=== PATIENT | male | born 1955 | race Caucasian/White ===

== ENCOUNTER 2019-04-30 21:48 | Emergency (ER) | payer MEDICARE ==
--- OUTSIDE RECORDS SUMMARY | 2019-04-30 21:50 | XMS REPORT | Summary of Care ---
:1955 Author Organization [facility] Address [address] [place] [address] Care Team Providers Name Role Phone Mary Weston MD Primary Care Provider Opal Nicolas RN Primary Nurse Unavailable Opal Nicolas RN Primary Nurse Unavailable Reason for Referral (Routine) Status Reason Specialty Diagnoses / Referred By Referred To Procedures Contact Contact New Request Location Otolaryngology Diagnoses Rhinorrhea Neelam Weston, Preference Procedures CONSULT/REFERRAL OTOLARYNGOLOGY Mark Cheatham/Pc p Prov Not [address] [facility] [address] [address] Reason for Visit Reason Comments Hospital F/U [facility] 03/07/2019 (Routine) Status Reason Specialty Diagnoses / Referred By Referred To Procedures Contact Contact Closed Internal Medicine Diagnoses Dex Hilliard MD Jaramillo, Procedures Discharge Follow-up: PCP MAYR WESTON; 3-[address] [place] [address] Mary Valladares MD [facility] [address] [facility] [place] [phone] [place], [place] Phone: [phone] Phone: Encounter Details Date Type Department Care Team Description 03/19/2019 Office Visit [facility] Weston, Asymptomatic microscopic hematuria (Primary Dx); Pediatric and Adult Mary Valladares MD Rhinorrhea; Primary Care- [address] [place] [address] Chronic gout without tophus, unspecified cause, unspecified site; [facility] [address] Iron deficiency anemia due to chronic blood loss; [address], [place] [address] Epigastric pain; [address] Weakness; [place], [place] Arthritis; [id number] Urinary frequency [phone] Allergies Active Allergy Reactions Severity Noted Date Comments Pregabalin Unknown - See comments 04/13/2018 Affected thinking processes severely Morphine Other - See comments 03/23/2016 Severe confusion Montelukast Hives 03/19/2019 documented as of this encounter (statuses as of 03/23/2019) Medications Medication Sig Dispensed Refills Start End Date Status Date nitroglycerin 0.[address] 1 tablet 1 Bottle 2 Active sublingual tablet under the 7 tongue every 5 (five) minutes as needed for Chest pain. carvedilol 12.5 mg Take 1 tablet 180 tablet 3 Active tabletIndications: by mouth 2 8 Essential (two) times hypertension, benign daily with meals. levothyroxine 150 mcg Take 1 tablet 90 tablet 3 Active tabletIndications: by mouth every 8 Acquired morning. hypothyroidism rosuvastatin 40 mg Take 1 tablet 90 tablet 3 Active tablet by mouth at 8 bedtime. tamsulosin 0.4 mg 24 Take 1 capsule 90 capsule 3 Active hr by mouth 8 capsuleIndications: daily. Urinary symptom or sign gabapentin 300 mg Take 3 270 capsule 3 Active capsuleIndications: capsules by 8 Cervical myelopathy, mouth 3 Neck pain (three) times daily. furosemide 80 mg Take 1 tablet 180 tablet 1 Active tablet by mouth every 8 morning and evening. blood sugar Use TID, DX 100 Box Active diagnostic strip E11.9 (Brand 9 upon insurance approval) Accu-chek guide magnesium oxide 400 Take 1 tablet 30 tablet 11 Active mg (241.3 mg by mouth 9 magnesium) daily. tabletIndications: Hypomagnesemia KCL 20 mEq Take 1 tablet 60 tablet Active tabletIndications: by mouth 2 9 Essential (two) times hypertension daily. lisinopril 5 mg Take 1 tablet 60 tablet 3 Active tabletIndications: by mouth 2 9 Essential (two) times hypertension daily. metFORMIN 500 mg Take 1 tablet 60 tablet 3 Active tabletIndications: by mouth 2 9 Type 2 diabetes (two) times mellitus with daily with diabetic meals. polyneuropathy, without long-term current use of insulin Olopatadine 0.2 % Place 1 Drop 2.5 mL 3 Active ophthalmic in each eye 9 dropsIndications: daily. Nasal discharge with watery eyes GLIPIZIDE 5 mg TAKE 1 TABLET 180 tablet 1 Active tabletIndications: BY MOUTH TWICE 9 Type 2 diabetes DAILY . mellitus with BEFORE diabetic BREAKFAST AND polyneuropathy, DINNER. without long-term current use of insulin HYDRALAZINE 100 mg TAKE 1 TABLET 90 tablet 7 Active tabletIndications: BY MOUTH EVERY 9 Essential 8 HOURS hypertension, benign amLODIPine 10 mg Take 10 mg by 0 Active tablet mouth daily. pantoprazole 40 mg EC Take 1 tablet 60 tablet 5 Active tabletIndications: by mouth 2 9 Upper GI bleeding (two) times daily. sucralfate 1 gram Take 1 tablet 120 tablet 2 Active tabletIndications: by mouth 9 Upper GI bleeding before meals and at bedtime. ranitidine 300 mg Take 1 tablet 90 tablet 3 Active tabletIndications: by mouth at 9 Gastroesophageal bedtime. reflux disease, esophagitis presence not specified montelukast Take 1 tablet 30 tablet 3 03/19/20 Discontinued (SINGULAIR) 10 mg by mouth at 9 19 tabletIndications: bedtime. Nasal discharge with watery eyes traMADOL 50 mg Take 1 tablet 8 tablet 0 03/19/20 Discontinued tabletIndications: by mouth every 9 19 Upper GI bleeding 6 (six) hours as needed for Pain (scale 4-6) or Pain (scale 7-10). documented as of this encounter (statuses as of 03/23/2019) Active Problems Problem Noted Date Infection 03/09/2019 Iron deficiency anemia, unspecified iron deficiency anemia type 03/07/2019 Overview: Added automatically from request for surgery [id number] Upper GI bleeding 03/01/2019 Dysarthria 07/24/2018 Dysphagia, unspecified type 07/24/2018 Overview: Added automatically from request for surgery [id number] Hypokalemia 06/02/2018 GARIBAY (dyspnea on exertion) 06/02/2018 Melena 05/05/2018 Hypertensive urgency 05/02/2018 Nausea & vomiting 05/01/2018 Weakness 01/29/2018 Confusion 01/26/2018 Coronary artery disease involving [place] coronary artery of [place] heart 06/14 without angina pectoris Carotid artery disease, unspecified laterality 05/29/2017 Myelinated optic nerve fiber layer, left 12/21/2016 Cataracts, both eyes 12/21/2016 [place] retinal degeneration, bilateral 12/21/2016 Hypertensive retinopathy of both eyes 12/21/2016 Diabetes mellitus type 2 without retinopathy 12/21/2016 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 12/21/2016 Exudative age-related macular degeneration of right eye 12/21/2016 Chronic diastolic congestive heart failure 10/10/2016 Obesity (BMI 30-39.9) 10/10/2016 Acquired hypothyroidism 04/18/2016 Osteoarthritis 04/18/2016 Overview: Overview: cervical stenosis Essential hypertension 04/18/2016 Overview: Overview: Increase activity and Weight loss counseling if needed, [place] Heart diet, Home monitoring of blood pressures, Follow up with primary provider Medications: carvedilol, clonidine, lisinopril, spironolactone, furosemide Hyperlipidemia 04/18/2016 Overview: Overview: Increase activity, [place] Heart diet, monitoring of levels by primary provider, continue medication of: pravastatin Obstructive sleep apnea syndrome 04/18/2016 Overview: Overview: Patient counseled about effects of sleep apnea including Hypertension, stroke, hypoxia, increasing risk of Afib, CHF and daytime fatigue. Current Treatment: CPAP at 12 cm of water Cervical myelopathy 10/23/2015 Overview: Overview: 12/01/2015 Camilo Medellin 1. Anterior cervical pcomplete corpectomy of C5 2. Placement of intervertebral devices, 4-6 (titanium JOLENE distractable cage ). 3. Anterior cervical instrumentation,c(titanium globus extend plate). 4. Anterior cervical arthrodesis C5 Neck pain 10/23/2015 Benign prostatic hyperplasia without urinary obstruction 10/10/2013 Overview: Overview: Type 2 diabetes mellitus with neurologic complication Renal cyst Overview: seen on CT 06/2017. needs repeat imaging in 6 months. also with exophytic mass. documented as of this encounter (statuses as of 03/23/2019) Resolved Problems Problem Noted Date Resolved Date Abdominal pain 06/27/2017 07/02/2017 Chest pain 05/29/2017 06/18/2017 Hypertensive urgency 05/29/2017 06/18/2017 Hypertensive crisis 04/08/2017 06/18/2017 Hypertensive emergency 04/07/2017 06/18/2017 Dry eyes, bilateral 12/21/2016 10/22/2017 Pneumonia due to infectious organism 10/10/2016 10/19/2016 Acute on chronic diastolic congestive heart failure 04/18/2016 06/18/2017 Overview: Overview: Chronic Heart Failure -- diurese prn -- echo prn -- continue asa, statin, leeanne/arb, bb and titrate as appropriate -- salt restricted/fluid restricted diet Chronic respiratory failure 04/18/2016 06/18/2017 Overview: Overview: Patient counseled about effects of sleep apnea including Hypertension, stroke, hypoxia, increasing risk of Afib, CHF and daytime fatigue. Current Treatment: compliant on CPAP Coronary arteriosclerosis in [place] artery 04/18/2016 07/02/2017 Hypertension 04/18/2016 10/19/2016 Morbid obesity 04/18/2016 07/02/2017 Overview: Overview: Counseling on diet and exercise Sleep apnea 04/18/2016 10/19/2016 Type 2 diabetes mellitus 04/18/2016 10/19/2016 Overview: Overview: [place] Diabetic Diet, monitor blood glucose levels, Diabetic education, Monitor Hbg A1C levels, Follow up with primary Physician post discharge. Meds: metformin Postoperative hematoma 12/13/2015 10/19/2016 Shoulder pain 12/13/2015 10/19/2016 Occlusion of carotid artery 12/08/2015 06/18/2017 Drug-induced constipation 12/02/2015 06/18/2017 Musculoskeletal chest pain 12/02/2015 10/19/2016 Dorsopathy 07/07/2015 07/02/2017 Disorder of joint 07/29/2014 06/18/2017 Osteoarthritis of ankle or foot 11/29/2013 06/18/2017 Sciatica 10/10/2013 10/19/2016 Peripheral neuropathy 10/07/2013 10/19/2016 Overview: Overview: On gabapentin documented as of this encounter (statuses as of 03/23/2019) Immunizations Name Administration Dates Next Due Influenza Virus Vaccine 05/10/2014 Influenza Virus Vaccine Quad .5 mL IM 6+ MO 06/03/2018 Influenza Virus Vaccine Quad IM 3+ YRS 06/02/2017, 06/06/2016 Pneumococcal Polysaccharide, PPSV23 (PNEUMOVAX) 12/08/2012 documented as of this encounter Social History Tobacco Use Types Packs/Day Years Used Date Former Smoker 1.5 30 Quit: 10/19/2006 Smokeless Tobacco: Never Used Alcohol Use Drinks/Week oz/Week Comments No 0 Standard drinks or equivalent 0.0 Sex Assigned at Date Recorded Not on file Job Start Date Occupation Industry Not on file Not on file Not on file Travel History Travel Start Travel End No recent travel history available. documented as of this encounter Last Filed Vital Signs Vital Sign Reading Time Taken Comments Blood Pressure 137/63 03/19/2019 7:08 AM CDT Pulse 75 03/19/2019 7:04 AM CDT Temperature 36.9 C (98.5 F) 03/19/2019 7:04 AM CDT Respiratory Rate 18 03/19/2019 7:04 AM CDT Oxygen Saturation 97% 03/19/2019 7:04 AM CDT Inhaled Oxygen Concentration - - Weight 102.4 kg (225 lb 11.2 oz) 03/19/2019 7:04 AM CDT Height - - Body Mass Index 35.35 03/08/2019 4:33 AM CDT documented in this encounter Patient Instructions Patient InstructionsAlea Delgado - 03/19/2019 7:00 AM CDTStart 50mg of vitamin B1. These are safe antiinflammatories for you stomach: Tylenol 650mg 2 pills 3 times a day is the absolute maximum dose. Boswellia Maryann 600 mg 1-2 times daily. Turmeric 500 mg twice a day. If you get heartburn decrease to once daily. Turmeric may also cause increased bleeding and bruising. Get the turmeric with black pepper. Black pepper helps with the absorption of turmeric. 1/4 teaspoon of cinnamon daily. You can find these at "[facility]" located at [address] [place] [address] [address], [place], [place] [email or web address] signed by Alea Delgado at 03/19/2019 7: 38 AM CDT documented in this encounter Progress Notes Mary Weston MD - 03/19/2019 7:00 AM CDT Transitional Care Management: [id number]-[id number] Visit 03/19/2019 Rafi Srivastava is a 63 year old male that was admitted on 03/07/[address] He was discharged on 03/14/19 with a discharge disposition of HR- Routine Discharge. Rafi is here today for a hospital follow-up/transitional care management visit. TCM Outreach Completed: 03/15/19 CC: Hospital F/U ([facility] 03/07/2019) Patient states he was in the hospital for bleeding, he had anemia. He states before the hospital visit he noticed black stools but he was taking iron so he didn't know he was bleeding. He states he lost so much blood he felt weak and couldn't walk. Patient states when he tried to walk his legs were shaking. During the hospital visit he states he started having stomach pain. He states he still has some tenderness to his stomach today. He states he had 4 blood infusions and did a colonoscopy and capsule endoscopy. He states he hasn't passed the capsule yet. Patient states he takes sucralfate before he eats which seems to help. He states he was given singulair and broke out in hives. He did not find any relief with other allergy medications. He states when he goes out to eat he gets embarrassed because of his runny nose. Patient states he has arthritis pain in his hands. He does not take any otc antiinflammatories. Patient states he has urinary frequency due to taking lasix. He states after 2- 3 hours frequency goes away. He denies pain with urination. Allergies Rafi is allergic to lyrica [pregabalin]; morphine; and singulair [montelukast ]. Medications Outpatient Medications Prior to Visit Medication Sig Dispense Refill ranitidine 300 mg tablet Take 1 tablet by mouth at bedtime. 90 tablet 3 pantoprazole 40 mg EC tablet Take 1 tablet by mouth 2 (two) times daily. 60 tablet 5 sucralfate 1 gram tablet Take 1 tablet by mouth before meals and at bedtime. 120 tablet 2 amLODIPine 10 mg tablet Take 10 mg by mouth daily. HYDRALAZINE 100 mg tablet TAKE 1 TABLET BY MOUTH EVERY 8 HOURS 90 tablet 7 GLIPIZIDE 5 mg tablet TAKE 1 TABLET BY MOUTH TWICE DAILY . BEFORE BREAKFAST AND DINNER. 180 tablet 1 metFORMIN 500 mg tablet Take 1 tablet by mouth 2 (two) times daily with meals. 60 tablet 3 Olopatadine 0.2 % ophthalmic drops Place 1 Drop in each eye daily. 2.5 mL 3 lisinopril 5 mg tablet Take 1 tablet by mouth 2 (two) times daily. 60 tablet 3 KCL 20 mEq tablet Take 1 tablet by mouth 2 (two) times daily. 60 tablet 11 magnesium oxide 400 mg (241.3 mg magnesium) tablet Take 1 tablet by mouth daily. 30 tablet 11 blood sugar diagnostic strip Use TID, DX E11.9 (Brand upon insurance approval) Accu-chek guide 100 Box 11 furosemide 80 mg tablet Take 1 tablet by mouth every morning and evening. 180 tablet 1 gabapentin 300 mg capsule Take 3 capsules by mouth 3 (three) times daily. 270 capsule 3 carvedilol 12.5 mg tablet Take 1 tablet by mouth 2 (two) times daily with meals. 180 tablet 3 levothyroxine 150 mcg tablet Take 1 tablet by mouth every morning. 90 tablet 3 rosuvastatin 40 mg tablet Take 1 tablet by mouth at bedtime. 90 tablet 3 tamsulosin 0.4 mg 24 hr capsule Take 1 capsule by mouth daily. 90 capsule 3 nitroglycerin 0.[address] 1 tablet under the tongue every 5 (five) minutes as needed for Chest pain. 1 Bottle 2 traMADOL 50 mg tablet Take 1 tablet by mouth every 6 (six) hours as needed for Pain (scale 4-6) or Pain (scale 7-10). 8 tablet 0 montelukast (SINGULAIR) 10 mg tablet Take 1 tablet by mouth at bedtime. 30 tablet 3 No facility-administered medications prior to visit. Histories Past Medical History: Diagnosis Date BPH (benign prostatic hyperplasia) Carotid artery disease 50% blocked both side maybe in 2014. CHF (congestive heart failure) s/p 2 stents History of carpal tunnel syndrome HLD (hyperlipidemia) HTN (hypertension) Hypothyroidism Left bundle branch block MN (myocardial infarction) 10/2017 had one, stent placed then later another put on top of it. Osteoarthritis involving multiple joints on both sides of body Pneumonia Renal cyst seen on CT 06/2017. needs repeat imaging in 6 months. also with exophytic mass. Type 2 diabetes mellitus with neurologic complication Past Surgical History: Procedure Laterality Date COLONOSCOPY N/A 03/12/2019 Surgeon: Juan José Pantoja MD; Location: [facility] ([facility]) OR Location ESOPHAGOGASTRODUODENOSCOPY N/A 05/02/2018 Surgeon: Shayy Hernandez MD; Location: [facility] OR Location ESOPHAGOGASTRODUODENOSCOPY N/A 07/27/2018 Surgeon: Aleksey Castellano MD; Location: Endoscopy ([facility]) OR Location ESOPHAGOGASTRODUODENOSCOPY Left 03/04/2019 Surgeon: Tierney Castellano MD; Location: [facility]oscopy ([facility]) OR Location LEG/ANKLE SURGERY PROC UNLISTED Left around 2011 reconstruction of left ankle MAXILLOFACIAL FIXATION OPEN CARPAL TUNNEL RELEASE Left 2015 PILL CAM (SHX) N/A 03/13/2019 Surgeon: Juan José Pantoja MD; Location: Endoscopy ([facility]) OR Location SPINE SURGERY 11/2015 Social History Socioeconomic History Marital status: Spouse name: Not on file Number of children: Not on file Years of education: Not on file Highest education level: Not on file Occupational History Occupation: disabled Social Needs Financial resource strain: Not on file Food insecurity: Worry: Not on file Inability: Not on file Transportation needs: Medical: Not on file Non-medical: Not on file Tobacco Use Smoking status: Former Smoker Packs/day: 1.50 Years: 30.00 Pack years: 45.00 Last attempt to quit: 10/19/2006 Years since quittin.4 Smokeless tobacco: Never Used Substance and Sexual Activity Alcohol use: No Alcohol/week: 0.0 oz Drug use: No Sexual activity: Not on file Lifestyle Physical activity: Days per week: Not on file Minutes per session: Not on file Stress: Not on file Relationships Social connections: Talks on phone: Not on file Gets together: Not on file Attends moravian service: Not on file Active member of club or organization: Not on file Attends meetings of clubs or organizations: Not on file Relationship status: Not on file Intimate partner violence: Fear of current or ex partner: Not on file Emotionally abused: Not on file Physically abused: Not on file Forced sexual activity: Not on file Other Topics Concern Not on file Social History Narrative History of multiple neck surgeries and on current opioid therapy. Currently disabled but has not started receiving medicare yet. Currently no insurance. Family History Problem Relation Age of Onset Cancer Mother Diabetes Mother Glaucoma Father Macular degeneration Father Blindness NoFHx Review of Systems HENT: Positive for rhinorrhea. Gastrointestinal: Positive for abdominal pain and blood in stool. Genitourinary: Positive for frequency (due to lasix ). Negative for dysuria. Musculoskeletal: Positive for arthralgias. Neurological: Positive for weakness. Physical Exam Constitutional: He is oriented to person, place, and time. He appears well- developed and well-nourished. HENT: Head: Normocephalic and atraumatic. Nose: Nose normal. No tracheal deviation. Eyes: Lids are normal. Right eye exhibits no discharge. Left eye exhibits no discharge. No scleral icterus. Eyelids normal. Cardiovascular: Normal rate, regular rhythm and normal heart sounds. Exam reveals no gallop and no friction rub. No murmur heard. Pulmonary/Chest: Effort normal and breath sounds normal. No respiratory distress. He has no wheezes.He has no rales. Abdominal: Normal appearance. GI system: Soft. No distension, bowel sounds are normal. There is no tenderness. Neurological: He is alert and oriented to person, place, and time. Skin: Skin is warm and dry. No rash noted. Psychiatric: He has a normal mood and affect. His speech is normal and behavior is normal. Vitals reviewed. Vitals: 03/19/19 0704 03/19/19 0708 BP: (!) 163/70 137/63 BP Location: Left arm Right arm Patient Position: Sitting Sitting BP CUFF SIZE: Adult Medium Adult Medium Pulse: 75 Resp: 18 Temp: 36.9 C (98.5 F) TempSrc: Oral SpO2: 97% Weight: 225 lb 11.2 oz (102.4 kg) Education & Visit Time: this visit involved counseling and coordination of care that comprised more than 50% of the visit time. I spent at least 40 minutes total time with the patient. Of that time, at least 1 minutes was spent on exam, and at least 39 minutes was spent obtaining history and counseling the patient regarding risks and benefits of treatment, treatment options and prevention. Assessment/Plan Asymptomatic microscopic hematuria (primary encounter diagnosis) Comment: will check labs. Plan: URINALYSIS, URINE CULTURE Rhinorrhea Comment: rhinorrhea not controlled. Ipratropium 0.06% did not help at all. He cannot go out to eat as nose runs severely with eating. Referral sent. Plan: CONSULT/REFERRAL OTOLARYNGOLOGY Chronic gout without tophus, unspecified cause, unspecified site Comment: will check labs. Plan: URIC ACID Iron deficiency anemia due to chronic blood loss Comment: will check labs. He is following with GI and taking medications as prescribed. He is feeling better. Plan: CBC WITH DIFF Epigastric pain Comment: he has gastritis and a Biospy was sent to be tested for H.Pylori. Needs to see GI as pillcam stayed in the stomach during it's transmitting. Plan: discussed with patient to continue antacids and to followed with GI. Weakness Comment: most likely due to anemia. Plan: will check labs. Arthritis Comment: patient complains of arthritis pain. Plan: discussed turmeric and boswellia. He will wait on turmeric for now, discussed before he left, but boswellia is ok to take. Urinary frequency Comment: he denies pain with urination. He states frequency is due to taking lasix. Plan: monitor. Will check for low grade infection just to make sure. I certify that the following are true: Discharge records, pending tests and lab results reviewed: Yes, went over colonoscopy and capsule endoscopy with patient and partner. Medications reviewed and reconciled: Yes Patient education provided to: patient and partner Follow-up arranged with other healthcare providers needed in patient's care: Yes Established applicable referrals: N/A Complexity of medical decision making is: Medium Linked Episodes Type: Episode: Status: Noted: Resolved: Last update: Updated by: TRANSITION OF CARE tcm Active 03/14/2019 03/15/2019 5:13 PM Radha Pedro, RADHA Comments:03/14/2019 Scribe's Attestation IAlea , am scribing for, and in the presence of, Mary Weston MD who performed the services described here-in. Alea Delgado, March 19, 2019, 7:24 AM Physician's Attestation Mary Wahl MD, personally performed the services described in this documentation , asscribed by, Alea Delgado in my presence and it is both accurate and complete. Mary Weston MD March 23, 2019, 10:03 PM documented in this encounter Plan of Treatment Date Type Specialty Care Team Description 04/08/2019 Office Visit Gastroenterology Zabrina Rincon, [facility] [address] [facility] [address] [place] [address] [phone] 04/11/2019 Office Visit Internal Medicine Mary Weston MD [address] [place] [address] Dr [address] [place] [address] [phone] Name Type Priority Associated Diagnoses Order Schedule CBC WITH DIFF LAB Routine Iron deficiency anemia due to 10 Occurrences starting chronic blood loss 03/19/2019 until 03/18/2020 URIC ACID LAB Routine Chronic gout without tophus, Ordered: 03/19/2019 unspecified cause, unspecified site Health Maintenance Due Date Last Done Comments LUNG CANCER SCREEN: 01/31/2019 01/31/2018 Recommended for age 55-80 with 30 + pack year history LDL-C 03/05/2019 03/05/2018, 10/12/2016 URINE MICROALBUMIN 04/13/2019 04/13/2018, 03/05/2018 INFLUENZA VACCINE 04/28/2019 06/03/2018, 06/02/2017, 06/06/2016, Additional history exists HgA1C 07/10/2019 01/07/2019, 09/03/2018, 01/26/2018, Additional history exists EYE EXAM 08/01/2019 08/01/2018, 03/02/2017, 02/09/2017, Additional history exists DTaP,Tdap,and Td Vaccines 09/03/2019 Postponed from (1 - Tdap) 1973 (Alternative Guidelines) Zoster Recombinant Vaccine 09/03/2019 Postponed from (SHINGRIX) (1 of 2) 2004 (Alternative Guidelines) FOOT EXAM 09/19/2019 09/19/2018, 09/19/2018, 10/18/2016 (Previously completed) COLON CANCER SCREENING 03/09/2020 03/09/2019, 03/06/2018, ANNUAL FIT/FOBT 01/26/2018 (Previously completed) CREATININE (SERUM) 03/14/2020 03/14/2019, 03/13/2019, 03/12/2019, Additional history exists HEPATITIS C (HCV) SCREEN Completed 09/10/2010 PNEUMOCOCCAL 0-64 YEARS Completed 12/08/2012 COMBINED SERIES documented as of this encounter Implants Implanted Type Area Stock Or Delivery Clerk Device Identifier Shelf Expiration Model / Serial Date / Lot Plate PLATE Neck Alana ALANA Leg documented as of this encounter Procedures Procedure Name Priority Date/Time Associated Diagnosis Comments URINE CULTURE Routine 03/19/2019 8:05 AM Asymptomatic Results for this CDT microscopic hematuria procedure are in the results section. URINALYSIS Routine 03/19/2019 8:05 AM Asymptomatic Results for this CDT microscopic hematuria procedure are in the results section. documented in this encounter Results URINE CULTURE (03/19/2019 8:05 AM CDT) URINE CULTURE No aerobic growth [facility] (< 1000 CFU/mL) SERVICES Specimen Urine - URINE, UNSPECIFIED SOURCE Performing Organization Address City/[facility] Centercode Phone Number [facility] CLIA: [id number], [address] [place] [address] Formerly [facility] URINALYSIS (03/19/2019 8:05 AM CDT) APPEARANCE Clear Clear [facility] COLOR Colorless (A) Yellow [facility] PH 6.5 4.8 - 8.0 [facility] SP GRAVITY 1.010 1.003 - 1.030 [facility] GLU U QUAL Negative Negative [facility] BLOOD Negative Negative [facility] KETONES Negative Negative [facility] PROTEIN Negative Negative [facility] UROBILIN 0.2 mg/dL 0-1.0 mg/dL [facility] BILIRUBIN Negative Negative [facility] NITRITE Negative Negative [facility] LEUK RADHA Negative Negative [facility] RBC/HPF 0 0 - 3 HPF [facility] WBC/HPF 0 0 - 5 HPF [facility] BACTERIA Negative Negative [facility] AMORPHOUS 1+ HPF [facility] Specimen Urine Performing Organization Address City/[facility] Centercode Phone Number [facility] CLIA: [id number], [address] [place] [address] documented in this encounter Visit Diagnoses Diagnosis Asymptomatic microscopic hematuria - Primary Rhinorrhea Other diseases of nasal cavity and sinuses Chronic gout without tophus, unspecified cause, unspecified site Iron deficiency anemia due to chronic blood loss Iron deficiency anemia secondary to blood loss (chronic) Epigastric pain Abdominal pain, epigastric Weakness Other malaise and fatigue Arthritis Arthropathy, unspecified, site unspecified Urinary frequency documented in this encounter Insurance Payer Benefit Plan / Subscriber ID Effective Phone Address Type Group Dates [place] AARP MEDICARE [id number] 2018-Prese Medicare Adv HEALTHCARE - COMPLETE nt HMO MANAGED MEDICARE documented as of this encounter Advance Directives Name Relationship Healthcare Agent Communication Relationship Pennie Carola Spouse Primary healthcare agent
--- OUTSIDE RECORDS SUMMARY | 2019-04-30 21:51 | XMS REPORT | Summary of Care ---
:1955 Author Organization [facility] Address [address] [place] [address] Care Team Providers Name Role Phone Mary Weston MD Primary Care Provider Opal Nicolas RN Primary Nurse Unavailable Opal Nicolas RN Primary Nurse Unavailable Reason for Referral (Routine) Status Reason Specialty Diagnoses / Referred By Referred To Procedures Contact Contact New Request Location Otolaryngology Diagnoses Rhinorrhea Neelam Weston, Preference Procedures CONSULT/REFERRAL OTOLARYNGOLOGY Mark Cheatham/Pc p Prov Not [address] [facility] [address] [address] Reason for Visit Reason Comments Hospital F/U [facility] 03/07/2019 (Routine) Status Reason Specialty Diagnoses / Referred By Referred To Procedures Contact Contact Closed Internal Medicine Diagnoses Dex Hilliard MD Jaramillo, Procedures Discharge Follow-up: PCP MARY WESTON; 3-[address] [place] [address] Mary Valladares MD [facility] [address] [facility] [place] [id number] [place], [place] Phone: [phone] Phone: Encounter Details Date Type Department Care Team Description 03/19/2019 Office Visit [facility] Weston, Asymptomatic microscopic hematuria (Primary Dx); Pediatric and Adult Mary Valladares MD Rhinorrhea; Primary Care- [address] [place] [address] Chronic gout without tophus, unspecified cause, unspecified site; [facility] [address] Iron deficiency anemia due to chronic blood loss; [address], [place] [address] Epigastric pain; [address] Weakness; [place], [place] Arthritis; [id number] Urinary frequency [phone] Allergies Active Allergy Reactions Severity Noted Date [...] Overview: Added automatically from request for surgery [id number] Upper GI bleeding 03/01/2019 Dysarthria 07/24/2018 Dysphagia, unspecified type 07/24/2018 Overview: Added automatically from request for surgery [id number] Hypokalemia 06/02/2018 GARIBAY (dyspnea on exertion) 06/02/2018 Melena 05/05/2018 Hypertensive urgency 05/02/2018 Nausea & vomiting 05/01/2018 Weakness 01/29/2018 Confusion 01/26/2018 Coronary artery disease involving [place] coronary artery of [place] heart 06/14 without angina pectoris Carotid artery [...] activity and Weight loss counseling if needed, [place] Heart diet, Home monitoring of blood pressures, Follow up with primary provider Medications: carvedilol, clonidine, lisinopril, spironolactone, furosemide Hyperlipidemia 04/18/2016 Overview: Overview: Increase activity, [place] Heart diet, monitoring of levels by primary [...] Treatment: compliant on CPAP Coronary arteriosclerosis in [place] artery 04/18/2016 07/02/2017 Hypertension 04/18/2016 10/19/2016 Morbid obesity 04/18/2016 07/02/2017 Overview: Overview: Counseling on diet and exercise Sleep apnea 04/18/2016 10/19/2016 Type 2 diabetes mellitus 04/18/2016 10/19/2016 Overview: Overview: Estonian Diabetic Diet, monitor blood glucose levels, Diabetic [...] find these at "[facility]" located at [address] [place] [address] [address], [place], [place] [email or web address] signed by Alea Delgado at 03/19/2019 7: 38 AM CDT documented in this encounter Progress Notes Mary Weston MD - 03/19/2019 7:00 AM CDT Transitional Care Management: [id number] Visit 03/19/2019 Rafi Srivastava is a 63 year old male that was admitted on 03/07/[address] He was discharged on 03/14/19 with a discharge disposition of HR- Routine Discharge. Rafi is here today for a hospital follow-up/transitional care management visit. TCM Outreach Completed: 03/15/19 CC: Hospital F/U ([facility] 03/07/2019) Patient states he [...] HTN (hypertension) Hypothyroidism Left bundle branch block MD (myocardial infarction) 10/2017 had one, stent placed [...] N/A 05/02/2018 Surgeon: Shayy Hernandez MD; Location: [facility] OR Location ESOPHAGOGASTRODUODENOSCOPY N/A 07/27/2018 Surgeon: Aleksey [...] file Gets together: Not on file Attends evangelical service: Not on file Active member of [...] Description 04/08/2019 Office Visit Gastroenterology Zabrina Rincon, [facility] [address] [facility] [address] [place] [address] [phone] 04/11/2019 Office Visit Internal Medicine Mary Weston MD [address] [place] [address] Dr [address] [place] [address] [phone] Name Type Priority Associated Diagnoses Order Schedule [...] of this encounter Implants Implanted Type Area Lockstitch Tunnel Elastic Operator Device Identifier Shelf Expiration Model / Serial [...] AM CDT) URINE CULTURE No aerobic growth [facility] (< 1000 CFU/mL) SERVICES Specimen Urine - URINE, UNSPECIFIED SOURCE Performing Organization Address City/[facility] Hospitalcode Phone Number [facility] CLIA: [id number], [address] [place] [address] [phone] [facility] URINALYSIS (03/19/2019 8:05 AM CDT) APPEARANCE Clear Clear [facility] COLOR Colorless (A) Yellow [facility] PH 6.5 4.8 - 8.0 [facility] SP GRAVITY 1.010 1.003 - 1.030 [facility] GLU U QUAL Negative Negative [facility] BLOOD Negative Negative [facility] KETONES Negative Negative [facility] PROTEIN Negative Negative [facility] UROBILIN 0.2 mg/dL 0-1.0 mg/dL [facility] BILIRUBIN Negative Negative [facility] NITRITE Negative Negative [facility] LEUK RADHA Negative Negative [facility] RBC/HPF 0 0 - 3 HPF [facility] WBC/HPF 0 0 - 5 HPF [facility] BACTERIA Negative Negative [facility] AMORPHOUS 1+ HPF [facility] Specimen Urine Performing Organization Address City/[facility] Hospitalcode Phone Number [facility] CLIA: [id number], [address] [place] [address] documented in this encounter [...] Address Type Group Dates [place] AARP MEDICARE [id number] 2018-Prese Medicare Adv HEALTHCARE - COMPLETE nt HMO MANAGED MEDICARE documented as of this encounter Advance Directives Name Relationship Healthcare Agent Communication Relationship Pennie Carola Spouse Primary healthcare agent
--- OUTSIDE RECORDS SUMMARY | 2019-04-30 21:51 | XMS REPORT | Summary of Care ---
:1955 Author Organization [facility] - Health Address [address] [place] [address] Care Team Providers Name Role Phone Mary Weston MD Primary Care Provider Opal Nicolas RN Primary Nurse Unavailable Opal Nicolas RN Primary Nurse Unavailable Reason for Visit Reason Comments Refill Request Encounter Details Date Type Department Care Team Description 03/25/2019 Refill [facility] Pediatric and Mary Weston, Refill Request Adult Primary Care- [place] [address] [place] [address], [address] [place] [address] [place] [phone] Allergies Active Allergy Reactions Severity Noted Date Comments Pregabalin Unknown - See comments 04/13/2018 Affected thinking processes severely Morphine Other - See comments 03/23/2016 Severe confusion Montelukast Hives 03/19/2019 documented as of this encounter (statuses as of 03/25/2019) Medications Medication Sig Dispensed Refills Start End [...] mouth 3 Neck pain (three) times daily. blood sugar Use TID, DX 100 Box 11 Active diagnostic strip E11.9 (Brand 9 upon insurance approval) Accu-chek guide magnesium oxide 400 Take 1 tablet 30 tablet 11 Active mg (241.3 mg by mouth 9 magnesium) daily. tabletIndications: Hypomagnesemia KCL 20 mEq Take 1 tablet 60 tablet 11 Active tabletIndications: by mouth 2 9 Essential [...] bedtime. reflux disease, esophagitis presence not specified furosemide 80 mg Take 1 tablet 60 tablet 11 Active tabletIndications: by mouth every 9 Coronary artery morning and disease involving evening. [place] coronary artery of [place] heart without angina pectoris furosemide 80 mg Take 1 tablet 180 tablet 1 03/25/20 Discontinued tablet by mouth every 8 19 morning and evening. documented as of this encounter (statuses as of 03/25/2019) Active Problems Problem Noted Date Infection 03/09/2019 Iron deficiency anemia, unspecified iron deficiency anemia type 03/07/2019 Overview: Added automatically from request for surgery [id number] Upper GI bleeding 03/01/2019 Dysarthria 07/24/2018 Dysphagia, unspecified type 07/24/2018 Overview: Added automatically from request for surgery [id number] Hypokalemia 06/02/2018 GARIBAY (dyspnea on exertion) 06/02/2018 Melena 05/05/2018 Hypertensive urgency 05/02/2018 Nausea & vomiting 05/01/2018 Weakness 01/29/2018 Confusion 01/26/2018 Coronary artery disease involving [place] coronary artery of [place] heart 06/14 without angina pectoris Carotid artery [...] activity and Weight loss counseling if needed, [place] Heart diet, Home monitoring of blood pressures, Follow up with primary provider Medications: carvedilol, clonidine, lisinopril, spironolactone, furosemide Hyperlipidemia 04/18/2016 Overview: Overview: Increase activity, [place] Heart diet, monitoring of levels by primary [...] as of this encounter (statuses as of 03/25/2019) Resolved Problems Problem Noted Date Resolved Date [...] Treatment: compliant on CPAP Coronary arteriosclerosis in [place] artery 04/18/2016 07/02/2017 Hypertension 04/18/2016 10/19/2016 Morbid obesity 04/18/2016 07/02/2017 Overview: Overview: Counseling on diet and exercise Sleep apnea 04/18/2016 10/19/2016 Type 2 diabetes mellitus 04/18/2016 10/19/2016 Overview: Overview: Brazilian Diabetic Diet, monitor blood glucose levels, Diabetic [...] as of this encounter (statuses as of 03/25/2019) Immunizations Name Administration Dates Next Due Influenza [...] of this encounter Last Filed Vital Signs Not on filedocumented in this encounter Plan of Treatment Date Type Specialty Care Team Description 04/08/2019 Office Visit Gastroenterology Zabrina Rincon, ACNP [address] [facility] [address] [place] [address] [phone] 04/11/2019 Office Visit Internal Medicine Mary Weston MD [address] [place] [address] [place] [address] [phone] Health Maintenance Due Date Last Done Comments [...] of this encounter Implants Implanted Type Area Staff Counselor Device Identifier Shelf Expiration Model / Serial Date / Lot Plate PLATE Neck Alana ALANA Leg documented as of this encounter Results Not on filedocumented in this encounter Visit Diagnoses Diagnosis Coronary artery disease involving [place] coronary artery of [place] heart without angina pectoris - Primary documented in this encounter Insurance Payer Benefit Plan / Subscriber ID Effective Phone Address Type Group Dates [place] AARP MEDICARE [id number] 2018-Prese Medicare Adv HEALTHCARE - COMPLETE nt [facility] MANAGED MEDICARE documented as of this encounter Advance Directives Name Relationship Healthcare Agent Communication Relationship Pennie Srivastava Spouse Primary healthcare agent
--- OUTSIDE RECORDS SUMMARY | 2019-04-30 21:51 | XMS REPORT | Summary of Care ---
:1955 Author Organization [facility] Address [address] [place] [address] Care Team Providers Name Role Phone Mary Weston MD Primary Care Provider Opal Nicolas RN Primary Nurse Unavailable Opal Nicolas RN Primary Nurse Unavailable Reason for Visit Auth/Cert Status Reason Specialty Diagnoses / Referred By Referred To Procedures Contact Contact Diagnostic Diagnoses [facility] Radiology Radiology [place] [address] [place] [address] Encounter Details Date Type Department Care Team Description 03/25/2019 Hospital Encounter [facility] [address] [place] [address] [phone] Allergies Active Allergy Reactions Severity Noted Date Comments Pregabalin Unknown - See comments 04/13/2018 Affected thinking processes severely Morphine Other - See comments 03/23/2016 Severe confusion Montelukast Hives 03/19/2019 documented as of this encounter (statuses as of 03/26/2019) Medications Medication Sig Dispensed Refills Start Date End Date Status nitroglycerin 0.[address] 1 tablet 1 Bottle 2 06/02/2017 Active sublingual tablet under the tongue every 5 (five) minutes as needed for Chest pain. carvedilol 12.5 mg Take 1 tablet 180 tablet 3 02/19/2018 Active tabletIndications: by mouth 2 Essential hypertension, (two) times benign daily with meals. levothyroxine 150 mcg Take 1 tablet 90 tablet 3 02/19/2018 Active tabletIndications: by mouth every Acquired hypothyroidism morning. rosuvastatin 40 mg Take 1 tablet 90 tablet 3 02/19/2018 Active tablet by mouth at bedtime. tamsulosin 0.4 mg 24 hr Take 1 capsule 90 capsule 3 02/19/2018 Active capsuleIndications: by mouth daily. Urinary symptom or sign gabapentin 300 mg Take 3 capsules 270 capsule 3 03/20/2018 Active capsuleIndications: by mouth 3 Cervical myelopathy, (three) times Neck pain daily. blood sugar diagnostic Use TID, DX 100 Box 11 09/20/2018 Active strip E11.9 (Brand upon insurance approval) Accu-chek guide magnesium oxide 400 mg Take 1 tablet 30 tablet 11 09/24/2018 Active (241.3 mg magnesium) by mouth daily. tabletIndications: Hypomagnesemia KCL 20 mEq Take 1 tablet 60 tablet 11 10/10/2018 Active tabletIndications: by mouth 2 Essential hypertension (two) times daily. lisinopril 5 mg Take 1 tablet 60 tablet 3 10/23/2018 Active tabletIndications: by mouth 2 Essential hypertension (two) times daily. metFORMIN 500 mg Take 1 tablet 60 tablet 3 01/07/2019 Active tabletIndications: Type by mouth 2 2 diabetes mellitus (two) times with diabetic daily with polyneuropathy, without meals. long-term current use of insulin Olopatadine 0.2 % Place 1 Drop in 2.5 mL 3 01/07/2019 Active ophthalmic each eye daily. dropsIndications: Nasal discharge with watery eyes GLIPIZIDE 5 mg TAKE 1 TABLET 180 tablet 1 01/14/2019 Active tabletIndications: Type BY MOUTH TWICE 2 diabetes mellitus DAILY . BEFORE with diabetic BREAKFAST AND polyneuropathy, without DINNER. long-term current use of insulin HYDRALAZINE 100 mg TAKE 1 TABLET 90 tablet 7 02/25/2019 Active tabletIndications: BY MOUTH EVERY Essential hypertension, 8 HOURS benign amLODIPine 10 mg tablet Take 10 mg by 0 Active mouth daily. pantoprazole 40 mg EC Take 1 tablet 60 tablet 5 03/05/2019 Active tabletIndications: by mouth 2 Upper GI bleeding (two) times daily. sucralfate 1 gram Take 1 tablet 120 tablet 2 03/05/2019 Active tabletIndications: by mouth before Upper GI bleeding meals and at bedtime. ranitidine 300 mg Take 1 tablet 90 tablet 3 03/06/2019 Active tabletIndications: by mouth at Gastroesophageal reflux bedtime. disease, esophagitis presence not specified furosemide 80 mg Take 1 tablet 60 tablet 11 03/25/2019 Active tabletIndications: by mouth every Coronary artery disease morning and involving [place] evening. coronary artery of [place] heart without angina pectoris documented as of this encounter (statuses as of 03/26/2019) Active Problems Problem Noted Date Infection 03/09/2019 Iron deficiency anemia, unspecified iron deficiency anemia type 03/07/2019 Overview: Added automatically from request for surgery [id number] Upper GI bleeding 03/01/2019 Dysarthria 07/24/2018 Dysphagia, unspecified type 07/24/2018 Overview: Added automatically from request for surgery [id number] Hypokalemia 06/02/2018 GARIBAY (dyspnea on exertion) 06/02/2018 Melena 05/05/2018 Hypertensive urgency 05/02/2018 Nausea & vomiting 05/01/2018 Weakness 01/29/2018 Confusion 01/26/2018 Coronary artery disease involving [place] coronary artery of [place] heart 06/14 without angina pectoris Carotid artery [...] activity and Weight loss counseling if needed, [place] Heart diet, Home monitoring of blood pressures, Follow up with primary provider Medications: carvedilol, clonidine, lisinopril, spironolactone, furosemide Hyperlipidemia 04/18/2016 Overview: Overview: Increase activity, [place] Heart diet, monitoring of levels by primary [...] as of this encounter (statuses as of 03/26/2019) Resolved Problems Problem Noted Date Resolved Date [...] Treatment: compliant on CPAP Coronary arteriosclerosis in [place] artery 04/18/2016 07/02/2017 Hypertension 04/18/2016 10/19/2016 Morbid obesity 04/18/2016 07/02/2017 Overview: Overview: Counseling on diet and exercise Sleep apnea 04/18/2016 10/19/2016 Type 2 diabetes mellitus 04/18/2016 10/19/2016 Overview: Overview: [place]ian Diabetic Diet, monitor blood glucose levels, Diabetic [...] as of this encounter (statuses as of 03/26/2019) Immunizations Name Administration Dates Next Due Influenza [...] Description 04/08/2019 Office Visit Gastroenterology Zabrina Rincon, [facility] [address] [facility] [address] [place] [address] [phone] 04/11/2019 Office Visit Internal Medicine Mary Weston MD [address] [place] [address] [place] [address] [phone] Health Maintenance Due Date Last Done Comments [...] of this encounter Implants Implanted Type Area Fountain Attendant Device Identifier Shelf Expiration Model / Serial Date / Lot Plate PLATE Neck Alana ALANA Leg documented as of this encounter Procedures Procedure Name Priority Date/Time Associated Diagnosis Comments XR KUB KENY 03/25/2019 6:45 PM Melena Results for this CDT procedure are in the results section. documented in this encounter Results XR KUB (03/25/2019 6:45 PM CDT) Specimen Impressions Performed At PACS/VR/DOSE No radiopaque object is detected within the abdomen or pelvis. Rolando Wahl MD., have reviewed this study and agree with the above report. Narrative Performed At XR KUB PACS/VR/DOSE Comparison: None available History: Assessment of pill cam location Findings: No radiopaque object is detected within the abdomen or pelvis. The bowel gas pattern is nonobstructive. Bilateral femoral intramedullary rods are partially visualized. Procedure Note [facility], Radiant Results Inft User - 03/25/2019 9:07 PM CDT XR KUB Comparison: None available History: Assessment of pill cam location Findings: No radiopaque object is detected within the abdomen or pelvis. The bowel gas pattern is nonobstructive. Bilateral femoral intramedullary rods are partially visualized. IMPRESSION No radiopaque object is detected within the abdomen or pelvis. IJuliet MD., have reviewed this study and agree with the above report. Performing Organization Address City/State/Zipcode Phone Number PACS/VR/DOSE documented in this encounter Visit Diagnoses Diagnosis Melena Blood in stool documented in this encounter Insurance Payer Benefit Plan / Subscriber ID Effective Phone Address Type Group Dates [place] AARP MEDICARE [id number] 2018-Prese Medicare Adv HEALTHCARE - COMPLETE nt [place] MANAGED MEDICARE documented as of this encounter Advance Directives Name Relationship Healthcare Agent Communication Relationship Pennie Srivastava Spouse Primary healthcare agent [email or web address]
--- OUTSIDE RECORDS SUMMARY | 2019-04-30 21:51 | XMS REPORT | Summary of Care ---
:1955 Author Organization [facility] Address [address] [place] [id number] Care Team Providers Name Role Phone Mary Weston MD Primary Care Provider Opal Nicolas RN Primary Nurse Unavailable Opal Nicolas RN Primary Nurse Unavailable Reason for Visit Reason Comments Orders Encounter Details Date Type Department Care Team Description 03/25/2019 Telephone [facility] and Vandana Luna [facility] Orders Clinics MD Susy [address] [place] [phone] [place] [phone] Allergies Active Allergy Reactions Severity Noted Date Comments Pregabalin Unknown - See comments 04/13/2018 Affected thinking processes severely Morphine Other - See comments 03/23/2016 Severe confusion Montelukast Hives 03/19/2019 documented as of this encounter (statuses as of 03/25/2019) Medications Medication Sig Dispensed Refills Start Date [...] Cervical myelopathy, (three) times Neck pain daily. furosemide 80 mg tablet Take 1 tablet 180 tablet 1 07/23/2018 Active by mouth every morning and evening. blood sugar diagnostic Use TID, DX 100 [...] reflux bedtime. disease, esophagitis presence not specified documented as of this encounter (statuses as of 03/25/2019) Active Problems Problem Noted Date Infection 03/09/2019 Iron deficiency anemia, unspecified iron deficiency anemia type 03/07/2019 Overview: Added automatically from request for surgery [id number] Upper GI bleeding 03/01/2019 Dysarthria 07/24/2018 Dysphagia, unspecified type 07/24/2018 Overview: Added automatically from request for surgery [id number] Hypokalemia 06/02/2018 GARIBAY (dyspnea on exertion) 06/02/2018 Melena 05/05/2018 Hypertensive urgency 05/02/2018 Nausea & vomiting 05/01/2018 Weakness 01/29/2018 Confusion 01/26/2018 Coronary artery disease involving [place] coronary artery of [place] heart 06/14 without angina pectoris Carotid artery [...] activity and Weight loss counseling if needed, [place] Heart diet, Home monitoring of blood pressures, Follow up with primary provider Medications: carvedilol, clonidine, lisinopril, spironolactone, furosemide Hyperlipidemia 04/18/2016 Overview: Overview: Increase activity, [place] Heart diet, monitoring of levels by primary [...] Treatment: compliant on CPAP Coronary arteriosclerosis in [place] artery 04/18/2016 07/02/2017 Hypertension 04/18/2016 10/19/2016 Morbid obesity 04/18/2016 07/02/2017 Overview: Overview: Counseling on diet and exercise Sleep apnea 04/18/2016 10/19/2016 Type 2 diabetes mellitus 04/18/2016 10/19/2016 Overview: Overview: [place] Diabetic Diet, monitor blood glucose levels, Diabetic [...] Description 04/08/2019 Office Visit Gastroenterology Zabrina Rincon, [facility] [address] [facility] [address] [place] [address] [phone] 04/11/2019 Office Visit Internal Medicine Mary Weston MD [address] [place] [address] Dr Schwarz [address] [place] [address] [phone] Name Type Priority Associated Diagnoses Order Schedule XR [employer] [facility] Melena Expected: 03/25/2019, Expires: 03/25/2020 Health Maintenance Due Date Last Done Comments [...] of this encounter Implants Implanted Type Area Engraving Plate Maker Device Identifier Shelf Expiration Model / Serial Date / Lot Plate PLATE Neck Alana ALANA Leg documented as of this encounter Results Not on filedocumented in this encounter Visit Diagnoses Diagnosis Melena - Primary Blood in stool documented in this encounter Insurance Payer Benefit Plan / Subscriber ID Effective Phone Address Type Group Dates [place] [employer]ARP MEDICARE [id number] 2018-Prese Medicare Adv HEALTHCARE - COMPLETE nt O MANAGED MEDICARE documented as of this encounter Advance Directives Name Relationship Healthcare Agent Communication Relationship Pennie Srivastava Spouse Primary healthcare agent
--- OUTSIDE RECORDS SUMMARY | 2019-04-30 21:52 | XMS REPORT | Summary of Care ---
:1955 Author Organization [facility] Address [address] [place] [address] Care Team Providers Name Role Phone Mary Weston MD Primary Care Provider Opal Nicolas RN Primary Nurse Unavailable Opal Nicolas RN Primary Nurse Unavailable Reason for Visit Reason Comments Orders Results Encounter Details Date Type Department Care Team Description 03/26/2019 Telephone [facility] Vandana Luna Orders; Results Gastroenterology[place] MD Susy [address], [address] [place] [address] Floor [address] [place] [phone] Allergies Active Allergy Reactions Severity Noted Date [...] every Coronary artery disease morning and involving jena evening. coronary artery of jena heart without angina pectoris documented as of this encounter (statuses as of 03/26/2019) Active Problems Problem Noted Date Infection 03/09/2019 Iron deficiency anemia, unspecified iron deficiency anemia type 03/07/2019 Overview: Added automatically from request for surgery [id number] Upper GI bleeding 03/01/2019 Dysarthria 07/24/2018 Dysphagia, unspecified type 07/24/2018 Overview: Added automatically from request for surgery [id number] Hypokalemia 06/02/2018 GARIBAY (dyspnea on exertion) 06/02/2018 Melena 05/05/2018 Hypertensive urgency 05/02/2018 Nausea & vomiting 05/01/2018 Weakness 01/29/2018 Confusion 01/26/2018 Coronary artery disease involving jena coronary artery of jena heart 06/14 without angina pectoris Carotid artery [...] activity and Weight loss counseling if needed, [place] Heart diet, Home monitoring of blood pressures, Follow up with primary provider Medications: carvedilol, clonidine, lisinopril, spironolactone, furosemide Hyperlipidemia 04/18/2016 Overview: Overview: Increase activity, [place] Heart diet, monitoring of levels by primary [...] Treatment: compliant on CPAP Coronary arteriosclerosis in j[place] artery 04/18/2016 07/02/2017 Hypertension 04/18/2016 10/19/2016 Morbid obesity 04/18/2016 07/02/2017 Overview: Overview: Counseling on diet and exercise Sleep apnea 04/18/2016 10/19/2016 Type 2 diabetes mellitus 04/18/2016 10/19/2016 Overview: Overview: [place] Diabetic Diet, monitor blood glucose levels, Diabetic [...] Description 04/08/2019 Office Visit Gastroenterology Zabrina Rincon, [facility] [address] [facility] [address] [place] [address] [phone] 04/11/2019 Office Visit Internal Medicine Mary Weston MD [address] [place] [address] Dr Schwarz [address] [place] [address] [phone] Health Maintenance Due Date Last Done Comments [...] of this encounter Implants Implanted Type Area Excelsior Picker Device Identifier Shelf Expiration Model / Serial Date / Lot Plate PLATE Neck Alana ALANA Leg documented as of this encounter Results Not on filedocumented in this encounter Visit Diagnoses Diagnosis Anemia, unspecified type - Primary Hemorrhage of rectum and anus documented in this encounter Insurance Payer Benefit Plan / Subscriber ID Effective Phone Address Type Group Dates [place] [employer]ARP MEDICARE [id number] 2018-Prese Medicare Adv HEALTHCARE - COMPLETE nt O MANAGED MEDICARE documented as of this encounter Advance Directives Name Relationship Healthcare Agent Communication Relationship Pennie Srivastava Spouse Primary healthcare agent [email or web address]
--- OUTSIDE RECORDS SUMMARY | 2019-04-30 21:52 | XMS REPORT | Summary of Care ---
:1955 Author Organization [facility] Address [address] [place] [address] Care Team Providers Name Role Phone Mary Weston MD Primary Care Provider Opal Nicolas RN Primary Nurse Unavailable Opal Nicolas RN Primary Nurse Unavailable Reason for Visit Reason Comments Refill Request Encounter Details Date Type Department Care Team Description 03/25/2019 Refill [facility] Pediatric and Mary Weston, Refill Request Adult Primary Care- MD Kan [address] [place] [address] [address] [facility], [address] [place] [address] [place] [phone] Allergies Active Allergy Reactions Severity Noted Date [...] every Coronary artery disease morning and involving [place] evening. coronary artery of [place] heart without angina pectoris documented as of this encounter (statuses as of 03/26/2019) Active Problems Problem Noted Date Infection 03/09/2019 Iron deficiency anemia, unspecified iron deficiency anemia type 03/07/2019 Overview: Added automatically from request for surgery [id number] Upper GI bleeding 03/01/2019 Dysarthria 07/24/2018 Dysphagia, unspecified type 07/24/2018 Overview: Added automatically from request for surgery [id number] Hypokalemia 06/02/2018 GARIBAY (dyspnea on exertion) 06/02/2018 Melena 05/05/2018 Hypertensive urgency 05/02/2018 Nausea & vomiting 05/01/2018 Weakness 01/29/2018 Confusion 01/26/2018 Coronary artery disease involving [place] coronary artery of [place] heart 06/14 without angina pectoris Carotid artery [...] activity and Weight loss counseling if needed, [place] Heart diet, Home monitoring of blood pressures, Follow up with primary provider Medications: carvedilol, clonidine, lisinopril, spironolactone, furosemide Hyperlipidemia 04/18/2016 Overview: Overview: Increase activity, [place] Island[place] Heart diet, monitoring of levels by primary [...] Treatment: compliant on CPAP Coronary arteriosclerosis in [place] artery 04/18/2016 07/02/2017 Hypertension 04/18/2016 10/19/2016 Morbid obesity 04/18/2016 07/02/2017 Overview: Overview: Counseling on diet and exercise Sleep apnea 04/18/2016 10/19/2016 Type 2 diabetes mellitus 04/18/2016 10/19/2016 Overview: Overview: [place] Islander Diabetic Diet, monitor blood glucose levels, Diabetic [...] Description 04/08/2019 Office Visit Gastroenterology Zabrina Rincon, [facility] [address] [facility] [address] [place] [address] [phone] 04/11/2019 Office Visit Internal Medicine Mary Weston MD [address] [place] [address] Dr Schwarz [address] [place] [address] [phone] Health Maintenance Due Date Last Done Comments [...] of this encounter Implants Implanted Type Area Billing Assistant Device Identifier Shelf Expiration Model / Serial Date / Lot Plate PLATE Neck Alana ALANA Leg documented as of this encounter Results Not on filedocumented in this encounter Insurance Payer Benefit Plan / Subscriber ID Effective Phone Address Type Group Dates [facility] MEDIC[facility] [id number] 2018-Prese Medicare Adv [facility] documented as of this encounter Advance Directives Name Relationship Healthcare Agent Communication Relationship Pennie Srivastava Spouse Primary healthcare agent [email or web address]
--- OUTSIDE RECORDS SUMMARY | 2019-04-30 21:52 | XMS REPORT | Summary of Care ---
:1955 Author Organization [facility] Address [address] [place] [address] Care Team Providers Name Role Phone Mary Weston MD Primary Care Provider Opal Nicolas RN Primary Nurse Unavailable Opal Nicolas RN Primary Nurse Unavailable Reason for Visit Reason Comments Refill Request Encounter Details Date Type Department Care Team Description 03/24/2019 Refill [facility] Pediatric and Mary Weston, Refill Request Adult Primary Care- MD Kan [address] [place] [address] [address] [facility] , [address] [place] [address] [place] [phone] Allergies Active Allergy Reactions Severity Noted Date Comments Pregabalin Unknown - See comments 04/13/2018 Affected thinking processes severely Morphine Other - See comments 03/23/2016 Severe confusion Montelukast Hives 03/19/2019 documented as of this encounter (statuses as of 03/29/2019) Medications Medication Sig Dispensed Refills Start End [...] by mouth every 8 Acquired morning. hypothyroidism tamsulosin 0.4 mg 24 Take 1 capsule [...] bedtime. reflux disease, esophagitis presence not specified ROSUVASTATIN 40 mg TAKE ONE 90 tablet 3 Active tabletIndications: TABLET BY 9 Hyperlipidemia, MOUTH AT unspecified BEDTIME hyperlipidemia type rosuvastatin 40 mg Take 1 tablet 90 tablet 3 03/24/20 Discontinued tablet by mouth at 8 19 bedtime. documented as of this encounter (statuses as of 03/29/2019) Active Problems Problem Noted Date Anemia, unspecified type 03/28/2019 Overview: Added automatically from request for surgery [id number] Infection 03/09/2019 Iron deficiency anemia, unspecified iron deficiency anemia type 03/07/2019 Overview: Added automatically from request for surgery [id number] Upper GI bleeding 03/01/2019 Dysarthria 07/24/2018 Dysphagia, unspecified type 07/24/2018 Overview: Added automatically from request for surgery [id number] Hypokalemia 06/02/2018 GARIBAY (dyspnea on exertion) 06/02/2018 Melena 05/05/2018 Hypertensive urgency 05/02/2018 Nausea & vomiting 05/01/2018 Weakness 01/29/2018 Confusion 01/26/2018 Coronary artery disease involving nome coronary artery of nome heart 06/14 without angina pectoris Carotid artery [...] activity and Weight loss counseling if needed, [place] Heart diet, Home monitoring of blood pressures, Follow up with primary provider Medications: carvedilol, clonidine, lisinopril, spironolactone, furosemide Hyperlipidemia 04/18/2016 Overview: Overview: Increase activity, [place] Heart diet, monitoring of levels by primary [...] as of this encounter (statuses as of 03/29/2019) Resolved Problems Problem Noted Date Resolved Date [...] Treatment: compliant on CPAP Coronary arteriosclerosis in nome artery 04/18/2016 07/02/2017 Hypertension 04/18/2016 10/19/2016 Morbid obesity 04/18/2016 07/02/2017 Overview: Overview: Counseling on diet and exercise Sleep apnea 04/18/2016 10/19/2016 Type 2 diabetes mellitus 04/18/2016 10/19/2016 Overview: Overview: [place] Diabetic Diet, monitor blood glucose levels, Diabetic [...] as of this encounter (statuses as of 03/29/2019) Immunizations Name Administration Dates Next Due Influenza [...] Treatment Date Type Specialty Care Team Description 04/04/2019 Hospital Surgery Juan José Pantoja Anemia, unspecified type Encounter MD Eusebio [address] [place] [phone] 04/04/2019 Anesthesia Surgery Surjit Hair, Event DO [address] [place] [phone] 04/04/2019 Surgery Surgery Juan José Pantoja ESOPHAGOGASTRODUODENOSCOPY MD Eusebio [address] [place] [phone] 04/08/2019 Office Visit Gastroenterology Zabrina Rincon [facility] [address] [facility] [address] [place] [address] [phone] 04/11/2019 Office Visit Internal Medicine Mary Weston MD [address] [place] [address] [place] [address] [phone] Health Maintenance Due Date Last Done Comments [...] of this encounter Implants Implanted Type Area Motor Coach Tour Operator Device Identifier Shelf Expiration Model / Serial Date / Lot Plate PLATE Neck Alana ALANA Leg documented as of this encounter Results Not on filedocumented in this encounter Visit Diagnoses Diagnosis Hyperlipidemia, unspecified hyperlipidemia type - Primary documented in this encounter Insurance Payer Benefit Plan / Subscriber ID Effective Phone Address Type Group Dates [place] AARP MEDICARE [id number] 2018-Prese Medicare Adv HEALTHCARE - COMPLETE nt O MANAGED MEDICARE documented as of this encounter Advance Directives Name Relationship Healthcare Agent Communication Relationship Pennie Srivastava Spouse Primary healthcare agent [email or web address]
--- OUTSIDE RECORDS SUMMARY | 2019-04-30 21:52 | XMS REPORT | Summary of Care ---
:1955 Author Organization [facility] Address [address] [place] [address] Care Team Providers Name Role Phone Mary Weston MD Primary Care Provider Opal Nicolas RN Primary Nurse Unavailable Opal Nicolas RN Primary Nurse Unavailable Reason for Visit Auth/Cert Status Reason Specialty Diagnoses / Referred By Referred To Procedures Contact Contact Diagnostic Diagnoses [facility] Radiology Radiology Andres [address] [place] [address] Encounter Details Date Type Department Care Team Description 03/25/2019 Hospital Encounter [facility] Radiology [facility] Procedure [address] [facility] [place], [place] [address] [facility] [address] [place] [address] Allergies Active Allergy Reactions Severity Noted Date Comments Pregabalin Unknown - See comments 04/13/2018 Affected thinking processes severely Morphine Other - See comments 03/23/2016 Severe confusion Montelukast Hives 03/19/2019 documented as of this encounter (statuses as of 03/28/2019) Medications Medication Sig Dispensed Refills Start Date [...] every Coronary artery disease morning and involving [place] evening. coronary artery of [place] heart without angina pectoris documented as of this encounter (statuses as of 03/28/2019) Active Problems Problem Noted Date Infection 03/09/2019 Iron deficiency anemia, unspecified iron deficiency anemia type 03/07/2019 Overview: Added automatically from request for surgery [id number] Upper GI bleeding 03/01/2019 Dysarthria 07/24/2018 Dysphagia, unspecified type 07/24/2018 Overview: Added automatically from request for surgery [id number] Hypokalemia 06/02/2018 GARIBAY (dyspnea on exertion) 06/02/2018 Melena 05/05/2018 Hypertensive urgency 05/02/2018 Nausea & vomiting 05/01/2018 Weakness 01/29/2018 Confusion 01/26/2018 Coronary artery disease involving [place] coronary artery of [place] heart 06/14 without angina pectoris Carotid artery [...] activity and Weight loss counseling if needed, [place] Heart diet, Home monitoring of blood pressures, Follow up with primary provider Medications: carvedilol, clonidine, lisinopril, spironolactone, furosemide Hyperlipidemia 04/18/2016 Overview: Overview: Increase activity, [place] Heart diet, monitoring of levels by primary [...] as of this encounter (statuses as of 03/28/2019) Resolved Problems Problem Noted Date Resolved Date [...] Treatment: compliant on CPAP Coronary arteriosclerosis in [place] artery 04/18/2016 07/02/2017 Hypertension 04/18/2016 10/19/2016 Morbid obesity 04/18/2016 07/02/2017 Overview: Overview: Counseling on diet and exercise Sleep apnea 04/18/2016 10/19/2016 Type 2 diabetes mellitus 04/18/2016 10/19/2016 Overview: Overview: [place] Diabetic Diet, monitor blood glucose levels, Diabetic [...] as of this encounter (statuses as of 03/28/2019) Immunizations Name Administration Dates Next Due Influenza [...] Description 04/08/2019 Office Visit Gastroenterology Zabrina Rincon, [facility] [address] [facility] [address] [place] [address] [phone] 04/11/2019 Office Visit Internal Medicine Mary Weston MD [address] [place] [address] Dr S[place]es [place], [place] [id number] Health Maintenance Due Date Last Done Comments [...] of this encounter Implants Implanted Type Area Embedded Firmware Developer Device Identifier Shelf Expiration Model / Serial Date / Lot Plate PLATE Neck Alana ALANA Leg documented as of this encounter Procedures Procedure Name Priority Date/Time Associated Diagnosis Comments ASSIGNMENT OF BENEFITS Routine 03/25/2019 6:13 PM CDT documented in this encounter Results Not on filedocumented in this encounter Insurance Payer Benefit Plan / Subscriber ID Effective Phone Address Type Group Dates [place] AARP MEDICARE [id number] 2018-Prese Medicare Adv HEALTHCARE - COMPLETE nt [facility] MANAGED MEDICARE documented as of this encounter Advance Directives Name Relationship Healthcare Agent Communication Relationship Pennie Srivastava Spouse Primary healthcare agent [email or web address]
--- OUTSIDE RECORDS SUMMARY | 2019-04-30 21:53 | XMS REPORT | Summary of Care ---
:1955 Author Organization [facility] - [facility] Address [address] [place] [address] Care Team Providers Name Role Phone Mary Weston MD Primary Care Provider Opal Nicolas RN Primary Nurse Unavailable Opal Nicolas RN Primary Nurse Unavailable Reason for Visit Reason Comments Appointment Encounter Details Date Type Department Care Team Description 04/01/2019 Telephone [facility] Pediatric and Mary Weston, Appointment Adult Primary Care- MD [place] [address] [place] [address] [address] [facility], [address] [place] [address] [place] [phone] Allergies Active Allergy Reactions Severity Noted Date Comments Pregabalin Unknown - See comments 04/13/2018 Affected thinking processes severely Morphine Other - See comments 03/23/2016 Severe confusion Montelukast Hives 03/19/2019 documented as of this encounter (statuses as of 04/01/2019) Medications Medication Sig Dispensed Refills Start Date [...] tabletIndications: by mouth every Acquired hypothyroidism morning. tamsulosin 0.4 mg 24 hr Take 1 [...] reflux bedtime. disease, esophagitis presence not specified ROSUVASTATIN 40 mg TAKE ONE TABLET 90 tablet 3 03/29/2019 Active tabletIndications: BY MOUTH AT Hyperlipidemia, BEDTIME unspecified hyperlipidemia type furosemide 80 mg Take 1 tablet 60 tablet 11 03/25/2019 Active tabletIndications: by mouth every Coronary artery disease morning and involving agdaagux evening. coronary artery of agdaagux heart without angina pectoris documented as of this encounter (statuses as of 04/01/2019) Active Problems Problem Noted Date Anemia, unspecified type 03/28/2019 Overview: Added automatically from request for surgery [id number] Infection 03/09/2019 Iron deficiency anemia, unspecified iron deficiency anemia type 03/07/2019 Overview: Added automatically from request for surgery [id number] Upper GI bleeding 03/01/2019 Dysarthria 07/24/2018 Dysphagia, unspecified type 07/24/2018 Overview: Added automatically from request for surgery [id number] Hypokalemia 06/02/2018 GARIBAY (dyspnea on exertion) 06/02/2018 Melena 05/05/2018 Hypertensive urgency 05/02/2018 Nausea & vomiting 05/01/2018 Weakness 01/29/2018 Confusion 01/26/2018 Coronary artery disease involving agdaagux coronary artery of agdaagux heart 06/14 without angina pectoris Carotid artery [...] activity and Weight loss counseling if needed, Tristanian Heart diet, Home monitoring of blood pressures, Follow up with primary provider Medications: carvedilol, clonidine, lisinopril, spironolactone, furosemide Hyperlipidemia 04/18/2016 Overview: Overview: Increase activity, Tristanian Heart diet, monitoring of levels by primary [...] as of this encounter (statuses as of 04/01/2019) Resolved Problems Problem Noted Date Resolved Date [...] Treatment: compliant on CPAP Coronary arteriosclerosis in agdaagux artery 04/18/2016 07/02/2017 Hypertension 04/18/2016 10/19/2016 Morbid obesity 04/18/2016 07/02/2017 Overview: Overview: Counseling on diet and exercise Sleep apnea 04/18/2016 10/19/2016 Type 2 diabetes mellitus 04/18/2016 10/19/2016 Overview: Overview: Tristanian Diabetic Diet, monitor blood glucose levels, Diabetic [...] as of this encounter (statuses as of 04/01/2019) Immunizations Name Administration Dates Next Due Influenza [...] Treatment Date Type Specialty Care Team Description 04/01/2019 Office Visit Internal Medicine Mary Weston MD [address] [facility] [address] Schwarz [address] [place] [address] [phone] 04/04/2019 Hospital Surgery Juan José Pantoja Anemia, unspecified type Encounter MD Eusebio [address] [place] [address] [phone] 04/04/2019 Anesthesia Surgery Surjit Hair, Event DO [address] [place] [phone] 04/04/2019 Surgery Surgery Juan José Pantoja ESOPHAGOGASTRODUODENOSCOPY MD Eusebio [address] [place] [address] [phone] 04/08/2019 Office Visit Gastroenterology Zabrina Rincon, [facility] [address] [facility] [address] [place] [address] [phone] 04/11/2019 Office Visit Internal Medicine Mary Weston MD [address] [place] [address] [place] [address] [phone] Health Maintenance Due Date Last Done Comments LUNG CANCER SCREEN: 01/31/2019 01/31/2018 Recommended for age 55-80 with 30 + pack year history LDL-C 03/05/2019 03/05/2018, 10/12/2016 Medicare Wellness Visit 2019 PNEUMOCOCCAL VACCINES 65+ 2019 12/08/2012 (1 of 2 - PCV13) URINE MICROALBUMIN 04/13/2019 04/13/2018, 03/05/2018 INFLUENZA VACCINE [...] exists HEPATITIS C (HCV) SCREEN Completed 09/10/2010 documented as of this encounter Implants Implanted Type Area Regional Project Manager Device Identifier Shelf Expiration Model / Serial Date / Lot Plate PLATE Neck Alana ALANA Leg documented as of this encounter Results Not on filedocumented in this encounter Insurance Payer Benefit Plan / Subscriber ID Effective Phone Address Type Group Dates [place] AARP MEDICARE [id number] 2018-Prese Medicare Adv HEALTHCARE - COMPLETE nt [facility] MEDICARE documented as of this encounter Advance Directives Name Relationship Healthcare Agent Communication Relationship Pennie Basson Spouse Primary healthcare agent [email or web address]
--- OUTSIDE RECORDS SUMMARY | 2019-04-30 21:53 | XMS REPORT | Summary of Care ---
:1955 Author Organization [facility] Address [address] [place] [address] Care Team Providers Name Role Phone Mary Weston MD Primary Care Provider Opal Nicolas RN Primary Nurse Unavailable Opal Nicolas RN Primary Nurse Unavailable Reason for Visit Reason Comments LAB WORK Auth/Cert Status Reason Specialty Diagnoses / Referred By Referred To Procedures Contact Contact Clinical Medical Diagnoses Iron deficiency anemia due to chronic blood loss [facility] Lab Laboratory Procedures cbc [address] [facility] [place] [phone] Encounter Details Date Type Department Care Team Description 04/01/2019 Title I Paraprofessional Visit [facility] Mary Weston MD [address] [place] [address] Dr Schwarz [address] [place] [phone] Iron deficiency Phlebotomy 1, [facility] Lab anemia due to [facility] chronic blood loss [address] [facility] [place] [phone] Allergies Active Allergy Reactions Severity Noted [...] every Coronary artery disease morning and involving ewiiaapaayp evening. coronary artery of ewiiaapaayp heart without angina pectoris documented as of this encounter (statuses as of 04/01/2019) Active Problems Problem Noted Date Anemia, unspecified type 03/28/2019 Overview: Added automatically from request for surgery [id number] Infection 03/09/2019 Iron deficiency anemia, unspecified iron deficiency anemia type 03/07/2019 Overview: Added automatically from request for surgery [id number] Upper GI bleeding 03/01/2019 Dysarthria 07/24/2018 Dysphagia, unspecified type 07/24/2018 Overview: Added automatically from request for surgery [id number] Hypokalemia 06/02/2018 GARIBAY (dyspnea on exertion) 06/02/2018 Melena 05/05/2018 Hypertensive urgency 05/02/2018 Nausea & vomiting 05/01/2018 Weakness 01/29/2018 Confusion 01/26/2018 Coronary artery disease involving ewiiaapaayp coronary artery of ewiiaapaayp heart 06/14 without angina pectoris Carotid artery [...] activity and Weight loss counseling if needed, [place] Heart diet, Home monitoring of blood pressures, Follow up with primary provider Medications: carvedilol, clonidine, lisinopril, spironolactone, furosemide Hyperlipidemia 04/18/2016 Overview: Overview: Increase activity, [place] Heart diet, monitoring of levels by primary [...] Treatment: compliant on CPAP Coronary arteriosclerosis in ewiiaapaayp artery 04/18/2016 07/02/2017 Hypertension 04/18/2016 10/19/2016 Morbid obesity 04/18/2016 07/02/2017 Overview: Overview: Counseling on diet and exercise Sleep apnea 04/18/2016 10/19/2016 Type 2 diabetes mellitus 04/18/2016 10/19/2016 Overview: Overview: Honduran Diabetic Diet, monitor blood glucose levels, Diabetic [...] Office Visit Internal Medicine Mary Weston MD [address] [place] [address] Dr Schwarz [address] [place] [address] [phone] 04/04/2019 [facility] Surgery Juan José Pantoja Anemia, unspecified type Encounter MD Eusebio [address] [place] [phone] 04/04/2019 Anesthesia Surgery Laxmi, Surjit, Event DO [address] [place] [phone] 04/04/2019 Surgery Surgery Juan José Pantoja ESOPHAGOGASTRODUODENOSCOPY MD Eusebio [address] [place] [phone] 04/08/2019 Office Visit Gastroenterology Zabrina Rincon, [facility] [address] [facility] [address] [place] [address] [phone] 04/11/2019 Office Visit Internal Medicine Mary Weston MD [address] [place] [address] [place] [address] [phone] Health Maintenance Due Date Last Done Comments [...] of this encounter Implants Implanted Type Area Bookbinder Apprentice Device Identifier Shelf Expiration Model / Serial Date / Lot Plate PLATE Neck Alana ALANA Leg documented as of this encounter Procedures Procedure Name Priority Date/Time Associated Comments Diagnosis CBC WITH DIFFERENTIAL Routine 04/01/2019 11:14 Iron deficiency Results for this AM CDT anemia due to procedure are in chronic blood loss the results section. CBC WITH DIFF Routine 04/01/2019 11:14 Iron deficiency Results for this AM CDT anemia due to procedure are in chronic blood loss the results section. documented in this encounter Results CBC WITH DIFFERENTIAL (04/01/2019 11:14 AM CDT) WBC 4.86 4.20 - 10.70 [facility] 10*3/L [facility] RBC 3.59 (L) 4.26 - 5.52 [facility] 10*6/L [facility] HGB 10.7 (L) 12.2 - 16.4 [facility] g/dL [facility] HCT 32.6 (L) 38.4 - 49.3 % [facility] MCV 90.8 81.7 - 95.6 fL [facility] MCH 29.8 26.1 - 32.7 pg [facility] MCHC 32.8 31.2 - 35.0 [facility] g/dL H[facility]PITAL [facility] RDW-SD 45.2 38.5 - 51.6 fL [facility] RDW-CV 13.5 12.1 - 15.4 % [facility] PLT 212 150 - 328 [facility] 10*3/L [facility] MPV 11.3 9.8 - 13.0 fL [facility] NRBC/100 WBC 0.0 0.0 - 10.0 /100 [facility] WBCs [facility] NRBC x10^3 <0.01 10*3/L [facility] GRAN MAT (NEUT) % 58.9 % [facility] IMM GRAN % 0.40 % [facility] LYMPH % 22.6 % [facility] MONO % 16.9 % [facility] EOS % 0.2 % [facility] BASO % 1.0 % [facility] GRAN MAT x10^3(ANC) 2.86 1.99 - 6.95 [facility] 10*3/uL [facility] IMM GRAN x10^3 <0.03 0.00 - 0.06 [facility] 10*3/uL [facility] LYMPH x10^3 1.10 1.09 - 3.23 [facility] 10*3/uL [facility] MONO x10^3 0.82 0.36 - 1.02 [facility] 10*3/uL [facility] EOS x10^3 <0.03 (L) 0.06 - 0.53 [facility] 10*3/uL [facility] BASO x10^3 0.05 0.01 - 0.09 [place] [address]*3/uL [facility] Specimen Blood Performing Organization Address City/State/Zipcode Phone Number [facility] CLIA: [id number], [address] [place] [address] documented in this encounter Visit Diagnoses Diagnosis Iron deficiency anemia due to chronic blood loss Iron deficiency anemia secondary to blood loss (chronic) documented in this encounter Insurance Payer Benefit Plan / Subscriber ID Effective Phone Address Type Group Dates [place] AARP MEDICARE [id number] 2018-Prese Medicare Adv HEALTHCARE - COMPLETE nt [place] MANAGED MEDICARE documented as of this encounter Advance Directives Name Relationship Healthcare Agent Communication Relationship Pennie Srivastava Spouse Primary healthcare agent [email or web address]
--- OUTSIDE RECORDS SUMMARY | 2019-04-30 21:53 | XMS REPORT | Summary of Care ---
:1955 Author Organization [facility] - Health Address [address] [place] [address] Care Team Providers Name Role Phone Mary Weston MD Primary Care Provider Opal Nicolas RN Primary Nurse Unavailable Opal Nicolas RN Primary Nurse Unavailable Encounter Details Date Type Department Care Team Description 04/01/2019 Orders Only [facility] Doctor Unassigned, No [address] [facility] [place] [address] [address] [place] [address] Allergies Active Allergy Reactions Severity Noted Date [...] every Coronary artery disease morning and involving [place]kawa evening. coronary artery of [place] heart without angina pectoris documented as of this encounter (statuses as of 04/01/2019) Active Problems Problem Noted Date Anemia, unspecified type 03/28/2019 Overview: Added automatically from request for surgery [id number] Infection 03/09/2019 Iron deficiency anemia, unspecified iron deficiency anemia type 03/07/2019 Overview: Added automatically from request for surgery [id number] Upper GI bleeding 03/01/2019 Dysarthria 07/24/2018 Dysphagia, unspecified type 07/24/2018 Overview: Added automatically from request for surgery [id number] Hypokalemia 06/02/2018 GARIBAY (dyspnea on exertion) 06/02/2018 Melena 05/05/2018 Hypertensive urgency 05/02/2018 Nausea & vomiting 05/01/2018 Weakness 01/29/2018 Confusion 01/26/2018 Coronary artery disease involving tonkawa coronary artery of tonkawa heart 06/14 without angina pectoris Carotid artery [...] activity and Weight loss counseling if needed, Egyptian Heart diet, Home monitoring of blood pressures, Follow up with primary provider Medications: carvedilol, clonidine, lisinopril, spironolactone, furosemide Hyperlipidemia 04/18/2016 Overview: Overview: Increase activity, Egyptian Heart diet, monitoring of levels by primary [...] Treatment: compliant on CPAP Coronary arteriosclerosis in [place]kawa artery 04/18/2016 07/02/2017 Hypertension 04/18/2016 10/19/2016 Morbid obesity 04/18/2016 07/02/2017 Overview: Overview: Counseling on diet and exercise Sleep apnea 04/18/2016 10/19/2016 Type 2 diabetes mellitus 04/18/2016 10/19/2016 Overview: Overview: Egyptian Diabetic Diet, monitor blood glucose levels, Diabetic [...] Treatment Date Type Specialty Care Team Description 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 Clinical Medical Mary Weston MD [address] [place] [address] Dr Schwarz [address] [place] [address] [phone] Arrived 9 Visit Laboratory 1, Adc Lab Office Visit Internal Medicine Trista, Christiane Valladares MD [address] [place] [address] Dr Schwarz [address] [place] [address] [phone] Hospital Surgery Juan José Pantoja Anemia, unspecified type 9 Encounter MD Eusebio [address] [place] [phone] Anesthesia Surgery Surjit Hair, Christiane Event DO [address] [place] [phone] Surgery Surgery Juan José Pantoja ESOPHAGOGASTRODUODENOSCOPY 9 MD Eusebio [address] [place] [phone] Office Visit Gastroenterology Mckenzie, [address] Zabrina [address] La [facility] [address] [facility] [address] [place] [address] [phone] Office Visit Internal Medicine Trista, 9 Mary Valladares MD [address] [place] [address] [place] [address] [phone] Health Maintenance Due Date Last Done Comments [...] of this encounter Implants Implanted Type Area Hand Etcher Device Identifier Shelf Expiration Model / Serial Date / Lot Plate PLATE Neck Alana ALANA Leg documented as of this encounter Procedures Procedure Name Priority Date/Time Associated Diagnosis Comments ASSIGNMENT OF BENEFITS Routine 04/01/2019 10:43 AM CDT documented in this encounter Results Not on filedocumented in this encounter Insurance Payer Benefit Plan / Subscriber ID Effective Phone Address Type Group Dates [place] AARP MEDICARE [id number] 2018-Prese Medicare Adv HEALTHCARE - COMPLETE nt [facility] MEDICARE documented as of this encounter Advance Directives Name Relationship Healthcare Agent Communication Relationship Pennie Srivastava Spouse Primary healthcare agent [email or web address]
--- OUTSIDE RECORDS SUMMARY | 2019-04-30 21:54 | XMS REPORT | Summary of Care ---
:1955 Author Organization [facility] Address [address] [place], [place] [id number] Care Team Providers Name Role Phone Mary Gerard MD Primary Care Provider Opal Nicolas RN Primary Nurse Unavailable Opal Nicolas RN Primary Nurse Unavailable Reason for Referral MRI/CAT Scan (STAT) Status Reason Specialty Diagnoses / Referred By Referred To Procedures Contact Contact New Request Diagnostic Diagnoses Fever in other diseases [facility] Procedures CT abdomen pelvis with contrast MD Dhaval [address] [place], [place] [id number] MRI/CAT Scan (STAT) Status Reason Specialty Diagnoses / Referred By Referred To Procedures Contact Contact New Request Diagnostic Diagnoses Fever in other diseases [facility] Procedures CT thorax with contrast MD Dhaval [address] [place], [place] [address] MRI/CAT Scan (STAT) Status Reason Specialty Diagnoses / Referred By Referred To Procedures Contact Contact New Request Diagnostic Diagnoses Fever in other diseases [facility] Procedures CT abdomen pelvis with contrast MD Dhaval [address] [place], [place] [address] MRI/CAT Scan (STAT) Status Reason Specialty Diagnoses / Referred By Referred To Procedures Contact Contact New Request Diagnostic Diagnoses Fever in other diseases [facility] Procedures CT thorax with contrast MD Phillip Puentes [address] [address] Radiology Services (STAT) Status Reason Specialty Diagnoses / Referred By Referred To Procedures Contact Contact New Request Diagnostic Diagnoses Fever in other diseases [facility] Procedures XR CHEST 1 VW MD Phillip Puentes [address] [address] Radiology Services (STAT) Status Reason Specialty Diagnoses / Referred By Referred To Procedures Contact Contact New Request Diagnostic Diagnoses Fever in other diseases [facility] Procedures XR CHEST 1 VW MD Phillip Puentes [address] [address] Reason for Visit Reason Comments Fever Chills Cough Auth/Cert Status Reason Specialty Diagnoses / Referred By Referred To Procedures Contact Contact [facility] [address] [place] [address] [place] [address] Encounter Details Date Type Department Care Team Description 04/01/2019 Emergency [facility] Milton Dhillon S, Fever in other diseases (Primary Dx); Department Influenza A; [address] [place] [address] Dr Phillip ORTIZ Influenza B; [place] [address] [id number] Pulmonary nodules [phone] [place] [address] [phone] Allergies Active Allergy Reactions Severity Noted Date [...] 02/19/2018 Active tabletIndications: by mouth 2 Essential (two) times hypertension, benign daily with meals. levothyroxine 150 mcg Take 1 tablet 90 tablet 3 02/19/2018 Active tabletIndications: by mouth every Acquired morning. hypothyroidism tamsulosin 0.4 mg 24 Take 1 capsule 90 capsule 3 02/19/2018 Active hr capsuleIndications: by mouth daily. Urinary symptom or [...] tablet 60 tablet 3 01/07/2019 Active tabletIndications: by mouth 2 Type 2 diabetes (two) times mellitus with diabetic daily with polyneuropathy, meals. without long-term current use of insulin Olopatadine 0.2 % Place 1 Drop in 2.5 mL 3 01/07/2019 Active ophthalmic each eye daily. dropsIndications: Nasal discharge with watery eyes GLIPIZIDE 5 mg TAKE 1 TABLET 180 tablet 1 01/14/2019 Active tabletIndications: BY MOUTH TWICE Type 2 diabetes DAILY . BEFORE mellitus with diabetic BREAKFAST AND polyneuropathy, DINNER. without long-term current use of insulin HYDRALAZINE 100 mg TAKE 1 TABLET 90 tablet 7 02/25/2019 Active tabletIndications: BY MOUTH EVERY Essential 8 HOURS hypertension, benign amLODIPine 10 [...] 03/06/2019 Active tabletIndications: by mouth at Gastroesophageal bedtime. reflux disease, esophagitis presence not specified ROSUVASTATIN 40 mg TAKE ONE TABLET 90 tablet 3 03/29/2019 Active tabletIndications: BY MOUTH AT Hyperlipidemia, BEDTIME unspecified hyperlipidemia type furosemide 80 mg Take 1 tablet 60 tablet 11 03/25/2019 Active tabletIndications: by mouth every Coronary artery morning and disease involving evening. pala coronary artery of pala heart without angina pectoris oseltamivir (TAMIFLU) Take 1 capsule 10 capsule 0 04/01/2019 04/06/2019 Active 75 mg by mouth 2 capsuleIndications: (two) times Fever in other daily for 5 diseases, Influenza A, days. Influenza B documented as of this encounter (statuses as of 04/01/2019) Active Problems Problem Noted Date Anemia, unspecified type 03/28/2019 Overview: Added automatically from request for surgery [id number] Infection 03/09/2019 Iron deficiency anemia, unspecified iron deficiency anemia type 03/07/2019 Overview: Added automatically from request for surgery [id number] Upper GI bleeding 03/01/2019 Dysarthria 07/24/2018 Dysphagia, unspecified type 07/24/2018 Overview: Added automatically from request for surgery [id number] Hypokalemia 06/02/2018 GARIBAY (dyspnea on exertion) 06/02/2018 Melena 05/05/2018 Hypertensive urgency 05/02/2018 Nausea & vomiting 05/01/2018 Weakness 01/29/2018 Confusion 01/26/2018 Coronary artery disease involving pala coronary artery of pala heart 06/14 without angina pectoris Carotid artery [...] activity and Weight loss counseling if needed, Pakistani Heart diet, Home monitoring of blood pressures, Follow up with primary provider Medications: carvedilol, clonidine, lisinopril, spironolactone, furosemide Hyperlipidemia 04/18/2016 Overview: Overview: Increase activity, Pakistani Heart diet, monitoring of levels by primary [...] Treatment: compliant on CPAP Coronary arteriosclerosis in pala artery 04/18/2016 07/02/2017 Hypertension 04/18/2016 10/19/2016 Morbid obesity 04/18/2016 07/02/2017 Overview: Overview: Counseling on diet and exercise Sleep apnea 04/18/2016 10/19/2016 Type 2 diabetes mellitus 04/18/2016 10/19/2016 Overview: Overview: Pakistani Diabetic Diet, monitor blood glucose levels, Diabetic [...] Sign Reading Time Taken Comments Blood Pressure 147/68 04/01/2019 7:00 PM CDT Pulse 93 04/01/2019 7:00 PM CDT Temperature 38.4 C (101.1 F) 04/01/2019 6:24 PM CDT Respiratory Rate 18 04/01/2019 7:00 PM CDT Oxygen Saturation 98% 04/01/2019 7:00 PM CDT Inhaled Oxygen Concentration - - Weight 103.4 kg (228 lb) 04/01/2019 4:45 PM CDT Height 170.2 cm (5' 7") 04/01/2019 4:45 PM CDT Body Mass Index 35.71 04/01/2019 4:45 PM CDT documented in this encounter Discharge Instructions Milton Stone MD - 04/01/2019 DIAGNOSIS Diagnoses that have been ruled out: None Diagnoses that are still under consideration: None Final diagnoses: Fever in other diseases Influenza A Influenza B Pulmonary nodules NO LIFE-THREATENING FINDINGS ON TODAY'S EXAM. PROCEDURES IN THE ER TODAY: Orders Placed This Encounter Procedures XR CHEST [address] thorax with contrast CT abdomen pelvis with contrast BLOOD CULTURE SCREEN BLOOD CULTURE SCREEN CBC WITH DIFF URINALYSIS COMP. METABOLIC PANEL (95310) CBC WITH DIFFERENTIAL Lactic Acid Whole Blood Lactic Acid Whole Blood ADC,CLC OR LCC ONLY - INFLUENZA A & B DIRECT ANTIGEN MEDICATIONS ADMINISTERED IN THE ER TODAY AND DISCHARGE MEDICATIONS: Orders Placed This Encounter Medications KCL (KLOR-CON M20) tablet 40 mEq iohexol (OMNIPAQUE 350 BULK-100 mL) injection 120 mL acetaminophen (TYLENOL) tablet 650 mg FOLLOW-UP RECOMMENDATIONS: RECOMMEND FOLLOW-UP WITH DR GERARD IN AM DISCUSSED RETURN TO ER FOR WORSENING OF SYMPTOMS AttachmentsThe following attachments cannot be sent through Care Everywhere.( Adult), Influenza (Cuban)(Influenza), The Flu (Cuban)documented in this encounter Plan of Treatment Date Type Specialty Care Team Description 04/04/2019 Hospital Surgery Juan José Pantoja Anemia, unspecified type Encounter MD Eusebio [address] [place] [phone] 04/04/2019 Anesthesia Surgery Surjit Hair, Event DO [address] [place] [phone] 04/04/2019 Surgery Surgery Juan José Pantoja ESOPHAGOGASTRODUODENOSCOPY MD Eusebio [address] [place] [phone] 04/08/2019 Office Visit Gastroenterology Zabrina Rincon, [facility] [address] [facility] [address] [place] [address] [phone] 04/11/2019 Office Visit Internal Medicine Mary Gerard MD [address] [place] [address] Dr Schwarz [address] [place] [address] [phone] Name Type Priority Associated Diagnoses Date/Time BLOOD CULTURE SCREEN LAB STAT Fever in other diseases 04/01/2019 5:01 PM CDT Name Type Priority Associated Diagnoses Order Schedule BLOOD CULTURE SCREEN LAB Routine Fever in other diseases ONCE for 1 Occurrences starting 04/01/2019 until 04/01/2019 BLOOD CULTURE SCREEN LAB Routine Fever in other diseases ONCE for 1 Occurrences starting 04/01/2019 until 04/01/2019 Lactic Acid Whole LAB Routine Fever in other diseases STAT for 1 Occurrences Blood starting 04/01/2019 Health Maintenance Due Date Last Done Comments [...] of this encounter Implants Implanted Type Area Casing In Line Feeder Device Identifier Shelf Expiration Model / Serial Date / Lot Plate PLATE Neck Alana ALANA Leg documented as of this encounter Procedures Procedure Name Priority Date/Time Associated Comments Diagnosis CT THORAX W CONTRAST STAT 04/01/2019 6:41 Fever in other Results for this PM CDT diseases procedure are in the results section. CT ABDOMEN PELVIS W STAT 04/01/2019 6:41 Fever in other Results for this CONTRAST PM CDT diseases procedure are in the results section. ADC,CLC OR LCC ONLY - STAT 04/01/2019 5:46 Fever in other Results for this INFLUENZA A & B PM CDT diseases procedure are in DIRECT ANTIGEN the results section. XR CHEST 1 VW STAT 04/01/2019 5:15 Fever in other Results for this PM CDT diseases procedure are in the results section. EKG-12 LEAD Routine 04/01/2019 5:06 PM CDT LACTIC ACID WHOLE STAT 04/01/2019 5:04 Fever in other Results for this BLOOD PM CDT diseases procedure are in the results section. URINALYSIS STAT 04/01/2019 5:02 Fever in other Results for this PM CDT diseases procedure are in the results section. CBC WITH DIFFERENTIAL STAT 04/01/2019 5:01 Fever in other Results for this PM CDT diseases procedure are in the results section. CBC WITH DIFF STAT 04/01/2019 5:01 Fever in other Results for this PM CDT diseases procedure are in the results section. COMP. METABOLIC PANEL STAT 04/01/2019 5:01 Fever in other Results for this (897[address]) PM CDT diseases procedure are in the results section. NOTICE OF PRIVACY Routine 04/01/2019 4:26 PRACTICES PM CDT CONSENT/REFUSAL FOR Routine 04/01/2019 4:25 DIAGNOSIS AND PM CDT TREATMENT documented in this encounter Results CT abdomen pelvis with contrast (04/01/2019 6:41 PM CDT) Specimen Impressions Performed At PACS/VR/DOSE No acute CT finding to explain patient's symptoms. Colonic diverticulosis without diverticulitis. Normal appendix. Dilated left intrahepatic biliary ducts is noted, unchanged when compared to 03/10/2019 study. Similar findings are also seen in the noncontrast enhanced CT scan of 06/26/2017 as well as in the contrast enhanced 05/01/2018 study. For detailed report of intrathoracic findings, please refer to separately dictated CT of the chest. Deshawn Wahl MD., have reviewed this study and agree with the above report. Narrative Performed At EXAM: CT ABDOMEN AND PELVIS WITH CONTRAST PACS/VR/DOSE HISTORY: 64-year-old male with abdominal distention. COMPARISON: CT abdomen and pelvis 03/10/2019 DOSE: 477mGycm TECHNIQUE AND FINDINGS: Contiguous axial imaging from the level of the lung bases through the pubic symphysis was performed after the uncomplicated administration of 120 cc of intravenous Omnipaque contrast. Coronal and sagittal reconstructions were obtained.Auto mA and/or iterative reconstruction were used to reduce radiation dose. FINDINGS: LOWER THORAX: Cardiomegaly. Mitral annulus calcifications are noted. The lungs bases are clear. LIVER: Biliary cysts are redemonstrated in the left hepatic lobe about the left portal vein. Normal contour. GALLBLADDER AND BILIARY TREE: No biliary ductal dilation.No gallbladder wall thickening. SPLEEN: No splenomegaly. PANCREAS: No ductal dilation or masses. ADRENAL GLANDS: No adrenal nodules. KIDNEYS: Mild bilateral perinephric fat stranding. Multiple cysts are noted bilaterally, largest on the right measuring 3.8 cm and on the left 4.5 cm. Bilateral extrarenal pelvis are present. No hydronephrosis or stones. PERITONEUM AND RETROPERITONEUM: No free air or fluid. LYMPH NODES: No lymphadenopathy. GI TRACT: No dilation or wall thickening. The appendix is normal.Colonic diverticulosis without diverticulitis. PELVIS/BLADDER: The urinary bladder is distended without wall thickening. VESSELS: Calcified atherosclerosis of the abdominal aorta, renal veins, SMA, celiac axis and iliac arteries. BONES AND SOFT TISSUES: No suspicious lytic or sclerotic bony lesions. Bilateral hip arthroplasties are noted. Procedure Note [facility], Radiant Results Inft User - 04/01/2019 6:57 PM CDT EXAM: CT ABDOMEN AND PELVIS WITH CONTRAST HISTORY: 64-year-old male with abdominal distention. COMPARISON: CT abdomen and pelvis 03/10/2019 DOSE: 477mGycm TECHNIQUE AND FINDINGS: Contiguous axial imaging from the level of the lung bases through the pubic symphysis was performed after the uncomplicated administration of 120 cc of intravenous Omnipaque contrast. Coronal and sagittal reconstructions were obtained. Auto mA and/or iterative reconstruction were used to reduce radiation dose. FINDINGS: LOWER THORAX: Cardiomegaly. Mitral annulus calcifications are noted. The lungs bases are clear. LIVER: Biliary cysts are redemonstrated in the left hepatic lobe about the left portal vein. Normal contour. GALLBLADDER AND BILIARY TREE: No biliary ductal dilation. No gallbladder wall thickening. SPLEEN: No splenomegaly. PANCREAS: No ductal dilation or masses. ADRENAL GLANDS: No adrenal nodules. KIDNEYS: Mild bilateral perinephric fat stranding. Multiple cysts are noted bilaterally, largest on the right measuring 3.8 cm and on the left 4.5 cm. Bilateral extrarenal pelvis are present. No hydronephrosis or stones. PERITONEUM AND RETROPERITONEUM: No free air or fluid. LYMPH NODES: No lymphadenopathy. GI TRACT: No dilation or wall thickening. The appendix is normal.Colonic diverticulosis without diverticulitis. PELVIS/BLADDER: The urinary bladder is distended without wall thickening. VESSELS: Calcified atherosclerosis of the abdominal aorta, renal veins, SMA, celiac axis and iliac arteries. BONES AND SOFT TISSUES: No suspicious lytic or sclerotic bony lesions. Bilateral hip arthroplasties are noted. IMPRESSION No acute CT finding to explain patient's symptoms. Colonic diverticulosis without diverticulitis. Normal appendix. Dilated left intrahepatic biliary ducts is noted, unchanged when compared to 03/10/2019 study. Similar findings are also seen in the noncontrast enhanced CT scan of 06/26/2017 as well as in the contrast enhanced 05/01/2018 study. For detailed report of intrathoracic findings, please refer to separately dictated CT of the chest. Duke Wahl MD., have reviewed this study and agree with the above report. Performing Organization Address City/State/Zipcode Phone Number PACS/VR/DOSE CT thorax with contrast (04/01/2019 6:41 PM CDT) Specimen Impressions Performed At PACS/VR/DOSE 1.Mild cardiomegaly. 2. Few pulmonary nodules measuring up to 7 mm. Some of these nodules are new from prior. 6-12 month follow-up is recommended. Deshawn Wahl MD., have reviewed this study and agree with the above report. Narrative Performed At PROCEDURE: CT CHEST WITH CONTRAST - CHEST PROTOCOL PACS/VR/DOSE CLINICAL INDICATION: Acute resp illness, > 40 years old FEVEr COMPARISON:None. TECHNIQUE:Helical CT was performed of the chest (lung apices to bases) using 120 mL Omnipaque 350 nonionic intravenous contrast, without complication. Images were reconstructed at 1.25 mm slice thickness. MIP and coronal & sagittal MPR images were generated and reviewed. (DFOV=42 cm) FINDINGS: Lower neck/thyroid: Unremarkable. Lungs: A 5 mm right upper lobe nodule is present (3:49), unchanged. A 3 mm right upper lobe nodule is present (3:81), unchanged. A 7 mm left lower lobe nodule is present (3:102), new from prior. A 3 mm left lower lobe is present (3:190), new from prior. Central airway: Unremarkable. Pleura: No pleural effusion, thickening or pneumothorax. Thoracic aorta and great vessels:Normal in diameter. Pulmonary arteries: Unremarkable. Heart and pericardium: Moderate coronary arterial calcification. Mild cardiomegaly is noted. Lymph nodes: No enlarged thoracic lymph nodes. Mediastinum: Unremarkable. Thoracic spine and chest wall: Unremarkable, with normal thoracic vertebral body heights. Other Lines/Tubes/Devices/Hardware: None Visualized upper abdomen: Unchanged 4.3 cm right renal hypoattenuating lesion. Unchanged 2.9 cm segment 2 hypoattenuating lesion. Procedure Note [facility], Radiant Results Inft User - 04/01/2019 7:01 PM CDT PROCEDURE: CT CHEST WITH CONTRAST - CHEST PROTOCOL CLINICAL INDICATION: Acute resp illness, > 40 years old FEVEr COMPARISON: None. TECHNIQUE: Helical CT was performed of the chest (lung apices to bases) using 120 mL Omnipaque 350 nonionic intravenous contrast, without complication. Images were reconstructed at 1.25 mm slice thickness. MIP and coronal & sagittal MPR images were generated and reviewed. (DFOV=42 cm) FINDINGS: Lower neck/thyroid: Unremarkable. Lungs: A 5 mm right upper lobe nodule is present (3:49), unchanged. A 3 mm right upper lobe nodule is present (3:81), unchanged. A 7 mm left lower lobe nodule is present (3:102), new from prior. A 3 mm left lower lobe is present (3:190), new from prior. Central airway: Unremarkable. Pleura: No pleural effusion, thickening or pneumothorax. Thoracic aorta and great vessels: Normal in diameter. Pulmonary arteries: Unremarkable. Heart and pericardium: Moderate coronary arterial calcification. Mild cardiomegaly is noted. Lymph nodes: No enlarged thoracic lymph nodes. Mediastinum: Unremarkable. Thoracic spine and chest wall: Unremarkable, with normal thoracic vertebral body heights. Other Lines/Tubes/Devices/Hardware: None Visualized upper abdomen: Unchanged 4.3 cm right renal hypoattenuating lesion. Unchanged 2.9 cm segment 2 hypoattenuating lesion. IMPRESSION 1. Mild cardiomegaly. 2. Few pulmonary nodules measuring up to 7 mm. Some of these nodules are new from prior. 6-12 month follow-up is recommended. Duke Wahl MD., have reviewed this study and agree with the above report. Performing Organization Address City/State/Zipcode Phone Number PACS/VR/DOSE ADC,CLC OR LCC ONLY - INFLUENZA A & B DIRECT ANTIGEN (04/01/2019 5:46 PM CDT) Influenza A POSITIVE (A) Negative [facility] Influenza B POSITIVE (A) Negative [facility] Specimen Swab - NARE, RIGHT SIDE Performing Organization Address [facility]/Zipcode Phone Number [facility] CLIA: [id number], [address] [place] [address] XR CHEST 1 VW (04/01/2019 5:15 PM CDT) Specimen Impressions Performed At PACS/VR/DOSE Cardiomegaly. Deshawn Wahl MD., have reviewed this study and agree with the above report. Narrative Performed At PACS/VR/DOSE PROCEDURE: XR CHEST 1 VW CLINICAL INDICATION: FEVER/CHILLS, COUGH/SOB COMPARISON: 03/11/2019. FINDINGS: Bilateral prominent pulmonary vascular markings noted without kadi pulmonary edema. No focal consolidation. No pleural effusion or pneumothorax is seen. The heart is enlarged in size. No acute bony abnormality. Lower cervical spine ACDF surgical changes noted. Procedure Note [facility], Radiant Results Inft User - 04/01/2019 5:24 PM CDT PROCEDURE: XR CHEST 1 VW CLINICAL INDICATION: FEVER/CHILLS, COUGH/SOB COMPARISON: 03/11/2019. FINDINGS: Bilateral prominent pulmonary vascular markings noted without kadi pulmonary edema. No focal consolidation. No pleural effusion or pneumothorax is seen. The heart is enlarged in size. No acute bony abnormality. Lower cervical spine ACDF surgical changes noted. IMPRESSION Cardiomegaly. IDuke MD., have reviewed this study and agree with the above report. Performing Organization Address [facility]/Zipcode Phone Number PACS/VR/DOSE Lactic Acid Whole Blood (04/01/2019 5:04 PM CDT) LACTIC ACID 1.69 0.50 - 2.20 mmol/L [facility] Specimen Blood - VENOUS Performing Organization Address [facility] Cent[facility]ode Phone Number [facility] CLIA: [id number], [address] [place] [address] URINALYSIS (04/01/2019 5:02 PM CDT) APPEARANCE Clear Clear [facility] COLOR Yellow Yellow [facility] PH 7.5 4.8 - 8.0 [facility] SP GRAVITY 1.015 1.003 - 1.030 [facility] GLU U QUAL Negative Negative [facility] BLOOD Negative Negative [facility] KETONES Negative Negative [facility] PROTEIN 100 mg/dL (A) Negative [facility] UROBILIN 0.2 mg/dL 0-1.0 mg/dL [facility] BILIRUBIN Negative Negative [facility] NITRITE Negative Negative [facility] LEUK RADHA Negative Negative [facility] RBC/HPF 0 0 - 3 HPF [facility] WBC/HPF 2 0 - 5 HPF [facility] BACTERIA Negative Negative [facility] AMORPHOUS 2+ HPF [facility] SQ EPITH 1 HPF [facility] Specimen Urine - URINE, CLEAN CATCH Performing Organization Address [facility] [place] [facility] Centercode Phone Number [facility] CLIA: [id number], [address] [place] [address] CBC WITH DIFFERENTIAL (04/01/2019 5:01 PM CDT) WBC 5.15 4.20 - 10.70 [facility] 10*3/L HOSPITAL [facility] RBC 3.63 (L) 4.26 - 5.52 [facility] 10*6/L [facility] HGB 11.0 (L) 12.2 - 16.4 [facility] g/dL [facility] HCT 32.6 (L) 38.4 - 49.3 % [facility] MCV 89.8 81.7 - 95.6 fL [facility] MCH 30.3 26.1 - 32.7 pg [facility] MCHC 33.7 31.2 - 35.0 [facility] g/dL [facility] RDW-SD 44.4 38.5 - 51.6 fL [facility] RDW-CV 13.5 12.1 - 15.4 % [facility] PLT 221 150 - 328 [facility] 10*3/L [facility] MPV 11.0 9.8 - 13.0 fL [facility] NRBC/100 WBC 0.0 0.0 - 10.0 /100 [facility] WBCs [facility] NRBC x10^3 <0.01 10*3/L [facility] GRAN MAT (NEUT) % 59.2 % [facility] IMM GRAN % 0.60 % [facility] LYMPH % 20.4 % [facility] MONO % 18.6 % [facility] EOS % 0.2 % [facility] BASO % 1.0 % [facility] GRAN MAT x10^3(ANC) 3.05 1.99 - 6.95 [facility] 10*3/uL HOSPITAL [facility] IMM GRAN x10^3 0.03 0.00 - 0.06 [facility] [facility] 10*3/uL [facility] LYMPH x10^3 1.05 (L) 1.09 - 3.23 [facility] 10*3/uL [facility] MONO x10^3 0.96 0.36 - 1.02 [facility] 10*3/uL [facility] EOS x10^3 <0.03 (L) 0.06 - 0.53 [facility] 10*3/uL [facility] BASO x10^3 0.05 0.01 - 0.09 [facility] 10*3/uL [facility] Specimen Blood - ARM, RIGHT Performing Organization Address City/State/Zipcode Phone Number [facility] CLIA: [id number], [address] [place] [address] COMP. METABOLIC PANEL ([id number]) (04/01/2019 5:01 PM CDT) NA 140 135 - 145 [facility] mmol/L [facility] K 3.4 (L) 3.5 - 5.0 [facility] mmol/L [facility] CL 103 98 - 108 mmol/L [facility] CO2 TOTAL 26 23 - 31 mmol/L [facility] AGAP 11 2 - 16 [facility] BUN 15 7 - 23 mg/dL [facility] GLUCOSE 108 70 - 110 mg/dL [facility]ORY CREATININE 0.89 0.60 - 1.25 [facility] mg/dL [facility] TOTAL BILI 0.3 0.1 - 1.1 mg/dL [facility]ORY CALCIUM 8.7 8.6 - 10.6 [facility] mg/dL [facility] T PROTEIN 7.0 6.3 - 8.2 g/dL [facility] ALBUMIN 4.3 3.5 - 5.0 g/dL [facility] LABORATORY ALK PHOS 53 34 - 122 U/L [facility] ALT(SGPT) 20 9 - 51 U/L [facility] AST(SGOT) 21 13 - 40 U/L [facility] eGFR Calculation 85.8 mL/min/1.73m2 [facility] ([facility] LAB[facility]ORY [place]) eGFR Calculation 104.0 mL/min/1.73m2 [facility] () [facility] Specimen Blood - ARM, RIGHT Narrative Performed At Association of Glomerular Filtration Rate (GFR) [facility] LABORATORY and Staging of Kidney Disease* + + +- + | GFR (mL/min/1.73 m2)| With Kidney Damage|Without Kidney Damage + + +- + |>90| Stage one| Normal + + +- + |60-89|S tage two| Decreased GFR + + +- + |30-59|S tage three| Stage three + + +- + |15-29|S tage four | Stage four + + +- + |<15 (or dialysis)|Stage five | Stage five + + +- + *Each stage assumes the associated GFR level has been in effect for at least three months.Stages 1 to 5, with or without kidney disease, indicate chronic kidney disease. Notes: Determination of stages one and two (with eGFR >59mL/min/1.73 m2) requires estimation of kidney damage for at least three months as defined by structural or functional abnormalities of the kidney, manifested by either: Pathological abnormalities or Markers of kidney damage (including abnormalities in the composition of the blood or urine or abnormalities in imaging tests). Performing Organization Address City/State/Zipcode Phone Number [facility] CLIA: [id number], [address] [place] [address] documented in this encounter Visit Diagnoses Diagnosis Fever in other diseases - Primary Influenza A Influenza with other respiratory manifestations Influenza B Influenza with other respiratory manifestations Pulmonary nodules Other nonspecific abnormal finding of lung field documented in this encounter Administered Medications Medication Order MAR Action Action Date Dose Rate Site acetaminophen (TYLENOL) tablet Given 04/01/2019 7:12 PM CDT 650 mg 650 mg 650 mg, Oral, ONCE, 1 dose, Mon04/01/19 at 2015, KENY iohexol (OMNIPAQUE 350 BULK-100 mL) Given 04/01/2019 6:34 PM CDT 120 mL injection 120 mL 120 mL, Intravenous, ONCE, 1 dose, Mon04/01/19 at 1845, Routine KCL (KLOR-CON M20) tablet 40 mEq Given 04/01/2019 6:08 PM CDT 40 mEq 40 mEq, Oral, ONCE, 1 dose, Mon04/01/19 at 1915, KENY oseltamivir (TAMIFLU) capsule 75 mg Given 04/01/2019 7:23 PM CDT 75 mg 75 mg, Oral, ONCE NOW, 1 dose, Mon04/01/19 at 2030, Routine documented in this encounter Insurance Payer Benefit Plan / Subscriber ID Effective Phone Address Type Group Dates [employer] MEDICARE [id number] 2018-Prese Medicare Adv HEALTHCARE - COMPLETE nt [facility] MEDIC[facility] documented as of this encounter Advance Directives Name Relationship Healthcare Agent Communication Relationship Pennie Srivastava Spouse Primary healthcare agent [email or web address]
--- OUTSIDE RECORDS SUMMARY | 2019-04-30 21:55 | XMS REPORT | Summary of Care ---
:1955 Author Organization [facility] Address [address] [place] [address] Care Team Providers Name Role Phone Mary Weston MD Primary Care Provider Opal Nicolas RN Primary Nurse Unavailable Opal Nicolas RN Primary Nurse Unavailable Reason for Visit Reason Comments Other Encounter Details Date Type Department Care Team Description 04/04/2019 Telephone [facility] Juan José Pantoja MD Other -[address] [address] [place] [address] Allergies Active Allergy Reactions Severity Noted Date Comments Pregabalin Unknown - See comments 04/13/2018 Affected thinking processes severely Morphine Other - See comments 03/23/2016 Severe confusion Montelukast Hives 03/19/2019 documented as of this encounter (statuses as of 04/05/2019) Medications Medication Sig Dispensed Refills Start Date End Date Status nitroglycerin 0.[address] 1 tablet 1 Bottle 2 06/02/2017 Suspended sublingual tablet under the tongue every 5 (five) minutes as needed for Chest pain. carvedilol 12.5 mg Take 1 tablet 180 tablet 3 02/19/2018 Suspended tabletIndications: by mouth 2 Essential (two) times hypertension, benign daily with meals. levothyroxine 150 mcg Take 1 tablet 90 tablet 3 02/19/2018 Suspended tabletIndications: by mouth every Acquired morning. hypothyroidism tamsulosin 0.4 mg 24 Take 1 capsule 90 capsule 3 02/19/2018 Suspended hr capsuleIndications: by mouth Urinary symptom or daily. sign gabapentin 300 mg Take 3 270 capsule 3 03/20/2018 Suspended capsuleIndications: capsules by Cervical myelopathy, mouth 3 Neck pain (three) times daily. blood sugar diagnostic Use TID, DX 100 Box 11 09/20/2018 Suspended strip E11.9 (Brand upon insurance approval) Accu-chek guide magnesium oxide 400 mg Take 1 tablet 30 tablet 11 09/24/2018 Suspended (241.3 mg magnesium) by mouth tabletIndications: daily. Hypomagnesemia KCL 20 mEq Take 1 tablet 60 tablet 11 10/10/2018 Suspended tabletIndications: by mouth 2 Essential hypertension (two) times daily. lisinopril 5 mg Take 1 tablet 60 tablet 3 10/23/2018 Suspended tabletIndications: by mouth 2 Essential hypertension (two) times daily. metFORMIN 500 mg Take 1 tablet 60 tablet 3 01/07/2019 Suspended tabletIndications: by mouth 2 Type 2 diabetes (two) times mellitus with diabetic daily with polyneuropathy, meals. without long-term current use of insulin Olopatadine 0.2 % Place 1 Drop 2.5 mL 3 01/07/2019 Suspended ophthalmic in each eye dropsIndications: daily. Nasal discharge with watery eyes GLIPIZIDE 5 mg TAKE 1 TABLET 180 tablet 1 01/14/2019 Suspended tabletIndications: BY MOUTH TWICE Type 2 diabetes DAILY . mellitus with diabetic BEFORE polyneuropathy, BREAKFAST AND without long-term DINNER. current use of insulin HYDRALAZINE 100 mg TAKE 1 TABLET 90 tablet 7 02/25/2019 Suspended tabletIndications: BY MOUTH EVERY Essential 8 HOURS hypertension, benign amLODIPine 10 mg Take 10 mg by 0 Suspended tablet mouth daily. pantoprazole 40 mg EC Take 1 tablet 60 tablet 5 03/05/2019 Suspended tabletIndications: by mouth 2 Upper GI bleeding (two) times daily. sucralfate 1 gram Take 1 tablet 120 tablet 2 03/05/2019 Suspended tabletIndications: by mouth Upper GI bleeding before meals and at bedtime. ranitidine 300 mg Take 1 tablet 90 tablet 3 03/06/2019 Suspended tabletIndications: by mouth at Gastroesophageal bedtime. reflux disease, esophagitis presence not specified ROSUVASTATIN 40 mg TAKE ONE 90 tablet 3 03/29/2019 Suspended tabletIndications: TABLET BY Hyperlipidemia, MOUTH AT unspecified BEDTIME hyperlipidemia type furosemide 80 mg Take 1 tablet 60 tablet 11 03/25/2019 Suspended tabletIndications: by mouth every Coronary artery morning and disease involving evening. [place] coronary artery of [place] heart without angina pectoris oseltamivir (TAMIFLU) Take 1 capsule 10 capsule 0 04/01/2019 Suspended 75 mg by mouth 2 9 capsuleIndications: (two) times Fever in other daily for 5 diseases, Influenza A, days. 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 Anemia, unspecified type 03/28/2019 Overview: Added automatically from request for surgery [id number] Infection 03/09/2019 Iron deficiency anemia, unspecified iron deficiency anemia type 03/07/2019 Overview: Added automatically from request for surgery [id number] Upper GI bleeding 03/01/2019 Dysarthria 07/24/2018 Dysphagia, unspecified type 07/24/2018 Overview: Added automatically from request for surgery [id number] Hypokalemia 06/02/2018 GARIBAY (dyspnea on exertion) 06/02/2018 Melena 05/05/2018 Hypertensive urgency 05/02/2018 Nausea & vomiting 05/01/2018 Weakness 01/29/2018 Confusion 01/26/2018 Coronary artery disease involving [place] coronary artery of [place] heart 06/14 without angina pectoris Carotid artery [...] as of this encounter (statuses as of 04/05/2019) Resolved Problems Problem Noted Date Resolved Date [...] Treatment: compliant on CPAP Coronary arteriosclerosis in [place] artery 04/18/2016 07/02/2017 Hypertension 04/18/2016 10/19/2016 Morbid [...] as of this encounter (statuses as of 04/05/2019) Immunizations Name Administration Dates Next Due Influenza [...] Treatment Date Type Specialty Care Team Description 04/11/2019 Office Visit Internal Medicine Mary Weston MD [address] [place] [address] Dr Schwarz [address] [place] [id number] Health Maintenance Due Date Last Done Comments LDL-C 03/05/2019 03/05/2018, 10/12/2016 Medicare Wellness Visit [...] 03/09/2019, 03/06/2018, ANNUAL FIT/FOBT 01/26/2018 (Previously completed) LUNG CANCER SCREEN: 04/01/2020 04/01/2019, 01/31/2018 Recommended for age 55-80 with 30 + pack year history CREATININE (SERUM) 04/04/2020 04/04/2019, 04/01/2019, 03/14/2019, Additional history exists HEPATITIS C (HCV) SCREEN Completed 09/10/2010 documented as of this encounter Implants Implanted Type Area Sports Commentator Device Identifier Shelf Expiration Model / Serial Date / Lot Plate PLATE Neck Alana ALANA Leg documented as of this encounter Results Not on filedocumented in this encounter Insurance Payer Benefit Plan / Subscriber ID Effective Phone Address Type Group Dates [employer] MEDICARE [id number] 2018-Prese Medicare Adv HEALTHCARE - COMPLETE [place] [facility] [place] documented as of this encounter Advance Directives Name Relationship Healthcare Agent Communication Relationship Pennie Srivastava Spouse Primary healthcare agent [email or web address]
--- OUTSIDE RECORDS SUMMARY | 2019-04-30 21:55 | XMS REPORT | Summary of Care ---
:1955 Author Organization [facility] - Health Address [address] [place] [address] Care Team Providers Name Role Phone Mary Weston MD Primary Care Provider Opal Nicolas RN Primary Nurse Unavailable Opal Nicolas RN Primary Nurse Unavailable Encounter Details Date Type Department Care Team Description 04/04/2019 Orders Only [facility] Doctor Unassigned, No [address] [facility] [place] [address] [address] [place] [address] Allergies Active Allergy Reactions Severity Noted Date Comments Pregabalin Unknown - See comments 04/13/2018 Affected thinking processes severely Morphine Other - See comments 03/23/2016 Severe confusion Montelukast Hives 03/19/2019 documented as of this encounter (statuses as of 04/04/2019) Medications Medication Sig Dispensed Refills Start Date [...] Coronary artery morning and disease involving evening. [place] coronary artery of [place] heart without angina pectoris oseltamivir (TAMIFLU) Take 1 capsule 10 capsule 0 04/01/2019 04/06/2019 Active 75 mg by mouth 2 capsuleIndications: (two) times Fever in other daily for 5 diseases, Influenza A, days. Influenza B documented as of this encounter (statuses as of 04/04/2019) Active Problems Problem Noted Date Anemia, unspecified type 03/28/2019 Overview: Added automatically from request for surgery [id number] Infection 03/09/2019 Iron deficiency anemia, unspecified iron deficiency anemia type 03/07/2019 Overview: Added automatically from request for surgery [id number] Upper GI bleeding 03/01/2019 Dysarthria 07/24/2018 Dysphagia, unspecified type 07/24/2018 Overview: Added automatically from request for surgery [id number] Hypokalemia 06/02/2018 GARIBAY (dyspnea on exertion) 06/02/2018 Melena 05/05/2018 Hypertensive urgency 05/02/2018 Nausea & vomiting 05/01/2018 Weakness 01/29/2018 Confusion 01/26/2018 Coronary artery disease involving [place] coronary artery of [place] heart 06/14 without angina pectoris Carotid artery [...] activity and Weight loss counseling if needed, [place] Heart diet, Home monitoring of blood pressures, Follow up with primary provider Medications: carvedilol, clonidine, lisinopril, spironolactone, furosemide Hyperlipidemia 04/18/2016 Overview: Overview: Increase activity, [place] Heart diet, monitoring of levels by primary [...] as of this encounter (statuses as of 04/04/2019) Resolved Problems Problem Noted Date Resolved Date [...] Treatment: compliant on CPAP Coronary arteriosclerosis in [place] artery 04/18/2016 07/02/2017 Hypertension 04/18/2016 10/19/2016 Morbid obesity 04/18/2016 07/02/2017 Overview: Overview: Counseling on diet and exercise Sleep apnea 04/18/2016 10/19/2016 Type 2 diabetes mellitus 04/18/2016 10/19/2016 Overview: Overview: [place] Diabetic Diet, monitor blood glucose levels, Diabetic [...] as of this encounter (statuses as of 04/04/2019) Immunizations Name Administration Dates Next Due Influenza [...] Office Visit Internal Medicine Mary Weston MD [facility] Dr Schwarz [address] [place] [id number] Health Maintenance Due Date Last Done Comments [...] ANNUAL FIT/FOBT 01/26/2018 (Previously completed) CREATININE (SERUM) 04/01/2020 04/01/2019, 03/14/2019, 03/13/2019, Additional history exists LUNG CANCER SCREEN: 04/01/2020 04/01/2019, 01/31/2018 Recommended for age 55-80 with 30 + pack year history HEPATITIS C (HCV) SCREEN Completed 09/10/2010 documented as of this encounter Implants Implanted Type Area Wood Handler Device Identifier Shelf Expiration Model / Serial Date / Lot Plate PLATE Neck Alana ALANA Leg documented as of this encounter Procedures Procedure Name Priority Date/Time Associated Diagnosis Comments CONSENT/REFUSAL FOR Routine 04/04/2019 11:45 AM CDT DIAGNOSIS AND TREATMENT documented in this encounter Results Not on filedocumented in this encounter Insurance Payer Benefit Plan / Subscriber ID Effective Phone Address Type Group Dates [employer] MEDICARE [id number] 2018-Prese Medicare Adv HEALTHCARE - COMPLETE [facility] MEDICARE documented as of this encounter Advance Directives Name Relationship Healthcare Agent Communication Relationship Pennie Srivastava Spouse Primary healthcare agent [email or web address]
--- OUTSIDE RECORDS SUMMARY | 2019-04-30 21:55 | XMS REPORT | Summary of Care ---
:1955 Author Organization [facility] Address [address] [place] [address] Care Team Providers Name Role Phone Mary Weston MD Primary Care Provider Opal Nicolas RN Primary Nurse Unavailable Opal Nicolas RN Primary Nurse Unavailable Reason for Visit Reason Comments Fever Chills Cough Auth/Cert Status Reason Specialty Diagnoses / Referred By Referred To Procedures Contact Contact Emergency Medicine [facility] [address] [place] [address] [place] [address] Encounter Details Date Type Department Care Team Description 04/01/2019 Office Visit [facility] Pediatric Trista, Fever, unspecified fever cause (Primary Dx); and Adult Primary Mary Valladares MD Diarrhea, unspecified type; Care- [address] [place] (shortness of breath) [address] [place] [address] [address] [place] [address] [place] [phone] [address] [phone] Allergies Active Allergy Reactions Severity Noted Date Comments Pregabalin Unknown - See comments 04/13/2018 Affected thinking processes severely Morphine Other - See comments 03/23/2016 Severe confusion Montelukast Hives 03/19/2019 documented as of this encounter (statuses as of 04/02/2019) Medications Medication Sig Dispensed Refills Start Date [...] every Coronary artery disease morning and involving [place] evening. coronary artery of [place] heart without angina pectoris Hospital, Clinic, or Other Ordered Dose Route Frequency Start Date End Date Status Facility Administered Medication acetaminophen (TYLENOL) 500 mg Oral ONCE 04/01/2019 04/01/2019 Ended tablet 500 mgIndications: Fever, unspecified fever cause documented as of this encounter (statuses as of 04/02/2019) Active Problems Problem Noted Date Anemia, unspecified type 03/28/2019 Overview: Added automatically from request for surgery [id number] Infection 03/09/2019 Iron deficiency anemia, unspecified iron deficiency anemia type 03/07/2019 Overview: Added automatically from request for surgery [id number] Upper GI bleeding 03/01/2019 Dysarthria 07/24/2018 Dysphagia, unspecified type 07/24/2018 Overview: Added automatically from request for surgery [id number] Hypokalemia 06/02/2018 GARIBAY (dyspnea on exertion) 06/02/2018 Melena 05/05/2018 Hypertensive urgency 05/02/2018 Nausea & vomiting 05/01/2018 Weakness 01/29/2018 Confusion 01/26/2018 Coronary artery disease involving [place] coronary artery of [place] heart 06/14 without angina pectoris Carotid artery [...] activity and Weight loss counseling if needed, [place] [facility] diet, Home monitoring of blood pressures, Follow up with primary provider Medications: carvedilol, clonidine, lisinopril, spironolactone, furosemide Hyperlipidemia 04/18/2016 Overview: Overview: Increase activity, [place] [facility] diet, monitoring of levels by primary [...] as of this encounter (statuses as of 04/02/2019) Resolved Problems Problem Noted Date Resolved Date [...] Treatment: compliant on CPAP Coronary arteriosclerosis in [place] artery 04/18/2016 07/02/2017 Hypertension 04/18/2016 10/19/2016 Morbid obesity 04/18/2016 07/02/2017 Overview: Overview: Counseling on diet and exercise Sleep apnea 04/18/2016 10/19/2016 Type 2 diabetes mellitus 04/18/2016 10/19/2016 Overview: Overview: [place] Diabetic Diet, monitor blood glucose levels, Diabetic [...] as of this encounter (statuses as of 04/02/2019) Immunizations Name Administration Dates Next Due Influenza [...] Sign Reading Time Taken Comments Blood Pressure 164/72 04/01/2019 3:42 PM CDT Pulse 112 04/01/2019 3:42 PM CDT Temperature 38.5 C (101.3 F) 04/01/2019 3:42 PM CDT Respiratory Rate 18 04/01/2019 3:42 PM CDT Oxygen Saturation 98% 04/01/2019 3:42 PM CDT Inhaled Oxygen Concentration - - Weight 103.4 kg (228 lb) 04/01/2019 3:42 PM CDT Height - - Body Mass Index 35.79 03/28/2019 4:27 PM CDT documented in this encounter Patient Instructions Patient InstructionsAurora Royal - 04/01/2019 3:40 PM CDTTylenol 650mg 2 pills 3 times a day is the absolute maximum dose. documented in this encounter Progress Notes Mary Weston MD - 04/01/2019 3:40 PM CDT DOS: 04/01/2019 CC: Fever HPI: Rafi Srivastava is a 64 year old male with history including has a past medical history ofBPH (benign prostatic hyperplasia), Carotid artery disease, CHF (congestive heart failure), History of carpal tunnel syndrome, HLD (hyperlipidemia), HTN (hypertension), Hypothyroidism, Left bundle branch block, [place] (myocardial infarction) (10/2017), Osteoarthritis involving multiple joints on both sides of body, Pneumonia, Renal cyst, and Type 2 diabetes mellitus with neurologic complication. who is being seen today for fever. KUB showed pill was gone. Pt has an appointment coming up for another pill cam to look at small intestine. Patient reports fever and chills began Monday evening. She states he also has watery eyes. He is taking Tylenol. Last dose was about 6hrs ago. Denies tar in stool. He states stools have been darker over the last week. Reports diarrhea. Denies ill contacts. Denies aches. He states he had fever and chills similar to this when he had internal bleeding. He states he had SOB with walking from his car to the office. This is new within the last week. Denies CP. Spoke to ER doctor. Due to concern for pneumonia and other things i walked him down to the ER. Medications reviewed in EPIC, past medical history and social history and allergies reviewed. Review of Systems Constitutional: Positive for chills and fever. Eyes: +watery eyes Respiratory: Positive for shortness of breath. Cardiovascular: Negative for chest pain. Gastrointestinal: Positive for diarrhea. Musculoskeletal: Negative for myalgias. PE: Blood pressure (!) 164/72, pulse 112, temperature 38.5 C (101.3 F), temperature source Oral, resp. rate 18, weight 228 lb (103.4 kg), SpO2 98 %. Physical Exam Constitutional: He is oriented to person, place, and time. He appears well- developed and well-nourished. No distress. HENT: Head: Normocephalic and atraumatic. Right Ear: External ear normal. Left Ear: External ear normal. Nose: Nose normal. No tracheal deviation Eyes: Right eye exhibits no discharge. Left eye exhibits no discharge. No scleral icterus. Left and right eyelids normal. Neurological: He is alert and oriented to person, place, and time. No tremors. Normal gait. Skin: Skin is warm and dry. He is not diaphoretic. Psychiatric: He has a normal mood and affect. His behavior is normal. Pleasant. Vitals reviewed. Results: No new labs A/P: Rafi Srivastava is a 64 year old male with history including has a past medical history of BPH(benign prostatic hyperplasia), Carotid artery disease, CHF (congestive heart failure), History of carpal tunnel syndrome, HLD ( hyperlipidemia), HTN (hypertension), Hypothyroidism, Left bundle branch block, [place] (myocardial infarction) (10/2017), Osteoarthritis involving multiple joints on both sides ofbody, Pneumonia, Renal cyst, and Type 2 diabetes mellitus with neurologic complication. who is beingseen today for fever. Fever, unspecified fever cause (primary encounter diagnosis) Comment: Pt has fever and chills x2 days. He is taking Tylenol with some relief. Plan: acetaminophen (TYLENOL) tablet 500 mg Pt was taken to ER. Monitor. Diarrhea, unspecified type Comment: Pt reports diarrhea. Denies tar colored stool. Stool has been darker over the last week. Plan: Pt was taken to the ER. Monitor SOB (shortness of breath) Comment: Pt reports he had SOB with walking from his car to the office. Denies SOB with walking around his house. Plan: Pt was taken to the ER. Monitor. Plan of care, desired health behaviors, goals,& medication discussed with patient and educational resources and self management tools provided as appropriate. Patient/family/guardian voices understanding. Patient verbalized understanding & agrees to plan of care. Barriers to care: none Ability to manage care: good Scribe's Attestation I, Aurora Royal , am scribing for, and in the presence of, Mary Weston MD who performed the services described here-in. Aurora Royal, April 01, 2019, 4:00 PM Physician's Attestation IMary MD, personally performed the services described in this documentation , asscribed by, Aurora Royal in my presence and it is both accurate and complete. Mary Weston MD April 02, 2019, 7:43 AM documented in this encounter Plan of Treatment Date Type Specialty Care Team Description 04/04/2019 [facility] Surgery Juan José Pantoja Anemia, unspecified type Encounter MD Eusebio [address] [place] [phone] 04/04/2019 Anesthesia Surgery [place], Surjit, Event DO [address] [place] [phone] 04/04/2019 Surgery Surgery Juan José Pantoja ESOPHAGOGASTRODUODENOSCOPY MD Eusebio [address] [place] [phone] 04/08/2019 Office Visit Gastroenterology Zabrina Rincon, [facility] [address] [facility] [address] [place] [address] [phone] 04/11/2019 Office Visit Internal Medicine Mary Weston MD [address] [place] [address] [place] [address] [phone] Health Maintenance Due Date Last Done Comments [...] of this encounter Implants Implanted Type Area Assistant Director Of Residence Life Device Identifier Shelf Expiration Model / Serial Date / Lot Plate PLATE Neck Alana ALANA Leg documented as of this encounter Results Not on filedocumented in this encounter Visit Diagnoses Diagnosis Fever, unspecified fever cause - Primary Diarrhea, unspecified type SOB (shortness of breath) Shortness of breath documented in this encounter Administered Medications Medication Order MAR Action Action Date Dose Rate Site acetaminophen (TYLENOL) tablet Given 04/01/2019 4:15 PM CDT 500 mg 500 mg 500 mg, Oral, ONCE, 1 dose, 04/01/19 at 1715, Routine documented in this encounter Insurance Payer Benefit Plan / Subscriber ID Effective Phone Address Type Group Dates [employer] AARP MEDICARE [id number] 2018-Prese Medicare Adv HEALTHCARE - COMPLETE nt [facility] MEDICARE documented as of this encounter Advance Directives Name Relationship Healthcare Agent Communication Relationship Pennie Srivastava Spouse Primary healthcare agent [email or web address]
--- OUTSIDE RECORDS SUMMARY | 2019-04-30 21:55 | XMS REPORT | Summary of Care ---
:1955 Author Organization [facility] Address [address] [place] [address] Care Team Providers Name Role Phone Mary Weston MD Primary Care Provider Opal Nicolas RN Primary Nurse Unavailable Opal Nicolas RN Primary Nurse Unavailable Reason for Visit Reason Comments Fever Chills Cough Auth/Cert Status Reason Specialty Diagnoses / Referred By Referred To Procedures Contact Contact Emergency Medicine [facility] Emergency Dept [address] [place] [address] [place] [address] Encounter Details Date Type Department Care Team Description 04/01/2019 Office Visit [facility] Pediatric Trista, Fever, unspecified fever cause (Primary Dx); and Adult Primary Mary Valladares MD Diarrhea, unspecified type; Care- [address] [place] (shortness of breath) [address] [place] [address] [address] [place] [address] [place] [phone] [address] [phone] Allergies Active Allergy Reactions Severity Noted Date [...] every Coronary artery disease morning and involving [place] evening. coronary artery of [place] heart without angina pectoris Hospital, Clinic, or Other Ordered Dose Route Frequency Start Date End Date Status Facility Administered Medication acetaminophen (TYLENOL) 500 mg Oral ONCE 04/01/2019 04/01/2019 Ended tablet 500 mgIndications: Fever, unspecified fever cause documented as of this encounter (statuses as of 04/02/2019) Active Problems Problem Noted Date Anemia, unspecified type 03/28/2019 Overview: Added automatically from request for surgery [id number] Infection 03/09/2019 Iron deficiency anemia, unspecified iron deficiency anemia type 03/07/2019 Overview: Added automatically from request for surgery [id number] Upper GI bleeding 03/01/2019 Dysarthria 07/24/2018 Dysphagia, unspecified type 07/24/2018 Overview: Added automatically from request for surgery [id number] Hypokalemia 06/02/2018 GARIBAY (dyspnea on exertion) 06/02/2018 Melena 05/05/2018 Hypertensive urgency 05/02/2018 Nausea & vomiting 05/01/2018 Weakness 01/29/2018 Confusion 01/26/2018 Coronary artery disease involving [place] coronary artery of [place] heart 06/14 without angina pectoris Carotid artery [...] activity and Weight loss counseling if needed, [place] [facility] diet, Home monitoring of blood pressures, Follow up with primary provider Medications: carvedilol, clonidine, lisinopril, spironolactone, furosemide Hyperlipidemia 04/18/2016 Overview: Overview: Increase activity, [place] [facility] diet, monitoring of levels by primary [...] Treatment: compliant on CPAP Coronary arteriosclerosis in [place] artery 04/18/2016 07/02/2017 Hypertension 04/18/2016 10/19/2016 Morbid obesity 04/18/2016 07/02/2017 Overview: Overview: Counseling on diet and exercise Sleep apnea 04/18/2016 10/19/2016 Type 2 diabetes mellitus 04/18/2016 10/19/2016 Overview: Overview: [place] Diabetic Diet, monitor blood glucose levels, Diabetic [...] HTN (hypertension), Hypothyroidism, Left bundle branch block, [place] (myocardial infarction) (10/2017), Osteoarthritis involving multiple joints [...] HTN (hypertension), Hypothyroidism, Left bundle branch block, [place] (myocardial infarction) (10/2017), Osteoarthritis involving multiple joints [...] for, and in the presence of, Mary Wesotn MD who performed the services described here-in. Aurora Royal, April 01, 2019, 4:00 PM Physician's Attestation IMary MD, personally performed the services described in this documentation , asscribed by, Aurora Royal in my presence and it is both accurate and complete. Mary Weston MD April 02, 2019, 7:43 AM documented in this encounter Plan of Treatment Date Type Specialty Care Team Description 04/04/2019 [facility] Surgery Juan José Pantoja Anemia, unspecified type Encounter MD Eusebio [address] [place] [phone] 04/04/2019 Anesthesia Surgery [place], Surjit, Event DO [address] [place] [phone] 04/04/2019 Surgery Surgery Juan José Pantoja ESOPHAGOGASTRODUODENOSCOPY MD Eusebio [address] [place] [phone] 04/08/2019 Office Visit Gastroenterology Zabrina Rincon, [facility] [address] [facility] [address] [place] [address] [phone] 04/11/2019 Office Visit Internal Medicine Mary Weston MD [address] [place] [address] [place] [address] [phone] Health Maintenance Due Date Last Done Comments [...] of this encounter Implants Implanted Type Area Photogrammetric Stereo Compiler Device Identifier Shelf Expiration Model / Serial [...] Address Type Group Dates [employer] AARP MEDICARE [id number] 2018-Prese Medicare Adv HEALTHCARE - COMPLETE nt [facility] MEDICARE documented as of this encounter Advance Directives Name Relationship Healthcare Agent Communication Relationship Pennie Srivsatava Spouse Primary healthcare agent [email or web address]
--- OUTSIDE RECORDS SUMMARY | 2019-04-30 21:56 | XMS REPORT | Summary of Care ---
:1955 Author Organization [facility] Address [address] [place] [address] Care Team Providers Name Role Phone Mary Weston MD Primary Care Provider Opal Nicolas RN Primary Nurse Unavailable Opal Nicolas RN Primary Nurse Unavailable Encounter Details Date Type Department Care Team Description 03/06/2019 Patient Secure Msg [facility] [employer] Messages Doctor Unassigned, [address] [place] [address] [place] [address] [place] [address] [place] [address] Allergies Active Allergy Reactions Severity Noted Date Comments Pregabalin Unknown - See comments 04/13/2018 Affected thinking processes severely Morphine Other - See comments 03/23/2016 Severe confusion Montelukast Hives 03/19/2019 documented as of this encounter (statuses as of 04/06/2019) Medications Medication Sig Dispensed Refills Start Date [...] bedtime. 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 Anemia, unspecified type 03/28/2019 Overview: Added automatically from request for surgery [id number] Infection 03/09/2019 Iron deficiency anemia, unspecified iron deficiency anemia type 03/07/2019 Overview: Added automatically from request for surgery [id number] Upper GI bleeding 03/01/2019 Dysarthria 07/24/2018 Dysphagia, unspecified type 07/24/2018 Overview: Added automatically from request for surgery [id number] Hypokalemia 06/02/2018 GARIBAY (dyspnea on exertion) 06/02/2018 Melena 05/05/2018 Hypertensive urgency 05/02/2018 Nausea & vomiting 05/01/2018 Weakness 01/29/2018 Confusion 01/26/2018 Coronary artery disease involving [place] coronary artery of [place] heart 06/14 without angina pectoris Carotid artery [...] activity and Weight loss counseling if needed, [place] Heart diet, Home monitoring of blood pressures, Follow up with primary provider Medications: carvedilol, clonidine, lisinopril, spironolactone, furosemide Hyperlipidemia 04/18/2016 Overview: Overview: Increase activity, [place] Heart diet, monitoring of levels by primary [...] as of this encounter (statuses as of 04/06/2019) Resolved Problems Problem Noted Date Resolved Date [...] Treatment: compliant on CPAP Coronary arteriosclerosis in [place] artery 04/18/2016 07/02/2017 Hypertension 04/18/2016 10/19/2016 Morbid obesity 04/18/2016 07/02/2017 Overview: Overview: Counseling on diet and exercise Sleep apnea 04/18/2016 10/19/2016 Type 2 diabetes mellitus 04/18/2016 10/19/2016 Overview: Overview: [place] Diabetic Diet, monitor blood glucose levels, Diabetic [...] as of this encounter (statuses as of 04/06/2019) Immunizations Name Administration Dates Next Due Influenza [...] Office Visit Internal Medicine Mary Weston MD [address] [place] [address] Dr Schwarz [address] [place] [address] [phone] Health Maintenance Due Date Last Done Comments [...] 30 + pack year history CREATININE (SERUM) 04/05/2020 04/05/2019, 04/04/2019, 04/01/2019, Additional history exists HEPATITIS C (HCV) SCREEN Completed 09/10/2010 documented as of this encounter Implants Implanted Type Area Compressor Operator Device Identifier Shelf Expiration Model / Serial Date / Lot Plate PLATE Neck Alana ALANA Leg documented as of this encounter Results Not on filedocumented in this encounter Insurance Payer Benefit Plan / Subscriber ID Effective Phone Address Type Group Dates UNITED AARP MEDICARE [id number] 2018-[facility] Medicare Adv HEALTHCARE - COMPLETE nt [place] MANAGED MEDICARE documented as of this encounter Advance Directives Name Relationship Healthcare Agent Communication Relationship Pennie Srivastava Spouse Primary healthcare agent [email or web address]
--- OUTSIDE RECORDS SUMMARY | 2019-04-30 21:58 | XMS REPORT | Summary of Care ---
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 Stalin Finch DISEASE Procedures Discharge Follow-Up: Specialty Service IM-INFECTIOUS DISEASE; 2 Weeks MD Jostin [address] [place] [phone] (Routine) Status Reason Specialty Diagnoses / Referred By Referred To Procedures Contact Contact Closed Internal Medicine Diagnoses 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 Trista Weston, Procedures Discharge Follow-up: PCP MARY WESTON; 1 Week MD Mary Cheatham MD [address] [place] [address] 103 [facility] [id number] [place] [address] Phone: [phone] Phone: Radiology Services (STAT) Status Reason Specialty Diagnoses / Referred By Referred To Procedures Contact Contact New Request Diagnostic Diagnoses 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 Stalin Finch Radiology Procedures XR CHEST 1 VW MD Jostin [address] [place] [phone] Radiology Services (STAT) Status Reason Specialty Diagnoses / Referred By Referred To Procedures Contact Contact New Request Diagnostic Diagnoses 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 Stalin Finch Radiology Procedures XR CHEST 1 VW MD Jostin [address] [place] [phone] MRI/CAT Scan (Routine) Status Reason Specialty Diagnoses / Referred By Referred To Procedures Contact Contact New Request Diagnostic Diagnoses 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 Eugenie, Tino Radiology Procedures MR LUMBAR SPINE WO CONTRAST MR LUMBAR SPINE W WO CONTRAST MD Wander [address] [place] [phone] MRI/CAT Scan (Routine) Status Reason Specialty Diagnoses / Referred By Referred To Procedures Contact Contact New Request Diagnostic Diagnoses 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 Eugenie, Tino Radiology Procedures MR THORACIC SPINE WO CONTRAST MR THORACIC SPINE W WO CONTRAST MD Wander [address] [place] [phone] MRI/CAT Scan (Routine) Status Reason Specialty Diagnoses / Referred By Referred To Procedures Contact Contact New Request Diagnostic Diagnoses 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 Eugenie, Tino Radiology Procedures MR CERVICAL SPINE WO CONTRAST MR CERVICAL SPINE W WO MICKY Viramontes MD [address] [place] [phone] Radiology Services (Routine) Status Reason Specialty Diagnoses / Referred By Referred To Procedures Contact Contact New Request Diagnostic Diagnoses 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 Constipation, unspecified constipation type Stalin Finch Radiology Procedures XR EMBER Frankel MD [address] [place] [phone] Radiology Services (Routine) Status Reason Specialty Diagnoses / Referred By Referred To Procedures Contact Contact New Request Diagnostic Diagnoses 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 Constipation, unspecified constipation type Stalin Finch Radiology Procedures XR EMBER Frankel MD [address] [place] [phone] Radiology Services (Routine) Status Reason Specialty Diagnoses / Referred By Referred To Procedures Contact Contact New Request Diagnostic Diagnoses 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 Cervical myelopathy Neck pain Rogelioveneciacarmenza Stalin Radiology Procedures XR SPINE THORACIC 2 LUCINDA Frankel MD [address] [place] [address] Radiology Services (Routine) Status Reason Specialty Diagnoses / Referred By Referred To Procedures Contact Contact New Request Diagnostic Diagnoses 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 Cervical myelopathy Neck pain Ihsancarmenza Stalin Radiology Procedures XR LUMBAR SPINE 2 VW MD Jostin [address] [place] [phone] Radiology Services (Routine) Status Reason Specialty Diagnoses / Referred By Referred To Procedures Contact Contact New Request Diagnostic Diagnoses 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 Cervical myelopathy Neck pain Rogelioveneciacarmenza Stalin Radiology Procedures XR CERVICAL SPINE 2 VW MD Jostin [address] [place] [address] Radiology Services (Routine) Status Reason Specialty Diagnoses / Referred By Referred To Procedures Contact Contact New Request Diagnostic Diagnoses 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 Cervical myelopathy Neck pain Rogelioveneciacarmenza Stalin Radiology Procedures XR SPINE THORACIC 2 LUCINDA Frankel MD [address] [place] [address] Radiology Services (Routine) Status Reason Specialty Diagnoses / Referred By Referred To Procedures Contact Contact New Request Diagnostic Diagnoses 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 Cervical myelopathy Neck pain Ihsancarmenza Stalin Radiology Procedures XR LUMBAR SPINE 2 VW MD Jostin [address] [place] [address] Radiology Services (Routine) Status Reason Specialty Diagnoses / Referred By Referred To Procedures Contact Contact New Request Diagnostic Diagnoses 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 Cervical myelopathy Neck pain Stalin Finch Radiology Procedures XR CERVICAL SPINE 2 VW MD Jostin [address] [place] [address] Radiology Services (STAT) Status Reason Specialty Diagnoses / Referred By Referred To Procedures Contact Contact New Request Diagnostic Diagnoses Acute diastolic heart failure Stalin Finch Radiology Procedures XR CHEST 1 LUCINDA Frankel MD [address] [place] [address] Radiology Services (STAT) Status Reason Specialty Diagnoses / Referred By Referred To Procedures Contact Contact New Request Diagnostic Diagnoses Acute diastolic heart failure Stalin Finch Radiology Procedures XR CHEST 1 LUCINDA Frankel MD [address] [place] [address] Radiology Services (STAT) Status Reason Specialty Diagnoses / Referred By Referred To Procedures Contact Contact New Request Diagnostic Diagnoses Listeria infection Mello, Kimberley Radiology Procedures XR CHEST 1 VW [address] [facility] [address] [place] [address] Radiology Services (STAT) Status Reason Specialty Diagnoses / Referred By Referred To Procedures Contact Contact New Request Diagnostic Diagnoses Listeria infection Mello, Kimberley Radiology Procedures XR CHEST 1 VW [address] [facility] [address] [place] [address] Reason for Visit Reason Comments Abnormal Lab + Blood Culture +Flu Auth/Cert Status Reason Specialty Diagnoses / Referred By Referred To Procedures Contact Contact Emergency Medicine Diagnoses Positive blood culture- listeria [facility] [address] [place] [address] [place] [address] Encounter Details Date Type Department Care Team Description 04/04/2019 - Hospital Medicine (ARVIN 10C) Pennie Brower DO [address] [place] [address] Infection due to 04/15/2019 Encounter [address] Guanaco Larios MD [address] [place] [phone] listeria [place], [place] Stalin Finch MD [address] [place] [address] [facility] [id number] Teresa Yun MD [address] [place] [address] [phone] Allergies Active Allergy Reactions Severity Noted Date Comments Pregabalin Unknown - See comments 04/13/2018 Affected thinking processes severely Morphine Other - See comments 03/23/2016 Severe confusion Montelukast Hives 03/19/2019 documented as of this encounter (statuses as of 04/15/2019) Medications Medication Sig Dispensed Refills Start End [...] (Brand 9 upon insurance approval) Accu-chek guide metFORMIN 500 mg Take 1 tablet 60 [...] DINNER. without long-term current use of insulin amLODIPine 10 mg Take 10 mg by [...] Hyperlipidemia, MOUTH AT unspecified BEDTIME hyperlipidemia type lisinopril 20 mg Take 1 tablet 60 tablet 2 Active tabletIndications: by mouth 2 9 Essential (two) times hypertension daily. magnesium oxide 400 Take 1 tablet 30 tablet 11 04/11/20 Discontinued mg (241.3 mg by mouth 9 19 magnesium) daily. tabletIndications: Hypomagnesemia KCL 20 mEq Take 1 tablet 60 tablet 11 04/11/20 Discontinued tabletIndications: by mouth 2 9 19 Essential (two) times hypertension daily. lisinopril 5 mg Take 1 tablet 60 tablet 3 04/15/20 Discontinued tabletIndications: by mouth 2 9 19 Essential (two) times hypertension daily. HYDRALAZINE 100 mg TAKE 1 TABLET 90 tablet 7 04/15/20 Discontinued tabletIndications: BY MOUTH EVERY 9 19 Essential 8 HOURS hypertension, benign furosemide 80 mg Take 1 tablet 60 tablet 11 04/11/20 Discontinued tabletIndications: by mouth every 9 19 Coronary artery morning and disease involving evening. cocopah coronary artery of cocop[place] heart without angina pectoris oseltamivir (TAMIFLU) Take 1 capsule 10 capsule 0 04/11/20 Discontinued 75 mg by mouth 2 9 19 capsuleIndications: (two) times Fever in other daily for 5 diseases, Influenza days. 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 Anemia, unspecified type 03/28/2019 Overview: Added automatically from request for surgery [id number] Infection 03/09/2019 Iron deficiency anemia, unspecified iron deficiency anemia type 03/07/2019 Overview: Added automatically from request for surgery [id number] Upper GI bleeding 03/01/2019 Dysarthria 07/24/2018 Dysphagia, unspecified type 07/24/2018 Overview: Added automatically from request for surgery [id number] Hypokalemia 06/02/2018 GARIBAY (dyspnea on exertion) 06/02/2018 Melena 05/05/2018 Hypertensive urgency 05/02/2018 Nausea & vomiting 05/01/2018 Weakness 01/29/2018 Confusion 01/26/2018 Coronary artery disease involving cocopah coronary artery of cocopah heart 06/14 without angina pectoris Carotid artery [...] activity and Weight loss counseling if needed, [place] Heart diet, Home monitoring of blood pressures, Follow up with primary provider Medications: carvedilol, clonidine, lisinopril, spironolactone, furosemide Hyperlipidemia 04/18/2016 Overview: Overview: Increase activity, [place] Heart diet, monitoring of levels by primary [...] as of this encounter (statuses as of 04/15/2019) Resolved Problems Problem Noted Date Resolved Date [...] Treatment: compliant on CPAP Coronary arteriosclerosis in cocopah artery 04/18/2016 07/02/2017 Hypertension 04/18/2016 10/19/2016 Morbid obesity 04/18/2016 07/02/2017 Overview: Overview: Counseling on diet and exercise Sleep apnea 04/18/2016 10/19/2016 Type 2 diabetes mellitus 04/18/2016 10/19/2016 Overview: Overview: Chadian Diabetic Diet, monitor blood glucose levels, Diabetic [...] as of this encounter (statuses as of 04/15/2019) Immunizations Name Administration Dates Next Due Influenza Virus Vaccine 05/10/2014 Influenza Virus Vaccine Quad .5 mL IM 6+ MO 06/03/2018 Influenza Virus Vaccine Quad IM 3+ YRS 06/02/2017, 06/06/2016 Pneumococcal Polysaccharide, PPSV23 (PNEUMOVAX) 04/15/2019, 12/08/2012 documented as of this encounter Social [...] Sign Reading Time Taken Comments Blood Pressure 140/57 04/15/2019 12:11 PM CDT Pulse 58 04/15/2019 12:11 PM CDT Temperature 36.3 C (97.3 F) 04/15/2019 12:11 PM CDT Respiratory Rate 16 04/15/2019 12:11 PM CDT Oxygen Saturation 98% 04/15/2019 12:11 PM CDT Inhaled Oxygen Concentration - - Weight 104.6 kg (230 lb 8 oz) 04/12/2019 4:47 AM CDT Height 170.2 cm (5' 7") 04/04/2019 6:30 PM CDT Body Mass Index 36.1 04/04/2019 6:30 PM CDT documented in this encounter Discharge Instructions AttachmentsThe following attachments cannot be sent through Care Everywhere.Listeria, Understanding (Finnish)Bacteremia, Suspected (Adult) ( Finnish)documented in this encounter Progress Notes Eusebio Persaud RN - 04/15/2019 7:57 AM CDT Care Management Discharge Disposition Note (DCDN) 5-2-1 Interventions: Clear discharge plan 5-2-1 Providers: Hand Braille Transcriber/Aircraft Cabin Cleaner;Nurse Channeling Machine Operator;Physician 5-2-1 Patient Capacity Improvements: Transportation arrangements Discharge Plan for ongoing care and services: Snf Facility (SNF) Discharge location(s): [facility] location: [facility], [address] [place] [phone] () [phone] (F) [phone] Patient choice completed for referred services: Yes Discussed with patient/patients family involved in decision making: Yes Patient or family caregiver understands, and agrees with discharge plan. Community resources/referrals made or provided to patient: No Resources/Referrals: Transportation: Wheelchair Van(priority [phone] voucher [id number]) Nursing informed of discharge plan: Yes Name of RN informed: RADHA Solis Estimated discharge date: 04/15/19 Time: 1330 Additional Information: CM/LACHELLE Name & Contact number: ROSALINDA Milton, RN Kid Club Attendant [email or web address] O:[phone] F:[phone] The following information has been provided to the facility noted above: reason for the patient discharge or transfer; patients physical and psychosocial status; summary of care, treatment, servicesprovided to patient; and the patient progress toward goals. Uma Reyes MD - 04/14/2019 1:15 PM CDT INFECTIOUS DISEASES PROGRESS NOTE: 04/14/2019 13:16 Reason For Consult: Listeria bacteremia Subjective: Overnight no acute events Minimal complains from PICC line Tolerating antibiotics ok Pending placement Antibiotics: ampicillin Objective: Vitals: 04/14/19 0407 04/14/19 0800 04/14/19 0812 04/14/19 1200 BP: (!) 141/64 (!) 158/72 138/62 Pulse: 66 67 69 63 Resp: 16 Temp: 36.4 C (97.5 F) 36.8 C (98.2 F) 37.1 C (98.7 F) TempSrc: Oral Oral Oral SpO2: 97% 99% 97% 99% Weight: Height: General: alert and oriented,no acute distress, obese Eyes: EOMI, anicteric sclerae ENT: oropharynx clear, no sinus tenderness, neck is supple Lungs: good air entry b/l, no crackles Cardio: S1, S2 GI: abdomen soft; distended, BS present Extremities: no clubbing, cyanosis, b/l LE pitting edema - prior scarring from arthroplasties of b/l hip, no TTP MSK: no tenderness to palpation to C spine, L spine or T spine. . Skin: warm and dry Neuro: no focal deficits Hem/lymph: no LAD Labs: WBC Date/Time Value Ref Range Status 04/14/2019 04:12 AM 5.18 4.20 - 10.70 10*3/L Final HGB Date/Time Value Ref Range Status 04/14/2019 04:12 AM 9.2 (L) 12.2 - 16.4 g/dL Final PLT Date/Time Value Ref Range Status 04/14/2019 04:12 AM 284 150 - 328 10*3/L Final CREATININE Date/Time Value Ref Range Status 04/14/2019 04:12 AM 0.77 0.60 - 1.25 mg/dL Final GLUCOSE Date/Time Value Ref Range Status 04/14/2019 04:12 AM 126 (H) 70 - 110 mg/dL Final ALT(SGPT) Date/Time Value Ref Range Status 04/01/2019 05:01 PM 20 9 - 51 U/L Final AST(SGOT) Date/Time Value Ref Range Status 04/01/2019 05:01 PM 21 13 - 40 U/L Final ALK PHOS Date/Time Value Ref Range Status 04/01/2019 05:01 PM 53 34 - 122 U/L Final Microbiology: - Bcx 04/01 aerobic listeria and CoNS, anaerobic CONS - 04/01/2019 infleunza A/B positive - 04/04/2019: Bcx 2/2 bottles anaerobic +ve Listeria - 04/05/2019 Bcx ngtd - 04/06/2019 Bcx NGTD Radiology: - reviewed Assessment: 64 year-old M w/ # 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 Besides age, patient does not have any other risk factors for bacteremia ( DM well controlled, no immunosuppression). Bcx positive from 04/02 and 04/04. Listeria can present as PNA, endocarditis, empyema, PJI, spinal abscesses. RF negative, complements WNL. Initial concern given presentation w/ NARANJO and neck pain was meningitis, however patient responded well to ampicillin, Bcx cleared. Would recommend prolonged course given the inability to determine if vegetation is present AV, TEEread as thickened valve. Patient to complete ampicillin x4 weeks from negative Bcx given complicatedbacteremia. 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 Xrays showed no acute findings. ESR 73 (48).MRI w/o contrast showed no OM/discitis, no epidural abscesses. No other cause of back pain except his multilevel DJD. Imaging was reviewed with radiology, no indirect signs of osteomyelitis/discitis or abscesses, however done w/o contrast. No further symptoms, follow up clinically. # CoNS in Bcx in the setting of neck pain and hx of hardware on C spine Unsure if real bacteremia, he has a hx of ACDF on his C spine. However patient had repeated BCX ON 04/04 that so far have not grown CoNS. Likely a contaminant, hold vancomycin and observe. # Respiratory failure 2/2 pulmonary edema # Acute heart failure exacerbation with preserved EF Likely driven by infection. Worsening respiratory status, he is currently on venturi mask from [place]. CXR showed pulmonary edema. Diuresis per primary. # Influenza A/B - completed treatment Unsure how patient contracted influenza. Patient denies any hx of travelling, no hx of recent sick contacts. Patient completed 5 days of treatment. Other: # AMERICO - likely 2/2 bactrim and diuresis- resolved. # CAD # BPH # HTN # DM well controlled (HbA1C 5.7 12/2018) # OA s/po b/l hip arthroplasties # Obesity # Ckd STAGE 2 # ROBEL on CPAP Recommendations: no new recs - c/w ampicillin for 4 weeks (EOT: 05/03/2019) - while on Iv antibiotics patient should have CBC, CMP weekly to be followed by PCP/facility or primary team - patient to follow up w/ [facility] ID in 2 weeks if possible, if not consider ID at [facility] in 2 weeks based on patient's preference. Alternatively we can be available for questions as long as patient follows up WEEKLY with PCP for PICC line management and follow up labs. Thank you for this consult. Follow up service to follow up on Monday. Plan discussed with ID faculty. Please call with any questions. Uma Almonte MD ID fellowElectronically signed by Scott Norman MD at 5:07 AM CDT Associated attestation - Scott Norman MD - 04/15/2019 5:07 AM CDTI personally examined the patient on 04/14/[address] Almonte's note as written. I actively participated in the decision-making process. Please see the fellow's note for additional details.Tnio Traore MD - 2018 6:45 AM CDT Yojana Team Progress Note Date of Service: 04/14/2019 06:45 Days Since Admission: 10 Chief Complaint:Fever Diagnosis:Listeria Bacteremia, Influenza 24-HOUR EVENTS: Increased lisinopril to 10 mg BID SUBJECTIVE: Mr. Srivastava is doing well. States he slept well. No fevers or chills. Had a BM yesterday. No melena or hematochezia OBJECTIVE: Vitals: Temp: [36.4 C (97.5 F)-37.3 C (99.1 F)] Pulse: [63-70] Resp: [18-20] BP: (141-154)/(60-66) Intake/Output: Intake/Output Summary (Last 24 hours) at 04/14/2019 0645 Last data filed at 04/14/2019 0611 Gross per 24 hour Intake Output 1125 ml Net -1125 ml Physical Exam: General: awake, alert, NAD HEENT:EOMI, anicteric sclera, tongue midline, neck supple Cardiac: RRR, no m/r/g Respiratory: CTAB G/I: soft, BS+, NTND Extremities:no pedal edema Neuro: No focal neurologic deficits LABS/IMAGING: Reviewed ASSESSMENT/PLAN Rafi Srivastava is a 64 year old male admitted to the hospital with Listeria MonocytogenesBacteremia Recent Influenza A/B infection s/p tx Rhinorrhea Assessment: Stable Plan: -Appreciate ID recommendations -Abx:[id number](04/04 - 05/03) - Flonase HTN ChronicHFpEF CAD s/p PCI x2 ROBEL, on CPAP HLDAssessment: BPs elevated, increased lisinopril to 10 mg BID yesterday - will monitor Plan: - CPAP when sleeping - PRN Duonebs - Hold Hydralazine 100 mg TID, Lasix 80 BID - c/w statin, Coreg 12.5 mg BID, Amlodipine 10 mg QD, Lisinopril 10mg BID BPH Assessment:Cr stable, 1125 UOP overnight, not recorded on 04/13 Plan: - Strict I/Os, BMP QD- c/wFlomax DM2, A1C 5.7% (12/2018) DM Peripheral Neuropathy Hypothyroidism Assessment: 24h [id number], TDD [id number] aspart Plan: - c/w SSI, PRN hypoglycemia protocol - Gabapentin 900 mg TID - Synthroid Esophagitis/Gastritis Hx of Melena Chronic Anemia Assessment:no episodes of bleeding Plan: -c/w ranitidine, pantoprazole, sucralfate - c/w senokot PRN, c/w Miralax + PRN suppository Diet: Cardiac/DM Pain:Controlled -Tylenol Prophylaxis: DVT- heparin, SCDs Stress Ulcer: on PPI, H2 marcia STONE SPREADER OPERATOR Code Status:addressed:FULL DISPOSITION Anticipated Discharge Date: Monday Discharge To: home with HH vs SNF Barriers to Discharge: discharge care coordination (home infusion vs SNF) Tino Traore M.D. Department of Internal Medicine PGY-3, [facility] Team Doctor's Number: [phone] Pager: [phone] END OF DAILY PROGRESS NOTE HOSPITAL COURSE Mr. Srivastava is a 64 year-old male with a PMH of symptomatic anemia, gastritis , CAD s/p PCI,HTN, HLD, T2DM,&hypothyroidism, who was [facility] forListeriabacteremia and influenza. Patient was started on ampicillin. Tamiflucontinued. TTE with diastolic dysfunction, elevated LV filling pressures, and no vegetations noted. Had dyspnea, elevated NT- proBNP, &vascular congestion on CXR so patient was diuresed. He continued to have high fevers and rigorsso ID consulted. BCx negative as of 04/05. Hospital course complicated by AMERICO 2/2 pre-renal azotemia, BPH,and TMP-SMX use. Given AMERICO, MRI done without contrast, did not show abscess or bony abnormality.MARIA ESTHER negative for vegetations. LP deferred due to notable clinical improvement. Renal function improved with gentle IVF and ware placement. Patient completed voiding trial. Now awaiting dispo. D/C Planning: - Work letter Resolved Problem(s): - InfluenzaA & B Positive - Fever | Malaise | NARANJO - Constipation - Dyspnea - Acute on ChronicHFpEF, EF 55-60% - UrinaryRetention - AMERICO 2/2 pre-renal azotemia, worsened urinary retention, & TMP-SMX use CURRENT MEDICATIONS - reviewed. Associated attestation - Stalin Finch MD - 04/15/2019 7:49 AM CDTI personally examined the patient on 04/14/19, and I actively participated in the decision-making process. I agree with Dr. Traore's resident note. Stalin Finch MD Division of General Internal Crystal Flat Grinder Uma Mccarthy MD - 04/13/2019 5:33 PM CDT INFECTIOUS DISEASES PROGRESS NOTE: 04/13/2019 17:33 Reason For Consult: Listeria bacteremia Subjective: Overnight no acute events No further pain on picc line Pending placement Antibiotics: ampicillin Objective: Vitals: 04/13/19 0800 04/13/19 1010 04/13/19 1200 04/13/19 1600 BP: (!) 144/63 (!) 149/66 (!) 147/60 Pulse: 67 64 63 63 Resp: 18 Temp: 37.1 C (98.8 F) 36.4 C (97.5 F) 36.4 C (97.5 F) TempSrc: Oral Oral Oral SpO2: 95% 97% 99% 98% Weight: Height: General: alert and oriented,no acute distress, obese Eyes: EOMI, anicteric sclerae ENT: oropharynx clear, no sinus tenderness, neck is supple Lungs: good air entry b/l, no crackles Cardio: S1, S2 GI: abdomen soft; distended, BS present Extremities: no clubbing, cyanosis, b/l LE pitting edema - prior scarring from arthroplasties of b/l hip, no TTP MSK: no tenderness to palpation to C spine, L spine or T spine. . Skin: warm and dry Neuro: no focal deficits Hem/lymph: no LAD Labs: WBC Date/Time Value Ref Range Status 04/12/2019 04:36 AM 5.39 4.20 - 10.70 10*3/L Final HGB Date/Time Value Ref Range Status 04/12/2019 04:36 AM 9.8 (L) 12.2 - 16.4 g/dL Final PLT Date/Time Value Ref Range Status 04/12/2019 04:36 AM 275 150 - 328 10*3/L Final CREATININE Date/Time Value Ref Range Status 04/12/2019 04:36 AM 0.73 0.60 - 1.25 mg/dL Final GLUCOSE Date/Time Value Ref Range Status 04/12/2019 04:36 AM 110 70 - 110 mg/dL Final ALT(SGPT) Date/Time Value Ref Range Status 04/01/2019 05:01 PM 20 9 - 51 U/L Final AST(SGOT) Date/Time Value Ref Range Status 04/01/2019 05:01 PM 21 13 - 40 U/L Final ALK PHOS Date/Time Value Ref Range Status 04/01/2019 05:01 PM 53 34 - 122 U/L Final Microbiology: - Bcx 04/01 aerobic listeria and CoNS, anaerobic CONS - 04/01/2019 infleunza A/B positive - 04/04/2019: Bcx 2/2 bottles anaerobic +ve Listeria - 04/05/2019 Bcx ngtd - 04/06/2019 Bcx NGTD Radiology: - reviewed Assessment: 64 year-old M w/ # 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 Besides age, patient does not have any other risk factors for bacteremia ( DM well controlled, no immunosuppression). Bcx positive from 04/02 and 04/04. Listeria can present as PNA, endocarditis, empyema, PJI, spinal abscesses. RF negative, complements WNL. Initial concern given presentation w/ NARANJO and neck pain was meningitis, however patient responded well to ampicillin, Bcx cleared. Would recommend prolonged course given the inability to determine if vegetation is present AV, TEEread as thickened valve. Patient to complete ampicillin x4 weeks from negative Bcx given complicatedbacteremia. 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 Xrays showed no acute findings. ESR 73 (48).MRI w/o contrast showed no OM/discitis, no epidural abscesses. No other cause of back pain except his multilevel DJD. Imaging was reviewed with radiology, no indirect signs of osteomyelitis/discitis or abscesses, however done w/o contrast. No further symptoms, follow up clinically. # CoNS in Bcx in the setting of neck pain and hx of hardware on C spine Unsure if real bacteremia, he has a hx of ACDF on his C spine. However patient had repeated BCX ON 04/04 that so far have not grown CoNS. Likely a contaminant, hold vancomycin and observe. # Respiratory failure 2/2 pulmonary edema # Acute heart failure exacerbation with preserved EF Likely driven by infection. Worsening respiratory status, he is currently on venturi mask from [place]. CXR showed pulmonary edema. Diuresis per primary. # Influenza A/B - completed treatment Unsure how patient contracted influenza. Patient denies any hx of travelling, no hx of recent sick contacts. Patient completed 5 days of treatment. Other: # AMERICO - likely 2/2 bactrim and diuresis- resolved. # CAD # BPH # HTN # DM well controlled (HbA1C 5.7 12/2018) # OA s/po b/l hip arthroplasties # Obesity # Ckd STAGE 2 # ROBEL on CPAP Recommendations: no new recs - c/w ampicillin for 4 weeks (EOT: 05/03/2019) - while on Iv antibiotics patient should have CBC, CMP weekly to be followed by PCP/facility or primary team - patient to follow up w/ [facility] ID in 2 weeks if possible, if not consider ID at [facility] in 2 weeks based on patient's preference. Alternatively we can be available for questions as long as patient follows up WEEKLY with PCP for PICC line management and follow up labs. Thank you for this consult. Follow up service to follow up on Monday. Plan discussed with ID faculty. Please call with any questions. Uma Almonte MD ID fellowElectronically signed by Scott Norman MD at 5:03 AM CDT Associated attestation - Scott Norman MD - 04/15/2019 5:03 AM CDTI personally examined the patient on 04/13/[address] Almonte's note as written. I actively participated in the decision-making process. Please see the fellow's note for additional details.Lorena Kumar MD - 2018 9:14 AM CDT [facility] Team Progress Note Date of Service: 04/13/2019 09:15 Days Since Admission: 9 Chief Complaint:Fever Diagnosis:Listeria Bacteremia, Influenza 24-HOUR EVENTS: No acute events SUBJECTIVE: Today, patient states that he feels like he has low energy and is complaining of rhinorrhea. OBJECTIVE: Vitals: Temp: [36.7 C (98.1 F)-37.2 C (99 F)] Pulse: [60-67] Resp: [18] BP: (132-148)/(51-65) Intake/Output: Intake/Output Summary (Last 24 hours) at 04/13/2019 0915 Last data filed at 04/12/2019 2311 Gross per 24 hour Intake 377 ml Output 500 ml Net -123 ml Physical Exam: General: awake, alert, NAD HEENT:EOMI, anicteric sclera, tongue midline, neck supple Cardiac: RRR Respiratory: CTAB G/I: soft, BS+, NTND Extremities:freely moves all extremities Neuro: No focal neurologic deficits LABS/IMAGING: Reviewed ASSESSMENT/PLAN Rafi Srivastava is a 64 year old male admitted to the hospital with Listeria MonocytogenesBacteremia Recent Influenza A/B infection s/p tx Assessment: Stable Plan: -Appreciate ID recommendations -Abx:[id number](04/04 - 05/03) - start flonase for rhinorrhea HTN ChronicHFpEF CAD s/p PCI x2 ROBEL, on CPAP HLDAssessment: BP 140-150s/60s, Cr stable since starting lisinopril. Will try and increase lisinopril for better BP control Plan: - CPAP when sleeping - PRN Duonebs - Hold Hydralazine 100 mg TID, Lasix 80 BID - c/w statin, Coreg 12.5 mg BID, Amlodipine 10 mg QD, increase Lisinopril to 10mg BID BPH Assessment:Cr at baseline, adequate UOP. 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 Internal Medicine PGY3 [employer] Team Doctor # [phone] Pager # END OF DAILY PROGRESS NOTE HOSPITAL COURSE Mr. Srivastava is a 64 year-old male with a PMH of symptomatic anemia, gastritis , CAD s/p PCI,HTN, HLD, T2DM,&hypothyroidism, who was [facility] forListeriabacteremia and influenza. Patient was started on ampicillin. Tamiflucontinued. TTE with diastolic dysfunction, elevated LV filling pressures, and no vegetations noted. Had dyspnea, elevated NT- proBNP, &vascular congestion on CXR so patient was diuresed. He continued to have high fevers and rigorsso ID consulted. BCx negative as of 04/05. Hospital course complicated by AMERICO 2/2 pre-renal azotemia, BPH,and TMP-SMX use. Given AMERICO, MRI done without contrast, did not show abscess or bony abnormality.MARIA ESTHER negative for vegetations. LP deferred due to notable clinical improvement. Renal function improved with gentle IVF and ware placement. Patient completed voiding trial. Now awaiting dispo. D/C Planning: - Work letter Resolved Problem(s): - InfluenzaA & B Positive - Fever | Malaise | NARANJO - Constipation - Dyspnea - Acute on ChronicHFpEF, EF 55-60% - UrinaryRetention - AMERICO 2/2 pre-renal azotemia, worsened urinary retention, & TMP-SMX use CURRENT MEDICATIONS - reviewed. Associated attestation - Stalin Finch MD - 04/13/2019 12:56 PM CDTI personally examined the patient on 04/13/2019, and I actively participated in the decision-making process. I agree with Dr. Kumar's resident note. Stalin Finch MD Division of General Internal [employer] Flat Grinder Eusebio Camara RN - 04/12/2019 2:10 PM CDTCare Management Note 04/12/19 2:10 PM Called [facility] [phone] [place] Left a message with hospital receptionist requesting call back 3:10 PM Received email back, patient has been accepted. Now pending insurance auth for placement. DIschargepacket with PASSR and voucher in chart. Voucher not completed, not expected to discharge over the weekend ROSALINDA Milton, RN Kid Club Attendant [email or web address] O:[phone] F:[phone] Uma Reyes MD - 04/12/2019 1:46 PM CDT INFECTIOUS DISEASES PROGRESS NOTE: 04/12/2019 13:46 Reason For Consult: Listeria bacteremia Subjective: Overnight no acute events Feels better now that they are using PICC line Midly sore in right upper extremity but improved Pending placement Antibiotics: ampicillin Objective: Vitals: 04/11/19 2338 04/12/19 0447 04/12/19 0700 04/12/19 1200 BP: (!) 152/61 (!) 146/57 (!) 145/57 (!) 146/63 Pulse: 63 69 67 64 Resp: 18 18 18 18 Temp: 36.6 C (97.9 F) 36.8 C (98.3 F) 36.6 C (97.9 F) 36.8 C ( 98.3 F) TempSrc: Oral Oral Oral Oral SpO2: 96% 97% 96% 96% Weight: 104.6 kg (230 lb 8 oz) Height: General: alert and oriented,no acute distress, obese Eyes: EOMI, anicteric sclerae ENT: oropharynx clear, no sinus tenderness, neck is supple Lungs: good air entry b/l, no crackles Cardio: S1, S2 GI: abdomen soft; distended, BS present Extremities: no clubbing, cyanosis, b/l LE pitting edema - prior scarring from arthroplasties of b/l hip, no TTP MSK: no tenderness to palpation to C spine, L spine or T spine. . Skin: warm and dry Neuro: no focal deficits Hem/lymph: no LAD Labs: WBC Date/Time Value Ref Range Status 04/12/2019 04:36 AM 5.39 4.20 - 10.70 10*3/L Final HGB Date/Time Value Ref Range Status 04/12/2019 04:36 AM 9.8 (L) 12.2 - 16.4 g/dL Final PLT Date/Time Value Ref Range Status 04/12/2019 04:36 AM 275 150 - 328 10*3/L Final CREATININE Date/Time Value Ref Range Status 04/12/2019 04:36 AM 0.73 0.60 - 1.25 mg/dL Final GLUCOSE Date/Time Value Ref Range Status 04/12/2019 04:36 AM 110 70 - 110 mg/dL Final ALT(SGPT) Date/Time Value Ref Range Status 04/01/2019 05:01 PM 20 9 - 51 U/L Final AST(SGOT) Date/Time Value Ref Range Status 04/01/2019 05:01 PM 21 13 - 40 U/L Final ALK PHOS Date/Time Value Ref Range Status 04/01/2019 05:01 PM 53 34 - 122 U/L Final Microbiology: - Bcx 04/01 aerobic listeria and CoNS, anaerobic CONS - 04/01/2019 infleunza A/B positive - 04/04/2019: Bcx 2/2 bottles anaerobic +ve Listeria - 04/05/2019 Bcx ngtd - 04/06/2019 Bcx NGTD Radiology: - reviewed Assessment: 64 year-old M w/ # 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 Besides age, patient does not have any other risk factors for bacteremia ( DM well controlled, no immunosuppression). Bcx positive from 04/02 and 04/04. Listeria can present as PNA, endocarditis, empyema, PJI, spinal abscesses. RF negative, complements WNL. Initial concern given presentation w/ NARANJO and neck pain was meningitis, however patient responded well to ampicillin, Bcx cleared. Would recommend prolonged course given the inability to determine if vegetation is present AV, TEEread as thickened valve. Patient to complete ampicillin x4 weeks from negative Bcx given complicatedbacteremia. 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 Xrays showed no acute findings. ESR 73 (48).MRI w/o contrast showed no OM/discitis, no epidural abscesses. No other cause of back pain except his multilevel DJD. Imaging was reviewed with radiology, no indirect signs of osteomyelitis/discitis or abscesses, however done w/o contrast. No further symptoms, follow up clinically. # CoNS in Bcx in the setting of neck pain and hx of hardware on C spine Unsure if real bacteremia, he has a hx of ACDF on his C spine. However patient had repeated BCX ON 04/04 that so far have not grown CoNS. Likely a contaminant, hold vancomycin and observe. # Respiratory failure 2/2 pulmonary edema # Acute heart failure exacerbation with preserved EF Likely driven by infection. Worsening respiratory status, he is currently on venturi mask from [place]. CXR showed pulmonary edema. Diuresis per primary. # Influenza A/B - completed treatment Unsure how patient contracted influenza. Patient denies any hx of travelling, no hx of recent sick contacts. Patient completed 5 days of treatment. Other: # AMERICO - likely 2/2 bactrim and diuresis- resolved. # CAD # BPH # HTN # DM well controlled (HbA1C 5.7 12/2018) # OA s/po b/l hip arthroplasties # Obesity # Ckd STAGE 2 # ROBEL on CPAP Recommendations: no new recs - c/w ampicillin for 4 weeks (EOT: 05/03/2019) - while on Iv antibiotics patient should have CBC, CMP weekly to be followed by PCP/facility or primary team - patient to follow up w/ [facility] ID in 2 weeks if possible, if not consider ID at [facility] in 2 weeks based on patient's preference. Alternatively we can be available for questions as long as patient follows up WEEKLY with PCP for PICC line management and follow up labs. Will attempt to contact [facility]. Thank you for this consult. We will follow peripherally during the weekend. Plan discussed with ID faculty. Please call with any questions. Uma Almonte MD ID fellow Associated attestation - Reginald Patton MD - 04/12/2019 4:58 PM CDTI have seen and examined this patient on 04/12/2019. I agree with Dr. Almonte s thorough assessment and plan of care. I was directly involved in the decision- making process. Please see the fellowsnote for further details.Eusebio Persaud , RN - 04/12/2019 9:56 AM CDTCare Management Note 04/12/19 9:57 AM Called [facility] [address] [place] [phone] Requesting update on auth for patient and cost. Awaiting call back Update: 11:22 AM [facility] is not in network, so they are moving patients around in hopes to get him a place at [address] [place] [address] Will follow up ROSALINDA Milton, RN Kid Club Attendant [email or web address] O:[phone] F:[phone] Tino Christianson MD - 04/12/2019 7:02 AM CDT [facility] Team Progress Note Date of Service: 04/12/2019 07:02 Days Since Admission: 8 Chief Complaint:Fever Diagnosis:Listeria Bacteremia, Influenza 24-HOUR EVENTS: No acute events SUBJECTIVE: Mr. Srivastava has no acute complaints. States PICC site is only sore but no longer burning since they started to use it for IV infusions of ampicillin. No fevers, chills, dyspnea, CP, cough. Had 3 formed BM yesterday OBJECTIVE: Vitals: Temp: [36.6 C (97.9 F)-36.8 C (98.3 F)] Pulse: [60-69] Resp: [18] BP: (141-152)/(57-69) Intake/Output: Intake/Output Summary (Last 24 hours) at 04/12/2019 0702 Last data filed at 04/12/2019 0447 Gross per 24 hour Intake 300 ml Output 1800 ml Net -1500 ml Physical Exam: General: awake, alert, NAD HEENT:EOMI, anicteric sclera, MMM, tongue midline, neck supple Cardiac: RRR Respiratory: CTAB G/I: soft, BS+, NTND Extremities:freely moves all extremities Neuro: No focal neurologic deficits LABS/IMAGING: Reviewed ASSESSMENT/PLAN Rafi Srivastava is a 64 year old male admitted to the hospital with Listeria MonocytogenesBacteremia Recent Influenza A/B infection s/p tx Assessment: AF, HDS. Tolerating Abx. Plan: -Appreciate ID recommendations -Abx:[id number](04/04 - 05/03) HTN ChronicHFpEF CAD s/p PCI x2 ROBEL, on CPAP HLDAssessment: BP 140-150s/60s, Cr stable since starting lisinopril. If continue to be elevated, can resume home hydralazine or increase lisinopril Plan: - CPAP when sleeping - PRN Duonebs - Hold Hydralazine 100 mg TID, Lasix 80 BID - c/w statin, Coreg 12.5 mg BID, Amlodipine 10 mg QD, Lisinopril 5mg BID BPH Assessment:Cr at baseline, adequate UOP. Plan: - Strict I/Os, BMP QD- c/wFlomax DM2, A1C 5.7% (12/2018) DM Peripheral Neuropathy Hypothyroidism Assessment: 24h [id number], TDD [id number] aspart Plan: - c/w SSI, PRN hypoglycemia protocol - Gabapentin 900 mg TID - Synthroid Esophagitis/Gastritis Hx of Melena Chronic Anemia Assessment:Hgb stable. No melena, hematochezia. 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 Department of Internal Medicine PGY-3, [facility] Team Doctor's Number: [id number] Pager: [phone] END OF DAILY PROGRESS NOTE HOSPITAL COURSE Mr. Srivastava is a 64 year-old male with a PMH of symptomatic anemia, gastritis , CAD s/p PCI,HTN, HLD, T2DM,&hypothyroidism, who was admitted to [facility] forListeriabacteremia and influenza. Patient was started on ampicillin. Tamiflucontinued. TTE with diastolic dysfunction, elevated LV filling pressures, and no vegetations noted. Had dyspnea, elevated NT- proBNP, &vascular congestion on CXR so patient was diuresed. He continued to have high fevers and rigorsso ID consulted. BCx negative as of 04/05. Hospital course complicated by AMERICO 2/2 pre-renal azotemia, BPH,and TMP-SMX use. Given AMERICO, MRI done without contrast, did not show abscess or bony abnormality.MARIA ESTHER negative for vegetations. LP deferred due to notable clinical improvement. Renal function improved with gentle IVF and ware placement. Patient completed voiding trial. Now awaiting dispo. D/C Planning: - Work letter Resolved Problem(s): - InfluenzaA & B Positive - Fever | Malaise | NARANJO - Constipation - Dyspnea - Acute on ChronicHFpEF, EF 55-60% - UrinaryRetention - AMERICO 2/2 pre-renal azotemia, worsened urinary retention, & TMP-SMX use CURRENT MEDICATIONS - reviewed. Associated attestation - Stalin Finch MD - 04/13/2019 8:18 AM CDTI personally examined the patient on 04/12/19, and I actively participated in the decision-making process. I agree with Dr. Traore's resident note. Stalin Finch MD Division of General Internal [employer] Flat Grinder Eusebio Camara RN - 04/11/2019 2:07 PM CDTCare Management Note 04/11/19 2:[address] [address] No beds available for [facility], referral to sister location listed above is sent ROSALINDA Milton, RN Kid Club Attendant [email or web address] O:[phone] F:[phone] TTETSuthar, Tino Viramontes MD - 04/11/2019 11:20 AM CDT [facility] Team Progress Note Date of Service: 04/11/2019 11:20 Days Since Admission: 7 Chief Complaint:Fever Diagnosis:Listeria Bacteremia, Influenza 24-HOUR EVENTS: No acute events SUBJECTIVE: Mr. Srivastava c/o burning around his PICC site Constant overnight and caused him not to sleep well. No fevers, chills, back pain. Having regular BM. Tolerating PO intake. OBJECTIVE: Vitals: Temp: [36.6 C (97.8 F)-36.8 C (98.3 F)] Pulse: [63-71] Resp: [18-20] BP: (131-157)/(52-64) Intake/Output: Intake/Output Summary (Last 24 hours) at 04/11/2019 1120 Last data filed at 04/11/2019 0900 Gross per 24 hour Intake Output 4095 ml Net -4095 ml Physical Exam: General: awake, alert, NAD HEENT:EOMI, pupils equally round, tongue midline, MMM, no JVD Cardiac: RRR, no m/r/g Respiratory: CTAB G/I: soft, BS+,NTND Extremities:no BLE pitting edema Neuro: No focal neurologic deficits LABS/IMAGING: Reviewed ASSESSMENT/PLAN Rafi Srivastava is a 64 year old male admitted to the hospital with Listeria MonocytogenesBacteremia Recent Influenza A/B infection s/p tx Assessment: AF, HDS. Tolerating Ampicillin. Working on discharge coordination (home w/continuous infusion vs SNF) - out of pocket cost for initial infusion company not affordable to patient Plan: -Appreciate ID recommendations -Abx:[id number](04/04 - 05/03) HTN - uncontrolled ChronicHFpEF CAD s/p PCI x2 ROBEL, on CPAP HLD Assessment: BP still elevated 130-150s/60s. Will resume home lisinopril & watch renal function Plan: - CPAP when sleeping - PRN Duonebs - Hold Hydralazine 100 mg TID, Lasix 80 BID - c/w statin, Coreg 12.5 mg BID, Amlodipine 10 mg QD - Resume Lisinopril 5mg BID BPH Assessment:Creatinine at baseline, able to void independently w/o LUTS. No acute concerns Plan: - Strict I/Os, BMP QD - c/wFlomax DM2, A1C 5.7% (12/2018) DM Peripheral Neuropathy Assessment: 24h [id number], TDD [id number] aspart Plan: - c/w SSI, PRN hypoglycemia protocol - Increase Gabapentin to home dose of900 mg TID Esophagitis/Gastritis Hx of Melena Chronic Anemia Assessment:Hgb stable. No melena, hematochezia. 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 Department of Internal Medicine PGY-3, [facility] Team Doctor's Number: [id number] Pager: [phone] END OF DAILY PROGRESS NOTE HOSPITAL COURSE Mr. Srivastava is a 64 year-old male with a PMH of symptomatic anemia, gastritis , CAD s/p PCI,HTN, HLD, T2DM,&hypothyroidism, who was admitted to [facility] forListeriabacteremia and influenza. Patient was started on ampicillin. Tamiflucontinued. TTE with diastolic dysfunction, elevated LV filling pressures, and no vegetations noted. Had dyspnea, elevated NT- proBNP, &vascular congestion on CXR so patient was diuresed. He continued to have high fevers and rigorsso ID consulted. BCx negative as of 04/05. Hospital course complicated by AMERICO 2/2 pre-renal azotemia, BPH,and TMP-SMX use. Given AMERICO, MRI done without contrast, did not show abscess or bony abnormality.MARIA ESTHER negative for vegetations. LP deferred due to notable clinical improvement. Renal function improved with gentle IVF and ware placement. Patient completed voiding trial. Now awaiting dispo. D/C Planning: - Work letter Resolved Problem(s): - InfluenzaA & B Positive - Fever | Malaise | NARANJO - Constipation - Dyspnea - Acute on ChronicHFpEF, EF 55-60% - UrinaryRetention - AMERICO 2/2 pre-renal azotemia, worsened urinary retention, & TMP-SMX use CURRENT MEDICATIONS - reviewed. Associated attestation - Stalin Finch MD - 04/12/2019 8:12 AM CDTI personally examined the patient on 04/11/19, and I actively participated in the decision-making process. I agree with Dr. Traore's resident note. Stalin Finch MD Division of General Internal [employer] Flat Grinder Eusebio Camara RN - 04/11/2019 10:22 AM CDTCare Management Note 04/11/19 Cost for [facility] infusion starts at 180 upfront and his cost are 260 a week. Sent referrals to 4 other infusion companies to run benefits to see it could be cheaper and sent a referral to the SNF below that they choose to see if his stay could be covered for placement. [facility], not in network [facility] - 60$ a week, however patient will not have any income until 04/25/19 [facility] - same deductible as [facility] which patient cannot afford [facility] [address] [place] [address] Called facility at 12:10 PM, received referral, pending medical clearance to start auth per facility. ROSALINDA Milton, RN Kid Club Attendant [email or web address] O:[phone] F:[phone] Uma Reyes MD - 04/11/2019 8:26 AM CDT INFECTIOUS DISEASES PROGRESS NOTE: 04/11/2019 08:26 Reason For Consult: Listeria bacteremia Subjective: Overnight no acute events CR stable PICC line placed Pending placement Patient complains of pain at the PICC line, burning like sensation, no increased temperature, pulsespresent. Antibiotics: ampicillin Objective: Vitals: 04/10/19 2320 04/10/19 2321 04/10/19 2352 04/11/19 0408 BP: 131/52 (!) 156/61 Pulse: 68 68 66 66 Resp: 18 18 18 18 Temp: 36.7 C (98 F) 36.7 C (98.1 F) TempSrc: Oral Oral SpO2: 95% 95% 94% 96% Weight: Height: General: alert and oriented,no acute distress, obese Eyes: EOMI, anicteric sclerae ENT: oropharynx clear, no sinus tenderness, neck is supple Lungs: good air entry b/l, no crackles Cardio: S1, S2 GI: abdomen soft; distended, BS present Extremities: no clubbing, cyanosis, b/l LE pitting edema - prior scarring from arthroplasties of b/l hip, no TTP MSK: no tenderness to palpation to C spine, L spine or T spine. . Skin: warm and dry Neuro: no focal deficits Hem/lymph: no LAD Labs: WBC Date/Time Value Ref Range Status 04/11/2019 04:11 AM 4.13 (L) 4.20 - 10.70 10*3/L Final HGB Date/Time Value Ref Range Status 04/11/2019 04:11 AM 9.3 (L) 12.2 - 16.4 g/dL Final PLT Date/Time Value Ref Range Status 04/11/2019 04:11 AM 248 150 - 328 10*3/L Final CREATININE Date/Time Value Ref Range Status 04/11/2019 04:11 AM 0.77 0.60 - 1.25 mg/dL Final GLUCOSE Date/Time Value Ref Range Status 04/11/2019 04:11 AM 119 (H) 70 - 110 mg/dL Final ALT(SGPT) Date/Time Value Ref Range Status 04/01/2019 05:01 PM 20 9 - 51 U/L Final AST(SGOT) Date/Time Value Ref Range Status 04/01/2019 05:01 PM 21 13 - 40 U/L Final ALK PHOS Date/Time Value Ref Range Status 04/01/2019 05:01 PM 53 34 - 122 U/L Final Microbiology: - Bcx 04/01 aerobic listeria and CoNS, anaerobic CONS - 04/01/2019 infleunza A/B positive - 04/04/2019: Bcx 2/2 bottles anaerobic +ve Listeria - 04/05/2019 Bcx ngtd - 04/06/2019 Bcx NGTD Radiology: - reviewed Assessment: 64 year-old M w/ # 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 Besides age, patient does not have any other risk factors for bacteremia ( DM well controlled, no immunosuppression). Bcx positive from 04/02 and 04/04. Listeria can present as PNA, endocarditis, empyema, PJI, spinal abscesses. RF negative, complements WNL. Initial concern given presentation w/ NARANJO and neck pain was meningitis, however patient responded well to ampicillin, Bcx cleared. Would recommend prolonged course given the inability to determine if vegetation is present AV, TEEread as thickened valve. Patient to complete ampicillin x4 weeks from negative Bcx given complicatedbacteremia. 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 Xrays showed no acute findings. ESR 73 (48).MRI w/o contrast showed no OM/discitis, no epidural abscesses. No other cause of back pain except his multilevel DJD. Imaging was reviewed with radiology, no indirect signs of osteomyelitis/discitis or abscesses, however done w/o contrast. No further symptoms, follow up clinically. # CoNS in Bcx in the setting of neck pain and hx of hardware on C spine Unsure if real bacteremia, he has a hx of ACDF on his C spine. However patient had repeated BCX ON 04/04 that so far have not grown CoNS. Likely a contaminant, hold vancomycin and observe. # Respiratory failure 2/2 pulmonary edema # Acute heart failure exacerbation with preserved EF Likely driven by infection. Worsening respiratory status, he is currently on venturi mask from [place]. CXR showed pulmonary edema. Diuresis per primary. # Influenza A/B - completed treatment Unsure how patient contracted influenza. Patient denies any hx of travelling, no hx of recent sick contacts. Patient completed 5 days of treatment. Other: # AMERICO - likely 2/2 bactrim and diuresis- resolved. # CAD # BPH # HTN # DM well controlled (HbA1C 5.7 12/2018) # OA s/po b/l hip arthroplasties # Obesity # Ckd STAGE 2 # ROBEL on CPAP Recommendations: - c/w ampicillin for 4 weeks (EOT: 05/03/2019) - while on Iv antibiotics patient should have CBC, CMP weekly to be followed by PCP/facility or primary team - consider US of LUE if persistent pain. - c/w diuresis - patient to follow up w/ [facility] ID in 2 weeks if possible, if not consider ID at [facility] in 2 weeks based on patient's preference. Alternatively we can be available for questions as long as patient follows up WEEKLY with PCP for PICC line management and follow up labs. Will attempt to contact [facility] Weston. Thank you.Thank you for this consult. Plan discussed with ID faculty. Please call with any questions. Uma Almonte MD ID fellow Associated attestation - Reginald Patton MD - 04/11/2019 6:07 PM CDTI have seen and examined this patient on 04/11/2019. I agree with Dr. Almonte s thorough assessment and plan of care. I was directly involved in the decision- making process. Please see the fellowsnote for further details.Eusebio Persaud , RN - 04/10/2019 2:22 PM CDTCare Management Note 04/10/19 2:23 PM Patient wants to go with [facility]. He elects to stay home and have [facility] handle his IV and blood draws until ready for removal. ROSALINDA Milton, RN [employer] Attendant [email or web address] O:[phone] F:[phone] Uma Reyes MD - 04/10/2019 9:57 AM CDT INFECTIOUS DISEASES PROGRESS NOTE: 04/10/2019 09:57 Reason For Consult: Listeria bacteremia Subjective: Overnight no acute events Patient was off oxygen this am Feeling a lot better Breathing is better no further back pain or NARANJO Pending removal of ware Cr IMPROVED 0.99 Antibiotics: ampicillin Objective: Vitals: 04/10/19 0005 04/10/19 0346 04/10/19 0722 04/10/19 0747 BP: (!) 153/62 (!) 157/60 Pulse: 70 72 69 Resp: 20 20 20 18 Temp: 36.7 C (98.1 F) 36.8 C (98.3 F) TempSrc: Oral Oral SpO2: 94% 96% 94% 97% Weight: Height: General: alert and oriented,no acute distress, obese Eyes: EOMI, anicteric sclerae ENT: oropharynx clear, no sinus tenderness, neck is supple Lungs: good air entry b/l, no crackles Cardio: S1, S2 GI: abdomen soft; distended, BS present Extremities: no clubbing, cyanosis, b/l LE pitting edema - prior scarring from arthroplasties of b/l hip, no TTP MSK: no tenderness to palpation to C spine, L spine or T spine. . Skin: warm and dry Neuro: no focal deficits Hem/lymph: no LAD Labs: WBC Date/Time Value Ref Range Status 04/10/2019 04:39 AM 3.92 (L) 4.20 - 10.70 10*3/L Final HGB Date/Time Value Ref Range Status 04/10/2019 04:39 AM 9.0 (L) 12.2 - 16.4 g/dL Final PLT Date/Time Value Ref Range Status 04/10/2019 04:39 AM 246 150 - 328 10*3/L Final CREATININE Date/Time Value Ref Range Status 04/10/2019 04:39 AM 0.99 0.60 - 1.25 mg/dL Final GLUCOSE Date/Time Value Ref Range Status 04/10/2019 04:39 AM 116 (H) 70 - 110 mg/dL Final ALT(SGPT) Date/Time Value Ref Range Status 04/01/2019 05:01 PM 20 9 - 51 U/L Final AST(SGOT) Date/Time Value Ref Range Status 04/01/2019 05:01 PM 21 13 - 40 U/L Final ALK PHOS Date/Time Value Ref Range Status 04/01/2019 05:01 PM 53 34 - 122 U/L Final Microbiology: - Bcx 04/01 aerobic listeria and CoNS, anaerobic CONS - 04/01/2019 infleunza A/B positive - 04/04/2019: Bcx 2/2 bottles anaerobic +ve Listeria - 04/05/2019 Bcx ngtd - 04/06/2019 Bcx NGTD Radiology: - reviewed Assessment: 64 year-old M w/ # 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 Besides age, patient does not have any other risk factors for bacteremia ( DM well controlled, no immunosuppression). Bcx positive from 04/02 and 04/04. Listeria can present as PNA, endocarditis, empyema, PJI, spinal abscesses. RF negative, complements WNL. Initial concern given presentation w/ NARANJO and neck pain was meningitis, however patient responded well to ampicillin, Bcx cleared. Would recommend prolonged course given the inability to determine if vegetation is present AV, TEEread as thickened valve. Patient to complete ampicillin x4 weeks from negative Bcx given complicatedbacteremia. 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 Xrays showed no acute findings. ESR 73 (48).MRI w/o contrast showed no OM/discitis, no epidural abscesses. No other cause of back pain except his multilevel DJD. Imaging was reviewed with radiology, no indirect signs of osteomyelitis/discitis or abscesses, however done w/o contrast. No further symptoms, follow up clinically. # CoNS in Bcx in the setting of neck pain and hx of hardware on C spine Unsure if real bacteremia, he has a hx of ACDF on his C spine. However patient had repeated BCX ON 04/04 that so far have not grown CoNS. Likely a contaminant, hold vancomycin and observe. # Respiratory failure 2/2 pulmonary edema # Acute heart failure exacerbation with preserved EF Likely driven by infection. Worsening respiratory status, he is currently on venturi mask from [place]. CXR showed pulmonary edema. Diuresis per primary. # Influenza A/B - completed treatment Unsure how patient contracted influenza. Patient denies any hx of travelling, no hx of recent sick contacts. Patient completed 5 days of treatment. Other: # AMERICO - likely 2/2 bactrim and diuresis- resolved. # CAD # BPH # HTN # DM well controlled (HbA1C 5.7 12/2018) # OA s/po b/l hip arthroplasties # Obesity # Ckd STAGE 2 # ROBEL on CPAP Recommendations: - c/w ampicillin for 4 weeks (EOT: 05/03/2019) - while on Iv antibiotics patient should have CBC, CMP weekly to be followed by PCP or primary team - pending PICC line per primary - c/w diuresis - patient to follow up w/ [facility] ID in 2 weeks if possible, if not consider ID at [facility] in 2 weeks based on patient's preference. Alternatively we can be available for questions as long as patient follows up WEEKLY with PCP for PICC line management and follow up labs. Thank you.Thank you for this consult. Plan discussed with ID faculty. Please call with any questions. Uma Almonte MD ID fellow Associated attestation - Reginald Patton MD - 04/10/2019 5:01 PM CDTI have seen and examined this patient on 04/10/2019. I agree with Dr. Almonte s thorough assessment and plan of care. I was directly involved in the decision- making process. Please see the fellowsnote for further details.Tino Traore MD - 04/10/2019 6:07 AM CDT [facility] Team Progress Note Date of Service: 04/10/2019 07:48 Days Since Admission: 6 Chief Complaint:Fever Diagnosis:Listeria Bacteremia, Influenza 24-HOUR EVENTS: MARIA ESTHER did not show any vegetations. SUBJECTIVE: Mr. Srivastava feels much better this morning. He denies any fevers/chills/ rigors. He denies any neckpain, neck rigidity, or photophobia. He denies any SOB or cough and feels like his breathing is improved. He had multiple loose bowel movements yesterday; denies hematochezia or melena. No dysuria. Able to eat and drink without any nausea or vomiting. Of note, patient is very hesitant at idea of SNF for prolonged Abx therapy OBJECTIVE: Vitals: Temp: [36.7 C (98 F)-37.1 C (98.8 F)] Pulse: [69-82] Resp: [11-20] BP: (123-162)/(50-74) MAP (mmHg): [75] POCT Blood Glucose (manual): [123 mg/dL] Intake/Output: Intake/Output Summary (Last 24 hours) at 04/10/2019 0748 Last data filed at 04/10/2019 0346 Gross per 24 hour Intake Output 6050 ml Net -6050 ml Physical Exam: General:Awake, Alert, NAD HEENT:Normocephalic, atraumatic, EOMI, PEERL Neck:Supple, Normal range of motion Cardiac: RRR, S1 and S2 heard, Norubs or gallops; distal pulses 2+ throughout Respiratory: Good air exchange, CTAB, no rales, wheezes, or rhonchi G/I:Normoactive bowel sounds, soft, non-distended, non tender to palpation : Ware catheter in place, yellow colored urine in bag Extremities:no clubbing, no cyanosis, Trace pedal edema Skin:warm, dry, no rashes, no lesions Neuro: AAOx3, no focal neurologic deficits Resident's Addendum I agree with the Physical Exam by Sotero Isidro with the following additions: General: awake, alert, NAD Neck: no JVD, no nuchal rigidity Lungs: CTAB, no rales or rhonchi Cardio: RRR, no m/r/g Extremities: trace BLE pedal edema LABS/IMAGING - reviewed, pertinent results as below: Cr: 1.16 --> 0.99 Microbiology: BCx (04/01):CoNS, Listeria monocytogenes BCx (04/04):Gram positive bacilli,Listeria monocytogenes BCx (04/05):no growth [id number] HIV: negative ASSESSMENT/PLAN Rafi Srivastava is a 64 year old male admitted to the hospital with Listeria MonocytogenesBacteremia Recent Influenza A/B infection s/p tx Assessment: Patient has remained afebrile; appears to be clinically improving. MARIA ESTHER did not show any vegetations, MRI was not concerning for abscess. Blood cultures were negative from 04/05. ID did not recommend LP due to patient's clinical improvement. Plan for discharge with a total of 4 weeks of antibiotics. Plan: -Appreciate ID recommendations -Abx:[id number](04/04 - ) - Plan for 4 wks tx - PICC placement ChronicHFpEF CAD s/p PCI x2 ROBEL, on CPAP HLD|HTN Assessment: BP now uncontrolled 140-150s/50-60s. No rales or wheezes on exam & amp; pedal edema improving. UOP over the past 24 hours was 6050mL with no diuretics. Electrolytes stable Plan: - CPAP when sleeping - Hold Hydralazine 100 mg TID, Lisinopril - Coreg 12.5 mg BID - Resume Amlodipine 10 mg QD - Stop scheduled duo nebs, c/w PRN UrinaryRetention BPH AMERICO 2/2 pre-renal azotemia, worsened urinary retention, & TMP-SMX use - resolved Assessment:Creatinine istrending down. Ware catheter in place due to urinary retention and UOP was 6050mL yesterday. AMERICO was likely pre-renal +/- obstruction 2/2 BPH. Review of old CT scans showspatient with significant bladder distention on CT. Endorses LUTS including incomplete voiding, hesitancy , dribbling. Voiding trial today. May also need finasteride Plan: - Consider outpatient urology referral -Woiding trial today - c/wFlomax DM2, A1C 5.7% (12/2018) DM Peripheral Neuropathy Assessment: 24h [id number], TDD [id number] aspart Plan: - PRN Hypoglycemia protocol -c/w [id number] mg TID - Aspart SSI TIDAC+HS Esophagitis/Gastritis Hx of Melena Chronic Anemia Assessment:HGB has been stable since 04/07. Had multiple BM this AM with no melena or hematochezia. Will start subQ hep Plan: -c/w ranitidine, pantoprazole, sucralfate - c/w miralax & senokot + PRN suppository Hypothyroidism -c/w levothyroxine Diet: Cardiac/DM Pain:Controlled -Tylenol, Tramadol Prophylaxis: DVT- heparin, SCDs Stress Ulcer:pantoprazole Code Status:addressed:FULL DISPOSITION Anticipated Discharge Date: Discharge To: home with HH vs SNF Barriers to Discharge: care coordination Nato Isidro MS4 Resident's Addendum I agree with the Assessment and Plan by Sotero Isidro with following additions/ details: Patient has notably improved, afebrile, no longer having back pain. Thus, he is stable for discharge but will needprolonged IV antibiotics (q4h dosing). Will work with CM & plan to coordinate ideal discharge plan Tino Traore M.D. Department of Internal Medicine PGY-3, [facility] Team Doctor's Number: [id number] Pager: [phone] END OF DAILY PROGRESS NOTE HOSPITAL COURSE Mr. Srivastava is a 64 year-old male with a PMH of symptomatic anemia, gastritis , CAD s/p PCI,HTN, HLD, T2DM,&hypothyroidism, who was [facility] forListeriabacteremia and influenza. Patient was started on ampicillin. Tamiflucontinued. TTE with diastolic dysfunction, elevated LV filling pressures, and no vegetations noted. Had dyspnea, elevated NT- proBNP, &vascular congestion on CXR so patient was diuresed. He continued to have high fevers and rigorsso ID consulted. BCx negative as of 04/05. Hospital course complicated by AMERICO 2/2 pre-renal azotemia, BPH,and TMP-SMX use. Given AMERICO, MRI done without contrast, did not show abscess or bony abnormality.MARIA ESTHER negative for vegetations. LP deferred due to notable clinical improvement. Renal function improved with gentle IVF and ware placement. Resolved Problem(s): - InfluenzaA & B Positive - Fever | Malaise | NARANJO - Constipation - Dyspnea - Acute on ChronicHFpEF, EF 55-60% CURRENT MEDICATIONS - reviewed. Associated attestation - Stalin Finch MD - 04/12/2019 8:12 AM CDTI personally examined the patient on 04/10/[address] Traore resident's note as written, including any changes or additions that the resident may have made to Sotero Isidro medical student's note. I actively participated in the decision making process. Please see the resident's note for additional details. Stalin Finch MD Division of General Internal [employer] Uma Almonte MD - 04/09/2019 6:10 PM CDT INFECTIOUS DISEASES PROGRESS NOTE: 04/09/2019 18:10 Reason For Consult: Listeria bacteremia Subjective: Overnight no acute events, patient states he cannot sleep Patient denies any NARANJO at all and no further back pain Had MARIA ESTHER this am showing thickening of AV, no other vegetations Weaned off to 1 L NC Antibiotics: ampicillin Objective: Vitals: 04/09/19 1236 04/09/19 1253 04/09/19 1258 04/09/19 1541 BP: 123/62 (!) 146/54 Pulse: 69 71 Resp: Temp: 36.7 C (98 F) 36.7 C (98 F) TempSrc: Oral Oral SpO2: 94% 94% 94% 98% Weight: Height: General: alert and oriented,no acute distress on NC, obese Eyes: EOMI, anicteric sclerae ENT: oropharynx clear, no sinus tenderness, neck is supple Lungs: poor inspiratory effort overall Cardio: S1, S2 GI: abdomen soft; distended, BS present Extremities: no clubbing, cyanosis, b/l LE pitting edema - prior scarring from arthroplasties of b/l hip, no TTP MSK: no tenderness to palpation to C spine, L spine or T spine. . Skin: warm and dry Neuro: no focal deficits Hem/lymph: no LAD Labs: WBC Date/Time Value Ref Range Status 04/09/2019 04:41 AM 3.24 (L) 4.20 - 10.70 10*3/L Final HGB Date/Time Value Ref Range Status 04/09/2019 04:41 AM 8.6 (L) 12.2 - 16.4 g/dL Final PLT Date/Time Value Ref Range Status 04/09/2019 04:41 AM 206 150 - 328 10*3/L Final CREATININE Date/Time Value Ref Range Status 04/09/2019 04:41 AM 1.16 0.60 - 1.25 mg/dL Final GLUCOSE Date/Time Value Ref Range Status 04/09/2019 04:41 AM 84 70 - 110 mg/dL Final ALT(SGPT) Date/Time Value Ref Range Status 04/01/2019 05:01 PM 20 9 - 51 U/L Final AST(SGOT) Date/Time Value Ref Range Status 04/01/2019 05:01 PM 21 13 - 40 U/L Final ALK PHOS Date/Time Value Ref Range Status 04/01/2019 05:01 PM 53 34 - 122 U/L Final Microbiology: - Bcx 04/01 aerobic listeria and CoNS, anaerobic CONS - 04/01/2019 infleunza A/B positive - 04/04/2019: Bcx 2/2 bottles anaerobic +ve Listeria - 04/05/2019 Bcx ngtd - 04/06/2019 Bcx NGTD Radiology: - reviewed Assessment: 64 year-old M w/ # 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 Besides age, patient does not have any other risk factors for bacteremia ( DM well controlled, no immunosuppression). Bcx positive from 04/02 and 04/04. Listeria can present as PNA, endocarditis, empyema, PJI, spinal abscesses. RF negative, complements WNL. Inial concern given presentation w/ NARANJO and neck pain was meningitis, however patient responded well to ampicillin, Bcx cleared.Would recommend prolonged course given the inability to determine if vegetation is present AV, MARIA ESTHER read as thickened valve. 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 Xrays showed no acute findings. ESR 73 (48).MRI w/o contrast showed no OM/discitis, no epidural abscesses. No other cause of back pain except his multilevel DJD. Imaging was reviewed with radiology, no indirect signs of osteomyelitis/discitis or abscesses, however done w/o contrast. # CoNS in Bcx in the setting of neck pain and hx of hardware on C spine Unsure if real bacteremia, he has a hx of ACDF on his C spine. However patient had repeated BCX ON 04/04 that so far have not grown CoNS. Likely a contaminant, hold vancomycin and observe. # Respiratory failure 2/2 pulmonary edema # Acute heart failure exacerbation with preserved EF Likely driven by infection. Worsening respiratory status, he is currently on venturi mask from [place]. CXR showed pulmonary edema. No obvious consolidation, would not recommend to add any further antibiotics for now. Diuresis per primary. # Influenza A/B Unsure how patient contracted influenza. Patient denies any hx of travelling, no hx of recent sick contacts. On tto to complete 5 days unless worsening clinically. Other: # AMERICO - likely 2/2 bactrim and diuresis # CAD # BPH # HTN # DM well controlled (HbA1C 5.7 12/2018) # OA s/po b/l hip arthroplasties # Obesity # Ckd STAGE 2 # ROBEL on CPAP Recommendations: - c/w ampicillin for at least 4 weeks - given his significant improvement will recommend against LP for now - last day of tamiflu, c/w droplet isolation for 7 days total - c/w diuresis - Americo per primary Thank you.Thank you for this consult. Plan discussed with ID faculty. Please call with any questions. Uma Almonte MD ID fellow Associated attestation - Reginald Patton MD - 04/09/2019 6:38 PM CDTI have seen and examined this patient on 04/09/2019. I agree with Dr. Almonte s thorough assessment and plan of care. I was directly involved in the decision- making process. Please see the fellowsnote for further details.Tino Traore MD - 04/09/2019 6:21 AM CDT [facility] Team Progress Note Date of Service: 04/09/2019 06:21 Days Since Admission: 5 Chief Complaint:Fever Diagnosis:Listeria Bacteremia, Influenza 24-HOUR EVENTS: No acute events SUBJECTIVE: Mr. Srivastava is feeling better this morning. He did not have any chills or rigors overnight. Deniesfeeling feverish. He does not feel SOB this morning and said he felt ok when off oxygen briefly yesterday. He able been able to eat and drink; has not had a bowel movement. No back pain or NARANJO. OBJECTIVE: Vitals: Temp: [36.6 C (97.8 F)-36.9 C (98.5 F)] Pulse: [63-76] Resp: [18-20] BP: (115-159)/(56-66) Intake/Output: Intake/Output Summary (Last 24 hours) at 04/09/2019 0621 Last data filed at 04/09/2019 0313 Gross per 24 hour Intake Output 3500 ml Net -3500 ml Physical Exam: General:Awake, Alert, NAD HEENT:Normocephalic, atraumatic, EOMI, PEERL Neck:Supple, Normal range of motion Cardiac: RRR, S1 and S2 heard, Norubs or gallops; distal pulses 2+ throughout Respiratory:On CPAP, Rales heard over left lung base, mild end expiratory wheezes heard bilaterally G/I:Normoactive bowel sounds, soft, non-distended, mild tenderness to palpation : Ware catheter in place, yellow colored urine in bag Extremities:no clubbing, no cyanosis, Bilateral1+ pitting lower extremity edema. Skin:warm, dry, no rashes, no lesions Neuro: AAOx3, no focal neurologic deficits Resident's Addendum I agree with the Physical Exam byStudent Doctor Sotero Isidrowith the following additions: - Gen: awake, alert, NAD, sitting on the side of his bed - Lungs: LLL crackles, end-expiratory wheeze; on RA - CV: RRR - MSK: no TTP over spine or paraspinal muscles - LE: 2+ BLE pitting edema - Neuro: 5/5 BUE and BLE strength, CN II-XII grossly intact, no nuchal rigidity LABS/IMAGING - reviewed, pertinent results as below: K: 3.8 --> 4.1 M.2--> 2.6 Cr: 1.74 --> 1.16 Microbiology: BCx (04/01):CoNS, Listeria monocytogenes BCx (04/04):Gram positive bacilli,Listeria monocytogenes BCx (04/05):no growth [id number] HIV: negative ASSESSMENT/PLAN Rafi Srivastava is a 64 year old male admitted to the hospital with Sepsis 2/2Listeria MonocytogenesBacteremia, clinically determined InfluenzaA & B Positive Fever | Malaise | NARANJO - resolved Assessment: Patient appears to be improving clinically, he has not had any fevers in over 48 hours. Repeat blood cultures have been negative at 72 hours. MRI did not reveal an abscess or was suggestiveof osteomyelitis. Completed Tamiflu today Plan: -Appreciate ID recommendations - MARIA ESTHER today - Will discuss with ID if still require LP as patient has clinical improvement; if so, will perform LP with neurology assistance this afternoon -Abx:[id number] (04/04 - ) Dyspnea- improving Acute on ChronicHFpEF, EF 55-60% CAD s/p PCI x2 ROBEL, on CPAP HLD|HTN Assessment: Patient has been on 5L NC with O2 saturations >95%. Subjectively patient's breathing is better. New rales were heard over lower left lung base - ?atelectasis + fluid, so will encourage use of incentive spirometry. BP stable Plan: - Consult PT - CPAP when sleeping - Keep K>4, Mg>2 - Hold amlodipine 10 mg QD, Hydralazine 100 mg TID, Lisinopril - Wean O2 to maintain SpO2=> 92% - Coreg 12.5 mg BID - Duonebs TID + PRN - If Cr stable tomorrow, will resume lasix AMERICO, baseline Cr 0.7-0.9, 2/2 pre-renal azotemia, worsened urinary retention, & amp; TMP-SMX use - improving Pre-Renal Azotemia UrinaryRetention BPH Assessment:Creatinine is trending down from 1.74 to 1.16 today. Ware catheter in place due to urinary retention and UOP was 4400mL yesterday. AMERICO was likely pre-renal +/- obstruction 2/2 BPH. Urinary eosinophils were negative making AIN less likely. Plan: -Avoid nephrotoxic drugs, renally dose meds - Monitor carefully for electrolyte abnormalities given possible post- obstructive diuresis. -c/w ware - Voiding trial tomorrow - c/wFlomax DM2, A1C 5.7% (12/2018) DM Peripheral Neuropathy Assessment: 24h [id number], TDD [id number] aspart Plan: - PRN Hypoglycemia protocol -c/w [id number] mg TID - Aspart SSI TIDAC+HS Esophagitis/Gastritis Constipation - improving Hx of Melena Anemia Assessment:HGB has been stable since 04/07. Had BM this AM with no melena or hematochezia Plan: - If Hgb <9, will hold subQ heparin, monitor character/consistency of BM, and use SCDs for VTE ppx -c/w ranitidine, pantoprazole, sucralfate - c/w miralax & senokot + PRN suppository Hypothyroidism -c/w levothyroxine Diet: Cardiac/DM Pain:Controlled -Tylenol, Tramadol, [place] Prophylaxis: DVT- SCDs Stress Ulcer:pantoprazole Code Status:addressed:FULL DISPOSITION Anticipated Discharge Date: or Monday Discharge To: home Barriers to Discharge: MARIA ESTHER, possible LP Nato Isidro MS4 Resident's Addendum I agree with the Assessment and Plan by Sotero Isidro with following additions/ details: - Patient overall clinically improving, fevers have resolved & BCx negative at 72h. - Will increase frequency of Ampicillin to q4h as patient's renal function improved w/ware & 1LIVF (suspect obstruction & pre-renal azotemia). - Possibly resume lasix tomorrow if Cr stable given worsened pedal edema & rales. - Will discuss duration of Abx with ID and plan for d/c towards the end of this week if patient continues to improve clinically Tino Traore M.D. Department of Internal Medicine PGY-3, [facility] Team Doctor's Number: [id number] Pager: [phone] END OF DAILY PROGRESS NOTE HOSPITAL COURSE Mr. Srivastava is a 64 year-old male with a PMH of symptomatic anemia, gastritis , CAD s/p PCI,HTN, HLD, T2DM,&hypothyroidism, who [facility] forListeriabacteremia and influenza.BCx repeatedand patient was started on ampicillin. Tamiflucontinued. TTE with diastolic dysfunction, elevated LV filling pressures, and no vegetations noted. Had dyspnea, elevated NT-proBNP, &vascular congestion on CXR so patient was diuresed. Continues to have high fevers and rigorsso ID consulted. Hospital course complicated by AMERICO 2/2 pre-renal azotemia, BPH, and TMP-SMX use. Given AMERICO, MRI done without contrast, did not show abscess or bony abnormality (but not idealstudy). Renal function improving with gentle IVF and ware placement. Plan for MARIA ESTHER and possible LP today. Resolved Problems: Hypokalemia Hypomagnesemia CURRENT MEDICATIONS - reviewed. Current Facility-Administered Medications Medication Dose Route Frequency Last Rate Last Dose ampicillin (POLYCILLIN-N) 2,000 mg in NaCl 0.9% (NS) 100 mL MINI-BAG 2,000 mg IV Piggyback Q6H ABX 2,000 mg at 04/09/19 0306 bisacodyl (DULCOLAX) suppository 10 mg 10 mg Rectal QDAILYPRN gabapentin (NEURONTIN) capsule 600 mg 600 mg Oral TID 600 mg at 04/08/192057 HYDROcodone-acetaminophen (NORCO) 10-325 mg tablet 1 tablet 1 tablet Oral Q6HPRN 1 tablet at 04/08/19 1637 ipratropium-albuterol (DUONEB) 0.5 mg-3 mg(2.5 mg base)/3 mL nebulizer solution 3 mL 3 mL Inhalation TID 3 mL at 04/08/192053 oseltamivir (TAMIFLU) capsule 75 mg 75 mg Oral BID 75 mg at 04/08/192057 Polyethylene Glycol 3350 (MIRALAX) powder 17 g 17 g Oral DAILY 17 g at 1753 proCHLORperazine (COMPAZINE) 5 mg in NaCl 0.9% (NS) piggyback 5 mg IV Piggyback Q8HPRN 5 mg at 04/08/19 0747 sennosides (SENOKOT) tablet 8.6 mg 8.6 mg Oral DAILY 8.6 mg at 04/08/19 0743 simethicone (GAS RELIEF) chewable tablet 80 mg 80 mg Oral PC+HS 80 mg at 04/08/192057 traMADol (ULTRAM) tablet 50 mg 50 mg Oral Q6HPRN 50 mg at 04/08/19 0223 ipratropium-albuterol (DUONEB) 0.5 mg-3 mg(2.5 mg base)/3 mL nebulizer solution 3 mL 3 mL Inhalation Q4HPRN ramelteon (ROZEREM) tablet 8 mg 8 mg Oral QHSPRN 8 mg at 04/06/19 2301 acetaminophen (TYLENOL) tablet 650 mg 650 mg Oral Q6HPRN 650 mg at 0418 carvedilol (COREG) tablet 12.5 mg 12.5 mg Oral BID MEALS 12.5 mg at 04/08 175 dextrose 10% (D10W) bolus infusion 250 mL 250 mL IV Infusion PRN - SEE INSTRUCTIONS glucagon (GLUCAGEN DIAGNOSTIC KIT) injection 1 mg 1 mg Intramuscular PRN levothyroxine (SYNTHROID) tablet 150 mcg 150 mcg Oral QAM-0600 150 mcg at 04/09/19 0617 pantoprazole (PROTONIX) EC tablet 40 mg 40 mg Oral BID 40 mg at 04/08/192057 ranitidine (ZANTAC) syrup 150 mg 150 mg Oral Q12H 150 mg at 04/08/19 214 rosuvastatin (CRESTOR) tablet 40 mg 40 mg Oral QHS 40 mg at 04/08/192057 Sliding Scale Insulin - Aspart (NOVOLOG) + Fsbg Testing Subcutaneous TID MEALS+HS Stopped at04/06/19 0800 sucralfate (CARAFATE) tablet 1 g 1 g Oral AC+HS 1 g at 04/08/192057 tamsulosin (FLOMAX) capsule 0.4 mg 0.4 mg Oral DAILY 0.4 mg at 04/08/19 0743 Associated attestation - Stalin Finch MD - 04/09/2019 3:02 PM CDTI personally examined the patient on 04/09/2019, and I actively participated in the decision-making process. I agree with Dr. Traore's resident note. Stalin Finch MD Division of General Internal [employer] Uma Mccarthy MD - 04/08/2019 10:11 AM CDT INFECTIOUS DISEASES PROGRESS NOTE: 04/08/2019 10:12 Reason For Consult: Listeria bacteremia Subjective: Overnight no acute events, patient remained afebrile Patient had worsening abdominal pain and n/v after getting miralax and other medications. His breathing si about the same, maybe a little bit better. Continues to have severe back pain, had MRI w/o contrast last night Cr increased MRI w/o contrast showed no OM/DISCITIS, NO ABSCESSES, SEVERE LUMBAR SPONDYLOSIS W/ SEVERE CANAL STENOSIS. Antibiotics: ampicillin Objective: Vitals: 04/08/19 0421 04/08/19 0724 04/08/19 0734 04/08/19 0900 BP: 135/68 (!) 159/66 Pulse: 73 73 Resp: 20 18 18 20 Temp: 37.1 C (98.7 F) 36.8 C (98.2 F) TempSrc: Oral Oral SpO2: 95% 94% 96% 94% Weight: Height: General: alert and oriented, mild distress w/o oxygen attempting to walk around Eyes: EOMI, anicteric sclerae ENT: oropharynx clear Lungs: poor inspiratory effort overall Cardio: S1, S2 GI: abdomen soft; distended, BS present Extremities: no clubbing, cyanosis, b/l LE pitting edema - prior scarring from arthroplasties of b/l hip, no TTP MSK: tender to palpation to C spine and lower lumbar spine, no paravertebral tenderness Skin: warm and dry Neuro: no focal deficits Hem/lymph: no LAD Labs: WBC Date/Time Value Ref Range Status 04/07/2019 07:58 PM 6.56 4.20 - 10.70 10*3/L Final HGB Date/Time Value Ref Range Status 04/07/2019 07:58 PM 8.6 (L) 12.2 - 16.4 g/dL Final PLT Date/Time Value Ref Range Status 04/07/2019 07:58 PM 151 150 - 328 10*3/L Final CREATININE Date/Time Value Ref Range Status 04/08/2019 05:42 AM 1.74 (H) 0.60 - 1.25 mg/dL Final GLUCOSE Date/Time Value Ref Range Status 04/08/2019 05:42 AM 86 70 - 110 mg/dL Final ALT(SGPT) Date/Time Value Ref Range Status 04/01/2019 05:01 PM 20 9 - 51 U/L Final AST(SGOT) Date/Time Value Ref Range Status 04/01/2019 05:01 PM 21 13 - 40 U/L Final ALK PHOS Date/Time Value Ref Range Status 04/01/2019 05:01 PM 53 34 - 122 U/L Final Microbiology: - Bcx 04/01 aerobic listeria and CoNS, anaerobic CONS - 04/01/2019 infleunza A/B positive - 04/04/2019: Bcx 2/2 bottles anaerobic +ve Listeria - 04/05/2019 Bcx ngtd - 04/06/2019 Bcx NGTD Radiology: - reviewed Assessment: 64 year-old M w/ # 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 Besides age, patient does not have any other risk factors for bacteremia ( DM well controlled, no immunosuppression). No NARANJO, no changes in MS. Patient repots having a Bday republican the day before his symptoms started, no other friends or family were sick. Would recommend to c/w ampicillin, Bcx positive from 04/02 and 04/04. Listeria can present as PNA, endocarditis, empyema, PJI, spinal abscesses. Pending MARIA ESTHER given thickened Ao valve and persistent bacteremia. RF negative, complementsWNL. Given hx of NARANJO and neck pain, pending LP as meningitis 2/2 listeria has a subacute presentation. 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 Xrays showed no acute findings. ESR 73 (48).MRI w/o contrast showed no OM/discitis, no epidural abscesses. No other cause of back pain except his multilevel DJD. Imaging was reviewed with radiology, no indirect signs of osteomyelitis/discitis or abscesses, however done w/o contrast. # CoNS in Bcx in the setting of neck pain and hx of hardware on C spine Unsure if real bacteremia, he has a hx of ACDF on his C spine. However patient had repeated BCX ON 04/04 that so far have not grown CoNS. Likely a contaminant, hold vancomycin and observe. # Respiratory failure 2/2 pulmonary edema # Acute heart failure exacerbation with preserved EF Likely driven by infection. Worsening respiratory status, he is currently on venturi mask from [place]. CXR showed pulmonary edema. No obvious consolidation, would not recommend to add any further antibiotics for now. Diuresis per primary. # Influenza A/B Unsure how patient contracted influenza. Patient denies any hx of travelling, no hx of recent sick contacts. On tto to complete 5 days unless worsening clinically. Other: # AMERICO - likely 2/2 bactrim and diuresis # CAD # BPH # HTN # DM well controlled (HbA1C 5.7 12/2018) # OA s/po b/l hip arthroplasties # Obesity # Ckd STAGE 2 # ROBEL on CPAP Recommendations: - will review imaging w/ radiology - c/w ampicillin - please get LP ( cell count, diff, protein, glucose, bacterial cx) - c/w tamiflu for total of 5 days ( EOT: 04/09/2019) - c/w droplet isolation for 7 days total - c/w diuresis - Americo per primary Thank you.Thank you for this consult. Plan discussed with ID faculty. Please call with any questions. Uma Almonte MD ID fellow Associated attestation - Reginald Patton MD - 04/08/2019 5:29 PM CDTI have seen and examined this patient on 04/08/2019. I agree with Dr. Almonte s thorough assessment and plan of care. I was directly involved in the decision- making process. Please see the fellowsnote for further details.Tino Traore MD - 04/08/2019 6:29 AM CDT [facility] Team Progress Note Date of Service: 04/08/2019 06:29 Days Since Admission: 4 Chief Complaint:Fever Diagnosis:Listeria Bacteremia, Influenza 24-HOUR EVENTS: Ware catheter placed SUBJECTIVE: Mr. Srivastava denies having any chills or rigors last night and did not feel feverish. His appetite is decreased and he did not eat too much yesterday. He tried taking miralax powder yesterday and it made him nauseous and he vomited up afterward. He has been able to drink liquids without issue. He hasnot had a bowel movement since admission. Back and neck pain is about the same as yesterday and is worsened whenever he has chills. He denies any neck stiffness, vision changes, or new onset headaches.He feels short of breath if he's not on oxygen. He used to the CPAP last night. He denies any productive cough. OBJECTIVE: Vitals: Temp: [36.3 C (97.3 F)-37.1 C (98.7 F)] Heart Rate (monitor): [71] Pulse: [60-73] Resp: [20-22] BP: (121-136)/(57-73) Intake/Output: Intake/Output Summary (Last 24 hours) at 04/08/2019 0629 Last data filed at 04/08/2019 0421 Gross per 24 hour Intake Output 2160 ml Net -2160 ml Physical Exam: General:Awake, Alert, NAD HEENT:Normocephalic, atraumatic, EOMI, PEERL Neck:Supple, Normal range of motion Cardiac: RRR, S1 and S2 heard, Norubs or gallops; distal pulses 2+ throughout Respiratory: No respiratory distress, no rales, mild end expiratory wheezes heard bilaterally G/I:Normoactive bowel sounds, soft, non-distended, non tender to palpation Extremities:no clubbing, no cyanosis, Bilateral 2+ pitting lower extremity edema. Skin:warm, dry, no rashes, no lesions Neuro: AAOx3, no focal neurologic deficits Resident's Addendum I agree with the Physical Exam by Student Doctor Sotero Isidor with the following additions: - Gen: awake, alert, NAD, sitting on the side of his bed - Lungs: CTAB; on 5L O2 - CV: RRR - MSK: TTP over C spine & L spine - LE: 2+ BLE pitting edema - Neuro: 12/30 BUE and BLE strength, CN II-XII grossly intact, no nuchal rigidit LABS/IMAGING - reviewed, pertinent results as below: Na: 130-->130 K: 4.0-->3.8 M.9 -->2.2 Cr: 2.01--> 1.74 Microbiology: BCx (04/01):CoNS, Listeria monocytogenes BCx (04/04):Gram positive bacilli, listeria monocytogenes BCx (04/05): no growth at 48 hours HIV: negative Imaging: Mr Cervical, Thoracic, Lumbar Spine Wo Contrast Result Date: 04/08/2019 CERVICAL SPINE Postsurgical changes of prior C4-C6 ACDF. Multilevel cervical spondylosis and spondylolisthesis, as above. No high-grade spinal canal stenosis at any level. No abnormal cervical cord signal. THORACIC SPINE No high- grade spinal canal stenosis or significant neural foraminal narrowing. Noabnormal thoracic cord signal. LUMBAR SPINE Moderate spinal canal stenosis at L4-L5 with subarticular zones narrowing and potential impingement on the descending L5 nerve roots. An additional multilevel spondylosis and spondyloarthropathy, as above result in no more than mild spinal canal stenosis at L3-L4 and L5-S1. IRadha MD., have reviewed this study and agree with the above report. Xr Kub Result Date: 04/07/2019 FINDINGS/IMPRESSION: The pelvis is excluded from the image. The bowel gas pattern is nonobstructive. ASSESSMENT/PLAN Rafi Srivastava is a 64 year old male admitted to the hospital with Sepsis 2/2Listeria MonocytogenesBacteremia, clinically determined InfluenzaA & B Positive Fever | Malaise | NARANJO - improving Assessment: Patient denies feeling feverish or experiencing chills/rigors overnight. Objectively he has not had a fever in the past 24 hours and is tolerating the ampicillin. BCx from 04/05 have no growth at 48 hours. MRI of spine is pending read. MARIA ESTHER scheduled for today. Patient does not have any overtsigns of meningitis on exam but will consider LP if MRI is normal and patient's headache/neck pain/ back pain improves. Unfortunately MRI done w/o contrast given renal function - may need to repeat tolook for abscess Plan: - Appreciate ID recommendations - f/u BCx - MARIA ESTHER today - Discuss with ID if MRI needs to be repeated w/contrast when renal function improves - LP after MRI if no sign of abscess -Abx: Ampicillin q6h (renally dosed, 04/04 - ),Tamiflu (EOT 04/09) - Tylenol PRN for pain and fever Dyspnea- improving Acute on ChronicHFpEF, EF 55-60% CAD s/p PCI x2 HLD|HTN Assessment: Patient feels SOB off oxygen. He is satting well on 5L NC and CPAP while sleeping. Lung exam only revealed some expiratory wheezes. Lower extremity edema is unchanged from yesterday. Plan: - Hold amlodipine 10 mg QD, Hydralazine 100 mg TID, Lisinopril - Wean O2 to maintain SpO2=> 92% - Coreg 12.5 mg BID - Duonebs TID + PRN - CPAP when sleeping AMERICO, baseline Cr 0.7-0.9 - improving Pre-Renal Azo Urinary Retention BPH Assessment: Creatinine is trending down from 2.01 to 1.74 today. Patient home lasix have been held. Ware catheter was inserted yesterday due to urinary retention and UOP was 1500mL yesterday. FEUrea was 18.9% on most recent labs. Ampicillin may be causing worsening kidney function. Plan: - Avoid nephrotoxic drugs - Renally dose meds - Hold lisinopril - ware catheter - Daily BMP - LR 500 cc @ 75cc/h - c/wFlomax DM2, A1C 5.7% (12/2018) DM Peripheral Neuropathy Assessment: 24h BG 86-140, TDD insulin 0u aspart Plan: - PRN Hypoglycemia protocol - c/w gabapentin 600 mg TID - Aspart SSI TIDAC+HS Esophagitis/Gastritis Hx of melena Anemia Assessment:HGB has been stable at 8.6. No source of active bleeding. Patient has not had a bowel movement since . He was nauseous and vomited after taking miralax yesterday. Will give phenergan before miralax today. Plan: - If Hgb <9, will hold subQ heparin, monitor character/consistency of BM, and use SCDs for VTE ppx -c/w ranitidine, pantoprazole, sucralfate - Start bowel regimen of senokot and miralax - Dulcolax suppository PRN Hypothyroidism -c/w levothyroxine Hypokalemia Hypomagnesemia - resolved Assessment: K was 3.8 today and magnesium was 2.2 Plan: - Keep K>4, Mg>2 Diet: Cardiac/DM Pain:Controlled -Tylenol, Tramadol, [place] Prophylaxis: DVT- SCDs Stress Ulcer:pantoprazole Code Status:addressed:FULL DISPOSITION Anticipated Discharge Date:>2 d Discharge To: home Barriers to Discharge: Clearance of bacteremia, MARIA ESTHER, possible LP Nato Isidro MS4 Resident's Addendum I agree with the Assessment and Plan by Student Doctor Nato Isidro with following additions/details: none. Tino Traore M.D. Department of Internal Medicine PGY-3, [facility] Team Doctor's Number: [id number] Pager: [phone] END OF DAILY PROGRESS NOTE HOSPITAL COURSE Mr. Srivastava is a 64 year-old male with a PMH of symptomatic anemia, gastritis , CAD s/p PCI,HTN, HLD, T2DM,&hypothyroidism, who was admitted [facility] forListeriabacteremia and influenza.BCx repeatedand patient was started on ampicillin. Tamiflucontinued. TTE with diastolic dysfunction, elevated LV filling pressures, and no vegetations noted. Had dyspnea, elevated NT-proBNP, & vascular congestion on CXR so patient was diuresed. Continues to have high fevers and rigorsso ID consulted. Hospital course complicated by AMERICO, pre-renal per urine studies. Given AMERICO,MRI done without contrast, did not show abscess or bony abnormality (but not ideal study) . Plan forTEE and possible LP. Discharge Planning: - Resolved Problems: - CURRENT MEDICATIONS - reviewed. Current Facility-Administered Medications Medication Dose Route Frequency Last Rate Last Dose ampicillin (POLYCILLIN-N) 2,000 mg in NaCl 0.9% (NS) 100 mL MINI-BAG 2,000 mg IV Piggyback Q6H ABX 2,000 mg at 04/08/19 0223 bisacodyl (DULCOLAX) suppository 10 mg 10 mg Rectal QDAILYPRN gabapentin (NEURONTIN) capsule 600 mg 600 mg Oral TID 600 mg at 04/07/192002 HYDROcodone-acetaminophen (NORCO) 10-325 mg tablet 1 tablet 1 tablet Oral Q6HPRN 1 tablet at 04/07/19 1559 ipratropium-albuterol (DUONEB) 0.5 mg-3 mg(2.5 mg base)/3 mL nebulizer solution 3 mL 3 mL Inhalation TID 3 mL at 04/07/191999 oseltamivir (TAMIFLU) capsule 75 mg 75 mg Oral BID 75 mg at 04/07/192002 Polyethylene Glycol 3350 (MIRALAX) powder 17 g 17 g Oral DAILY 17 g at 1209 proCHLORperazine (COMPAZINE) 5 mg in NaCl 0.9% (NS) piggyback 5 mg IV Piggyback Q8HPRN 5 mg at 04/07/19 1447 sennosides (SENOKOT) tablet 8.6 mg 8.6 mg Oral DAILY 8.6 mg at 04/07/19 1209 simethicone (GAS RELIEF) chewable tablet 80 mg 80 mg Oral PC+HS 80 mg at 04/07/192002 traMADol (ULTRAM) tablet 50 mg 50 mg Oral Q6HPRN 50 mg at 04/08/19 0223 ipratropium-albuterol (DUONEB) 0.5 mg-3 mg(2.5 mg base)/3 mL nebulizer solution 3 mL 3 mL Inhalation Q4HPRN ramelteon (ROZEREM) tablet 8 mg 8 mg Oral QHSPRN 8 mg at 04/06/19 2301 acetaminophen (TYLENOL) tablet 650 mg 650 mg Oral Q6HPRN 650 mg at 0418 carvedilol (COREG) tablet 12.5 mg 12.5 mg Oral BID MEALS 12.5 mg at 04/07 1827 dextrose 10% (D10W) bolus infusion 250 mL 250 mL IV Infusion PRN - SEE INSTRUCTIONS glucagon (GLUCAGEN DIAGNOSTIC KIT) injection 1 mg 1 mg Intramuscular PRN heparin injection 5,000 Units 5,000 Units Subcutaneous Q12H 5,000 Units at 04/07/192008 levothyroxine (SYNTHROID) tablet 150 mcg 150 mcg Oral QAM-0600 150 mcg at 04/07/19 0842 pantoprazole (PROTONIX) EC tablet 40 mg 40 mg Oral BID 40 mg at 04/07/192002 ranitidine (ZANTAC) syrup 150 mg 150 mg Oral Q12H 150 mg at 04/07/192002 rosuvastatin (CRESTOR) tablet 40 mg 40 mg Oral QHS 40 mg at 04/07/192002 Sliding Scale Insulin - Aspart (NOVOLOG) + Fsbg Testing Subcutaneous TID MEALS+HS Stopped at04/06/19 0800 sucralfate (CARAFATE) tablet 1 g 1 g Oral AC+HS 1 g at 04/07/192002 tamsulosin (FLOMAX) capsule 0.4 mg 0.4 mg Oral DAILY 0.4 mg at 04/07/19 0751 Associated attestation - Stalin Finch MD - 04/08/2019 3:27 PM CDTI personally examined the patient on 04/08/2019, and I actively participated in the decision-making process. I agree with Dr. Traore's resident note. Stalin Finch MD Division of General Internal [employer] Tino Martinez MD - 04/07/2019 2:30 PM CDTBrief Progress Note 04/07/19 2:30 PM Notified by RN that patient is nauseated and dry heaving after administration of senokot, miralax, and lactulose. Has abdominal distention also. During episode of dry heaving, had pre-syncopal episode where he was more lethargic and "dozed off" for a few seconds. This was witnessed by his . He did not fall. RN concerned patient more drowsy. On my exam, patient sitting up at side of bed. Appears fatigued but able to appropriately converse. He did not require continuous stimulation to engage in conversation. Awake & alert. Uncomfortable appearing. Sitting up on the side of the bed. CV with RRR no m/r/g. Pulmonary exam w/faint bibasilar crackles and diffuse expiratory wheezes. Freely moves all extremities, no facial droop. QTc (04/01): 475 ms FeUrea 18.9% c/w pre-renal azotemia RN bladder scanned patient x2 with 200-250 cc postvoid (void was only 60 cc) Plan: - Fall precautions - KUB - Orthostatic vitals - 500 cc LR over 5-6 hours - PRN compazine - Place ware for urinary retention - CPAP qHS and when sleeping - Plan for MRI Monday if Cr stable followed by LP - Plan for MARIA ESTHER Monday also, [id number] Tino Traore M.D. Department of Internal Medicine PGY-3, [facility] Team Doctor's Number: [id number] Pager: [phone] Uma Reyes MD - 04/07/2019 2:22 PM CDT INFECTIOUS DISEASES PROGRESS NOTE: 04/07/2019 14:22 Reason For Consult: Listeria bacteremia Subjective: Overnight no acute events, patient remained afebrile Bcx from 04/06 NGTD Repeated flu swab negative, unsure of how sample was obtained Complains of worsening lower back pain C spine is tender but not as bad Pending MRI Breathing is midly better, now on NC off mask Antibiotics: ampicillin Objective: Vitals: 04/07/19 0727 04/07/19 0733 04/07/19 1117 04/07/19 1406 BP: 128/64 124/65 124/73 Pulse: 64 64 60 60 Resp: 20 22 20 20 Temp: 36.5 C (97.7 F) 36.3 C (97.3 F) 36.4 C (97.6 F) TempSrc: Oral Oral Oral SpO2: 96% 97% 98% 97% Weight: Height: General: alert and oriented, moderate distress w/o oxygen attempting to walk around Eyes: EOMI, anicteric sclerae ENT: oropharynx clear Lungs: poor inspiratory effort overall, tachypneic Cardio: S1, S2 GI: abdomen soft; distended Extremities: no clubbing, cyanosis, b/l LE pitting edema - prior scarring from arthroplasties of b/l hip, no TTP MSK: tender to palpation to C spine and lower lumbar spine, no paravertebral tenderness Skin: warm and dry Neuro: no focal deficits Hem/lymph: no LAD Labs: WBC Date/Time Value Ref Range Status 04/07/2019 04:11 AM 7.16 4.20 - 10.70 10*3/L Final HGB Date/Time Value Ref Range Status 04/07/2019 04:11 AM 8.5 (L) 12.2 - 16.4 g/dL Final PLT Date/Time Value Ref Range Status 04/07/2019 04:11 AM 143 (L) 150 - 328 10*3/L Final CREATININE Date/Time Value Ref Range Status 04/07/2019 04:11 AM 1.81 (H) 0.60 - 1.25 mg/dL Final GLUCOSE Date/Time Value Ref Range Status 04/07/2019 04:11 AM 93 70 - 110 mg/dL Final ALT(SGPT) Date/Time Value Ref Range Status 04/01/2019 05:01 PM 20 9 - 51 U/L Final AST(SGOT) Date/Time Value Ref Range Status 04/01/2019 05:01 PM 21 13 - 40 U/L Final ALK PHOS Date/Time Value Ref Range Status 04/01/2019 05:01 PM 53 34 - 122 U/L Final Microbiology: - Bcx 04/01 aerobic listeria and CoNS, anaerobic CONS - 04/01/2019 infleunza A/B positive - 04/04/2019: Bcx 2/2 bottles anaerobic +ve Listeria - 04/05/2019 Bcx ngtd - 04/06/2019 Bcx NGTD Radiology: - reviewed Assessment: 64 year-old M w/ # 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 Besides age, patient does not have any other risk factors for bacteremia ( DM well controlled, no immunosuppression). No NARANJO, no changes in MS. Patient repots having a Bday republican the day before his symptoms started, no other friends or family were sick. Would recommend to c/w ampicillin, Bcx positive from 04/02 and 04/04. Listeria can present as PNA, endocarditis, empyema, PJI, spinal abscesses. Pending MARIA ESTHER given thickened Ao valve and persistent bacteremia. UA bland Given hx of NARANJO and neck pain, would recommend Lp after MRI. 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 Xrays showed no acute findings. ESR 73 (48). Will recommend MRI prior to LP. Will attempt to review imaging w/ radiology. # CoNS in Bcx in the setting of neck pain and hx of hardware on C spine Unsure if real bacteremia, he has a hx of ACDF on his C spine. However patient had repeated BCX ON 04/04 that so far have not grown CoNS. Likely a contaminant, hold vancomycin and observe. # Respiratory failure 2/2 pulmonary edema # Acute heart failure exacerbation with preserved EF Likely driven by infection. Worsening respiratory status, he is currently on venturi mask from [place]. CXR showed pulmonary edema. No obvious consolidation, would not recommend to add any further antibiotics for now. Diuresis per primary. . # Influenza A/B Unsure how patient contracted influenza. Patient denies any hx of travelling, no hx of recent sick contacts. On tto to complete 5 days unless worsening clinically. Other: # AMERICO - likely 2/2 bactrim and diuresis # CAD # BPH # HTN # DM well controlled (HbA1C 5.7 12/2018) # OA s/po b/l hip arthroplasties # Obesity # Ckd STAGE 2 # ROBEL on CPAP Recommendations: - please obtain MRI of T-L spine w/ contrast and if no abscess then LP - c/w ampicillin, if worsening would recommend adding gentamycin 5 mg/kg a day in 3 doses. - c/w tamiflu for total of 5 days ( EOT: 04/09/2019) - c/w droplet isolation for 7 days total - c/w diuresis - Americo per primary Thank you.Thank you for this consult. Plan discussed with ID faculty. Please call with any questions. Uma Almonte MD ID fellowElectronically signed by Roel Peters MD at 7:15 PM CDT Associated attestation - Roel Peters MD - 04/09/2019 7:15 PM CDTI have examined this patient with Dr Almonte on 04/07/2019 and agree with the assessment as documentedin the resident note. For further details please see the note. Tino Traore MD - 04/07/2019 6:50 AM CDT [facility] Team Progress Note Date of Service: 04/07/2019 12:27 Days Since Admission: 3 Chief Complaint: Fever Diagnosis: Listeria Bacteremia, Influenza 24-HOUR EVENTS: Venturi mask switched to nasal cannula 40mg PO lasix and 40mg IV lasix given SUBJECTIVE: Mr. Srivastava feels that the fever and chills are getting better. He says they don't last as long and are not as severe. His pain is uncontrolled with just norco q6. The pain is located in his back andradiates up to his neck and shoulders along with a headache, 9/10 in severity that is worsened whenever he has chills. He has been able to eat and drink. He has not been able to urinate this morning but feels like he needs to. He thinks his breathing is better on nasal cannula. OBJECTIVE: Vitals: Temp: [36.3 C (97.3 F)-37 C (98.6 F)] Pulse: [60-73] Resp: [20-24] BP: (103-128)/(50-65) Physical Exam: General: Awake, Alert, NAD HEENT: Normocephalic, atraumatic, EOMI, PEERL Neck: Supple, Normal range of motion Cardiac: RRR, S1 and S2 heard, No rubs or gallops; distal pulses 2+ throughout Respiratory: No respiratory distress, no rales, mild end expiratory wheezes heard bilaterally G/I: Normoactive bowel sounds, soft, non-distended, non tender to palpation Extremities: no clubbing, no cyanosis, Bilateral 2+ pitting lower extremity edema. Skin: warm, dry, no rashes, no lesions Neuro: AAOx3, no focal neurologic deficits Resident's Addendum I agree with the Physical Exam by Student Doctor Sotero Isidro with the following additions: - Gen: Awake, alert, more comfortable appearing - Lungs: CTAB; on 5L O2 - CV: RRR - MSK: TTP over C spine & L spine - LE: 1+ BLE pitting edema - Neuro: 12/30 BUE and BLE strength, sensation to LT intact b/l arm & legs, CN II-XII intact, no nuchal rigidity LABS/IMAGING - reviewed, pertinent results as below: Na: 135-->131 K: 4.0-->4.8 M.9 Cr: 1.20-->1.81 HGB: 10.1 --> 8.5 Eos x10^3: <0.3 --> 0.20 Microbiology: BCx (8/5): CoNS, Listeria monocytogenes BCx (04/04): Gram positive bacilli, listeria monocytogenes BCx (04/05): no growth at 24 hours HIV: negative Imaging: XR CHEST 1 VW (04/06) IMPRESSION Cardiomegaly with mild interstitial pulmonary edema. X-ray of cervical, thoracic, and lumbar spine on 04/06 did show any signs of acute osseous abnormalities or signs of osteomyelitis ASSESSMENT/PLAN Rafi Srivastava is a 64 year old male admitted to the hospital with Sepsis 2/2 Listeria MonocytogenesBacteremia InfluenzaA & B Positive Fever | Malaise | NARANJO Assessment: Patient's fevers and chills are subjectively improved. Objectively he has not had a fever in the past 24 hours and is tolerating the ampicillin. BCx from 04/05 have no growth at 24 hours. X-rays of spine were unrevealing; will obtain MRI of spine to look for possible abscess or infection of hardware. MARIA ESTHER scheduled for Monday. Patient does not have any overt signs of meningitis on exam but due to severe headaches will consider LP if patient's condition does not improve. Plan: - Appreciate ID recommendations - f/u BCx - MRI w/contrast of spine - Per ID: OK to do MRI on 04/08 given worsened renal function - MARIA ESTHER - LP after MRI - Abx:Adjust Ampicillin dose to q6h given worsened renal function (04/04 - ), Tamiflu (EOT 04/09) - Tylenol PRN for pain and fever Dyspnea - improving Acute on ChronicHFpEF, EF 55-60% CAD s/p PCI x2 HLD|HTN Assessment: This morning patient feels like he is breathing better and does not appear in respiratory distress. His oxygen saturations are wnl on nasal cannula ; no crackles heard on lung exam. [id number] PO Lasix and 40mg IV lasix yesterday. Does not appear fluid overloaded and chest x-ray yesterday afternoon showed mild interstitial pulmonary edema. Will monitor today Plan: - Hold amlodipine 10 mg QD, Hydralazine 100 mg TID, Lisinopril - Wean O2 to maintain SpO2=> 92% - Coreg 12.5 mg BID - Duonebs TID + PRN AMERICO, baseline Cr 0.7-0.9 Urinary Retention Assessment: Creatinine is 1.81 today up from 1.2 yesterday and 0.9 on admission. Received 40mg PO Lasix and 40mg IV lasix yesterday. Patient has not been able to urinate this morning despite patient feeling the need to urinate. He has a history of BPH and is on flomax. Ampicillin may be causing worsening kidney function. Will obtain urine lytes and eosinophils for possible interstitial nephritis especially given rising eosinophil count and back rash Plan: - Avoid nephrotoxic drugs - Renally dose meds - Hold lisinopril - Bladder scan and PRN straight cath - Urine lytes - Urine eosinophils - Daily BMP Hypokalemia Hypomagnesemia Assessment: K was 4.8 today and magnesium was 1.9 Plan: - Keep K>4, Mg>2 - Hold home KCL 20 mEq BID DM2, A1C 5.7% (12/2018) DM Peripheral Neuropathy Assessment: 24h BG 93-140, TDD insulin 0u aspart Plan: - PRN Hypoglycemia protocol - Reduced gabapentin dose given worsened renal function - Aspart SSI TIDAC+HS Esophagitis/Gastritis Hx of melena Anemia Assessment: HGB downtrended from 10.1 to 8.5 this morning. Will get H/H this afternoon to monitor HGB. No source of active bleeding. Patient has not had a bowel movement since . Plan: - H/H this afternoon - If PM Hgb <9, will hold subQ heparin, monitor character/consistency of BM, and use SCDs for VTEppx -c/w ranitidine, pantoprazole, sucralfate - Start bowel regimen of senokot and miralax - Lactulose once - Dulcolax suppository PRN Hypothyroidism -c/w levothyroxine BPH - c/w Flomax Diet: Cardiac/DM Pain:Controlled -Tylenol, Tramadol, [place] Prophylaxis: DVT-heparin + SCDs Stress Ulcer:pantoprazole Code Status:addressed:FULL DISPOSITION Anticipated Discharge Date: >2 d Discharge To: home Barriers to Discharge: Clearance of bacteremia, MRI, MARIA ESTHER, LP Nato Isidro MS4 Resident's Addendum I agree with the Assessment and Plan by Student Doctor Nato Isidro with following additions/details: none. Tino Traore M.D. Department of Internal Medicine PGY-3, [facility] Team Doctor's Number: [id number] Pager: [phone] END OF DAILY PROGRESS NOTE HOSPITAL COURSE Mr. Srivastava is a 64 year-old male with a PMH of symptomatic anemia, gastritis , CAD s/p PCI, HTN, HLD, T2DM, & hypothyroidism, who was admitted to [facility] for Listeria bacteremia and influenza. BCx repeated and patient was started on ampicillin. Tamiflu continued. TTE with diastolic dysfunction, elevated LV filling pressures, and no vegetations noted. Had dyspnea, elevated NT-proBNP, & vascular congestion on CXR so patient was diuresed. Continues to have high fevers and rigors so ID consulted. Plan for MARIA ESTHER, MRI C/T/L spine, and LP. Hospital course complicated by AMERICO, pre-renal per urine studies. CURRENT MEDICATIONS - reviewed. Current Facility-Administered Medications Medication Dose Route Frequency Last Rate Last Dose ampicillin (POLYCILLIN-N) 2,000 mg in NaCl 0.9% (NS) 100 mL MINI-BAG 2,000 mg IV Piggyback Q6H ABX bisacodyl (DULCOLAX) suppository 10 mg 10 mg Rectal QDAILYPRN gabapentin (NEURONTIN) capsule 600 mg 600 mg Oral TID HYDROcodone-acetaminophen (NORCO) 10-325 mg tablet 1 tablet 1 tablet Oral Q6HPRN ipratropium-albuterol (DUONEB) 0.5 mg-3 mg(2.5 mg base)/3 mL nebulizer solution 3 mL 3 mL Inhalation TID Polyethylene Glycol 3350 (MIRALAX) powder 17 g 17 g Oral DAILY 17 g at 1209 sennosides (SENOKOT) tablet 8.6 mg 8.6 mg Oral DAILY 8.6 mg at 04/07/19 1209 traMADol (ULTRAM) tablet 50 mg 50 mg Oral Q6HPRN 50 mg at 04/07/19 0939 codeine-guaifenesin (ROBITUSSIN AC) 10-100 mg/5 mL solution 5 mL 5 mL Oral Q4HPRN ipratropium-albuterol (DUONEB) 0.5 mg-3 mg(2.5 mg base)/3 mL nebulizer solution 3 mL 3 mL Inhalation Q4HPRN ramelteon (ROZEREM) tablet 8 mg 8 mg Oral QHSPRN 8 mg at 04/06/19 2301 acetaminophen (TYLENOL) tablet 650 mg 650 mg Oral Q6HPRN 650 mg at 0418 carvedilol (COREG) tablet 12.5 mg 12.5 mg Oral BID MEALS 12.5 mg at 04/07 0751 dextrose 10% (D10W) bolus infusion 250 mL 250 mL IV Infusion PRN - SEE INSTRUCTIONS glucagon (GLUCAGEN DIAGNOSTIC KIT) injection 1 mg 1 mg Intramuscular PRN heparin injection 5,000 Units 5,000 Units Subcutaneous Q12H levothyroxine (SYNTHROID) tablet 150 mcg 150 mcg Oral QAM-0600 150 mcg at 04/07/19 0842 pantoprazole (PROTONIX) EC tablet 40 mg 40 mg Oral BID 40 mg at 04/07/19 0751 ranitidine (ZANTAC) syrup 150 mg 150 mg Oral Q12H 150 mg at 04/07/19 0751 rosuvastatin (CRESTOR) tablet 40 mg 40 mg Oral QHS 40 mg at 04/06/19 1934 Sliding Scale Insulin - Aspart (NOVOLOG) + Fsbg Testing Subcutaneous TID MEALS+HS Stopped at04/06/19 0800 sucralfate (CARAFATE) tablet 1 g 1 g Oral AC+HS 1 g at 04/07/19 1209 tamsulosin (FLOMAX) capsule 0.4 mg 0.4 mg Oral DAILY 0.4 mg at 04/07/19 0751 Associated attestation - Stalin Finch MD - 04/08/2019 7:49 AM CDTI personally examined the patient on 04/07/[address] Traore resident's note as written, including any changes or additions that the resident may have made to Nato Isidro medical student's note. I actively participated in the decision making process. Please see the resident's note for additional details. Stalin Finch MD Division of General Internal [employer] Flat GrinderBarrel Cooper Eugenie, Tino Viramontes MD - 04/06/2019 4:15 PM CDTBrief Progress Note 04/06/19 4:15 PM Briefly evaluated Mr. Srivastava. He had just returned from X-ray and was breathing comfortably on RA. Explained that ID recommended XR spine until we can safely perform MRI back w/contrast for possible abscess. Reviewed plan for MARIA ESTHER (likely Monday) and need to carefully monitor UOP and renal function Patient mentions poor sleep x2 days. Exam: L spine is TTP, breathing comfortably on RA, back has area of blanching erythema where lidocaine patch was Plan: - Ramelteon qHSPRN insomnia - MRI C/T/L spine when Cr stable & patient breathing well on RA - Lasix 40 mg IV x1 this evening - Strict I/O - may place condom cath - Fluid restrict <2L/d - MARIA ESTHER order placed, likely Monday Tino Traore M.D. Department of Internal Medicine PGY-3, [facility] Team Doctor's Number: [id number] Pager: [phone] Tino Christianson MD - 04/06/2019 6:35 AM CDT [facility] Team Progress Note Date of Service: 04/06/2019 06:35 Days Since Admission: 2 Chief Complaint: Fever Diagnosis: Listeria Bacteremia, Influenza 24-HOUR EVENTS: Rapid called overnight, ABG 7.37 | 39 | 83 | 22, CXR with pulm vascular congestion, BCx from 04/04 with GPC in anaerobic bottles --> given IV lasix & amp; vanc x1 SUBJECTIVE: Mr. Srivastava continues to have fevers associated with rigors, NARANJO, posterior neck pain. Had episodeof severe dyspnea yesterday that improved with time. OBJECTIVE: Vitals: Temp: [36.8 C (98.2 F)-39.5 C (103.1 F)] Pulse: [67-98] Resp: [16-28] BP: (111-155)/(48-67) MAP (mmHg): [86] Physical Exam: General: awake, alert, NAD HEENT/Neck: EOMI, pupils equally round, MMM, unable to assess JVD Cardiac: RRR, no m/r/g Respiratory: CTAB GI: soft, BS+, NTND Extremities: Trace BLE pitting edema Neuro: no nuchal rigidity, / BUE & BLE strength, CNII-XII grossly intact LABS/IMAGING - reviewed, pertinent results as below: Na: 134 K: 4 M.9 Cr: 1.19 Microbiology: BCx (04/01): CoNS, Listeria monocytogenes BCx (04/04): GPC in anaerobic bottles (2/2 sets) BCx (04/05): in process HIV: negative Imaging: TTE (04/05): Left ventricular systolic function is normal. Ejection Fraction=55-60%. Left ventricular filling presure is elevated. The right ventricle is normal in size and function. The left atrium is severely dilated. 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 Still having elevated temperatures a/w rigors. No meningeal signs. Per review of Listeria bacteremia, Ampicillin is #1choice in therapy so will do mono -therapy for now and if bacteremia persistent - consult ID. Plan: - Consult ID - f/u BCx - Abx: Ampicillin 2g q4 (04/04 - ), Tamiflu (EOT 04/08) - Stop bactrim 405mg q8H - Tylenol PRN for pain and fever Dyspnea - improving Acute on Chronic HFpEF, EF 55-60% CAD s/p PCI x2 HLD | HTN Assessment: Patient with pedal edema, CXR with vascular congestion, and elevated NT-proBNP. Given 40 mg IV lasix overnight after rapid. BP is stable so will start lower-dose diuretic and escalate as indicated Plan: - Hold amlodipine 10 mg QD, Hydralazine 100 mg TID - Given up-trending Cr, hold lisinopril - Coreg 12.5 mg BID - Lasix 40 mg PO BID x2 doses - Re-evaluate in AM Hypokalemia Hypomagnesemia Assessment: K was 3.3 today and magnesium was 1.6. Patient takes supplements at home. Will restart home potassium supplementation and replace magnesium. Plan: - Keep K>4, Mg>2 - c/w home KCL 20 mEq BID DM2, A1C 5.7% (12/2018) DM Peripheral Neuropathy Assessment: 24h BG 93 - 179, TDD insulin 1u aspart Plan: - PRN Hypoglycemia protocol - c/w gabapentin - Aspart SSI TIDAC+HS Esophagitis/Gastritis Hx of melena Assessment: No acute concerns Plan: - c/w ranitidine, pantoprazole, sucralfate Hypothyroidism -c/w levothyroxine BPH - c/w Flomax Diet: Cardiac/DM Pain: Controlled - Tylenol, Tramadol Prophylaxis: DVT- heparin Stress Ulcer: pantoprazole Code Status: addressed: FULL DISPOSITION Anticipated Discharge Date: >2 d Discharge To: home Barriers to Discharge: Clearance of bacteremia Tino Traore M.D. Department of Internal Medicine PGY-3, [facility] Team Doctor's Number: [id number] Pager: [phone] END OF DAILY PROGRESS NOTE HOSPITAL COURSE Mr. Srivastava is a 64 year-old male with a PMH of symptomatic anemia, gastritis , CAD s/p PCI, HTN, HLD, T2DM, & hypothyroidism, who was admitted to [facility] for Listeria bacteremia and influenza. BCx repeated and patient was started on ampicillin. Tamiflu continued. TTE with diastolic dysfunction, elevated LV filling pressures, and no vegetations noted. Had dyspnea, elevated NT-proBNP, & vascular congestion on CXR so patient was diuresed. Continues to have high fevers and rigors so ID consulted. CURRENT MEDICATIONS - reviewed. Current Facility-Administered Medications Medication Dose Route Frequency Last Rate Last Dose guaiFENesin 100 mg/5 mL solution 200 mg 200 mg Oral Q4HPRN 200 mg at 05/16 2235 HYDROcodone-acetaminophen (NORCO 5) 5-325 mg tablet 1 tablet 1 tablet Oral Q6HPRN 1 tablet at04/05/19 1755 acetaminophen (TYLENOL) tablet 650 mg 650 mg Oral Q6HPRN 650 mg at 2156 ampicillin (POLYCILLIN-N) 2,000 mg in NaCl 0.9% (NS) 100 mL MINI-BAG 2,000 mg IV Piggyback Q4H 2,000 mg at 04/06/19 0442 carvedilol (COREG) tablet 12.5 mg 12.5 mg Oral BID MEALS 12.5 mg at 04/05 1649 dextrose 10% (D10W) bolus infusion 250 mL 250 mL IV Infusion PRN - SEE INSTRUCTIONS gabapentin (NEURONTIN) capsule 900 mg 900 mg Oral TID 900 mg at 04/05/192050 glucagon (GLUCAGEN DIAGNOSTIC KIT) injection 1 mg 1 mg Intramuscular PRN heparin injection 5,000 Units 5,000 Units Subcutaneous Q12H levothyroxine (SYNTHROID) tablet 150 mcg 150 mcg Oral QAM-0600 150 mcg at 04/06/19525 lisinopril (PRINIVIL,ZESTRIL) tablet 5 mg 5 mg Oral BID 5 mg at 04/05/192050 oseltamivir (TAMIFLU) capsule 75 mg 75 mg Oral BID 75 mg at 04/05/192051 pantoprazole (PROTONIX) EC tablet 40 mg 40 mg Oral BID 40 mg at 04/05/192051 ranitidine (ZANTAC) syrup 150 mg 150 mg Oral Q12H 150 mg at 04/05/192050 rosuvastatin (CRESTOR) tablet 40 mg 40 mg Oral QHS 40 mg at 04/05/192050 Sliding Scale Insulin - Aspart (NOVOLOG) + Fsbg Testing Subcutaneous TID MEALS+HS 1 Units at04/05/192107 sucralfate (CARAFATE) tablet 1 g 1 g Oral AC+HS 1 g at 04/05/192050 tamsulosin (FLOMAX) capsule 0.4 mg 0.4 mg Oral DAILY 0.4 mg at 04/05/19 0752 Associated attestation - Stalin Finch MD - 04/07/2019 7:36 AM CDTI personally examined the patient on 04/06/19, and I actively participated in the decision-making process. I agree with Dr. Traore's resident note. 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 Recent outbreak of listeria associated with deli meat [place] to [place] per review of CDC website. Will continue ampicillin and d/c Bactrim particularly in light of worsening renal function. Also Influenza A & B positive on Tamiflu. Appreciate ID's involvement. Patient seen in mild distress while febrile and with recurrent dyspnea in AM, scattered inspiratory wheezes heard with evidence of pulmonary congestion on CXR. Given Lasix overnight and some improvement with nebulizer treatment. EKG unchanged with LBBB and negative troponin. Stalin Finch MD Division of General Internal [employer] Flat Grinder Jefry Miller RN - 04/05/2019 2:46 PM CDTCare Management Social Functional Assessment Patient Name: Rafi Srivastava Age: [age] year old Sex: male Patient's Previous Admission Date at [facility]: 03/09/2019 Current diagnosis and co-morbidities: Positive blood culture- listeria Readmission Questions: Was patient discharged from any acute care hospital within the last 30 days: No Social Functional Assessment: Primary language spoken/preferred: Finnish Mental Status: Alert & Oriented to Person,Place & Time Information given by: Self Patient's support system: Spouse Name and number of support system: Pennie Srivastava Spouse [phone]; Karel Srivastava Child [phone] Primary Railroad Wheels And Axle Inspector: Self MPOA: No Living Arrangement: Apartment Address of living arrangement : [facility] [address] [facility] [address] Persons living in home: Self Barriers to returning home: Declining function Baseline functional status- ambulation: Independent Functional status-baseline personal care: Independent Baseline functional status- driving: Independent Baseline functional status- grocery shopping: Independent Functional status-baseline housekeeping: Independent Functional status-baseline meal prep: Independent Current functional status same as prior: No Current functional status- ambulation: Requires minimal to moderate assistance Current functional status- personal care: Requires minimal to moderate assistance Current functional status- driving: Requires minimal to moderate assistance Current functional status- grocery shopping: Requires minimal to moderate assistance Current functional status-house keeping: Requires minimal to moderate assistance Current functional status- meal preparation: Requires minimal to moderate assistance Do you have a PCP?: Yes Name of PCP: [facility] Agency: No Provider Services: No DME Company: No Equipment: None Hemodialysis: No Community resources utilized: None Funding Resources: Medicare Replacement Medicare Replacement name and information: [facility] Prescription coverage plan: Medicare Part D Pharmacy where meds are filled: Other Other pharmacy: [facility] [address] [place], [place] Anticipated services prior to disharge: Continue Medical Eval;Reassess prior to discharge;Cardiac Rehab Eval Expected mode of discharge transportation: Personal vehicle Additional info required for discharge planning: Pending medical evaluation Recommended discharge plan: Home Alcohol Use Screening (AUDIT-C) How often do you have a drink containing alcohol?: Never SCORE: 0 Did patient elect to have resources provided: No Actions taken: Provided support Role of Care Management explained. CM met with patient at bedside. Patient states he was independentwith ADLs prior to admission. 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 Patient has no discharge need at this time. LOUISA/LACHELLE will follow up. Jonah Eaton Jr. RN, BSN. Hand Braille Transcriber [phone] [email or web address] Lorena Meyers MD - 04/05/2019 6:55 AM CDT [facility] Team Progress Note Date of Service: 04/05/2019 06:55 Days Since Admission: 1 Chief Complaint: Fever Diagnosis: Listeria Bacteremia, Influenza 24-HOUR EVENTS: Admitted to [facility] team SUBJECTIVE: Mr. Srivastava had subjective fevers and chills overnight. He feels about the same today as yesterday. He is able to eat and drink and denies any nausea or vomiting. He complains of a dry cough but denies any SOB. OBJECTIVE: Vitals: Temp: [36.7 C (98.1 F)-38.3 C (100.9 F)] Heart Rate (monitor): [90] Pulse: [75-100] Resp: [16-18] BP: (117-152)/(52-73) MAP (mmHg): [80-94] Physical Exam: General: Awake, Alert, NAD HEENT: Normocephalic, atraumatic, EOMI, PEERL Neck: Supple, Normal range of motion, no lymphadenopathy Cardiac: RRR, S1 and S2 heard, No rubs or gallops; distal pulses 2+ throughout Respiratory: Good air exchange, CTAB G/I: Normoactive bowel sounds, soft, non-distended, non tender to palpation Extremities: no clubbing, no cyanosis, Bilateral 1+ pitting lower extremity edema. Skin: warm, dry, no rashes, no lesions Neuro: AAOx3, no focal neurologic deficits Resident's Addendum I agree with above Patent Engineer's Physical Exam by MS4 Sotero Isidro with the following additions: General: alert and oriented x 4 (person, place, date/time and situation); ill- appearing with significant rigors Lungs: clear to auscultation bilaterally Cardio: S1, S2 normal; no murmurs, rubs or gallops, regular rate and rhythm Abdomen: soft; non-tender; non-distended; normoactive bowel sounds Extremities: no clubbing, cyanosis, or edema Skin: no rashes Neuro: no focal deficits. 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 BP has remained within normal limits with some hypertensive readings which are consistent with his history of htn. Patient has good PO intake and does not look dry on exam. No cough and lungs are clear on exam. Blood cultures from 04/04 are in progress. Patient is tolerating ampicillin for listeria bacteremia without adverse reactions. Bactrim will be added for synergistic activity rather than gentamicin due to kidney function. Will add an additional two days of tamiflu therapy. Plan: - Admit to [facility] Team - VS q4h, I/O, O2 per protocol - c/w Tamiflu (EOT 04/08) -c/w Ampicillin 2g q4 (04/04 - ) -start bactrim 405mg q8H -f/u 04/04 BCx -Tylenol PRN for pain and fever -TTE Esophagitis/gastritis Hx of melena Assessment: No bowel movements since admission to hospital. No recent episodes of hematochezia or melena. HGB has remained stable compared to HGB levels on 04/01. Will continue to monitor for any signs of GI bleed. Plan: - c/w ranitidine, pantoprazole, sucralfate Hypokalemia Hypomagnesemia Assessment: K was 3.3 today and magnesium was 1.6. Patient takes supplements at home. Will restart home potassium supplementation and replace magnesium. Plan: -Restart home KCL 20 mEq BID -Replete magnesium CAD s/p PCI x2 Chronic HFpEF HLD | HTN Assessment: Patient without Chest pain or SOB today. He denies any orthopnea or PND. Bilateral pitting edema remains unchanged from yesterday. BP elevated but will be careful with resuming home anti-HTN given acute infection. Plan: - EKG - Hold lasix 80 mg BID, amlodipine 10 mg QD, Hydralazine 100 mg TID - Resume Coreg 12.5 mg BID and lisinopril 5 mg BID DM2, A1C 5.7% (12/2018) DM Peripheral Neuropathy - Hold metformin, glipizide - PRN Hypoglycemia protocol - c/w gabapentin - Aspart SSI TIDAC+HS Hypothyroidism -c/w levothyroxine BPH - c/w flomax Diet: Cardiac/DM Pain: Controlled - Tylenol, Tramadol Prophylaxis: DVT- heparin Stress Ulcer: pantoprazole Code Status: addressed: FULL DISPOSITION Anticipated Discharge Date: TBD Discharge To: home Barriers to Discharge: Clearance of bacteremia Nato Isidro MS4 Resident's Addendum I agree with the above Assessment and Plan by MS4 Sotero Isidro with following additions/details: BP may be falsely elevated at times in the setting of rigors , will continue to monitor hemodynamics closely given sepsis. Will add Bactrim for synergy with ampicillin and monitor K and Cr closely. Repeat BCx from 04/04 are positive will repeat BCx tomorrow AM. If bacteremia is persistent, will consult ID forfurther recommendations. At this time, he does not exhibit any meningeal signs or evidence of cerebritis that would warrant an LP but will continue to monitor. Lorena Kumar M.D. Internal Medicine PGY3 [place] Team Doctor # [phone] Pager # END OF DAILY PROGRESS NOTE HOSPITAL COURSE Mr. 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 Repeat Bcx were taken and patient was started on ampicillin and bactrim. Tamiflu was continued. TTE was ordered. CURRENT MEDICATIONS - reviewed. Current Facility-Administered Medications Medication Dose Route Frequency Last Rate Last Dose furosemide (LASIX) tablet 80 mg 80 mg Oral QAM+PM magnesium sulfate 4,000 mg in D5W piggyback 4,000 mg IV Infusion ONCE potassium acetate 40 mEq in NaCl 0.9% (NS) piggyback 40 mEq IV Piggyback ONCE acetaminophen (TYLENOL) tablet 650 mg 650 mg Oral Q6HPRN 650 mg at 0428 ampicillin (POLYCILLIN-N) 2,000 mg in NaCl 0.9% (NS) 100 mL MINI-BAG 2,000 mg IV Piggyback Q4H 2,000 mg at 04/05/19 0441 carvedilol (COREG) tablet 12.5 mg 12.5 mg Oral BID MEALS dextrose 10% (D10W) bolus infusion 250 mL 250 mL IV Infusion PRN - SEE INSTRUCTIONS gabapentin (NEURONTIN) capsule 900 mg 900 mg Oral TID 900 mg at 04/04/192106 glucagon (GLUCAGEN DIAGNOSTIC KIT) injection 1 mg 1 mg Intramuscular PRN heparin injection 5,000 Units 5,000 Units Subcutaneous Q12H levothyroxine (SYNTHROID) tablet 150 mcg 150 mcg Oral QAM-0600 lisinopril (PRINIVIL,ZESTRIL) tablet 5 mg 5 mg Oral BID oseltamivir (TAMIFLU) capsule 75 mg 75 mg Oral BID 75 mg at 04/04/192053 pantoprazole (PROTONIX) EC tablet 40 mg 40 mg Oral BID 40 mg at 04/04/192054 ranitidine (ZANTAC) syrup 150 mg 150 mg Oral Q12H 150 mg at 04/04/192052 rosuvastatin (CRESTOR) tablet 40 mg 40 mg Oral QHS 40 mg at 04/04/192052 Sliding Scale Insulin - Aspart (NOVOLOG) + Fsbg Testing Subcutaneous TID MEALS+HS Stopped at04/04/192099 sucralfate (CARAFATE) tablet 1 g 1 g Oral AC+HS 1 g at 04/04/192053 tamsulosin (FLOMAX) capsule 0.4 mg 0.4 mg Oral DAILY traMADol (ULTRAM) tablet 50 mg 50 mg Oral Q8HPRN 50 mg at 04/04/192053 Associated attestation - Guanaco Everett MD - 04/08/2019 8:26 AM CDTI personally examined the patient on 04/05/[address] Kumar's resident note as written. I actively participated in the decision-making process. Please see the resident's note for additional details. [place] MBBS - 04/04/2019 1:08 PM CDTCalled by ER to evalute for admission for listeria bactermia . Pt with no prior acute gastroenrtritis and no clear etioogy for listeria bactermia. Discusused with patient about options inciding treatment here without specialized ID support versus trasfer to [facility] and patient opted for treatment at [place] documented in this encounter Plan of Treatment Name Type Priority Associated Diagnoses Order Schedule EKG-12 LEAD ROUTINE HEART STATION Routine ONCE for 1 Occurrences starting 04/04/2019 until 04/04/2019 EKG-12 LEAD ROUTINE HEART STATION Routine ONCE for 1 Occurrences starting 04/06/2019 until 04/06/2019 ADC ONLY - EOSINOPHIL LAB Routine ONCE for 1 COUNT URINE Occurrences starting 04/07/2019 until 04/07/2019 Cardiac Monitoring 24 HEART STATION Routine ONCE for 1 hours Occurrences starting 04/09/2019 until 04/09/2019 Cardiac Monitoring 24 HEART STATION Routine ONCE for 1 hours Occurrences starting 04/09/2019 until 04/09/2019 Basic Metabolic Panel LAB Routine EVERY MONDAY AT 0400 (NA, K, CL, CO2, for 3 Occurrences GLUCOSE, BUN, starting 04/16/2019 CREATININE, CA) until 04/30/2019 Magnesium Serum LAB Routine EVERY MONDAY AT 0400 for 3 Occurrences starting 04/16/2019 until 04/30/2019 PROFILE / HEMOGRAM LAB Routine EVERY MONDAY AT 0400 for 3 Occurrences starting 04/16/2019 until 04/30/2019 Health Maintenance Due Date Last Done Comments LDL-C 03/05/2019 03/05/2018, 10/12/2016 Medicare Wellness Visit 2019 PNEUMOCOCCAL VACCINES 65+ 2019 12/08/2012 (1 of 2 - PCV13) URINE MICROALBUMIN 04/13/2019 04/13/2018, 03/05/2018 INFLUENZA VACCINE (#1) 2019 06/03/2018, 06/02/2017, 06/06/2016, Additional history exists HgA1C [...] 30 + pack year history CREATININE (SERUM) 04/14/2020 04/14/2019, 04/12/2019, 04/11/2019, Additional history exists HEPATITIS C (HCV) SCREEN Completed 09/10/2010 documented as of this encounter Implants Implanted Type Area Customer Success Associate Device Shelf Expiration Model / Identifier Date Serial / Lot Plate PLATE Neck Alana ALANA Leg Stent-09/07/2013 STENT Heart Implanted: Qty: 3 on 09/07/2013 documented as of this encounter Procedures Procedure Name Priority Date/Time Associated Diagnosis Comments POCT GLUCOSE Routine 04/15/2019 12:11 Results for (AUTOMATED) PM CDT this procedure are in the results section. POCT GLUCOSE Routine 04/15/2019 7:24 Results for (AUTOMATED) AM CDT this procedure are in the results section. POCT GLUCOSE Routine 04/14/2019 8:22 Results for (AUTOMATED) PM CDT this procedure are in the results section. POCT GLUCOSE Routine 04/14/2019 5:57 Results for (AUTOMATED) PM CDT this procedure are in the results section. POCT GLUCOSE Routine 04/14/2019 12:26 Results for (AUTOMATED) PM CDT this procedure are in the results section. POCT GLUCOSE Routine 04/14/2019 8:10 Results for (AUTOMATED) AM CDT this procedure are in the results section. PROFILE / HEMOGRAM Routine 04/14/2019 4:12 Results for AM CDT this procedure are in the results section. BASIC METABOLIC PANEL Routine 04/14/2019 4:12 Results for (NA, K, CL, CO2, AM CDT this procedure GLUCOSE, BUN, are in the CREATININE, CA) results section. MAGNESIUM Routine 04/14/2019 4:12 Results for AM CDT this procedure are in the results section. POCT GLUCOSE Routine 04/13/2019 8:17 Results for (AUTOMATED) PM CDT this procedure are in the results section. POCT GLUCOSE Routine 04/13/2019 4:33 Results for (AUTOMATED) PM CDT this procedure are in the results section. POCT GLUCOSE Routine 04/13/2019 12:31 Results for (AUTOMATED) PM CDT this procedure are in the results section. POCT GLUCOSE Routine 04/13/2019 7:50 Results for (AUTOMATED) AM CDT this procedure are in the results section. POCT GLUCOSE Routine 04/12/2019 8:47 Results for (AUTOMATED) PM CDT this procedure are in the results section. POCT GLUCOSE Routine 04/12/2019 4:59 Results for (AUTOMATED) PM CDT this procedure are in the results section. POCT GLUCOSE Routine 04/12/2019 8:15 Results for (AUTOMATED) AM CDT this procedure are in the results section. PROFILE / HEMOGRAM Routine 04/12/2019 4:36 Results for AM CDT this procedure are in the results section. BASIC METABOLIC PANEL Routine 04/12/2019 4:36 Results for (NA, K, CL, CO2, AM CDT this procedure GLUCOSE, BUN, are in the CREATININE, CA) results section. MAGNESIUM Routine 04/12/2019 4:36 Results for AM CDT this procedure are in the results section. POCT GLUCOSE Routine 04/11/2019 8:18 Results for (AUTOMATED) PM CDT this procedure are in the results section. POCT GLUCOSE Routine 04/11/2019 4:07 Results for (AUTOMATED) PM CDT this procedure are in the results section. POCT GLUCOSE Routine 04/11/2019 12:46 Results for (AUTOMATED) PM CDT this procedure are in the results section. POCT GLUCOSE Routine 04/11/2019 8:56 Results for (AUTOMATED) AM CDT this procedure are in the results section. PROFILE / HEMOGRAM Routine 04/11/2019 4:11 Results for AM CDT this procedure are in the results section. BASIC METABOLIC PANEL Routine 04/11/2019 4:11 Results for (NA, K, CL, CO2, AM CDT this procedure GLUCOSE, BUN, are in the CREATININE, CA) results section. MAGNESIUM Routine 04/11/2019 4:11 Results for AM CDT this procedure are in the results section. POCT GLUCOSE Routine 04/10/2019 8:46 Results for (AUTOMATED) PM CDT this procedure are in the results section. POCT GLUCOSE Routine 04/10/2019 5:20 Results for (AUTOMATED) PM CDT this procedure are in the results section. 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 POCT GLUCOSE Routine 04/10/2019 12:49 Results for (AUTOMATED) PM CDT this procedure are in the results section. POCT GLUCOSE Routine 04/10/2019 7:23 Results for (AUTOMATED) AM CDT this procedure are in the results section. PROFILE / HEMOGRAM Routine 04/10/2019 4:39 Results for AM CDT this procedure are in the results section. BASIC METABOLIC PANEL Routine 04/10/2019 4:39 Results for (NA, K, CL, CO2, AM CDT this procedure GLUCOSE, BUN, are in the CREATININE, CA) results section. MAGNESIUM Routine 04/10/2019 4:39 Results for AM CDT this procedure are in the results section. POCT GLUCOSE Routine 04/09/2019 7:58 Results for (AUTOMATED) PM CDT this procedure are in the results section. POCT GLUCOSE Routine 04/09/2019 4:58 Results for (AUTOMATED) PM CDT this procedure are in the results section. POCT GLUCOSE Routine 04/09/2019 3:07 Results for (AUTOMATED) PM CDT this procedure are in the results section. POCT GLUCOSE Routine 04/09/2019 12:07 Results for (AUTOMATED) PM CDT this procedure are in the results section. 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 CBC WITH DIFFERENTIAL Routine 04/09/2019 4:41 Results for AM CDT this procedure are in the results section. CBC WITH DIFF Routine 04/09/2019 4:41 Results for AM CDT this procedure are in the results section. BASIC METABOLIC PANEL Routine 04/09/2019 4:41 Results for (NA, K, CL, CO2, AM CDT this procedure GLUCOSE, BUN, are in the CREATININE, CA) results section. MAGNESIUM Routine 04/09/2019 4:41 Results for AM CDT this procedure are in the results section. POCT GLUCOSE Routine 04/08/2019 8:06 Results for (AUTOMATED) PM CDT this procedure are in the results section. POCT GLUCOSE Routine 04/08/2019 5:20 Results for (AUTOMATED) PM CDT this procedure are in the results section. POCT GLUCOSE Routine 04/08/2019 1:53 Results for (AUTOMATED) PM CDT this procedure are in the results section. POCT GLUCOSE Routine 04/08/2019 12:29 Results for (AUTOMATED) PM CDT this procedure are in the results section. ACTIVATED PARTIAL STAT 04/08/2019 10:16 Results for THRMPLAS SEN AM CDT this procedure are in the results section. PROTHROMBIN TIME / INR STAT 04/08/2019 10:16 Results for AM CDT this procedure are in the results section. POCT GLUCOSE Routine 04/08/2019 8:33 Results for (AUTOMATED) AM CDT this procedure are in the results section. BASIC METABOLIC PANEL Routine 04/08/2019 5:42 Results for (NA, K, CL, CO2, AM CDT this procedure GLUCOSE, BUN, are in the CREATININE, CA) results section. MAGNESIUM Routine 04/08/2019 5:42 Results for AM CDT this procedure are in the results section. POCT GLUCOSE Routine 04/07/2019 8:12 Results for (AUTOMATED) PM CDT this procedure are in the results section. MANUAL DIFF. FOR DIFF. Routine 04/07/2019 7:58 CONSULT PM CDT DIFF CONSULT Routine 04/07/2019 7:58 Results for INTERPRETATION PM CDT this procedure are in the results section. DIFF CONSULT BY Routine 04/07/2019 7:58 Results for PATHOLOGIST PM CDT this procedure are in the results section. PROFILE / HEMOGRAM KENY Add-On 04/07/2019 7:58 Results for PM CDT this procedure are in the results section. BASIC METABOLIC PANEL Routine 04/07/2019 7:58 Results for (NA, K, CL, CO2, PM CDT this procedure GLUCOSE, BUN, are in the CREATININE, CA) results section. POCT GLUCOSE Routine 04/07/2019 6:14 Results for (AUTOMATED) PM CDT this procedure are in the results section. MR LUMBAR SPINE WO Routine 04/07/2019 5:57 Infection due to Results for CONTRAST PM CDT listeria this procedure monocytogenes are in the results section. MR THORACIC SPINE WO Routine 04/07/2019 5:54 Infection due to Results for CONTRAST PM CDT listeria this procedure monocytogenes are in the results section. MR CERVICAL SPINE WO Routine 04/07/2019 5:54 Infection due to Results for CONTRAST PM CDT listeria this procedure monocytogenes are in the results section. 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 constipation type POCT GLUCOSE Routine 04/07/2019 12:27 Results for (AUTOMATED) PM CDT this procedure are in the results section. SODIUM, URINE RANDOM Routine 04/07/2019 10:53 Results for AM CDT this procedure are in the results section. UREA NITROGEN, URINE Routine 04/07/2019 10:53 Results for RANDOM AM CDT this procedure are in the results section. CREATININE, URINE Routine 04/07/2019 10:53 Results for RANDOM AM CDT this procedure are in the results section. GALV ONLY - INFLUENZA Routine 04/07/2019 10:53 Results for A B RSV PCR AM CDT this procedure are in the results section. BODY FLUID EOSINOPHIL Routine 04/07/2019 10:53 Results for SMEAR AM CDT this procedure are in the results section. POCT GLUCOSE Routine 04/07/2019 7:26 Results for (AUTOMATED) AM CDT this procedure are in the results section. CBC WITH DIFFERENTIAL Routine 04/07/2019 4:11 Results for AM CDT this procedure are in the results section. CBC WITH DIFF Routine 04/07/2019 4:11 Results for AM CDT this procedure are in the results section. BASIC METABOLIC PANEL Routine 04/07/2019 4:11 Results for (NA, K, CL, CO2, AM CDT this procedure GLUCOSE, BUN, are in the CREATININE, CA) results section. MAGNESIUM Routine 04/07/2019 4:11 Results for AM CDT this procedure are in the results section. POCT GLUCOSE Routine 04/06/2019 7:44 Results for (AUTOMATED) PM CDT this procedure are in the results section. POCT GLUCOSE Routine 04/06/2019 5:03 Results for (AUTOMATED) PM CDT this procedure are in the results section. SEDIMENTATION RATE Routine 04/06/2019 4:47 Results for PM CDT this procedure are in the results section. TROPONIN I Routine 04/06/2019 4:47 Results for PM CDT this procedure are in the results section. C4 COMPLEMENT Routine 04/06/2019 4:47 Results for PM CDT this procedure are in the results section. C3 COMPLEMENT Routine 04/06/2019 4:47 Results for PM CDT this procedure are in the results section. C-REACTIVE PROTEIN Routine 04/06/2019 4:47 Results for PM CDT this procedure are in the results section. RHEUMATOID FACTOR Routine 04/06/2019 4:47 Results for PM CDT this procedure are in the results section. URINE CULTURE Routine 04/06/2019 4:38 Results for PM CDT this procedure are in the results section. URINALYSIS Routine 04/06/2019 4:38 Results for PM CDT this procedure are in the results section. 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 POCT GLUCOSE Routine 04/06/2019 11:08 Results for (AUTOMATED) AM CDT this procedure are in the results section. XR CHEST 1 VW STAT 04/06/2019 10:14 Acute diastolic Results for AM CDT heart failure this procedure are in the results section. BASIC METABOLIC PANEL Routine 04/06/2019 9:49 Results for (NA, K, CL, CO2, AM CDT this procedure GLUCOSE, BUN, are in the CREATININE, CA) results section. TROPONIN I Routine 04/06/2019 9:49 Results for AM CDT this procedure are in the results section. EKG-12 LEAD Routine 04/06/2019 9:42 AM CDT EKG-12 LEAD Routine 04/06/2019 9:41 AM CDT POCT GLUCOSE Routine 04/06/2019 7:19 Results for (AUTOMATED) AM CDT this procedure are in the results section. BASIC METABOLIC PANEL Routine 04/06/2019 4:42 Results for (NA, K, CL, CO2, AM CDT this procedure GLUCOSE, BUN, are in the CREATININE, CA) results section. TROPONIN I Add-on 04/06/2019 4:42 Results for AM CDT this procedure are in the results section. MAGNESIUM Routine 04/06/2019 4:42 Results for AM CDT this procedure are in the results section. XR CHEST 1 VW STAT 04/05/2019 10:33 Listeria infection Results for PM CDT this procedure are in the results section. BLOOD CULTURE SCREEN Routine 04/05/2019 10:13 Results for PM CDT this procedure are in the results section. BLOOD CULTURE SCREEN Routine 04/05/2019 10:13 Results for PM CDT this procedure are in the results section. AC PANEL 20 + LACTIC Routine 04/05/2019 9:48 Results for ACID PM CDT this procedure are in the results section. POCT GLUCOSE Routine 04/05/2019 9:08 Results for (AUTOMATED) PM CDT this procedure are in the results section. POCT GLUCOSE Routine 04/05/2019 5:13 Results for (AUTOMATED) PM CDT this procedure are in the results section. 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 POCT GLUCOSE Routine 04/05/2019 7:09 Results for (AUTOMATED) AM CDT this procedure are in the results section. HIV 1/2 AG-AB WITH Add-on 04/05/2019 4:36 Results for REFLEX AM CDT this procedure are in the results section. CBC WITH DIFFERENTIAL Routine 04/05/2019 4:36 Results for AM CDT this procedure are in the results section. N-TERMINAL PRO-BNP Routine 04/05/2019 4:36 Results for AM CDT this procedure are in the results section. CBC WITH DIFF Routine 04/05/2019 4:36 Results for AM CDT this procedure are in the results section. BASIC METABOLIC PANEL Routine 04/05/2019 4:36 Results for (NA, K, CL, CO2, AM CDT this procedure GLUCOSE, BUN, are in the CREATININE, CA) results section. MAGNESIUM Routine 04/05/2019 4:36 Results for AM CDT this procedure are in the results section. EKG-12 LEAD Routine 04/04/2019 10:08 PM CDT URINALYSIS KENY 04/04/2019 6:44 Results for PM CDT this procedure are in the results section. BLOOD CULTURE WORKUP STAT 04/04/2019 12:49 Bacteremia Results for PM CDT this procedure are in the results section. BLOOD CULTURE SCREEN STAT 04/04/2019 12:49 Bacteremia Results for PM CDT this procedure are in the results section. CBC WITH DIFFERENTIAL STAT 04/04/2019 12:26 Bacteremia Results for PM CDT this procedure are in the results section. BLOOD CULTURE WORKUP STAT 04/04/2019 12:26 Bacteremia Results for PM CDT this procedure are in the results section. CBC WITH DIFF Routine 04/04/2019 12:26 Bacteremia Results for PM CDT this procedure are in the results section. BASIC METABOLIC PANEL STAT 04/04/2019 12:26 Bacteremia Results for (NA, K, CL, CO2, PM CDT this procedure GLUCOSE, BUN, are in the CREATININE, CA) results section. BLOOD CULTURE SCREEN STAT 04/04/2019 12:26 Bacteremia Results for PM CDT this procedure are in the results section. NOTICE OF PRIVACY Routine 04/04/2019 11:46 PRACTICES AM CDT AGREEMENTS Routine 04/04/2019 12:01 AUTHORIZATIONS AND AM CDT IRREVOCABLE ASSIGNMENTS (FORM 2001) documented in this encounter Results POCT GLUCOSE (AUTOMATED) (04/15/2019 12:11 PM CDT) POCT GLU 172 (H) 70 - 110 mg/dL [facility] Specimen Blood Performing Organization Address City/[facility] Cent[facility]ode Phone Number [facility] CLIA: [id number], [address] [place] [address] [phone] [employer] POCT GLUCOSE (AUTOMATED) (04/15/2019 7:24 AM CDT) POCT GLU 105 70 - 110 mg/dL [facility] Specimen Blood Performing Organization Address [facility] Phone Number [facility] CLIA: [id number], [address] [place] [address] [id number] [phone] [employer] POCT GLUCOSE (AUTOMATED) (04/14/2019 8:22 PM CDT) POCT GLU 137 (H) 70 - 110 mg/dL [facility] Specimen Blood Performing Organization Address [facility] Phone Number [facility] CLIA: [id number], [address] [place] [address] [phone] [employer] POCT GLUCOSE (AUTOMATED) (04/14/2019 5:57 PM CDT) POCT GLU 124 (H) 70 - 110 mg/dL [facility] Specimen Blood Performing Organization Address [facility] Phone Number [facility] CLIA: [id number], [address] [place] [address] [phone] [employer] POCT GLUCOSE (AUTOMATED) (04/14/2019 12:26 PM CDT) POCT GLU 244 (H) 70 - 110 mg/dL [facility] Specimen Blood Performing Organization Address [facility] Phone Number [facility] CLIA: [id number], [address] [place] [address] [phone] [employer] POCT GLUCOSE (AUTOMATED) (04/14/2019 8:10 AM CDT) POCT GLU 122 (H) 70 - 110 mg/dL [facility] Specimen Blood Performing Organization Address City/[facility]/Zipcode Phone Number [facility] CLIA: [id number], [address] [place] [address] [phone] [facility] / [facility]EM[facility] (04/14/2019 4:12 AM CDT) WBC 5.18 4.20 - 10.70 [facility] 10*3/L [facility] RBC 3.21 (L) 4.26 - 5.52 [facility] 10*6/L SERVICES HGB 9.2 (L) 12.2 - 16.4 g/dL [facility] HCT 28.6 (L) 38.4 - 49.3 % [facility] MCH 28.7 26.1 - 32.7 pg [facility] MCV 89.1 81.7 - 95.6 fL [facility] MCHC 32.2 31.2 - 35.0 g/dL [facility] PLT 284 150 - 328 10*3/L [facility] MPV 10.7 9.8 - 13.0 fL [facility] RDW-CV 12.9 12.1 - 15.4 % [facility] RDW-SD 42.2 38.5 - 51.6 fL [facility] NRBC x10^3 <0.01 10*3/L [facility] NRBC/100 WBC 0.0 0.0 - 10.0 /100 [facility] WBCs SERVICES IPF % 1.2 - 10.7 % [facility] [facility] Specimen Blood - CENTRAL VENOUS LINE Performing Organization Address City/[facility]/Zipcode Phone Number [facility] CLIA: [id number], [address] [place] [phone] [facility] Magnesium Serum (04/14/2019 4:12 AM CDT) MAGNESIUM 2.2 1.7 - 2.4 mg/dL [facility] Specimen Blood - CENTRAL VENOUS LINE Performing Organization Address [facility] Phone Number [facility] CLIA: [id number], [address] [place] [address] [phone] [facility] Basic Metabolic Panel (NA, K, CL, CO2, GLUCOSE, BUN, CREATININE, CA) (2018 4:12 AM CDT) NA 140 135 - 145 [facility] mmol/L SERVICES K 3.7 3.5 - 5.0 [facility] mmol/L SERVICES CL 110 (H) 98 - 108 mmol/L [facility] CO2 TOTAL 24 23 - 31 mmol/L [facility] AGAP 6 2 - 16 [facility] BUN 10 7 - 23 mg/dL [facility] GLUCOSE 126 (H) 70 - 110 mg/dL [facility] CREATININE 0.77 0.60 - 1.25 [facility] mg/dL SERVICES CALCIUM 9.0 8.6 - 10.6 [facility] mg/dL SERVICES eGFR Calculation 101.4 mL/min/1.73m2 [facility] (Non- SERVICES [place]) eGFR Calculation 122.9 mL/min/1.73m2 [facility] () SERVICES Specimen Blood - CENTRAL VENOUS LINE Narrative Performed At Association of Glomerular Filtration Rate (GFR) and Staging [facility] of Kidney Disease* + + + + | GFR (mL/min/1.73 m2)| With Kidney Damage|Without Kidney Damage + + + + |>90|Stage one| Normal + + + + |60-89|Stage two| Decreased GFR + + + + |30-59|Stage three| Stage three + + + + |15-29|Stage four | Stage four + + + + |<15 (or dialysis)|Stage five | Stage five + + + + *Each stage assumes the associated GFR [...] tests). Performing Organization Address City/State/Zipcode Phone Number [facility] CLIA: [id number], [address] [place] [address] [facility] POCT GLUCOSE (AUTOMATED) (04/13/2019 8:17 PM CDT) [facility] Signature POCT GLU 156 (H) 70 - 110 mg/dL [facility] Specimen Blood Performing Organization Address [facility] Phone Number [facility] CLIA: [id number], [address] [place] [address] [phone] [facility] POCT GLUCOSE (AUTOMATED) (04/13/2019 4:33 PM CDT) POCT GLU 128 (H) 70 - 110 mg/dL [facility] Specimen Blood Performing Organization Address [facility] Phone Number [facility] CLIA: [id number], [address] [place] [address] [phone] [facility] POCT GLUCOSE (AUTOMATED) (04/13/2019 12:31 PM CDT) POCT GLU 144 (H) 70 - 110 mg/dL [facility] Specimen Blood Performing Organization Address [facility] Phone Number [facility] CLIA: [id number], [address] [place] [address] [phone] [facility] POCT GLUCOSE (AUTOMATED) (04/13/2019 7:50 AM CDT) POCT GLU 127 (H) 70 - 110 mg/dL [facility] Specimen Blood Performing Organization Address [facility] Phone Number [facility] CLIA: [id number], [address] [place] [address] [phone] [facility] POCT GLUCOSE (AUTOMATED) (04/12/2019 8:47 PM CDT) POCT GLU 184 (H) 70 - 110 mg/dL [facility] Specimen Blood Performing Organization Address [facility] Phone Number [facility] CLIA: [id number], [address] [place] [address] [phone] [facility] POCT GLUCOSE (AUTOMATED) (04/12/2019 4:59 PM CDT) POCT GLU 168 (H) 70 - 110 mg/dL [facility] Specimen Blood Performing Organization Address [facility]/Zipcode Phone Number [facility] CLIA: [id number], [address] [place] [address] 74601 [phone] [facility] POCT GLUCOSE (AUTOMATED) (04/12/2019 8:15 AM CDT) POCT GLU 113 (H) 70 - 110 mg/dL [facility] Specimen Blood Performing Organization Address City/[facility]/Zipcode Phone Number [facility] CLIA: [id number], [address] [place] [address] [phone] [facility] Magnesium Serum (04/12/2019 4:36 AM CDT) MAGNESIUM 1.9 1.7 - 2.4 mg/dL [facility] Specimen Blood - CENTRAL VENOUS LINE Performing Organization Address [facility]/Zipcode Phone Number [facility] CLIA: [id number], [address] [place] [address]807 [facility] Basic Metabolic Panel (NA, K, CL, CO2, GLUCOSE, BUN, CREATININE, CA) (2018 4:36 AM CDT) NA 139 135 - 145 mmol/L [facility] K 3.7 3.5 - 5.0 mmol/L [facility] CL 108 98 - 108 mmol/L [facility] CO2 TOTAL 23 23 - 31 mmol/L [facility] AGAP 8 2 - 16 [facility] BUN 8 7 - 23 mg/dL [facility] GLUCOSE 110 70 - 110 mg/dL [facility] CREATININE 0.73 0.60 - 1.25 [facility] mg/dL SERVICES CALCIUM 8.8 8.6 - 10.6 mg/dL [facility] eGFR Calculation 107.8 mL/min/1.73m2 [facility] (Non-) SERVICES eGFR Calculation 130.7 mL/min/1.73m2 [facility] () SERVICES Specimen Blood - CENTRAL VENOUS LINE Narrative Performed At Association of Glomerular Filtration Rate (GFR) and Staging [facility] of Kidney Disease* + + + + | GFR (mL/min/1.73 m2)| With Kidney Damage|Without Kidney Damage + + + + |>90|Stage one| Normal + + + + |60-89|Stage two| Decreased GFR + + + + |30-59|Stage three| Stage three + + + + |15-29|Stage four | Stage four + + + + |<15 (or dialysis)|Stage five | Stage five + + + + *Each stage assumes the associated GFR [...] tests). Performing Organization Address City/State/Zipcode Phone Number [facility] CLIA: [id number], [address] [place] [address] 41135 [phone] [facility] PROFILE / HEMOGRAM (04/12/2019 4:36 AM CDT) WBC 5.39 4.20 - 10.70 [facility] 10*3/L SERVICES RBC 3.31 (L) 4.26 - 5.52 [facility] 10*6/L SERVICES HGB 9.8 (L) 12.2 - 16.4 g/dL [facility] HCT 29.4 (L) 38.4 - 49.3 % [facility] MCH 29.6 26.1 - 32.7 pg [facility] MCV 88.8 81.7 - 95.6 fL [facility] MCHC 33.3 31.2 - 35.0 g/dL [facility] PLT 275 150 - 328 10*3/L [facility] MPV 10.6 9.8 - 13.0 fL [facility] RDW-CV 12.9 12.1 - 15.4 % [facility] RDW-SD 42.0 38.5 - 51.6 fL [facility] NRBC x10^3 <0.01 10*3/L [facility] NRBC/100 WBC 0.0 0.0 - 10.0 /100 [facility] WBCs SERVICES IPF % 1.2 - 10.7 % [facility] Specimen Blood - CENTRAL VENOUS LINE Performing Organization Address City/State/Zipcode Phone Number [facility] CLIA: [id number], [address] [place] [address] [phone] [facility] POCT GLUCOSE (AUTOMATED) (04/11/2019 8:18 PM CDT) POCT GLU 150 (H) 70 - 110 mg/dL [facility] Specimen Blood Performing Organization Address City/[facility] Phone Number [facility] CLIA: [id number], [address] [place] [address] [phone] [facility] POCT GLUCOSE (AUTOMATED) (04/11/2019 4:07 PM CDT) POCT GLU 159 (H) 70 - 110 mg/dL [facility] Specimen Blood Performing Organization Address [facility] Phone Number [facility] CLIA: [id number], [address] [place] [address] 740782 [phone] [facility] POCT GLUCOSE (AUTOMATED) (04/11/2019 12:46 PM CDT) POCT GLU 107 70 - 110 mg/dL [facility] Specimen Blood Performing Organization Address [facility] Phone Number [facility] CLIA: [id number], [address] [place] [address] [phone] [facility] POCT GLUCOSE (AUTOMATED) (04/11/2019 8:56 AM CDT) POCT GLU 120 (H) 70 - 110 mg/dL [facility] Specimen Blood Performing Organization Address [facility] Phone Number [facility] CLIA: [id number], [address] [place] [address] [phone] [facility] PROFILE / HEMOGRAM (04/11/2019 4:11 AM CDT) WBC 4.13 (L) 4.20 - 10.70 [facility] 10*3/L SERVICES RBC 3.18 (L) 4.26 - 5.52 [facility] 10*6/L SERVICES HGB 9.3 (L) 12.2 - 16.4 g/dL [facility] HCT 28.4 (L) 38.4 - 49.3 % [facility] MCH 29.2 26.1 - 32.7 pg [facility] MCV 89.3 81.7 - 95.6 fL [facility] MCHC 32.7 31.2 - 35.0 g/dL [facility] PLT 248 150 - 328 10*3/L [facility] MPV 10.7 9.8 - 13.0 fL [facility] RDW-CV 13.0 12.1 - 15.4 % [facility] RDW-SD 42.4 38.5 - 51.6 fL [facility] NRBC x10^3 <0.01 10*3/L [facility] NRBC/100 WBC 0.0 0.0 - 10.0 /100 [facility] WBCs SERVICES IPF % 1.2 - 10.7 % [facility] Specimen Blood - CENTRAL VENOUS LINE Performing Organization Address City/[facility]/Zipcode Phone Number [facility] CLIA: [id number], [address] [place] [address] [facility] Magnesium Serum (04/11/2019 4:11 AM CDT) MAGNESIUM 1.8 1.7 - 2.4 mg/dL [facility] Specimen Blood - CENTRAL VENOUS LINE Performing Organization Address [facility] Cent[facility]ode Phone Number [facility] CLIA: [id number], [address] [place], [place] [phone] [facility] Basic Metabolic Panel (NA, K, CL, CO2, GLUCOSE, BUN, CREATININE, CA) (2018 4:11 AM CDT) NA 140 135 - 145 [facility] mmol/L SERVICES K 3.6 3.5 - 5.0 [facility] mmol/L SERVICES CL 108 98 - 108 mmol/L [facility] CO2 TOTAL 24 23 - 31 mmol/L [facility] AGAP 8 2 - 16 [facility] BUN 7 7 - 23 mg/dL [facility] GLUCOSE 119 (H) 70 - 110 mg/dL [facility] CREATININE 0.77 0.60 - 1.25 [facility] mg/dL SERVICES CALCIUM 8.9 8.6 - 10.6 [facility] mg/dL SERVICES eGFR Calculation 101.4 mL/min/1.73m2 [facility] (Non- SERVICES [place]) eGFR Calculation 122.9 mL/min/1.73m2 [facility] () SERVICES Specimen Blood - CENTRAL VENOUS LINE Narrative Performed At Association of Glomerular Filtration Rate (GFR) and Staging [facility] of Kidney Disease* + + + + | GFR (mL/min/1.73 m2)| With Kidney Damage|Without Kidney Damage + + + + |>90|Stage one| Normal + + + + |60-89|Stage two| Decreased GFR + + + + |30-59|Stage three| Stage three + + + + |15-29|Stage four | Stage four + + + + |<15 (or dialysis)|Stage five | Stage five + + + + *Each stage assumes the associated GFR [...] abnormalities in imaging tests). Performing Organization Address City/[facility] Center[facility]t Phone Number [facility] CLIA: [id number], [address] [place] [address] [phone] [facility] POCT GLUCOSE (AUTOMATED) (04/10/2019 8:46 PM CDT) POCT GLU 207 (H) 70 - 110 mg/dL [facility] Specimen Blood Performing Organization Address [facility] Phone Number [facility] CLIA: [id number], [address] [place], [place] [address] [phone] [facility] POCT GLUCOSE (AUTOMATED) (04/10/2019 5:20 PM CDT) POCT GLU 105 70 - 110 mg/dL [facility] Specimen Blood Performing Organization Address [facility] Phone Number [facility] CLIA: [id number], [address] [place], [place] [address] [phone] [facility] XR CHEST 1 VW (04/10/2019 1:24 PM CDT) Specimen Impressions Performed At FINDINGS/IMPRESSION: PACS/VR/DOSE Lines/Tubes: A right-sided PICC line terminates over the atriocaval junction. Lungs: Prominent bilateral interstitial opacities have slightly improved, suggesting improving interstitial pulmonary edema. No pleural effusion or pneumothorax is identified. Heart/Mediastinum: The cardiomediastinal silhouette is enlarged, unchanged. Bones: No acute osseous abnormality is seen. Changes of ACDF are partially visualized. Narrative Performed At * * * * * * * * ORIGINAL REPORT * * * * * * * * PACS/VR/DOSE EXAM: XR CHEST 1 VW COMPARISON: 04/06/2019 HISTORY: s/p PICC Procedure Note [facility], Radiant Results Inft User - 04/10/2019 1:39 PM CDT * * * * * * * * ORIGINAL REPORT * * * * * * * * EXAM: XR CHEST 1 VW COMPARISON: 04/06/2019 HISTORY: s/p PICC IMPRESSION FINDINGS/IMPRESSION: Lines/Tubes: A right-sided PICC line terminates over the atriocaval junction. Lungs: Prominent bilateral interstitial opacities have slightly improved, suggesting improving interstitial pulmonary edema. No pleural effusion or pneumothorax is identified. Heart/Mediastinum: The cardiomediastinal silhouette is enlarged, unchanged. Bones: No acute osseous abnormality is seen. Changes of ACDF are partially visualized. Performing Organization Address City/[facility] Phone Number PACS/VR/DOSE POCT GLUCOSE (AUTOMATED) (04/10/2019 12:49 PM CDT) POCT GLU 113 (H) 70 - 110 mg/dL [facility] Specimen Blood Performing Organization Address City/[facility]/Zipcode Phone Number [facility] CLIA: [id number], [address] [place] [address] [phone] [facility] POCT GLUCOSE (AUTOMATED) (04/10/2019 7:23 AM CDT) POCT GLU 134 (H) 70 - 110 mg/dL [facility] Specimen Blood Performing Organization Address [facility] Cent[facility]ode Phone Number [facility] CLIA: [id number], [address] [place] [address] [phone] [facility] Magnesium Serum (04/10/2019 4:39 AM CDT) MAGNESIUM 2.1 1.7 - 2.4 mg/dL [facility] Specimen Blood - ARM, RIGHT Performing Organization Address City/State/Zipcode Phone Number [facility] CLIA: [id number], [address] [place] [address] [phone] [facility] Basic Metabolic Panel (NA, K, CL, CO2, GLUCOSE, BUN, CREATININE, CA) (2018 4:39 AM CDT) NA 139 135 - 145 [facility] mmol/L SERVICES K 3.6 3.5 - 5.0 [facility] mmol/L SERVICES CL 107 98 - 108 mmol/L [facility] CO2 TOTAL 27 23 - 31 mmol/L [facility] AGAP 5 2 - 16 [facility] BUN 12 7 - 23 mg/dL [facility] GLUCOSE 116 (H) 70 - 110 mg/dL [facility] CREATININE 0.99 0.60 - 1.25 [facility] mg/dL SERVICES CALCIUM 8.7 8.6 - 10.6 [facility] mg/dL SERVICES eGFR Calculation 75.9 mL/min/1.73m2 [facility] (Non- SERVICES [place]) eGFR Calculation 92.0 mL/min/1.73m2 [facility] () SERVICES Specimen Blood - ARM, RIGHT Narrative Performed At Association of Glomerular Filtration Rate (GFR) and Staging [facility] of Kidney Disease* + + + + | GFR (mL/min/1.73 m2)| With Kidney Damage|Without Kidney Damage + + + + |>90|Stage one| Normal + + + + |60-89|Stage two| Decreased GFR + + + + |30-59|Stage three| Stage three + + + + |15-29|Stage four | Stage four + + + + |<15 (or dialysis)|Stage five | Stage five + + + + *Each stage assumes the associated GFR [...] abnormalities in imaging tests). Performing Organization Address City/[facility] Cent[facility]ode Phone Number [facility] CLIA: [id number], [address] [place] [address] [phone] [facility] PROFILE / HEMOGRAM (04/10/2019 4:39 AM CDT) WBC 3.92 (L) 4.20 - 10.70 [facility] 10*3/L SERVICES RBC 3.06 (L) 4.26 - 5.52 [facility] 10*6/L SERVICES HGB 9.0 (L) 12.2 - 16.4 g/dL [facility] HCT 27.4 (L) 38.4 - 49.3 % [facility] MCH 29.4 26.1 - 32.7 pg [facility] MCV 89.5 81.7 - 95.6 fL [facility] MCHC 32.8 31.2 - 35.0 g/dL [facility] PLT 246 150 - 328 10*3/L [facility] MPV 11.4 9.8 - 13.0 fL [facility] RDW-CV 13.2 12.1 - 15.4 % [facility] RDW-SD 43.4 38.5 - 51.6 fL [facility] NRBC x10^3 <0.01 10*3/L [facility] NRBC/100 WBC 0.0 0.0 - 10.0 /100 [facility] WBCs SERVICES IPF % 1.2 - 10.7 % [facility] Specimen Blood - ARM, RIGHT Performing Organization Address [facility] Phone Number [facility] CLIA: [id number], [address] [place] [address] 398754 [phone] [facility] POCT GLUCOSE (AUTOMATED) (04/09/2019 7:58 PM CDT) POCT GLU 123 (H) 70 - 110 mg/dL [facility] Specimen Blood Performing Organization Address City/[facility] Cent[facility]ode Phone Number [facility] CLIA: [id number], [address] [place] [address] [phone] [facility] POCT GLUCOSE (AUTOMATED) (04/09/2019 4:58 PM CDT) POCT GLU 177 (H) 70 - 110 mg/dL [facility] Specimen Blood Performing Organization Address [facility] Phone Number [facility] CLIA: [id number], [address] [place] [address] [phone] [facility] POCT GLUCOSE (AUTOMATED) (04/09/2019 3:07 PM CDT) POCT GLU 185 (H) 70 - 110 mg/dL [facility] Specimen Blood Performing Organization Address [facility] Phone Number [facility] CLIA: [id number], [address] [place] [address] 589348 [phone] [facility] POCT GLUCOSE (AUTOMATED) (04/09/2019 12:07 PM CDT) POCT GLU 103 70 - 110 mg/dL [facility] Specimen Blood Performing Organization Address [facility] Phone Number [facility] CLIA: [id number], [address] [place] [address] [phone] [facility] POCT GLUCOSE (AUTOMATED) (04/09/2019 7:58 AM CDT) POCT GLU 99 70 - 110 mg/dL [facility] Specimen Blood Performing Organization Address [facility] Phone Number [facility] CLIA: [id number], [address] [place] [address] [phone] [facility] CBC WITH DIFFERENTIAL (04/09/2019 4:41 AM CDT) WBC 3.24 (L) 4.20 - 10.70 [facility] 10*3/L SERVICES RBC 2.91 (L) 4.26 - 5.52 [facility] 10*6/L SERVICES HGB 8.6 (L) 12.2 - 16.4 [facility] g/dL SERVICES HCT 26.0 (L) 38.4 - 49.3 % [facility] MCV 89.3 81.7 - 95.6 fL [facility] MCH 29.6 26.1 - 32.7 pg [facility] MCHC 33.1 31.2 - 35.0 [facility] g/dL SERVICES RDW-SD 43.1 38.5 - 51.6 fL [facility] RDW-CV 13.2 12.1 - 15.4 % [facility] PLT 206 150 - 328 [facility] 10*3/L SERVICES MPV 11.8 9.8 - 13.0 fL [facility] NRBC/100 WBC 0.0 0.0 - 10.0 /100 [facility] WBCs SERVICES NRBC x10^3 <0.01 10*3/L [facility] GRAN MAT (NEUT) % 52.7 % [facility] IMM GRAN % 0.30 % [facility] LYMPH % 23.5 % [facility] MONO % 17.0 % [facility] EOS % 5.9 % [facility] BASO % 0.6 % [facility] GRAN MAT x10^3(ANC) 1.71 (L) 1.99 - 6.95 [facility] 10*3/uL SERVICES IMM GRAN x10^3 <0.03 0.00 - 0.06 [facility] 10*3/uL SERVICES LYMPH x10^3 0.76 (L) 1.09 - 3.23 [facility] 10*3/uL SERVICES MONO x10^3 0.55 0.36 - 1.02 [facility] 10*3/uL SERVICES EOS x10^3 0.19 0.06 - 0.53 [facility] 10*3/uL SERVICES BASO x10^3 <0.03 0.01 - 0.09 [facility] 10*3/uL SERVICES FRANCHESCA CELLS 2+ (A) (none) [facility] Specimen Blood - ARM, LEFT Performing Organization Address City/State/Zipcode Phone Number [facility] CLIA: [id number], [address] [place], [place] [id number] Magnesium Serum (04/09/2019 4:41 AM CDT) MAGNESIUM 2.6 (H) 1.7 - 2.4 mg/dL [facility] Specimen Blood - ARM, LEFT Performing Organization Address City/State/Zipcode Phone Number [facility] CLIA: [id number], [address] [place] [address] [facility] Basic Metabolic Panel (NA, K, CL, CO2, GLUCOSE, BUN, CREATININE, CA) (2018 4:41 AM CDT) NA 140 135 - 145 mmol/L [facility] K 4.1 3.5 - 5.0 mmol/L [facility] CL 107 98 - 108 mmol/L [facility] CO2 TOTAL 25 23 - 31 mmol/L [facility] AGAP 8 2 - 16 [facility] BUN 23 7 - 23 mg/dL [facility] GLUCOSE 84 70 - 110 mg/dL [facility] CREATININE 1.16 0.60 - 1.25 [facility] mg/dL SERVICES CALCIUM 8.6 8.6 - 10.6 mg/dL [facility] eGFR Calculation 63.2 mL/min/1.73m2 [facility] (Non-) SERVICES eGFR Calculation 76.6 mL/min/1.73m2 [facility] () SERVICES Specimen Blood - ARM, LEFT Narrative Performed At Association of Glomerular Filtration Rate (GFR) and Staging [facility] of Kidney Disease* + + + + | GFR (mL/min/1.73 m2)| With Kidney Damage|Without Kidney Damage + + + + |>90|Stage one| Normal + + + + |60-89|Stage two| Decreased GFR + + + + |30-59|Stage three| Stage three + + + + |15-29|Stage four | Stage four + + + + |<15 (or dialysis)|Stage five | Stage five + + + + *Each stage assumes the associated GFR [...] abnormalities in imaging tests). Performing Organization Address City/State/[facility] Phone Number [facility] CLIA: [id number], [address] [place] [address] [phone] [facility] POCT GLUCOSE (AUTOMATED) (04/08/2019 8:06 PM CDT) POCT GLU 148 (H) 70 - 110 mg/dL [facility] Specimen Blood Performing Organization Address City/[facility] Centercomt Phone Number [facility] CLIA: [id number], [address] [place] [address] 132446 [phone] [facility] POCT GLUCOSE (AUTOMATED) (04/08/2019 5:20 PM CDT) POCT GLU 133 (H) 70 - 110 mg/dL [facility] Specimen Blood Performing Organization Address [facility] Phone Number [facility] CLIA: [id number], [address] [place] [address] [facility] POCT GLUCOSE (AUTOMATED) (04/08/2019 1:53 PM CDT) POCT GLU 85 70 - 110 mg/dL [facility] Specimen Blood Performing Organization Address [facility] Phone Number [facility] CLIA: [id number], [address] [place] [address] [phone] [facility] POCT GLUCOSE (AUTOMATED) (04/08/2019 12:29 PM CDT) POCT GLU 88 70 - 110 mg/dL [facility] Specimen Blood Performing Organization Address [facility] Phone Number [facility] CLIA: [id number], [address] [place] [address] [phone] [facility] aPTT (04/08/2019 10:16 AM CDT) APTT Patient 30 26 - 36 Seconds [facility] Specimen Blood - HAND, RIGHT Performing Organization Address [facility]/Zipcode Phone Number [facility] CLIA: [id number], [address] [place] [address] [phone] [facility] PROTHROMBIN TIME / INR (04/08/2019 10:16 AM CDT) PROTIME PATIENT 12.6 10.1 - 12.6 [facility] Seconds SERVICES INR 1.1Comment: Normal [facility] INR <1.1; Warfarin SERVICES Therapeutic range 2.0 to 3.0 or 2.5 to 3.5, depending upon the indications. Specimen Blood - HAND, RIGHT Performing Organization Address [facility] Centercode Phone Number [facility] CLIA: [id number], [address] [place] [address] [facility] POCT GLUCOSE (AUTOMATED) (04/08/2019 8:33 AM CDT) POCT GLU 110 70 - 110 mg/dL [facility] Specimen Blood Performing Organization Address [facility] Phone Number [facility] CLIA: [id number], [address] [place] [address] [facility] Magnesium Serum (04/08/2019 5:42 AM CDT) MAGNESIUM 2.2 1.7 - 2.4 mg/dL [facility] Specimen Blood - ARM, LEFT Performing Organization Address [facility] Phone Number [facility] CLIA: [id number], [address] [place] [address] 36408 [phone] [facility] Basic Metabolic Panel (NA, K, CL, CO2, GLUCOSE, BUN, CREATININE, CA) (2018 5:42 AM CDT) NA 130 (L) 135 - 145 [facility] mmol/L SERVICES K 3.8 3.5 - 5.0 [facility] mmol/L SERVICES CL 97 (L) 98 - 108 mmol/L [facility] CO2 TOTAL 24 23 - 31 mmol/L [facility] AGAP 9 2 - 16 [facility] BUN 30 (H) 7 - 23 mg/dL [facility] GLUCOSE 86 70 - 110 mg/dL [facility] CREATININE 1.74 (H) 0.60 - 1.25 [facility] mg/dL SERVICES CALCIUM 8.3 (L) 8.6 - 10.6 [facility] mg/dL SERVICES eGFR Calculation 39.6 mL/min/1.73m2 [facility] (Non- SERVICES [place]) eGFR Calculation 48.0 mL/min/1.73m2 [facility] () SERVICES Specimen Blood - ARM, LEFT Narrative Performed At [facility] Glomerular Filtration Rate (GFR) and Staging [facility] of Kidney Disease* + + + + | GFR (mL/min/1.73 m2)| With Kidney Damage|Without Kidney Damage + + + + |>90|Stage one| Normal + + + + |60-89|Stage two| Decreased GFR + + + + |30-59|Stage three| Stage three + + + + |15-29|Stage four | Stage four + + + + |<15 (or dialysis)|Stage five | Stage five + + + + *Each stage assumes the associated GFR [...] abnormalities in imaging tests). Performing Organization Address City/[facility]/Zipcode Phone Number [facility] CLIA: [id number], [address] [place] [address] [phone] [facility] POCT GLUCOSE (AUTOMATED) (04/07/2019 8:12 PM CDT) [facility] POCT GLU 136 (H) 70 - 110 mg/dL [facility] Specimen Blood Performing Organization Address City/[facility]/Zipcode Phone Number [facility] CLIA: [id number], [address] [place] [address] 89431 [phone] [facility] PROFILE / HEMOGRAM (04/07/2019 7:58 PM CDT) [facility] WBC 6.56 4.20 - 10.70 [facility] 10*3/L SERVICES RBC 3.01 (L) 4.26 - 5.52 [facility] 10*6/L SERVICES HGB 8.6 (L) 12.2 - 16.4 [facility] g/dL SERVICES HCT 27.1 (L) 38.4 - 49.3 % [facility] SERVICES MCH 28.6 26.1 - 32.7 pg [facility] SERVICES MCV 90.0 81.7 - 95.6 fL [facility] SERVICES MCHC 31.7 31.2 - 35.0 [facility] g/dL SERVICES PLT 151 150 - 328 [facility] 10*3/L SERVICES MPV 12.1 9.8 - 13.0 fL [facility] SERVICES RDW-CV 13.1 12.1 - 15.4 % [facility] SERVICES RDW-SD 43.5 38.5 - 51.6 fL [facility] SERVICES NRBC x10^3 <0.01 10*3/L [facility] SERVICES NRBC/100 WBC 0.0 0.0 - 10.0 [facility] /100 WBCs SERVICES IPF % 11.6 (H)Comment: 1.2 - 10.7 % [facility] Platelet count SERVICES measured by fluorescence method. Specimen Blood Performing Organization Address City/State/Zipcode Phone Number [facility] CLIA: [id number], [address] [place] [address] [facility] BASIC METABOLIC PANEL (NA, K, CL, CO2, GLUCOSE, BUN, CREATININE, CA) (2018 7:58 PM CDT) NA 130 (L) 135 - 145 [facility] mmol/L SERVICES K 4.0 3.5 - 5.0 [facility] mmol/L SERVICES CL 97 (L) 98 - 108 mmol/L [facility] SERVICES CO2 TOTAL 23 23 - 31 mmol/L [facility] SERVICES AGAP 10 2 - 16 [facility] SERVICES BUN 33 (H) 7 - 23 mg/dL [facility] SERVICES GLUCOSE 101 70 - 110 mg/dL [facility] SERVICES CREATININE 2.01 (H) 0.60 - 1.25 [facility] mg/dL SERVICES CALCIUM 8.3 (L) 8.6 - 10.6 [facility] mg/dL SERVICES eGFR Calculation 33.5 mL/min/1.73m2 [facility] (Non- SERVICES [place]) eGFR Calculation 40.6 mL/min/1.73m2 [facility] () SERVICES Specimen Blood - ARM, LEFT Narrative Performed At [facility] Glomerular Filtration Rate (GFR) and Staging [facility] of Kidney Disease* + + + + | GFR (mL/min/1.73 m2)| With Kidney Damage|Without Kidney Damage + + + + |>90|Stage one| Normal + + + + |60-89|Stage two| Decreased GFR + + + + |30-59|Stage three| Stage three + + + + |15-29|Stage four | Stage four + + + + |<15 (or dialysis)|Stage five | Stage five + + + + *Each stage assumes the associated GFR [...] abnormalities in imaging tests). Performing Organization Address City/[facility] Centercode Phone Number [facility] CLIA: [id number], [address] [place] [address] 89726 [phone] [facility] MANUAL DIFF. FOR DIFF. CONSULT (04/07/2019 7:58 PM CDT) Specimen Blood Performing Organization Address [facility] Centercode Phone Number [facility] CLIA: [id number], [address] [place] [address] [phone] [facility] DIFF CONSULT INTERPRETATION (04/07/2019 7:58 PM CDT) Specimen Blood Narrative Performed At [facility] are normocytic and normochromic but decreased in [facility] number. No increased microspherocytes or schistocytes. Polychromasia is appropriate. Neutrophils appear normal morphologically without dysplastic changes or other abnormalities. Lymphocytes are small and mature. Platelets are normal in morphology. There is platelet clumping and fibrin strands. Normocytic anemia, anemia of chronic disease. Platelet counts may under -estimated by the hematology analyzer due to the platelet clumping. Performing Organization Address City/[facility] Centercode Phone Number [facility] CLIA: [id number], [address] [place] [address] [facility] POCT GLUCOSE (AUTOMATED) (04/07/2019 6:14 PM CDT) POCT GLU 101 70 - 110 mg/dL [facility] Specimen Blood Performing Organization Address City/State/Zipcode Phone Number [facility] CLIA: [id number], [address] [place], [place] [id number] [facility] MR LUMBAR SPINE WO CONTRAST (04/07/2019 5:57 PM CDT) Specimen Impressions Performed At PACS/VR/DOSE CERVICAL SPINE Postsurgical changes of prior C4-C6 ACDF. Multilevel cervical spondylosis and spondylolisthesis, as above. No high-grade spinal canal stenosis at any level. No abnormal cervical cord signal. THORACIC SPINE No high-grade spinal canal stenosis or significant neural foraminal narrowing. No abnormal thoracic cord signal. LUMBAR SPINE Moderate spinal canal stenosis at L4-L5 with subarticular zones narrowing and potential impingement on the descending L5 nerve roots. An additional multilevel spondylosis and spondyloarthropathy, as above result in no more than mild spinal canal stenosis at L3-L4 and L5-S1. IRadha MD., have reviewed this study and agree with the above report. Narrative Performed At * * * * * * * * ORIGINAL REPORT * * * * * * * * PACS/VR/DOSE MR CERVICAL SPINE WO CONTRAST, MR THORACIC SPINE WO CONTRAST, MR LUMBAR SPINE WO CONTRAST HISTORY: Male 64 years Neck pain, chronic, normal neuro exam, neg xray neck pain in setting of bacteremia, concern for abscess COMPARISON: None TECHNIQUE: Multiplanar multisequence MR images of the cervical, thoracic and lumbar spine were performed on 1.5 Rosa without intravenous contrast. FINDINGS: MRI CERVICAL: Study is motion degraded. Evaluation is also limited by susceptibility artifact related to ACDF at C4-C6. There is mild straightening of the normal cervical lordosis . The vertebral bodies are normal in height and alignment. No abnormal cord signal is identified. Aside from fused segments, mild disc desiccation noted. Type II endplate Modic changes are noted at this level as well. Degenerative changes of the atlantoaxial joint noted. At C2-C3, small posterior osteophyte is noted. No significant canal or neuroforaminal narrowing. At C3-C4, small posterior osteophyte and mild facet arthropathy result in no high-grade spinal canal stenosis or significant neural foraminal narrowing. At C4-C5 and C5-C6, fused segments. Uncinate hypertrophy and facet arthropathy result in mild bilateral neural foraminal narrowing. At C6-C7, mild posterior disc osteophyte complex formation and facet arthropathy, results in mild bilateral neural foraminal narrowing. No high-grade spinal canal stenosis. At C7-T1, no high-grade spinal canal stenosis or significant neural foraminal narrowing. Mild paraspinal atrophy is noted. MRI THORACIC: There is mildly exaggerated thoracic kyphosis with normal sagittal alignment. The vertebral bodies are normal in height. Disc desiccation is noted throughout the thoracic spine with minimal mid-thoracic associated loss of disc height. The thoracic cord is normal in caliber and contour. No cord signal abnormality is identified. Rounded lesion within the T7 vertebral body demonstrating high T1 and T2 signal likely reflects a small hemangioma. The background bone marrow signal is otherwise unremarkable. No high-grade canal stenosis or neuroforaminal narrowing is present at any level. The paraspinal soft tissues are unremarkable. Partially imaged T2 hyperintense lesions in bilateral kidneys likely represent renal cysts. MRI LUMBAR SPINE: There is normal curvature and alignment of the lumbar spine. The vertebral bodies are normal in height. Scattered disc desiccation is noted without substantial loss of disc height. Background marrow signal is unremarkable. The conus terminates at T12-L1. The cauda equina nerve roots are unremarkable. At L1-L2, mild facet arthropathy noted. No high-grade spinal canal stenosis or significant neural foraminal narrowing. At L2-L3, no high-grade spinal canal stenosis or significant neural foraminal narrowing. At L3-L4, mild diffuse disc bulge and facet arthropathy with ligamentum flavum hypertrophy result in mild canal stenosis and mild neural foraminal narrowing. L4-L5, diffuse disc bulge and facet arthropathy with ligamentum flavum thickening result in moderate canal stenosis and mild bilateral neuroforaminal narrowing. Narrowing of subarticular zones noted with potential impingement on the descending L5 nerve roots. L5-S1 diffuse disc bulge with superimposed central disc protrusion results in mild spinal canal stenosis and mild bilateral neural foraminal narrowing. The paraspinal soft tissues are unremarkable. Procedure Note [facility], Radiant Results Inft User - 04/08/2019 10:52 AM CDT * * * * * * * * ORIGINAL REPORT * * * * * * * * MR CERVICAL SPINE WO CONTRAST, MR THORACIC SPINE WO CONTRAST, MR LUMBAR SPINE WO CONTRAST HISTORY: Male 64 years Neck pain, chronic, normal neuro exam, neg xray neck pain in setting of bacteremia, concern for abscess COMPARISON: None TECHNIQUE: Multiplanar multisequence MR images of the cervical, thoracic and lumbar spine were performed on 1.5 Rosa without intravenous contrast. FINDINGS: MRI CERVICAL: Study is motion degraded. Evaluation is also limited by susceptibility artifact related to ACDF at C4-C6. There is mild straightening of the normal cervical lordosis . The vertebral bodies are normal in height and alignment. No abnormal cord signal is identified. Aside from fused segments, mild disc desiccation noted. Type II endplate Modic changes are noted at this level as well. Degenerative changes of the atlantoaxial joint noted. At C2-C3, small posterior osteophyte is noted. No significant canal or neuroforaminal narrowing. At C3-C4, small posterior osteophyte and mild facet arthropathy result in no high-grade spinal canal stenosis or significant neural foraminal narrowing. At C4-C5 and C5-C6, fused segments. Uncinate hypertrophy and facet arthropathy result in mild bilateral neural foraminal narrowing. At C6-C7, mild posterior disc osteophyte complex formation and facet arthropathy, results in mild bilateral neural foraminal narrowing. No high-grade spinal canal stenosis. At C7-T1, no high-grade spinal canal stenosis or significant neural foraminal narrowing. Mild paraspinal atrophy is noted. MRI THORACIC: There is mildly exaggerated thoracic kyphosis with normal sagittal alignment. The vertebral bodies are normal in height. Disc desiccation is noted throughout the thoracic spine with minimal mid-thoracic associated loss of disc height. The thoracic cord is normal in caliber and contour. No cord signal abnormality is identified. Rounded lesion within the T7 vertebral body demonstrating high T1 and T2 signal likely reflects a small hemangioma. The background bone marrow signal is otherwise unremarkable. No high-grade canal stenosis or neuroforaminal narrowing is present at any level. The paraspinal soft tissues are unremarkable. Partially imaged T2 hyperintense lesions in bilateral kidneys likely represent renal cysts. MRI LUMBAR SPINE: There is normal curvature and alignment of the lumbar spine. The vertebral bodies are normal in height. Scattered disc desiccation is noted without substantial loss of disc height. Background marrow signal is unremarkable. The conus terminates at T12-L1. The cauda equina nerve roots are unremarkable. At L1-L2, mild facet arthropathy noted. No high-grade spinal canal stenosis or significant neural foraminal narrowing. At L2-L3, no high-grade spinal canal stenosis or significant neural foraminal narrowing. At L3-L4, mild diffuse disc bulge and facet arthropathy with ligamentum flavum hypertrophy result in mild canal stenosis and mild neural foraminal narrowing. L4-L5, diffuse disc bulge and facet arthropathy with ligamentum flavum thickening result in moderate canal stenosis and mild bilateral neuroforaminal narrowing. Narrowing of subarticular zones noted with potential impingement on the descending L5 nerve roots. L5-S1 diffuse disc bulge with superimposed central disc protrusion results in mild spinal canal stenosis and mild bilateral neural foraminal narrowing. The paraspinal soft tissues are unremarkable. IMPRESSION CERVICAL SPINE Postsurgical changes of prior C4-C6 ACDF. Multilevel cervical spondylosis and spondylolisthesis, as above. No high-grade spinal canal stenosis at any level. No abnormal cervical cord signal. THORACIC SPINE No high-grade spinal canal stenosis or significant neural foraminal narrowing. No abnormal thoracic cord signal. LUMBAR SPINE Moderate spinal canal stenosis at L4-L5 with subarticular zones narrowing and potential impingement on the descending L5 nerve roots. An additional multilevel spondylosis and spondyloarthropathy, as above result in no more than mild spinal canal stenosis at L3-L4 and L5-S1. Rdaha Wahl MD., have reviewed this study and agree with the above report. Performing Organization Address City/State/[facility] Phone Number PACS/VR/DOSE MR THORACIC SPINE WO CONTRAST (04/07/2019 5:54 PM CDT) Specimen Impressions Performed At PACS/VR/DOSE CERVICAL SPINE Postsurgical changes of prior C4-C6 ACDF. Multilevel cervical spondylosis and spondylolisthesis, as above. No high-grade spinal canal stenosis at any level. No abnormal cervical cord signal. THORACIC SPINE No high-grade spinal canal stenosis or significant neural foraminal narrowing. No abnormal thoracic cord signal. LUMBAR SPINE Moderate spinal canal stenosis at L4-L5 with subarticular zones narrowing and potential impingement on the descending L5 nerve roots. An additional multilevel spondylosis and spondyloarthropathy, as above result in no more than mild spinal canal stenosis at L3-L4 and L5-S1. Radha Wahl MD., have reviewed this study and agree with the above report. Narrative Performed At * * * * * * * * ORIGINAL REPORT * * * * * * * * PACS/VR/DOSE MR CERVICAL SPINE WO CONTRAST, MR THORACIC SPINE WO CONTRAST, MR LUMBAR SPINE WO CONTRAST HISTORY: Male 64 years Neck pain, chronic, normal neuro exam, neg xray neck pain in setting of bacteremia, concern for abscess COMPARISON: None TECHNIQUE: Multiplanar multisequence MR images of the cervical, thoracic and lumbar spine were performed on 1.5 Rosa without intravenous contrast. FINDINGS: MRI CERVICAL: Study is motion degraded. Evaluation is also limited by susceptibility artifact related to ACDF at C4-C6. There is mild straightening of the normal cervical lordosis . The vertebral bodies are normal in height and alignment. No abnormal cord signal is identified. Aside from fused segments, mild disc desiccation noted. Type II endplate Modic changes are noted at this level as well. Degenerative changes of the atlantoaxial joint noted. At C2-C3, small posterior osteophyte is noted. No significant canal or neuroforaminal narrowing. At C3-C4, small posterior osteophyte and mild facet arthropathy result in no high-grade spinal canal stenosis or significant neural foraminal narrowing. At C4-C5 and C5-C6, fused segments. Uncinate hypertrophy and facet arthropathy result in mild bilateral neural foraminal narrowing. At C6-C7, mild posterior disc osteophyte complex formation and facet arthropathy, results in mild bilateral neural foraminal narrowing. No high-grade spinal canal stenosis. At C7-T1, no high-grade spinal canal stenosis or significant neural foraminal narrowing. Mild paraspinal atrophy is noted. MRI THORACIC: There is mildly exaggerated thoracic kyphosis with normal sagittal alignment. The vertebral bodies are normal in height. Disc desiccation is noted throughout the thoracic spine with minimal mid-thoracic associated loss of disc height. The thoracic cord is normal in caliber and contour. No cord signal abnormality is identified. Rounded lesion within the T7 vertebral body demonstrating high T1 and T2 signal likely reflects a small hemangioma. The background bone marrow signal is otherwise unremarkable. No high-grade canal stenosis or neuroforaminal narrowing is present at any level. The paraspinal soft tissues are unremarkable. Partially imaged T2 hyperintense lesions in bilateral kidneys likely represent renal cysts. MRI LUMBAR SPINE: There is normal curvature and alignment of the lumbar spine. The vertebral bodies are normal in height. Scattered disc desiccation is noted without substantial loss of disc height. Background marrow signal is unremarkable. The conus terminates at T12-L1. The cauda equina nerve roots are unremarkable. At L1-L2, mild facet arthropathy noted. No high-grade spinal canal stenosis or significant neural foraminal narrowing. At L2-L3, no high-grade spinal canal stenosis or significant neural foraminal narrowing. At L3-L4, mild diffuse disc bulge and facet arthropathy with ligamentum flavum hypertrophy result in mild canal stenosis and mild neural foraminal narrowing. L4-L5, diffuse disc bulge and facet arthropathy with ligamentum flavum thickening result in moderate canal stenosis and mild bilateral neuroforaminal narrowing. Narrowing of subarticular zones noted with potential impingement on the descending L5 nerve roots. L5-S1 diffuse disc bulge with superimposed central disc protrusion results in mild spinal canal stenosis and mild bilateral neural foraminal narrowing. The paraspinal soft tissues are unremarkable. Procedure Note [facility], Radiant Results Inft User - 04/08/2019 10:52 AM CDT * * * * * * * * ORIGINAL REPORT * * * * * * * * MR CERVICAL SPINE WO CONTRAST, MR THORACIC SPINE WO CONTRAST, MR LUMBAR SPINE WO CONTRAST HISTORY: Male 64 years Neck pain, chronic, normal neuro exam, neg xray neck pain in setting of bacteremia, concern for abscess COMPARISON: None TECHNIQUE: Multiplanar multisequence MR images of the cervical, thoracic and lumbar spine were performed on 1.5 Rosa without intravenous contrast. FINDINGS: MRI CERVICAL: Study is motion degraded. Evaluation is also limited by susceptibility artifact related to ACDF at C4-C6. There is mild straightening of the normal cervical lordosis . The vertebral bodies are normal in height and alignment. No abnormal cord signal is identified. Aside from fused segments, mild disc desiccation noted. Type II endplate Modic changes are noted at this level as well. Degenerative changes of the atlantoaxial joint noted. At C2-C3, small posterior osteophyte is noted. No significant canal or neuroforaminal narrowing. At C3-C4, small posterior osteophyte and mild facet arthropathy result in no high-grade spinal canal stenosis or significant neural foraminal narrowing. At C4-C5 and C5-C6, fused segments. Uncinate hypertrophy and facet arthropathy result in mild bilateral neural foraminal narrowing. At C6-C7, mild posterior disc osteophyte complex formation and facet arthropathy, results in mild bilateral neural foraminal narrowing. No high-grade spinal canal stenosis. At C7-T1, no high-grade spinal canal stenosis or significant neural foraminal narrowing. Mild paraspinal atrophy is noted. MRI THORACIC: There is mildly exaggerated thoracic kyphosis with normal sagittal alignment. The vertebral bodies are normal in height. Disc desiccation is noted throughout the thoracic spine with minimal mid-thoracic associated loss of disc height. The thoracic cord is normal in caliber and contour. No cord signal abnormality is identified. Rounded lesion within the T7 vertebral body demonstrating high T1 and T2 signal likely reflects a small hemangioma. The background bone marrow signal is otherwise unremarkable. No high-grade canal stenosis or neuroforaminal narrowing is present at any level. The paraspinal soft tissues are unremarkable. Partially imaged T2 hyperintense lesions in bilateral kidneys likely represent renal cysts. MRI LUMBAR SPINE: There is normal curvature and alignment of the lumbar spine. The vertebral bodies are normal in height. Scattered disc desiccation is noted without substantial loss of disc height. Background marrow signal is unremarkable. The conus terminates at T12-L1. The cauda equina nerve roots are unremarkable. At L1-L2, mild facet arthropathy noted. No high-grade spinal canal stenosis or significant neural foraminal narrowing. At L2-L3, no high-grade spinal canal stenosis or significant neural foraminal narrowing. At L3-L4, mild diffuse disc bulge and facet arthropathy with ligamentum flavum hypertrophy result in mild canal stenosis and mild neural foraminal narrowing. L4-L5, diffuse disc bulge and facet arthropathy with ligamentum flavum thickening result in moderate canal stenosis and mild bilateral neuroforaminal narrowing. Narrowing of subarticular zones noted with potential impingement on the descending L5 nerve roots. L5-S1 diffuse disc bulge with superimposed central disc protrusion results in mild spinal canal stenosis and mild bilateral neural foraminal narrowing. The paraspinal soft tissues are unremarkable. IMPRESSION CERVICAL SPINE Postsurgical changes of prior C4-C6 ACDF. Multilevel cervical spondylosis and spondylolisthesis, as above. No high-grade spinal canal stenosis at any level. No abnormal cervical cord signal. THORACIC SPINE No high-grade spinal canal stenosis or significant neural foraminal narrowing. No abnormal thoracic cord signal. LUMBAR SPINE Moderate spinal canal stenosis at L4-L5 with subarticular zones narrowing and potential impingement on the descending L5 nerve roots. An additional multilevel spondylosis and spondyloarthropathy, as above result in no more than mild spinal canal stenosis at L3-L4 and L5-S1. Radha Wahl MD., have reviewed this study and agree with the above report. Performing Organization Address City/State/Zipcode Phone Number PACS/VR/DOSE MR CERVICAL SPINE WO CONTRAST (04/07/2019 5:54 PM CDT) Specimen Impressions Performed At PACS/VR/DOSE CERVICAL SPINE Postsurgical changes of prior C4-C6 ACDF. Multilevel cervical spondylosis and spondylolisthesis, as above. No high-grade spinal canal stenosis at any level. No abnormal cervical cord signal. THORACIC SPINE No high-grade spinal canal stenosis or significant neural foraminal narrowing. No abnormal thoracic cord signal. LUMBAR SPINE Moderate spinal canal stenosis at L4-L5 with subarticular zones narrowing and potential impingement on the descending L5 nerve roots. An additional multilevel spondylosis and spondyloarthropathy, as above result in no more than mild spinal canal stenosis at L3-L4 and L5-S1. Radha Wahl MD., have reviewed this study and agree with the above report. Narrative Performed At * * * * * * * * ORIGINAL REPORT * * * * * * * * PACS/VR/DOSE MR CERVICAL SPINE WO CONTRAST, MR THORACIC SPINE WO CONTRAST, MR LUMBAR SPINE WO CONTRAST HISTORY: Male 64 years Neck pain, chronic, normal neuro exam, neg xray neck pain in setting of bacteremia, concern for abscess COMPARISON: None TECHNIQUE: Multiplanar multisequence MR images of the cervical, thoracic and lumbar spine were performed on 1.5 Rosa without intravenous contrast. FINDINGS: MRI CERVICAL: Study is motion degraded. Evaluation is also limited by susceptibility artifact related to ACDF at C4-C6. There is mild straightening of the normal cervical lordosis . The vertebral bodies are normal in height and alignment. No abnormal cord signal is identified. Aside from fused segments, mild disc desiccation noted. Type II endplate Modic changes are noted at this level as well. Degenerative changes of the atlantoaxial joint noted. At C2-C3, small posterior osteophyte is noted. No significant canal or neuroforaminal narrowing. At C3-C4, small posterior osteophyte and mild facet arthropathy result in no high-grade spinal canal stenosis or significant neural foraminal narrowing. At C4-C5 and C5-C6, fused segments. Uncinate hypertrophy and facet arthropathy result in mild bilateral neural foraminal narrowing. At C6-C7, mild posterior disc osteophyte complex formation and facet arthropathy, results in mild bilateral neural foraminal narrowing. No high-grade spinal canal stenosis. At C7-T1, no high-grade spinal canal stenosis or significant neural foraminal narrowing. Mild paraspinal atrophy is noted. MRI THORACIC: There is mildly exaggerated thoracic kyphosis with normal sagittal alignment. The vertebral bodies are normal in height. Disc desiccation is noted throughout the thoracic spine with minimal mid-thoracic associated loss of disc height. The thoracic cord is normal in caliber and contour. No cord signal abnormality is identified. Rounded lesion within the T7 vertebral body demonstrating high T1 and T2 signal likely reflects a small hemangioma. The background bone marrow signal is otherwise unremarkable. No high-grade canal stenosis or neuroforaminal narrowing is present at any level. The paraspinal soft tissues are unremarkable. Partially imaged T2 hyperintense lesions in bilateral kidneys likely represent renal cysts. MRI LUMBAR SPINE: There is normal curvature and alignment of the lumbar spine. The vertebral bodies are normal in height. Scattered disc desiccation is noted without substantial loss of disc height. Background marrow signal is unremarkable. The conus terminates at T12-L1. The cauda equina nerve roots are unremarkable. At L1-L2, mild facet arthropathy noted. No high-grade spinal canal stenosis or significant neural foraminal narrowing. At L2-L3, no high-grade spinal canal stenosis or significant neural foraminal narrowing. At L3-L4, mild diffuse disc bulge and facet arthropathy with ligamentum flavum hypertrophy result in mild canal stenosis and mild neural foraminal narrowing. L4-L5, diffuse disc bulge and facet arthropathy with ligamentum flavum thickening result in moderate canal stenosis and mild bilateral neuroforaminal narrowing. Narrowing of subarticular zones noted with potential impingement on the descending L5 nerve roots. L5-S1 diffuse disc bulge with superimposed central disc protrusion results in mild spinal canal stenosis and mild bilateral neural foraminal narrowing. The paraspinal soft tissues are unremarkable. Procedure Note [facility], Radiant Results Inft User - 04/08/2019 10:52 AM CDT * * * * * * * * ORIGINAL REPORT * * * * * * * * MR CERVICAL SPINE WO CONTRAST, MR THORACIC SPINE WO CONTRAST, MR LUMBAR SPINE WO CONTRAST HISTORY: Male 64 years Neck pain, chronic, normal neuro exam, neg xray neck pain in setting of bacteremia, concern for abscess COMPARISON: None TECHNIQUE: Multiplanar multisequence MR images of the cervical, thoracic and lumbar spine were performed on 1.5 Rosa without intravenous contrast. FINDINGS: MRI CERVICAL: Study is motion degraded. Evaluation is also limited by susceptibility artifact related to ACDF at C4-C6. There is mild straightening of the normal cervical lordosis . The vertebral bodies are normal in height and alignment. No abnormal cord signal is identified. Aside from fused segments, mild disc desiccation noted. Type II endplate Modic changes are noted at this level as well. Degenerative changes of the atlantoaxial joint noted. At C2-C3, small posterior osteophyte is noted. No significant canal or neuroforaminal narrowing. At C3-C4, small posterior osteophyte and mild facet arthropathy result in no high-grade spinal canal stenosis or significant neural foraminal narrowing. At C4-C5 and C5-C6, fused segments. Uncinate hypertrophy and facet arthropathy result in mild bilateral neural foraminal narrowing. At C6-C7, mild posterior disc osteophyte complex formation and facet arthropathy, results in mild bilateral neural foraminal narrowing. No high-grade spinal canal stenosis. At C7-T1, no high-grade spinal canal stenosis or significant neural foraminal narrowing. Mild paraspinal atrophy is noted. MRI THORACIC: There is mildly exaggerated thoracic kyphosis with normal sagittal alignment. The vertebral bodies are normal in height. Disc desiccation is noted throughout the thoracic spine with minimal mid-thoracic associated loss of disc height. The thoracic cord is normal in caliber and contour. No cord signal abnormality is identified. Rounded lesion within the T7 vertebral body demonstrating high T1 and T2 signal likely reflects a small hemangioma. The background bone marrow signal is otherwise unremarkable. No high-grade canal stenosis or neuroforaminal narrowing is present at any level. The paraspinal soft tissues are unremarkable. Partially imaged T2 hyperintense lesions in bilateral kidneys likely represent renal cysts. MRI LUMBAR SPINE: There is normal curvature and alignment of the lumbar spine. The vertebral bodies are normal in height. Scattered disc desiccation is noted without substantial loss of disc height. Background marrow signal is unremarkable. The conus terminates at T12-L1. The cauda equina nerve roots are unremarkable. At L1-L2, mild facet arthropathy noted. No high-grade spinal canal stenosis or significant neural foraminal narrowing. At L2-L3, no high-grade spinal canal stenosis or significant neural foraminal narrowing. At L3-L4, mild diffuse disc bulge and facet arthropathy with ligamentum flavum hypertrophy result in mild canal stenosis and mild neural foraminal narrowing. L4-L5, diffuse disc bulge and facet arthropathy with ligamentum flavum thickening result in moderate canal stenosis and mild bilateral neuroforaminal narrowing. Narrowing of subarticular zones noted with potential impingement on the descending L5 nerve roots. L5-S1 diffuse disc bulge with superimposed central disc protrusion results in mild spinal canal stenosis and mild bilateral neural foraminal narrowing. The paraspinal soft tissues are unremarkable. IMPRESSION CERVICAL SPINE Postsurgical changes of prior C4-C6 ACDF. Multilevel cervical spondylosis and spondylolisthesis, as above. No high-grade spinal canal stenosis at any level. No abnormal cervical cord signal. THORACIC SPINE No high-grade spinal canal stenosis or significant neural foraminal narrowing. No abnormal thoracic cord signal. LUMBAR SPINE Moderate spinal canal stenosis at L4-L5 with subarticular zones narrowing and potential impingement on the descending L5 nerve roots. An additional multilevel spondylosis and spondyloarthropathy, as above result in no more than mild spinal canal stenosis at L3-L4 and L5-S1. IRadha MD., have reviewed this study and agree with the above report. Performing Organization Address City/State/[facility] Phone Number PACS/VR/DOSE XR KUB (04/07/2019 3:14 PM CDT) Specimen Impressions Performed At FINDINGS/IMPRESSION: PACS/VR/DOSE The pelvis is excluded from the image. The bowel gas pattern is nonobstructive. Narrative Performed At * * * * * * * * ORIGINAL REPORT * * * * * * * * PACS/VR/DOSE XR KUB HISTORY: constipation, abdominal distention COMPARISON: 03/25/2019 Procedure Note [facility], Radiant Results Inft User - 04/07/2019 5:35 PM CDT * * * * * * * * ORIGINAL REPORT * * * * * * * * XR KUB HISTORY: constipation, abdominal distention COMPARISON: 03/25/2019 IMPRESSION FINDINGS/IMPRESSION: The pelvis is excluded from the image. The bowel gas pattern is nonobstructive. Performing Organization Address [place] [place] Phone [place] PACS/VR/DOSE POCT GLUCOSE (AUTOMATED) (04/07/2019 12:27 PM CDT) POCT GLU 113 (H) 70 - 110 mg/dL [facility] Specimen Blood Performing Organization Address City/[facility] Phone Number [facility] CLIA: [id number], [address] [place] [address] [phone] [facility] GALV ONLY - INFLUENZA A B RSV PCR (04/07/2019 10:53 AM CDT) Influenza A virus by Negative Negative [facility] PCR SERVICES Influenza B virus by Negative Negative [facility] RSV by PCR Negative Negative [facility] Specimen Fluid - NASOPHARYNGEAL SWAB Performing Organization Address [facility] Phone Number [facility] CLIA: [id number], [address] [place] [address] [phone] [facility] BODY FLUID EOSINOPHIL SMEAR (04/07/2019 10:53 AM CDT) BF EOS Comment: No % [facility] Eosinophils Observed SERVICES Specimen Urine - URINE, CLEAN CATCH Performing Organization Address [facility] Phone Number [facility] CLIA: [id number], [address] [place] [address] [id number] [phone] [facility] CREATININE, URINE RANDOM (04/07/2019 10:53 AM CDT) CREAT U 140.9 mg/dL [facility] Specimen Urine - URINE, CLEAN CATCH Performing Organization Address [facility] Phone Number [facility] CLIA: [id number], [address] [place] [address] [id number] [phone] [facility] UREA NITROGEN, URINE RANDOM (04/07/2019 10:53 AM CDT) UREA N UR 397 mg/dL [facility] Specimen Urine - URINE, CLEAN CATCH Performing Organization Address [facility] Phone Number [facility] CLIA: [id number], [address] [place] [address] [phone] [facility] SODIUM, URINE RANDOM (04/07/2019 10:53 AM CDT) NA URINE 19 mmol/L [facility] Specimen Urine - URINE, CLEAN CATCH Performing Organization Address City/State/Zipcode Phone Number [facility] CLIA: [id number], [address] [place] [address] [phone] [facility] POCT GLUCOSE (AUTOMATED) (04/07/2019 7:26 AM CDT) POCT GLU 98 70 - 110 mg/dL [facility] Specimen Blood Performing Organization Address City/[facility]/Zipcode Phone Number [facility] CLIA: [id number], [address] [place] [address] [phone] [facility] CBC WITH DIFFERENTIAL (04/07/2019 4:11 AM CDT) WBC 7.16 4.20 - 10.70 [facility] 10*3/L SERVICES RBC 2.91 (L) 4.26 - 5.52 [facility] 10*6/L SERVICES HGB 8.5 (L) 12.2 - 16.4 [facility] g/dL SERVICES HCT 26.3 (L) 38.4 - 49.3 % [facility] MCV 90.4 81.7 - 95.6 fL [facility] MCH 29.2 26.1 - 32.7 pg [facility] MCHC 32.3 31.2 - 35.0 [facility] g/dL SERVICES RDW-SD 43.8 38.5 - 51.6 fL [facility] RDW-CV 13.3 12.1 - 15.4 % [facility] PLT 143 (L) 150 - 328 [facility] 10*3/L SERVICES MPV 11.9 9.8 - 13.0 fL [facility] NRBC/100 WBC 0.0 0.0 - 10.0 /100 [facility] WBCs SERVICES NRBC x10^3 <0.01 10*3/L [facility] GRAN MAT (NEUT) % 63.4 % [facility] IMM GRAN % 0.40 % [facility] LYMPH % 20.0 % [facility] MONO % 12.8 % [facility] EOS % 2.8 % [facility] BASO % 0.6 % [facility] GRAN MAT x10^3(ANC) 4.54 1.99 - 6.95 [facility] 10*3/uL SERVICES IMM GRAN x10^3 0.03 0.00 - 0.06 [facility] 10*3/uL SERVICES LYMPH x10^3 1.43 1.09 - 3.23 [facility] 10*3/uL SERVICES MONO x10^3 0.92 0.36 - 1.02 [facility] 10*3/uL SERVICES EOS x10^3 0.20 0.06 - 0.53 [facility] 10*3/uL SERVICES BASO x10^3 0.04 0.01 - 0.09 [facility] 10*3/uL SERVICES Specimen Blood - ARM, RIGHT Performing Organization Address [facility]/Zipcode Phone Number [facility] CLIA: [id number], [address] [place] [address] [facility] Magnesium Serum (04/07/2019 4:11 AM CDT) MAGNESIUM 1.9 1.7 - 2.4 mg/dL [facility] Specimen Blood - ARM, RIGHT Performing Organization Address [facility] Phone Number [facility] CLIA: [id number], [address] [place] [address] [phone] [facility] Basic Metabolic Panel (NA, K, CL, CO2, GLUCOSE, BUN, CREATININE, CA) (2018 4:11 AM CDT) NA 131 (L) 135 - 145 [facility] mmol/L SERVICES K 4.8Comment: 3.5 - 5.0 [facility] Slight hemolysis mmol/L SERVICES CL 99 98 - 108 [facility] mmol/L SERVICES CO2 TOTAL 22 (L) 23 - 31 [facility] mmol/L SERVICES AGAP 10 2 - 16 [facility] SERVICES BUN 27 (H)Comment: 7 - 23 mg/dL [facility] Slight hemolysis SERVICES GLUCOSE 93 70 - 110 [facility] mg/dL SERVICES CREATININE 1.81 (H) 0.60 - 1.25 [facility] mg/dL SERVICES CALCIUM 8.0 (L) 8.6 - 10.6 [facility] mg/dL SERVICES eGFR Calculation 37.8 mL/min/1.73m2 [facility] (Non- SERVICES [place]) eGFR Calculation 45.8 mL/min/1.73m2 [facility] () SERVICES Specimen Blood - ARM, RIGHT Narrative Performed At Association of Glomerular Filtration Rate (GFR) and Staging [facility] of Kidney Disease* + + + + | GFR (mL/min/1.73 m2)| With Kidney Damage|Without Kidney Damage + + + + |>90|Stage one| Normal + + + + |60-89|Stage two| Decreased GFR + + + + |30-59|Stage three| Stage three + + + + |15-29|Stage four | Stage four + + + + |<15 (or dialysis)|Stage five | Stage five + + + + *Each stage assumes the associated GFR [...] abnormalities in imaging tests). Performing Organization Address City/[facility] Phone Number [facility] CLIA: [id number], [address] [place] [address] [facility] POCT GLUCOSE (AUTOMATED) (04/06/2019 7:44 PM CDT) POCT GLU 140 (H) 70 - 110 mg/dL [facility] Specimen Blood Performing Organization Address City/[facility] Phone Number [facility] CLIA: [id number], [address] [place] [address] [facility] POCT GLUCOSE (AUTOMATED) (04/06/2019 5:03 PM CDT) POCT GLU 140 (H) 70 - 110 mg/dL [facility] Specimen Blood Performing Organization Address [facility] Phone Number [facility] CLIA: [id number], [address] [place] [address] [phone] [facility] RHEUMATOID FACTOR (04/06/2019 4:47 PM CDT) RF <20 <20 IU/mL [facility] Specimen Blood - LINE, VENOUS Performing Organization Address [facility] Phone Number [facility] CLIA: [id number], [address] [place] [address] [facility] C4 COMPLEMENT (04/06/2019 4:47 PM CDT) C4 29 20 - 59 mg/dL [facility] Specimen Blood - LINE, VENOUS Performing Organization Address [facility] Phone Number [facility] CLIA: [id number], [address] [place] [address] [facility] C3 COMPLEMENT (04/06/2019 4:47 PM CDT) C3 113 86 - 184 mg/dL [facility] Specimen Blood - LINE, VENOUS Performing Organization Address [facility] Phone Number [facility] CLIA: [id number], [address] [place] [address] [phone] [facility] C-REACTIVE PROTEIN (04/06/2019 4:47 PM CDT) CRP 10.1 (H) <0.8 mg/dL [facility] Specimen Blood - LINE, VENOUS Performing Organization Address [facility] Phone Number [facility] CLIA: [id number], [address] [place] [address] [facility] SEDIMENTATION RATE (04/06/2019 4:47 PM CDT) ESR 73 (H) 0 - 10 mm/HR [facility] Specimen Blood - LINE, VENOUS Performing Organization Address [facility] Phone Number [facility] CLIA: [id number], [address] [place] [address] [facility] TROPONIN I (04/06/2019 4:47 PM CDT) TROPONIN I 0.012 <=0.034 ng/mL [facility] Specimen Blood - LINE, VENOUS Narrative Performed At Equal or Less than 0.034 ng/ml---Normal [facility] Note: Cardiac troponin begins to rise 3-4 hours after the onset of ischemia. Repeat in 4-6 hours if the sample was drawn within 3-4 hours of the onset of the symptom and found normal. Between 0.035 and 0.120 ng/mL--- Borderline. Questionable myocardial injury or necrosis Note: Serial measurement may be necessary to confirm or exclude the diagnosis of myocardial injury or necrosis; Clinical correlation (symptoms, EKGs, imaging studies, and others) required; Repeat in 4-6 hours if clinically indicated. Equal or Higher than 0.121 ng/mL---Abnormal. Myocardial Injury or Necrosis Likely Biotin has been reported to cause a negative bias, interpret results relative to patient's use of biotin. Performing Organization Address City/[facility] Phone Number [facility] CLIA: [id number], [address] [place] [address] [phone] [facility] URINALYSIS (04/06/2019 4:38 PM CDT) APPEARANCE Hazy (A) Clear [facility] COLOR Yellow Yellow [facility] PH 5.0 4.8 - 8.0 [facility] SP GRAVITY 1.018 1.003 - 1.030 [facility] GLU U QUAL Normal Normal [facility] BLOOD 1+ (A) Negative [facility] KETONES Negative Negative [facility] PROTEIN 100 mg/dL (A) Negative [facility] UROBILIN Normal Normal [facility] BILIRUBIN Negative Negative [facility] NITRITE Negative Negative [facility] LEUK RADHA 25/uL (A) Negative [facility] RBC/HPF 6 (H) 0 - 3 HPF [facility] WBC/HPF 5 0 - 5 HPF [facility] BACTERIA Few (A) Negative [facility] MUCOUS Slight (A) Negative LPF [facility] SQ EPITH 2 <=2 HPF [facility] GRAN CASTS 1 <=1 LPF [facility] Specimen Urine - URINE, CLEAN CATCH Performing Organization Address City/[facility] Phone Number [facility] CLIA: [id number], [address] [place] [address] [phone] [facility] URINE CULTURE (04/06/2019 4:38 PM CDT) URINE CULTURE No aerobic growth [facility] (< 1000 CFU/mL) SERVICES Specimen Urine - URINE, CLEAN CATCH Performing Organization Address City/State/Zipcode Phone Number [facility] CLIA: [id number], [address] [place] [address] [facility] XR SPINE THORACIC 2 VW (04/06/2019 3:53 PM CDT) Specimen Impressions Performed At PACS/VR/DOSE No acute osseous findings. No evidence of osseous erosions to suggest osteomyelitis. Wyex-jk-znkcwtjz scattered degenerative changes are seen. Postsurgical changes in the cervical spine are identified without hardware complications. IFreedom MD., have reviewed this study and agree with the above report. Narrative Performed At * * * * * * * * ORIGINAL REPORT * * * * * * * * PACS/VR/DOSE EXAM: XR LUMBAR SPINE 2 VW, XR CERVICAL SPINE 2 VW, XR SPINE THORACIC 2 VW HISTORY:64 [id number] Male bacteremia, continued back pain Patient unable to lie flat for MRI at this time. COMPARISON: None FINDINGS: An C4-C6 ACDF are identified with corpectomy at C5. No hardware fractures or jaun hardware lucency is seen. The lower cervical spine is obscured by overlying structures. No acute displaced fracture is identified. Mild degenerative changes are noted in the nonfused cervical spine in the form of disc space narrowing and marginal osteophytes. There is exaggeration of the normal thoracic kyphosis with preserved sagittal alignment. Vertebral body heights are preserved and no acute osseous findings are seen. Mild degenerative changes are noted in the form marginal osteophytes and facet arthropathy. There are 5 lumbar type vertebra. There is normal lumbar lordosis and sagittal alignment. Mild to moderate degenerative changes are seen in the form of facet arthropathy and disc space narrowing. No acute osseous findings are seen. Procedure Note [facility], Radiant Results Inft User - 04/06/2019 4:30 PM CDT * * * * * * * * ORIGINAL REPORT * * * * * * * * EXAM: XR LUMBAR SPINE 2 VW, XR CERVICAL SPINE 2 VW, XR SPINE THORACIC 2 VW HISTORY:64 nuras-sbxf-uzz Male bacteremia, continued back pain Patient unable to lie flat for MRI at this time. COMPARISON: None FINDINGS: An C4-C6 ACDF are identified with corpectomy at C5. No hardware fractures or jaun hardware lucency is seen. The lower cervical spine is obscured by overlying structures. No acute displaced fracture is identified. Mild degenerative changes are noted in the nonfused cervical spine in the form of disc space narrowing and marginal osteophytes. There is exaggeration of the normal thoracic kyphosis with preserved sagittal alignment. Vertebral body heights are preserved and no acute osseous findings are seen. Mild degenerative changes are noted in the form marginal osteophytes and facet arthropathy. There are 5 lumbar type vertebra. There is normal lumbar lordosis and sagittal alignment. Mild to moderate degenerative changes are seen in the form of facet arthropathy and disc space narrowing. No acute osseous findings are seen. IMPRESSION No acute osseous findings. No evidence of osseous erosions to suggest osteomyelitis. Aotw-ig-wcuitlng scattered degenerative changes are seen. Postsurgical changes in the cervical spine are identified without hardware complications. Freedom Wahl MD., have reviewed this study and agree with the above report. Performing Organization Address City/State/Zipcode Phone Number PACS/VR/DOSE XR LUMBAR SPINE 2 VW (04/06/2019 3:53 PM CDT) Specimen Impressions Performed At PACS/VR/DOSE No acute osseous findings. No evidence of osseous erosions to suggest osteomyelitis. Wrhc-sl-alyevfrr scattered degenerative changes are seen. Postsurgical changes in the cervical spine are identified without hardware complications. Freedom Wahl MD., have reviewed this study and agree with the above report. Narrative Performed At * * * * * * * * ORIGINAL REPORT * * * * * * * * PACS/VR/DOSE EXAM: XR LUMBAR SPINE 2 VW, XR CERVICAL SPINE 2 VW, XR SPINE THORACIC 2 VW HISTORY:64 mtova-qulh-bih Male bacteremia, continued back pain Patient unable to lie flat for MRI at this time. COMPARISON: None FINDINGS: An C4-C6 ACDF are identified with corpectomy at C5. No hardware fractures or jaun hardware lucency is seen. The lower cervical spine is obscured by overlying structures. No acute displaced fracture is identified. Mild degenerative changes are noted in the nonfused cervical spine in the form of disc space narrowing and marginal osteophytes. There is exaggeration of the normal thoracic kyphosis with preserved sagittal alignment. Vertebral body heights are preserved and no acute osseous findings are seen. Mild degenerative changes are noted in the form marginal osteophytes and facet arthropathy. There are 5 lumbar type vertebra. There is normal lumbar lordosis and sagittal alignment. Mild to moderate degenerative changes are seen in the form of facet arthropathy and disc space narrowing. No acute osseous findings are seen. Procedure Note [facility], Radiant Results Inft User - 04/06/2019 4:30 PM CDT * * * * * * * * ORIGINAL REPORT * * * * * * * * EXAM: XR LUMBAR SPINE 2 VW, XR CERVICAL SPINE 2 VW, XR SPINE THORACIC 2 VW HISTORY:64 qtwos-bseg-fhr Male bacteremia, continued back pain Patient unable to lie flat for MRI at this time. COMPARISON: None FINDINGS: An C4-C6 ACDF are identified with corpectomy at C5. No hardware fractures or jaun hardware lucency is seen. The lower cervical spine is obscured by overlying structures. No acute displaced fracture is identified. Mild degenerative changes are noted in the nonfused cervical spine in the form of disc space narrowing and marginal osteophytes. There is exaggeration of the normal thoracic kyphosis with preserved sagittal alignment. Vertebral body heights are preserved and no acute osseous findings are seen. Mild degenerative changes are noted in the form marginal osteophytes and facet arthropathy. There are 5 lumbar type vertebra. There is normal lumbar lordosis and sagittal alignment. Mild to moderate degenerative changes are seen in the form of facet arthropathy and disc space narrowing. No acute osseous findings are seen. IMPRESSION No acute osseous findings. No evidence of osseous erosions to suggest osteomyelitis. Xctk-io-rjkisefn scattered degenerative changes are seen. Postsurgical changes in the cervical spine are identified without hardware complications. Freedom Wahl MD., have reviewed this study and agree with the above report. Performing Organization Address City/State/Zipcode Phone Number PACS/VR/DOSE XR CERVICAL SPINE 2 VW (04/06/2019 3:53 PM CDT) Specimen Impressions Performed At PACS/VR/DOSE No acute osseous findings. No evidence of osseous erosions to suggest osteomyelitis. Yyrc-bu-yedfwqww scattered degenerative changes are seen. Postsurgical changes in the cervical spine are identified without hardware complications. Freedom Wahl MD., have reviewed this study and agree with the above report. Narrative Performed At * * * * * * * * ORIGINAL REPORT * * * * * * * * PACS/VR/DOSE EXAM: XR LUMBAR SPINE 2 VW, XR CERVICAL SPINE 2 VW, XR SPINE THORACIC 2 VW HISTORY:64 sasnj-plwb-uvm Male bacteremia, continued back pain Patient unable to lie flat for MRI at this time. COMPARISON: None FINDINGS: An C4-C6 ACDF are identified with corpectomy at C5. No hardware fractures or jaun hardware lucency is seen. The lower cervical spine is obscured by overlying structures. No acute displaced fracture is identified. Mild degenerative changes are noted in the nonfused cervical spine in the form of disc space narrowing and marginal osteophytes. There is exaggeration of the normal thoracic kyphosis with preserved sagittal alignment. Vertebral body heights are preserved and no acute osseous findings are seen. Mild degenerative changes are noted in the form marginal osteophytes and facet arthropathy. There are 5 lumbar type vertebra. There is normal lumbar lordosis and sagittal alignment. Mild to moderate degenerative changes are seen in the form of facet arthropathy and disc space narrowing. No acute osseous findings are seen. Procedure Note [facility], Radiant Results Inft User - 04/06/2019 4:30 PM CDT * * * * * * * * ORIGINAL REPORT * * * * * * * * EXAM: XR LUMBAR SPINE 2 VW, XR CERVICAL SPINE 2 VW, XR SPINE THORACIC 2 VW HISTORY:64 mfmvn-pibp-rou Male bacteremia, continued back pain Patient unable to lie flat for MRI at this time. COMPARISON: None FINDINGS: An C4-C6 ACDF are identified with corpectomy at C5. No hardware fractures or jaun hardware lucency is seen. The lower cervical spine is obscured by overlying structures. No acute displaced fracture is identified. Mild degenerative changes are noted in the nonfused cervical spine in the form of disc space narrowing and marginal osteophytes. There is exaggeration of the normal thoracic kyphosis with preserved sagittal alignment. Vertebral body heights are preserved and no acute osseous findings are seen. Mild degenerative changes are noted in the form marginal osteophytes and facet arthropathy. There are 5 lumbar type vertebra. There is normal lumbar lordosis and sagittal alignment. Mild to moderate degenerative changes are seen in the form of facet arthropathy and disc space narrowing. No acute osseous findings are seen. IMPRESSION No acute osseous findings. No evidence of osseous erosions to suggest osteomyelitis. Cwar-vv-juximybv scattered degenerative changes are seen. Postsurgical changes in the cervical spine are identified without hardware complications. IFreedom MD., have reviewed this study and agree with the above report. Performing Organization Address City/State/Zipcode Phone Number PACS/VR/DOSE POCT GLUCOSE (AUTOMATED) (04/06/2019 11:08 AM CDT) POCT GLU 115 (H) 70 - 110 mg/dL [facility] Specimen Blood Performing Organization Address City/State/Zipcode Phone Number [facility] CLIA: [id number], [address] [place] [address] [facility] XR CHEST 1 VW (04/06/2019 10:14 AM CDT) Specimen Impressions Performed At PACS/VR/DOSE Cardiomegaly with mild interstitial pulmonary edema. Narrative Performed At * * * * * * * * ORIGINAL REPORT * * * * * * * * PACS/VR/DOSE XR CHEST 1 VW HISTORY: acute dyspnea COMPARISON: 04/05/2019 FINDINGS: Pulmonary venous congestion is present with increased interstitial markings consistent with mild pulmonary edema. No pleural effusion or pneumothorax. The heart is moderately enlarged, unchanged. No acute bony abnormality is seen. Procedure Note [facility], Radiant Results Inft User - 04/06/2019 10:29 AM CDT * * * * * * * * ORIGINAL REPORT * * * * * * * * XR CHEST 1 VW HISTORY: acute dyspnea COMPARISON: 04/05/2019 FINDINGS: Pulmonary venous congestion is present with increased interstitial markings consistent with mild pulmonary edema. No pleural effusion or pneumothorax. The heart is moderately enlarged, unchanged. No acute bony abnormality is seen. IMPRESSION Cardiomegaly with mild interstitial pulmonary edema. Performing Organization Address [facility] Phone Number [facility]/VR/DOSE BASIC METABOLIC PANEL (NA, K, CL, CO2, GLUCOSE, BUN, CREATININE, CA) (2018 9:49 AM CDT) NA 135 135 - 145 [facility] mmol/L SERVICES K 4.0 3.5 - 5.0 [facility] mmol/L SERVICES CL 101 98 - 108 mmol/L [facility] CO2 TOTAL 24 23 - 31 mmol/L [facility] AGAP 10 2 - 16 [facility] BUN 15 7 - 23 mg/dL [facility] GLUCOSE 113 (H) 70 - 110 mg/dL [facility] CREATININE 1.20 0.60 - 1.25 [facility] mg/dL SERVICES CALCIUM 8.4 (L) 8.6 - 10.6 [facility] mg/dL SERVICES eGFR Calculation 60.8 mL/min/1.73m2 [facility] (Non- SERVICES [place]) eGFR Calculation 73.6 mL/min/1.73m2 [facility] () SERVICES Specimen Blood - LINE, VENOUS Narrative Performed At Association of Glomerular Filtration Rate (GFR) and Staging [facility] of Kidney Disease* + + + + | GFR (mL/min/1.73 m2)| With Kidney Damage|Without Kidney Damage + + + + |>90|Stage one| Normal + + + + |60-89|Stage two| Decreased GFR + + + + |30-59|Stage three| Stage three + + + + |15-29|Stage four | Stage four + + + + |<15 (or dialysis)|Stage five | Stage five + + + + *Each stage assumes the associated GFR [...] tests). Performing Organization Address City/State/Zipcode Phone Number [facility] CLIA: [id number], [address] [place] [address] [phone] [facility] TROPONIN I (04/06/2019 9:49 AM CDT) TROPONIN I 0.014 <=0.034 ng/mL [facility] Specimen Blood - LINE, VENOUS Narrative Performed At Equal or Less than 0.034 ng/ml---Normal [facility] Note: Cardiac troponin begins to rise 3-4 hours after the onset of ischemia. Repeat in 4-6 hours if the sample was drawn within 3-4 hours of the onset of the symptom and found normal. Between 0.035 and 0.120 ng/mL--- Borderline. Questionable myocardial injury or necrosis Note: Serial measurement may be necessary to confirm or exclude the diagnosis of myocardial injury or necrosis; Clinical correlation (symptoms, EKGs, imaging studies, and others) required; Repeat in 4-6 hours if clinically indicated. Equal or Higher than 0.121 ng/mL---Abnormal. Myocardial Injury or Necrosis Likely Biotin has been reported to cause a negative bias, interpret results relative to patient's use of biotin. Performing Organization Address City/[facility] Cent[facility]ode Phone Number [facility] CLIA: [id number], [address] [place] [phone] [facility] POCT GLUCOSE (AUTOMATED) (04/06/2019 7:19 AM CDT) POCT GLU 129 (H) 70 - 110 mg/dL [facility] Specimen Blood Performing Organization Address [facility] Phone Number [facility] CLIA: [id number], [address] [place] [address] [phone] [address] [place] TROPONIN I (04/06/2019 4:42 AM CDT) TROPONIN I 0.019 <=0.034 ng/mL [facility] Specimen Blood - ARM, RIGHT Narrative Performed At Equal or Less than 0.034 ng/ml---Normal [facility] Note: Cardiac troponin begins to rise 3-4 hours after the onset of ischemia. Repeat in 4-6 hours if the sample was drawn within 3-4 hours of the onset of the symptom and found normal. Between 0.035 and 0.120 ng/mL--- Borderline. Questionable myocardial injury or necrosis Note: Serial measurement may be necessary to confirm or exclude the diagnosis of myocardial injury or necrosis; Clinical correlation (symptoms, EKGs, imaging studies, and others) required; Repeat in 4-6 hours if clinically indicated. Equal or Higher than 0.121 ng/mL---Abnormal. Myocardial Injury or Necrosis Likely Biotin has been reported to cause a negative bias, interpret results relative to patient's use of biotin. Performing Organization Address City/[facility] Phone Number [facility] CLIA: [id number], [address] [place] [phone] [facility] Magnesium Serum (04/06/2019 4:42 AM CDT) MAGNESIUM 1.9 1.7 - 2.4 mg/dL [facility] Specimen Blood - ARM, RIGHT Performing Organization Address [facility]/Zipcode Phone Number [facility] CLIA: [id number], [address] [facility] [place] [address] [facility] Basic Metabolic Panel (NA, K, CL, CO2, GLUCOSE, BUN, CREATININE, CA) (2018 4:42 AM CDT) NA 134 (L) 135 - 145 [facility] mmol/L SERVICES K 4.0 3.5 - 5.0 [facility] mmol/L SERVICES CL 104 98 - 108 mmol/L [facility] SERVICES CO2 TOTAL 22 (L) 23 - 31 mmol/L [facility] AGAP 8 2 - 16 [facility] BUN 16 7 - 23 mg/dL [facility] GLUCOSE 105 70 - 110 mg/dL [facility] CREATININE 1.19 0.60 - 1.25 [facility] mg/dL SERVICES CALCIUM 7.8 (L) 8.6 - 10.6 [facility] mg/dL SERVICES eGFR Calculation 61.4 mL/min/1.73m2 [facility] (Non- SERVICES [place]) eGFR Calculation 74.4 mL/min/1.73m2 [facility] () SERVICES Specimen Blood - ARM, RIGHT Narrative Performed At Association of Glomerular Filtration Rate (GFR) and Staging [facility] SERVICES of Kidney Disease* + + + + | GFR (mL/min/1.73 m2)| With Kidney Damage|Without Kidney Damage + + + + |>90|Stage one| Normal + + + + |60-89|Stage two| Decreased GFR + + + + |30-59|Stage three| Stage three + + + + |15-29|Stage four | Stage four + + + + |<15 (or dialysis)|Stage five | Stage five + + + + *Each stage assumes the associated GFR [...] tests). Performing Organization Address City/State/Zipcode Phone Number [facility] CLIA: [id number], [address] [place] [address] [phone] XR CHEST 1 VW (04/05/2019 10:33 PM CDT) Specimen Narrative Performed At HISTORY: Shortness of breath. PACS/VR/DOSE TECHNIQUE: Portable AP view of the chest is obtained. Comparison made with 04/01/2019 study. FINDINGS: Mild cardiomegaly noted with dilated central pulmonary arteries and mild bibasilar pulmonary edema. No focal consolidation. No pneumothorax or pleural effusion. Cervical spine ACDF surgical changes noted. CONCLUSIONS: Mild cardiomegaly with mild bibasilar pulmonary edema. Procedure Note [facility], Radiant Results Inft User - 04/05/2019 10:56 PM CDT HISTORY: Shortness of breath. TECHNIQUE: Portable AP view of the chest is obtained. Comparison made with 04/01/2019 study. FINDINGS: Mild cardiomegaly noted with dilated central pulmonary arteries and mild bibasilar pulmonary edema. No focal consolidation. No pneumothorax or pleural effusion. Cervical spine ACDF surgical changes noted. CONCLUSIONS: Mild cardiomegaly with mild bibasilar pulmonary edema. Performing Organization Address [facility] Phone Number PACS/VR/DOSE BLOOD CULTURE SCREEN (04/05/2019 10:13 PM CDT) Blood No organisms isolated No growth [facility] Culture-Aerobic Comment: SERVICES Previous preliminary verified result was Culture In Progress on 04/06/2019 at 0201 CDT Previous preliminary verified result was No growth at 24 hours on 04/06/2019 at 2301 CDT Previous preliminary verified result was No growth at 48 hours on 04/07/2019 at 2301 CDT Previous preliminary verified result was No growth at 72 hours on 04/08/2019 at 2302 CDT Blood No organisms isolated No growth [facility] Culture-Anaerobic Comment: SERVICES Previous preliminary verified result was Culture In Progress on 04/06/2019 at 0201 CDT Previous preliminary verified result was No growth at 24 hours on 04/06/2019 at 2301 CDT Previous preliminary verified result was No growth at 48 hours on 04/07/2019 at 2301 CDT Previous preliminary verified result was No growth at 72 hours on 04/08/2019 at 2302 CDT Specimen Blood - HAND, RIGHT Performing Organization Address City/State/Zipcode Phone Number [facility] CLIA: [id number], [address] [place] [address] [phone] [facility] BLOOD CULTURE SCREEN (04/05/2019 10:13 PM CDT) Blood No organisms isolated No growth [facility] Culture-Aerobic Comment: SERVICES Previous preliminary verified result was Culture In Progress on 04/06/2019 at 0201 CDT Previous preliminary verified result was No growth at 24 hours on 04/06/2019 at 2301 CDT Previous preliminary verified result was No growth at 48 hours on 04/07/2019 at 2301 CDT Previous preliminary verified result was No growth at 72 hours on 04/08/2019 at 2302 CDT Blood No organisms isolated No growth [facility] Culture-Anaerobic Comment: SERVICES Previous preliminary verified result was Culture In Progress on 04/06/2019 at 0201 CDT Previous preliminary verified result was No growth at 24 hours on 04/06/2019 at 2301 CDT Previous preliminary verified result was No growth at 48 hours on 04/07/2019 at 2301 CDT Previous preliminary verified result was No growth at 72 hours on 04/08/2019 at 2302 CDT Specimen Blood - HAND, LEFT Performing Organization Address City/State/Zipcode Phone Number [facility] CLIA: [id number], [address] [place] [phone] [facility] AC PANEL 20 + LACTIC ACID (04/05/2019 9:48 PM CDT) PH 7.37 7.35 - 7.45 [facility] PCO2 39 35 - 45 mmHg [facility] PO2 83 80 - 100 mmHg [facility] HCO3 22 22 - 26 mEq/L [facility] BE -3.0 -3.0 - 3.0 mEq/L [facility] THB 11.7 (L) 13.5 - 18.0 g/dL [facility] %O2HB 93.8 (L) 94.0 - 99.0 % [facility] %COHB ART 0.3 0.0 - 1.5 % [facility] %METHB ART 0.3 (L) 0.4 - 1.5 % [facility] VOL%O2 ART 15.5 15.0 - 23.0 % [facility] NA 134 (L) 135 - 145 mmol/L [facility] K+ 4.3 3.5 - 5.0 mmol/L [facility] AC CA IONZ 4.60 4.50 - 5.30 mg/dL [facility] GLUCOSE 127 (H) 70 - 110 mg/dL [facility] LACTIC ACID 1.81 0.50 - 2.20 mmol/L [facility] Specimen Blood - WRIST, RIGHT Performing Organization Address City/[facility] Phone Number [facility] CLIA: [id number], [address] [place] [address] [phone] [facility] POCT GLUCOSE (AUTOMATED) (04/05/2019 9:08 PM CDT) POCT GLU 179 (H) 70 - 110 mg/dL [facility] Specimen Blood Performing Organization Address [facility] Phone Number [facility] CLIA: [id number], [address] [place] [address] [facility] POCT GLUCOSE (AUTOMATED) (04/05/2019 5:13 PM CDT) POCT GLU 113 (H) 70 - 110 mg/dL [facility] Specimen Blood Performing Organization Address [facility] Phone Number [facility] CLIA: [id number], [address] [place] [address] [facility] POCT GLUCOSE (AUTOMATED) (04/05/2019 11:44 AM CDT) POCT GLU 128 (H) 70 - 110 mg/dL [facility] Specimen Blood Performing Organization Address [facility] Phone Number [facility] CLIA: [id number], [address] [place] [address] [phone] [facility] POCT GLUCOSE (AUTOMATED) (04/05/2019 7:09 AM CDT) POCT GLU 93 70 - 110 mg/dL [facility] Specimen Blood Performing Organization Address [facility] Phone Number [facility] CLIA: [id number], [address] [place] [address] [facility] HIV 1/2 AG-AB WITH REFLEX (04/05/2019 4:36 AM CDT) HIV 1/2 Ag-Ab with Negative Negative [facility] Reflex SERVICES HIV Semi-quantitative 0.06 [facility] Specimen Blood - ARM, RIGHT Narrative Performed At Non-reactive for HIV-1 antigen and HIV-1/HIV-2 [facility] antibodies.No laboratory evidence of HIV infection.Repeat in 2-4 weeks if acute HIV infection is suspected. Performing Organization Address City/State/Zipcode Phone Number [facility] CLIA: [id number], [address] [place], [place] [phone] [facility] CBC WITH DIFFERENTIAL (04/05/2019 4:36 AM CDT) WBC 3.89 (L) 4.20 - 10.70 [facility] 10*3/L SERVICES RBC 3.42 (L) 4.26 - 5.52 [facility] 10*6/L SERVICES HGB 10.1 (L) 12.2 - 16.4 [facility] g/dL SERVICES HCT 30.4 (L) 38.4 - 49.3 % [facility] MCV 88.9 81.7 - 95.6 fL [facility] MCH 29.5 26.1 - 32.7 pg [facility] MCHC 33.2 31.2 - 35.0 [facility] g/dL SERVICES RDW-SD 43.0 38.5 - 51.6 fL [facility] RDW-CV 13.2 12.1 - 15.4 % [facility] PLT 168 150 - 328 [facility] 10*3/L SERVICES MPV 11.6 9.8 - 13.0 fL [facility] NRBC/100 WBC 0.0 0.0 - 10.0 /100 [facility] WBCs SERVICES NRBC x10^3 <0.01 10*3/L [facility] GRAN MAT (NEUT) % 51.4 % [facility] IMM GRAN % 0.30 % [facility] LYMPH % 29.3 % [facility] MONO % 18.5 % [facility] EOS % 0.0 % [facility] BASO % 0.5 % [facility] GRAN MAT x10^3(ANC) 2.00 1.99 - 6.95 [facility] 10*3/uL SERVICES IMM GRAN x10^3 <0.03 0.00 - 0.06 [facility] 10*3/uL SERVICES LYMPH x10^3 1.14 1.09 - 3.23 [facility] 10*3/uL SERVICES MONO x10^3 0.72 0.36 - 1.02 [facility] 10*3/uL SERVICES EOS x10^3 <0.03 (L) 0.06 - 0.53 [facility] 10*3/uL SERVICES BASO x10^3 <0.03 0.01 - 0.09 [facility] 10*3/uL SERVICES Specimen Blood - ARM, RIGHT Performing Organization Address City/[facility]/Zipcode Phone Number [facility] CLIA: [id number], [address] [place], [place] [phone] [facility] Magnesium Serum (04/05/2019 4:36 AM CDT) MAGNESIUM 1.6 (L) 1.7 - 2.4 mg/dL [facility] Specimen Blood - ARM, RIGHT Performing Organization Address City/[facility] Phone Number [facility] CLIA: [id number], [address] [place] [address] [facility] Basic Metabolic Panel (NA, K, CL, CO2, GLUCOSE, BUN, CREATININE, CA) (2018 4:36 AM CDT) NA 135 135 - 145 [facility] mmol/L SERVICES K 3.3 (L) 3.5 - 5.0 [facility] mmol/L SERVICES CL 101 98 - 108 mmol/L [facility] CO2 TOTAL 25 23 - 31 mmol/L [facility] AGAP 9 2 - 16 [facility] BUN 10 7 - 23 mg/dL [facility] GLUCOSE 86 70 - 110 mg/dL [facility] CREATININE 0.90 0.60 - 1.25 [facility] mg/dL SERVICES CALCIUM 8.5 (L) 8.6 - 10.6 [facility] mg/dL SERVICES eGFR Calculation 84.7 mL/min/1.73m2 [facility] (Non- SERVICES [place]) eGFR Calculation 102.6 mL/min/1.73m2 [facility] () SERVICES Specimen Blood - ARM, RIGHT Narrative Performed At Association of Glomerular Filtration Rate (GFR) and Staging [facility] of Kidney Disease* + + + + | GFR (mL/min/1.73 m2)| With Kidney Damage|Without Kidney Damage + + + + |>90|Stage one| Normal + + + + |60-89|Stage two| Decreased GFR + + + + |30-59|Stage three| Stage three + + + + |15-29|Stage four | Stage four + + + + |<15 (or dialysis)|Stage five | Stage five + + + + *Each stage assumes the associated GFR [...] tests). Performing Organization Address City/State/Zipcode Phone Number [facility] CLIA: [id number], [address] [place] [address] [facility] N-TERMINAL PRO-BNP (04/05/2019 4:36 AM CDT) NT-proBNP 1,030 (H) <=125 pg/mL [facility] Specimen Blood - ARM, RIGHT Narrative Performed At Biotin has been reported to cause a negative bias, interpret [facility] results relative to patient's use of biotin. Performing Organization Address City/State/Zipcode Phone Number [facility] CLIA: [id number], [address] [place] [address] [phone] [facility] Urinalysis (04/04/2019 6:44 PM CDT) APPEARANCE Clear Clear [facility] COLOR Straw (A) Yellow [facility] PH 8.0 4.8 - 8.0 [facility] SP GRAVITY 1.008 1.003 - 1.030 [facility] GLU U QUAL Normal Normal [facility] BLOOD Negative Negative [facility] KETONES Negative Negative [facility] PROTEIN 30 mg/dL (A) Negative [facility] UROBILIN Normal Normal [facility] BILIRUBIN Negative Negative [facility] NITRITE Negative Negative [facility] LEUK RADHA Negative Negative [facility] RBC/HPF 1 0 - 3 HPF [facility] WBC/HPF <1 0 - 5 HPF [facility] BACTERIA Negative Negative [facility] Specimen Urine - URINE, CLEAN CATCH Performing Organization Address City/[facility]/Zipcode Phone Number [facility] CLIA: [id number], [address] [place] [phone] [facility] BLOOD CULTURE WORKUP (04/04/2019 12:49 PM CDT) Pathologist [facility] Blood Culture LISTERIA [facility] Workup MONOCYTOGENESComment: SERVICES [place] morphologically consistent with organism above Gram stain Isolated from anaerobic [facility] bottle Gram positive HOSPITAL rodsComment: Gram LABORATORY positive rods in anaerobic bottle. Specimen Blood - VENOUS Performing Organization Address [facility] Phone Number [facility] CLIA: [id number], [address] [place] [address] [phone] [facility] CLIA: [id number], [address] [place] [address] BLOOD CULTURE SCREEN (04/04/2019 12:49 PM CDT) [facility] Blood No organisms No growth [facility] Culture-Aerobic isolatedComment: SERVICES Previous preliminary verified result was Culture In Progress on 04/04/2019 at 1903 CDT Blood Culture positive, identification to follow (AA) No growth [facility] Culture-Anaerobic Comment: HOSPITAL Gram positive rods in anaerobic bottle reported to, read back and acknowledged by Dr. Lorena Kumar at 04/05/2019 ,12:50 PM by Jojo Alves LABORATORY Previous preliminary verified result was Culture In Progress on 04/04/2019 at 1903 CDT Specimen Blood - VENOUS Performing Organization Address City/[facility]/Zipcode Phone Number [facility] CLIA: [id number], [address] [place] [address] [phone] [facility] CLIA: [id number], [address] [place], [place] [address] [address] BLOOD CULTURE WORKUP (04/04/2019 12:26 PM CDT) Blood Culture LISTERIA [facility] Workup MONOCYTOGENES SERVICES Gram stain Isolated from anaerobic bottle Gram positive bacilli [facility] Comment: SERVICES Gram positive rods in anaerobic bottle. Corrected result: Previously reported as Isolated from anaerobic bottle Gram positive cocci on 04/05/2019 at 1150 CDT. Specimen Blood - VENOUS Performing Organization Address City/State/Zipcode Phone Number [facility] CLIA: [id number], [address] [place] [address] [phone] [facility] CBC WITH DIFFERENTIAL (04/04/2019 12:26 PM CDT) Pathologist [facility] WBC 4.06 (L) 4.20 - 10.70 [facility] 10*3/L [facility] RBC 3.41 (L) 4.26 - 5.52 [facility] 10*6/L [facility] HGB 10.2 (L) 12.2 - 16.4 [facility] g/dL [facility] HCT 29.5 (L) 38.4 - 49.3 % [facility] MCV 86.5 81.7 - 95.6 fL [facility] MCH 29.9 26.1 - 32.7 pg [facility] MCHC 34.6 31.2 - 35.0 [facility] g/dL [facility] RDW-SD 41.5 38.5 - 51.6 fL [facility] RDW-CV 13.2 12.1 - 15.4 % [facility] PLT 172 150 - 328 [facility] 10*3/L [facility] MPV 11.0 9.8 - 13.0 fL [facility] NRBC/100 WBC 0.0 0.0 - 10.0 /100 [facility] WBCs [facility] NRBC x10^3 <0.01 10*3/L [facility] GRAN MAT (NEUT) % 49.8 % [facility] IMM GRAN % 0.20 % [facility] LYMPH % 28.1 % [facility] MONO % 20.7 % [facility] EOS % 0.7 % [facility] BASO % 0.5 % [facility] GRAN MAT x10^3(ANC) 2.02 1.99 - 6.95 [facility] 10*3/uL HOSPITAL LABORATORY IMM GRAN x10^3 <0.03 0.00 - 0.06 [facility] 10*3/uL HOSPITAL LABORATORY LYMPH x10^3 1.14 1.09 - 3.23 [facility] 10*3/uL HOSPITAL LABORATORY MONO x10^3 0.84 0.36 - 1.02 [facility] 10*3/uL [facility] EOS x10^3 0.03 (L) 0.06 - 0.53 [facility] 10*3/uL [facility] BASO x10^3 <0.03 0.01 - 0.09 [facility] 10*3/uL [facility] Specimen Blood - VENOUS Performing Organization Address City/[facility]/Zipcode Phone Number [facility] CLIA: [id number], [address] [place] [id number] [address] BLOOD CULTURE SCREEN (04/04/2019 12:26 PM CDT) Blood No organisms No growth [facility] Culture-Aerobic isolatedComment: SERVICES Previous preliminary verified result was Culture In Progress on 04/04/2019 at 1601 CDT Blood Culture positive, identification to follow (AA) No growth [facility] Culture-Anaerobic Comment: HOSPITAL Gram positive rods in anaerobic bottle. LABORATORY Previous preliminary verified result was Culture In Progress on 04/04/2019 at 1601 CDT Specimen Blood - VENOUS Performing Organization Address City/State/Zipcode Phone Number [facility] CLIA: [id number], [address] [place] [phone] [facility] CLIA: [id number], [address] [place] [address] Basic Metabolic Panel (NA, K, CL, CO2, GLUCOSE, BUN, CREATININE, CA) (2018 12:26 PM CDT) NA 139 135 - 145 mmol/L [facility] K 3.7 3.5 - 5.0 mmol/L [facility] CL 106 98 - 108 mmol/L [facility] CO2 TOTAL 24 23 - 31 mmol/L [facility] AGAP 9 2 - 16 [facility] BUN 10 7 - 23 mg/dL [facility] GLUCOSE 91 70 - 110 mg/dL [facility] CREATININE 0.96 0.60 - 1.25 [facility] mg/dL [facility] CALCIUM 8.6 8.6 - 10.6 mg/dL [facility] eGFR Calculation 78.6 mL/min/1.73m2 [facility] (Non-) [facility] eGFR Calculation 95.3 mL/min/1.73m2 [facility] () [facility] Specimen Blood - VENOUS Narrative Performed At Association of Glomerular Filtration Rate (GFR) [facility] and Staging of Kidney Disease* + [...] tests). 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 Essential hypertension Unspecified essential hypertension Chronic diastolic congestive heart failure Chronic diastolic heart failure Infection Unspecified infectious and parasitic diseases documented in this encounter Administered Medications Medication Order MAR Action Action Date Dose Rate Site acetaminophen (TYLENOL) tablet Given 04/15/2019 8:36 AM CDT 650 mg 650 mg 650 mg, Oral, Q6HPRN, Starting Karolina 04/04/19 at 1828, Until Discontinued, Routine, Pain (scale 1-3), Temp > 38.5 C Given 04/15/2019 2:53 AM CDT 650 mg Given 04/07/2019 4:18 AM CDT 650 mg amLODIPine (NORVASC) tablet 10 mg Given 04/15/2019 8:36 AM CDT 10 mg 10 mg, Oral, DAILY, First dose on Mon04/10/19 at 0900, Until Discontinued, Routine Given 04/14/2019 9:19 AM CDT 10 mg Given 04/13/2019 8:30 AM CDT 10 mg ampicillin (POLYCILLIN-N) 2,000 mg in NaCl Given 04/15/2019 12:21 PM CDT 2, 000 mg 0.9% (NS) 100 mL MINI-BAG 2,000 mg, IV Piggyback, Q4H ABX, First dose on Mon04/09/19 at 1200, Until Discontinued, 100 mL, Reason for Anti-Infective: Documented Infection, Documented Infection Site: Blood, Duration of Therapy: 7 days Given 04/15/2019 8:37 AM CDT 2,000 mg Given 04/15/2019 4:48 AM CDT 2,000 mg bisacodyl (DULCOLAX) suppository 10 mg 10 mg, Rectal, QDAILYPRN, Starting 04/07/19 at 1027, Until Discontinued, Routine, Constipation, Constipation unresolved by oral medications carvedilol (COREG) tablet 12.5 mg Given 04/15/2019 8:36 AM CDT 12.5 mg 12.5 mg, Oral, BID MEALS, First dose on Mon04/05/19 at 0800, Until Discontinued, Routine Given 04/14/2019 4:30 PM CDT 12.5 mg Given 04/14/2019 9:19 AM CDT 12.5 mg fluticasone propionate 50 mcg/actuation Given 04/14/2019 9:19 AM CDT 1 Rosine nasal spray 1 Rosine 1 Rosine, Nasal, DAILY, First dose on Mon04/13/19 at 0900, Until Discontinued, Routine Given 04/13/2019 12:35 PM CDT 1 Rosine gabapentin (NEURONTIN) capsule 900 mg Given 04/15/2019 8:36 AM CDT 900 mg 900 mg, Oral, TID, First dose on Mon04/11/19 at 1400, Until Discontinued, Routine Given 04/14/2019 8:24 PM CDT 900 mg Given 04/14/2019 4:30 PM CDT 900 mg heparin injection 5,000 Units Given 04/10/2019 8:55 PM CDT 5,000 Units Abdomen-SC 5,000 Units, Subcutaneous, Q12H, First dose on Mon04/10/19 at 2000, Until Discontinued, Routine ipratropium-albuterol (DUONEB) 0.5 mg-3 mg(2.5 mg base)/3 mL nebulizer solution 3 mL 3 mL, Inhalation, Q4HPRN, Starting 04/06/19 at 1300, Until Discontinued, Routine, Wheezing, Shortness of Breath, Bronchospasm, Chest tightness levothyroxine (SYNTHROID) tablet 150 mcg Given 04/15/2019 5:26 AM CDT 150 mcg 150 mcg, Oral, QAM-0600, First dose on Mon04/05/19 at 0600, Until Discontinued, Routine Given 04/14/2019 6:09 AM CDT 150 mcg Given 04/13/2019 6:31 AM CDT 150 mcg lisinopril (PRINIVIL,ZESTRIL) tablet 20 mg Given 04/15/2019 8:36 AM CDT 20 mg 20 mg, Oral, BID, First dose on Mon04/15/19 at 0800, Until Discontinued, Routine NaCl 0.9% (NS) injection 10 mL 10 mL, Slow IV Push, PRN, Starting Mon04/10/19 at 0712, Until Discontinued, 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, 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 pantoprazole (PROTONIX) EC tablet 40 mg Given 04/15/2019 8:36 AM CDT 40 mg 40 mg, Oral, BID, First dose on Mon04/04/19 at 2000, Until Discontinued, Routine Given 04/14/2019 8:23 PM CDT 40 mg Given 04/14/2019 9:19 AM CDT 40 mg Polyethylene Glycol 3350 (MIRALAX) powder 17 g Given 04/09/2019 8:01 AM CDT 17 g 17 g, Oral, DAILY, First dose on Mon04/07/19 at 1030, Until Discontinued, Routine Given 04/08/2019 5:53 PM CDT 17 g Given 04/07/2019 12:09 PM CDT 17 g proCHLORperazine (COMPAZINE) 5 mg in NaCl 0.9% Given 04/08/2019 7:47 AM CDT 5 mg (NS) piggyback 5 mg, IV Piggyback, Q8HPRN, Starting 04/07/19 at 1353, Until Discontinued, 50 mL Given 04/07/2019 2:47 PM CDT 5 mg ramelteon (ROZEREM) tablet 8 mg Given 04/06/2019 11:01 PM CDT 8 mg 8 mg, Oral, QHSPRN, Starting 04/06/19 at 1620, Until Discontinued, Routine, Insomnia ranitidine (ZANTAC) syrup 150 mg Given 04/15/2019 8:35 AM CDT 150 mg 150 mg, Oral, Q12H, First dose on Karolina 04/04/19 at 2000, Until Discontinued Given 04/14/2019 8:24 PM CDT 150 mg Given 04/14/2019 9:19 AM CDT 150 mg rosuvastatin (CRESTOR) tablet 40 mg Given 04/14/2019 8:24 PM CDT 40 mg 40 mg, Oral, QHS, First dose on Mon04/04/19 at 2100, Until Discontinued, Routine Given 04/13/2019 8:02 PM CDT 40 mg Given 04/12/2019 7:52 PM CDT 40 mg sennosides (SENOKOT) tablet 8.6 mg 8.6 mg, Oral, QDAILYPRN, Starting 04/12/19 at 0915, Until Discontinued, Routine, Constipation Sliding Scale Insulin - Aspart Given 04/15/2019 12:24 PM CDT 1 Units Left Arm (NOVOLOG) + Fsbg Testing Subcutaneous, TID MEALS+HS, First dose on [place] 04/04/19 at 2100, Until Discontinued, Routine Given 04/14/2019 12:46 PM CDT 2 Units Abdomen-SC Given 04/10/2019 8:55 PM CDT 1 Units Abdomen-SC sucralfate (CARAFATE) tablet 1 g Given 04/15/2019 12:21 PM CDT 1 g 1 g, Oral, AC+HS, First dose on [place] 04/04/19 at 2100, Until Discontinued, Routine Given 04/15/2019 8:36 AM CDT 1 g Given 04/14/2019 8:23 PM CDT 1 g tamsulosin (FLOMAX) capsule 0.4 mg Given 04/15/2019 8:36 AM CDT 0.4 mg 0.4 mg, Oral, DAILY, First dose on Mon04/05/19 at 0900, Until Discontinued, Routine Given 04/14/2019 9:19 AM CDT 0.4 mg Given 04/13/2019 8:30 AM CDT 0.4 mg Medication Order MAR Action Action Date Dose Rate Site acetaminophen (TYLENOL) tablet Given 04/13/2019 8:02 PM CDT 650 mg 650 mg 650 mg, Oral, ONCE, 1 dose, 04/13/19 at 1900, Routine ampicillin (POLYCILLIN-N) 2,000 mg in NaCl Given 04/07/2019 7:52 AM CDT 2, 000 mg 0.9% (NS) 100 mL MINI-BAG 2,000 mg, IV Piggyback, Q4H, First dose on [place] 04/04/19 at 1600, Until Discontinued, 100 mL, Reason for Anti-Infective: Documented Infection, Documented Infection Site: Blood, Duration of Therapy: 7 days Given 04/07/2019 4:16 AM CDT 2,000 mg Given 04/07/2019 1:21 AM CDT 2,000 mg ampicillin (POLYCILLIN-N) 2,000 mg in NaCl Given 04/09/2019 8:07 AM CDT 2, 000 mg 0.9% (NS) 100 mL MINI-BAG 2,000 mg, IV Piggyback, Q6H ABX, First dose on Mon04/07/19 at 1400, Until Discontinued, 100 mL, Reason for Anti-Infective: Documented Infection, Documented Infection Site: Blood, Duration of Therapy: 7 days Given 04/09/2019 3:06 AM CDT 2,000 mg Given 04/08/2019 9:04 PM CDT 2,000 mg FENTanyl PF (SUBLIMAZE (PF)) injection Given 04/09/2019 10:39 AM CDT 25 mcg Slow IV Push, TITRATE - FOR PROCEDURE USE, 1 dose, Starting Mon04/09/19 at 1039, Until Mon04/09/19 at 1039, Routine furosemide (LASIX) injection 40 mg Given 04/05/2019 11:12 PM CDT 40 mg 40 mg, Slow IV Push, ONCE, 1 dose, Mon04/05/19 at 2345, Routine furosemide (LASIX) injection 40 mg Given 04/06/2019 7:35 PM CDT 40 mg 40 mg, Slow IV Push, ONCE, 1 dose, 04/06/19 at 2000, Routine furosemide (LASIX) tablet 40 mg Given 04/06/2019 8:11 AM CDT 40 mg 40 mg, Oral, QAM+PM, First dose on 04/06/19 at 0900, Until Discontinued, Routine gabapentin (NEURONTIN) capsule 600 mg Given 04/11/2019 8:52 AM CDT 600 mg 600 mg, Oral, TID, First dose on 04/07/19 at 2000, Until Discontinued, Routine Given 04/10/2019 8:54 PM CDT 600 mg Given 04/10/2019 12:48 PM CDT 600 mg gabapentin (NEURONTIN) capsule 900 mg Given 04/07/2019 7:51 AM CDT 900 mg 900 mg, Oral, TID, First dose on [place] 04/04/19 at 2000, Until Discontinued, Routine Given 04/06/2019 7:34 PM CDT 900 mg Given 04/06/2019 1:16 PM CDT 900 mg guaiFENesin 100 mg/5 mL solution 200 mg Given 04/06/2019 9:40 AM CDT 200 mg 200 mg, Oral, Q4HPRN, Starting Mon04/05/19 at 2220, Until 04/06/19 at 0952, Routine, Cough, Congestion Given 04/05/2019 10:35 PM CDT 200 mg heparin injection 5,000 Units Given 04/07/2019 8:09 PM CDT 5,000 Units Abdomen-SC 5,000 Units, Subcutaneous, Q12H, First dose on [place] 04/04/19 at 2000, Until Discontinued, Routine HYDROcodone-acetaminophen (NORCO 5) 5-325 Given 04/06/2019 8:40 AM CDT 1 tablet mg tablet 1 tablet 1 tablet, Oral, Q6HPRN, Starting Mon04/05/19 at 0804, Until 04/06/19 at 1252, Routine, Pain (scale 4-6), Pain (scale 7-10) Given 04/05/2019 5:55 PM CDT 1 tablet Given 04/05/2019 8:59 AM CDT 1 tablet HYDROcodone-acetaminophen (NORCO) 10-325 Given 04/07/2019 7:52 AM CDT 1 tablet mg tablet 1 tablet 1 tablet, Oral, Q6HPRN, Starting 04/06/19 at 1251, Until [place] 04/07/19 at 0841, Routine, Pain (scale 7-10) Given 04/07/2019 1:20 AM CDT 1 tablet Given 04/06/2019 7:32 PM CDT 1 tablet HYDROcodone-acetaminophen (NORCO) 10-325 Given 04/08/2019 4:37 PM CDT 1 tablet mg tablet 1 tablet 1 tablet, Oral, Q6HPRN, Starting [place] 04/07/19 at 0840, Until Mon04/09/19 at 0950, Routine, Pain (scale 7-10) Given 04/07/2019 3:59 PM CDT 1 tablet ipratropium-albuterol (DUONEB) 0.5 mg-3 mg(2.5 Given 04/06/2019 11:39 AM CDT 3 mL mg base)/3 mL nebulizer solution 3 mL 3 mL, Inhalation, Q6HPRN, Starting 04/06/19 at 0944, Until 04/06/19 at 1252, Routine, Wheezing, Shortness of Breath ipratropium-albuterol (DUONEB) 0.5 mg-3 mg(2.5 Given 04/07/2019 7:33 AM CDT 3 mL mg base)/3 mL nebulizer solution 3 mL 3 mL, Inhalation, BID, First dose on 04/06/19 at 2000, Until Discontinued, Routine Given 04/06/2019 7:23 PM CDT 3 mL ipratropium-albuterol (DUONEB) 0.5 mg-3 mg(2.5 Given 04/10/2019 7:57 AM CDT 3 mL mg base)/3 mL nebulizer solution 3 mL 3 mL, Inhalation, TID, First dose on [place] 04/07/19 at 1400, Until Discontinued, Routine Given 04/09/2019 8:05 PM CDT 3 mL Given 04/09/2019 12:53 PM CDT 3 mL KCL (KLOR-CON M20) tablet 40 mEq Given 04/05/2019 3:59 PM CDT 40 mEq 40 mEq, Oral, Q4H, 2 doses, First dose on Mon04/05/19 at 1200, Last dose on Mon04/05/19 at 1600, Routine Given 04/05/2019 11:14 AM CDT 40 mEq KCL 20 mEq/15 mL solution 40 mEq Given 04/10/2019 9:13 AM CDT 40 mEq 40 mEq, Oral, ONCE, 1 dose, Mon04/10/19 at 0815, Routine KCL 20 mEq/15 mL solution 40 mEq Given 04/12/2019 8:16 AM CDT 40 mEq 40 mEq, Oral, ONCE, 1 dose, Mon04/12/19 at 0845, Routine lactated ringers IV infusion 250 mL New Bag 04/07/2019 3:53 PM CDT 250 mL 75 mL/hr at 75 mL/hr, 250 mL, Intravenous, ONCE, 1 dose, 04/07/19 at 1415, Routine lactated ringers IV infusion 500 mL New Bag 04/08/2019 11:53 AM CDT 500 mL 75 mL/hr at 75 mL/hr, 500 mL, IV Infusion, ONCE, 1 dose, 04/08/19 at 1045, Routine lactulose (CEPHULAC) solution 30 mL Given 04/07/2019 12:09 PM CDT 30 mL 30 mL, Oral, ONCE, 1 dose, 04/07/19 at 1130, Routine lidocaine (LIDODERM) 5 % (700 mg/patch) Applied 04/06/2019 11:00 AM CDT 1 Patch patch 1 Patch 1 Patch, Topical, Administer over 12 Hours, ONCE, 1 dose, 04/06/19 at 1100, Routine lidocaine 1% (PF) (XYLOCAINE) Given 04/10/2019 11:50 AM CDT 5 mL Right Arm injection 5 mL 5 mL, Subcutaneous, ONCE, 1 dose, Mon04/10/19 at 0715, Routine lidocaine 4% (XYLOCAINE) 4 % (40 mg/mL) Given 04/09/2019 10:37 AM CDT 10 mL topical solution Topical, TITRATE - FOR PROCEDURE USE, 1 dose, Starting Mon04/09/19 at 1037, Until Mon04/09/19 at 1037, Routine lisinopril (PRINIVIL,ZESTRIL) tablet 10 mg Given 04/14/2019 8:24 PM CDT 10 mg 10 mg, Oral, BID, First dose on 04/13/19 at 2000, Until Discontinued, Routine Given 04/14/2019 9:19 AM CDT 10 mg Given 04/13/2019 8:02 PM CDT 10 mg lisinopril (PRINIVIL,ZESTRIL) tablet 5 mg Given 04/06/2019 8:12 AM CDT 5 mg 5 mg, Oral, BID, First dose on Mon04/05/19 at 0800, Until Discontinued, Routine Given 04/05/2019 8:51 PM CDT 5 mg Given 04/05/2019 7:52 AM CDT 5 mg lisinopril (PRINIVIL,ZESTRIL) tablet 5 mg Given 04/13/2019 8:30 AM CDT 5 mg 5 mg, Oral, BID, First dose on Mon04/11/19 at 1130, Until Discontinued, Routine Given 04/12/2019 7:52 PM CDT 5 mg Given 04/12/2019 8:17 AM CDT 5 mg LORazepam (ATIVAN) injection 0.25 mg Given 04/10/2019 11:30 AM CDT 0.25 mg 0.25 mg, Slow IV Push, ONCE, 1 dose, Mon04/10/19 at 1115, Routine magnesium oxide (MAG-OX 400) 40 mg/mL oral Given 04/12/2019 12:48 PM CDT 400 mg suspension 400 mg 400 mg, Oral, ONCE, 1 dose, Mon04/12/19 at 0815, Routine magnesium sulfate in water 4 gram/50 mL (8 %) New Bag 04/05/2019 11:14 AM CDT 4 g IV Piggyback 4 g 4 g, IV Piggyback, ONCE, 1 dose, Mon04/05/19 at 0800, Routine midazolam (VERSED) injection Given 04/09/2019 10:39 AM CDT 1 mg IV Push, TITRATE - FOR PROCEDURE USE, 1 dose, Starting Mon04/09/19 at 1039, Until Mon04/09/19 at 1039, Routine NaCl 0.9% (NS) IV infusion New Bag 04/09/2019 10:18 AM CDT 50 mL/hr 50 mL/hr IV Infusion, CONTINUOUS PRN, Starting Mon04/09/19 at 1018, Until Mon04/09/19 at 1018, Routine oseltamivir (TAMIFLU) capsule 75 mg Given 04/06/2019 8:11 AM CDT 75 mg 75 mg, Oral, BID, 4 doses, First dose on Mon19 at 2000, Last dose on Mon04/06/19 at 0800, Routine Given 04/05/2019 8:52 PM CDT 75 mg Given 04/05/2019 7:52 AM CDT 75 mg oseltamivir (TAMIFLU) capsule 75 mg Given 04/09/2019 7:49 PM CDT 75 mg 75 mg, Oral, BID, 5 doses, First dose on [place] 04/07/19 at 2000, Last dose on Mon04/09/19 at 2000, Routine Given 04/09/2019 8:02 AM CDT 75 mg Given 04/08/2019 8:58 PM CDT 75 mg pneumococcal vac polyvalent Given 04/15/2019 12:22 PM CDT 0.5 mL Left Arm (PNEUMOVAX-23) injection 0.5 mL 0.5 mL, Intramuscular, ONCE, 1 dose, 04/15/19 at 1115, Routine sennosides (SENOKOT) tablet 8.6 mg Given 04/12/2019 8:16 AM CDT 8.6 mg 8.6 mg, Oral, DAILY, First dose on [place] 04/07/19 at 1030, Until Discontinued, Routine Given 04/09/2019 8:01 AM CDT 8.6 mg Given 04/08/2019 7:43 AM CDT 8.6 mg simethicone (GAS RELIEF) chewable tablet 80 Given 04/09/2019 8:02 AM CDT 80 mg mg 80 mg, Oral, PC+HS, 8 doses, First dose on [place] 04/07/19 at 1800, Last dose on Mon04/09/19 at 1300, Routine Given 04/08/2019 8:58 PM CDT 80 mg Given 04/08/2019 5:53 PM CDT 80 mg sodium chloride 7% (HYPER-QUINTIN) nebulizer Given 04/06/2019 7:24 PM CDT 4 mL solution 4 mL 4 mL, Inhalation, ONCE AT 2000, 1 dose, [facility] 04/06/19 at 2000, Routine sodium chloride 7% (HYPER-QUINTIN) nebulizer Given 04/06/2019 10:08 AM CDT 4 mL solution 4 mL 4 mL, Inhalation, ONCE, 1 dose, [facility] 04/06/19 at 1100, Routine sulfamethoxazole-trimethoprim (BACTRIM IV) Given 04/06/2019 4:42 AM CDT 405 mg 400-80 mg/5 mL 405 mg in D5W piggyback 405 mg, IV Piggyback, Q8H ABX, First dose on Mon04/05/19 at 2000, Until Discontinued, 632.8125 mL, Reason for Anti-Infective: Documented Infection, Documented Infection Site: Blood, Duration of Therapy: 14 days Given 04/05/2019 10:35 PM CDT 405 mg traMADol (ULTRAM) tablet 50 mg Given 04/05/2019 8:00 AM CDT 50 mg 50 mg, Oral, Q8HPRN, Starting [place] 04/04/19 at 1828, Until Mon04/05/19 at 0805, Routine, Pain (scale 4-6) Given 04/04/2019 8:54 PM CDT 50 mg traMADol (ULTRAM) tablet 50 mg Given 04/06/2019 9:56 AM CDT 50 mg 50 mg, Oral, ONCE, 1 dose, 04/06/19 at 1045, Routine traMADol (ULTRAM) tablet 50 mg Given 04/06/2019 9:42 PM CDT 50 mg 50 mg, Oral, ONCE, 1 dose, 04/06/19 at 2145, Routine traMADol (ULTRAM) tablet 50 mg Given 04/11/2019 9:08 AM CDT 50 mg 50 mg, Oral, Q6HPRN, Starting 04/07/19 at 0840, Until [place] 04/11/19 at 0938, Routine, Pain (scale 4-6) Given 04/11/2019 3:24 AM CDT 50 mg Given 04/08/2019 2:23 AM CDT 50 mg traMADol (ULTRAM) tablet 50 mg Given 04/15/2019 4:49 AM CDT 50 mg 50 mg, Oral, Q8HPRN, 2 doses, Starting 04/14/19 at 2103, Until 04/15/19 at 0449, Routine, Pain (scale 4-6), Pain (scale 7-10) Given 04/14/2019 9:16 PM CDT 50 mg vancomycin (VANCOCIN) 1,500 mg in NaCl Given 04/05/2019 11:51 PM CDT 1,500 mg 0.9% (NS) 250 mL piggyback 1,500 mg (rounded from 1,564.5 mg=15 mg/kg 104.3 kg), IV Piggyback, Q12H ABX, First dose on Mon04/05/19 at 2300, Until Discontinued, 250 mL, Reason for Anti-Infective: Empiric Therapy for Suspected Infection, Empiric Therapy Site: Blood, Duration of therapy: 72 hours documented in this encounter Insurance Payer Benefit Plan / Subscriber ID Effective Phone Address Type Group Dates [employer] MEDICARE [id number] 2018-Prese Medicare Adv HEALTHCARE - COMPLETE nt HMO MANAGED MEDICARE documented as of this encounter Advance Directives Name Relationship Healthcare Agent Communication Relationship Pennie Srivastava Spouse Primary healthcare agent [email or web address]
--- OUTSIDE RECORDS SUMMARY | 2019-04-30 21:59 | XMS REPORT | Summary of Care ---
:1955 Author Organization [facility] Address [address] [place] [address] Care Team Providers Name Role Phone Mary Weston MD Primary Care Provider Opal Nicolas RN Primary Nurse Unavailable Opal Nicolas RN Primary Nurse Unavailable Reason for Visit Reason Comments Refill Request Encounter Details Date Type Department Care Team Description 04/25/2019 Telephone [facility] Pediatric and Mary Weston, Refill Request Adult Primary Care- [place] [address] [facility] [address] [facility] , [facility] [address] [place] [address] [place] [id number] Allergies Active Allergy Reactions Severity Noted Date Comments Pregabalin Unknown - See comments 04/13/2018 Affected thinking processes severely Morphine Other - See comments 03/23/2016 Severe confusion Montelukast Hives 03/19/2019 documented as of this encounter (statuses as of 04/26/2019) Medications Medication Sig Dispensed Refills Start Date [...] E11.9 (Brand upon insurance approval) Accu-chek guide metFORMIN 500 [...] without DINNER. long-term current use of insulin amLODIPine 10 mg tablet Take 10 mg [...] MOUTH AT Hyperlipidemia, BEDTIME unspecified hyperlipidemia type lisinopril 20 mg Take 1 tablet 60 tablet 2 04/15/2019 Active tabletIndications: by mouth 2 Essential hypertension (two) times daily. predniSONE 20 mg 2 tabs now and 10 tablet 3 04/26/2019 Active tabletIndications: Gout 2 tabs early of left wrist, each morning unspecified cause, for total of 5 unspecified chronicity doses. For gout. 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 Anemia, unspecified type 03/28/2019 Overview: Added automatically from request for surgery [id number] Infection 03/09/2019 Iron deficiency anemia, unspecified iron deficiency anemia type 03/07/2019 Overview: Added automatically from request for surgery [id number] Upper GI bleeding 03/01/2019 Dysarthria 07/24/2018 Dysphagia, unspecified type 07/24/2018 Overview: Added automatically from request for surgery [id number] Hypokalemia 06/02/2018 GARIBAY (dyspnea on exertion) 06/02/2018 Melena 05/05/2018 Hypertensive urgency 05/02/2018 Nausea & vomiting 05/01/2018 Weakness 01/29/2018 Confusion 01/26/2018 Coronary artery disease involving [place] coronary artery of [place] heart 06/14 without angina pectoris Carotid artery [...] activity and Weight loss counseling if needed, [place] Heart diet, Home monitoring of blood pressures, Follow up with primary provider Medications: carvedilol, clonidine, lisinopril, spironolactone, furosemide Hyperlipidemia 04/18/2016 Overview: Overview: Increase activity, [place] Heart diet, monitoring of levels by primary [...] as of this encounter (statuses as of 04/26/2019) Resolved Problems Problem Noted Date Resolved Date [...] Treatment: compliant on CPAP Coronary arteriosclerosis in [place] artery 04/18/2016 07/02/2017 Hypertension 04/18/2016 10/19/2016 Morbid obesity 04/18/2016 07/02/2017 Overview: Overview: Counseling on diet and exercise Sleep apnea 04/18/2016 10/19/2016 Type 2 diabetes mellitus 04/18/2016 10/19/2016 Overview: Overview: [place] Diabetic Diet, monitor blood glucose levels, Diabetic [...] as of this encounter (statuses as of 04/26/2019) Immunizations Name Administration Dates Next Due Influenza [...] Treatment Date Type Specialty Care Team Description 05/06/2019 Office Visit Internal Medicine Mary Weston MD [address] [place] [address] Dr Schwarz [address] [place] [address] [id number] Health Maintenance Due Date Last Done Comments LDL-C 03/05/2019 03/05/2018, 10/12/2016 Medicare Wellness Visit 2019 URINE MICROALBUMIN 04/13/2019 04/13/2018, 03/05/2018 INFLUENZA VACCINE [...] 04/14/2020 04/14/2019, 04/12/2019, 04/11/2019, Additional history exists PNEUMOCOCCAL VACCINES 65+ 04/15/2020 04/15/2019, 12/08/2012 (2 of 2 - PCV13) HEPATITIS C (HCV) SCREEN Completed 09/10/2010 documented as of this encounter Implants Implanted Type Area Machine Design Engineer Device Shelf Expiration Model / Identifier Date Serial / Lot Plate PLATE Neck Alana ALANA Leg Stent-09/07/2013 STENT Heart Implanted: Qty: 3 on 09/07/2013 documented as of this encounter Results Not on filedocumented in this encounter Visit Diagnoses Diagnosis Gout of left wrist, unspecified cause, unspecified chronicity documented in this encounter Insurance Payer Benefit Plan / Subscriber ID Effective Phone Address Type Group Dates [employer] MEDICARE [id number] 2018-Prese Medicare Adv HEALTHCARE - COMPLETE [facility] MEDICARE documented as of this encounter Advance Directives Name Relationship Healthcare Agent Communication Relationship Pennie Srivastava Spouse Primary healthcare agent [email or web address]
--- OUTSIDE RECORDS SUMMARY | 2019-04-30 21:59 | XMS REPORT | Summary of Care ---
:1955 Author Organization [facility] Address [address] [place] [address] Care Team Providers Name Role Phone Mary Weston MD Primary Care Provider Opal Nicolas RN Primary Nurse Unavailable Opal Nicolas RN Primary Nurse Unavailable Encounter Details Date Type Department Care Team Description 04/24/2019 Letter (Out) Medicine (ARVIN 10C) Teresa Yun MD [address] [place] [address] Allergies Active Allergy Reactions Severity Noted Date Comments Pregabalin Unknown - See comments 04/13/2018 Affected thinking processes severely Morphine Other - See comments 03/23/2016 Severe confusion Montelukast Hives 03/19/2019 documented as of this encounter (statuses as of 04/24/2019) Medications Medication Sig Dispensed Refills Start Date [...] mouth 2 Essential hypertension (two) times daily. 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 Anemia, unspecified type 03/28/2019 Overview: Added automatically from request for surgery [id number] Infection 03/09/2019 Iron deficiency anemia, unspecified iron deficiency anemia type 03/07/2019 Overview: Added automatically from request for surgery [id number] Upper GI bleeding 03/01/2019 Dysarthria 07/24/2018 Dysphagia, unspecified type 07/24/2018 Overview: Added automatically from request for surgery [id number] Hypokalemia 06/02/2018 GARIBAY (dyspnea on exertion) 06/02/2018 Melena 05/05/2018 Hypertensive urgency 05/02/2018 Nausea & vomiting 05/01/2018 Weakness 01/29/2018 Confusion 01/26/2018 Coronary artery disease involving [place] coronary artery of [place] heart 06/14 without angina pectoris Carotid artery [...] activity and Weight loss counseling if needed, [place] Heart diet, Home monitoring of blood pressures, Follow up with primary provider Medications: carvedilol, clonidine, lisinopril, spironolactone, furosemide Hyperlipidemia 04/18/2016 Overview: Overview: Increase activity, [place] Heart diet, monitoring of levels by primary [...] as of this encounter (statuses as of 04/24/2019) Resolved Problems Problem Noted Date Resolved Date [...] Treatment: compliant on CPAP Coronary arteriosclerosis in [place] artery 04/18/2016 07/02/2017 Hypertension 04/18/2016 10/19/2016 Morbid obesity 04/18/2016 07/02/2017 Overview: Overview: Counseling on diet and exercise Sleep apnea 04/18/2016 10/19/2016 Type 2 diabetes mellitus 04/18/2016 10/19/2016 Overview: Overview: [place] Diabetic Diet, monitor blood glucose levels, Diabetic [...] as of this encounter (statuses as of 04/24/2019) Immunizations Name Administration Dates Next Due Influenza [...] filedocumented in this encounter Plan of Treatment Health Maintenance Due Date Last Done Comments [...] of this encounter Implants Implanted Type Area Commercial Counsel Device Shelf Expiration Model / Identifier Date Serial / Lot Plate PLATE Neck Alana ALANA Leg Stent-09/07/2013 STENT Heart Implanted: Qty: 3 on 09/07/2013 documented as of this encounter Results Not on filedocumented in this encounter Insurance Payer Benefit Plan / Subscriber ID Effective Phone Address Type Group Dates [facility] MEDICARE [id number] 2018-Prese Medicare Adv HEALTHCARE - COMPLETE nt [facility] MANAGED MEDICARE documented as of this encounter Advance Directives Name Relationship Healthcare Agent Communication Relationship Pennie Srivastava Spouse Primary healthcare agent [email or web address]
[2019-04-30 22:32] LABS: Basophils % 1.3 % (0-1.3); Hematocrit 30.5 % (39.6-49.0); Lymphocytes % 28.6 % (15.3-44.8); MPV 10.2 fL (7.6-11.3)
[2019-04-30 22:39] LABS: Protime INR 0.93
[2019-04-30 23:07] LABS: ALT/SGPT 25 U/L (12-78); AST/SGOT 11 U/L (15-37); Albumin 3.4 g/dL (3.4-5.0); Alkaline Phosphatase 59 U/L (45-117); BUN Blood Urea Nitrogen 13 mg/dL (7-18); Bicarbonate 29 mmol/L (21-32); Bilirubin Direct < 0.1 mg/dL (0-0.2); Bilirubin Total 0.2 mg/dL (0.2-1.0); CKMB Creatine Kinase MB < 1.0 ng/mL (0.3-3.6); Creatine Phosphokinase 36 U/L (39-308); Glucose Level 166 mg/dL (74-106); Lipase 323 U/L (73-393); Magnesium 1.9 mg/dL (1.8-2.4); NT PRO-BNP 331 pg/mL (<125); Potassium 3.3 mmol/L (3.5-5.1); Protein, Total 6.9 g/dL (6.4-8.2); Sodium Level 140 mmol/L (136-145); Troponin (Emerg Dept Use Only) < 0.02 ng/mL (0.0-0.045)
[2019-04-30] MEDS ORDERED: FUROSEMIDE 40 MG/4 ML VIAL ONE (23:58)
--- NOTE | 2019-05-01 01:04 | ER ---
Nurse's Notes [facility] Name: Rafi Srivastava Age: 64 yrs Sex: Male : 1955 Arrival Date: 04/30/2019 Time: 21:52 Bed 7 Private MD: Diagnosis: Edema, not elsewhere classified Presentation: 04/30 21:53 Presenting complaint: EMS states: Patient sent by EMS for increased swelling to lower lp1 legs, increased 7 lbs in 2 days; States shortness of breath when laying flat; Per [place], blood sugars have been elevated in 300's. Transition of care: patient was received from another setting of care ([facility]. Onset of symptoms was April 30, 2019. Risk Assessment: Do you want to hurt yourself or someone else? Patient reports no desire to harm self or others. Initial Sepsis Screen: Does the patient meet any 2 criteria? No. Patient's initial sepsis screen is negative. Does the patient have a suspected source of infection? No. Patient's initial sepsis screen is negative. Care prior to arrival: None. 21:53 Method Of Arrival: EMS: [facility] lp1 21:53 Acuity: GABRIELLA 3 lp1 22:04 Note Patient states completed treatment for Listeria. lp1 Historical: - Allergies: 22:16 Morphine; ea 22:16 Lyrica; ea 22:16 Singulair; ea - Home Meds: 22:16 amlodipine 10 mg tab 1 tab once daily [Active]; carvedilol 12.5 mg oral tab 1 tab 2 ea times per day [Active]; furosemide 80 mg Oral tab 1 tab 2 times per day [Active]; gabapentin 300 mg oral cap 3 caps 3 times per day [Active]; glipizide 5 mg Oral tab 1 tab 2 times per day [Active]; hydralazine 100 mg Oral tab 1 tab 3 times per day [Active]; levothyroxine 150 mcg tab 1 tab once daily [Active]; metformin 500 mg Oral tab 1 tab 2 times per day [Active]; nitroglycerin 0.4 mg SL subl 1 tab every 5 minutes [Active]; 22:30 lisinopril 5 mg Oral tab 1 tab twice a day [Active]; magnesium oxide 400 mg Oral tab 1 lp1 tab daily [Active]; potassium chloride 20 mEq Oral TbER 1 tab 2 times per day [Active]; olopatadine 0.1 % ophthalmic drop 1 drop daily [Active]; - PMHx: 22:30 Listeriosis; Hypothyroidism; Diabetes - IDDM; Hypertension; GERD; BPH; lp1 - Immunization history:: Adult Immunizations up to date. - Social history:: Smoking status: Patient/guardian denies using tobacco. - Ebola Screening: : No symptoms or risks identified at this time. Screenin:01 Abuse screen: Denies threats or abuse. Denies injuries from another. Nutritional lp1 screening: No deficits noted. Tuberculosis screening: No symptoms or risk factors identified. Fall Risk None identified. Assessment: 22:02 General: Appears in no apparent distress. comfortable, Behavior is calm, cooperative, lp1 appropriate for age. Pain: Denies pain. Neuro: Level of Consciousness is awake, alert, obeys commands, Oriented to person, place, time, situation. Cardiovascular: Patient's skin is warm and dry. Edema is 2+ to left midcalf, left ankle, right midcalf and right ankle. Respiratory: Reports shortness of breath on exertion and when laying flat Respiratory effort is even, Respiratory pattern is regular, symmetrical, Breath sounds are clear bilaterally. GI: No signs and/or symptoms were reported involving the gastrointestinal system. : No signs and/or symptoms were reported regarding the genitourinary system. EENT: No signs and/or symptoms were reported regarding the EENT system. Derm: Skin is pink, warm \T\ dry. Musculoskeletal: No deficits noted. 22:25 Reassessment: Verbal order per Dr. Barroso to cancel blood culture orders. lp1 05/01 00:01 Reassessment: Patient and/or family updated on plan of care and expected duration. Pain ea level reassessed. Patient is alert, oriented x 3, equal unlabored respirations, skin warm/dry/pink. 01:31 Reassessment: Dr. Barroso at bedside to discuss results with patient and . lp1 01:43 Reassessment: Report given to Palak Rodrigues LVN at [facility]. lp1 Vital Signs: 04/30 21:45 BP 169 / 69; Pulse 75; Resp 16; Temp 98.3(O); Pulse Ox 98% on R/A; Weight 105.23 kg; lp1 Height 5 ft. 7 in. (170.18 cm); Pain 0/10; 22:30 BP 134 / 54; Pulse 72; Resp 13; Pulse Ox 98% on R/A; lp1 23:15 BP 122 / 55; Pulse 68; Resp 13; Pulse Ox 95% on R/A; lp1 / 00:00 BP 139 / 68; Pulse 71; Resp 13; Pulse Ox 98% on R/A; lp1 00:45 BP 158 / 68; Pulse 67; Resp 15; Pulse Ox 97% on R/A; Pain 0/10; lp1 04/30 21:45 Body Mass Index 36.34 (105.23 kg, 170.18 cm) lp1 ED Course: 04/30 21:52 Patient arrived in ED. lp1 21:53 Oscar Barroso MD is Attending Physician. tw4 21:59 Triage completed. lp1 22:01 Arm band placed on right wrist. lp1 22:02 Patient has correct armband on for positive identification. Placed in gown. Bed in low lp1 position. sand molder on. Pulse ox on. NIBP on. 22:03 Accessed PICC line. Clean \T\ dry. PICC line in place CENTER DIRECTOR. lp1 22:04 Pham Soriano, RN is Primary Nurse. lp1 05/01 00:07 No provider procedures requiring assistance completed. lp1 00:16 X-ray completed. Portable x-ray completed in exam room. Patient tolerated procedure kw well. 01:36 CXR XRAY In Process Unspecified. EDMS 01:42 PICC line intact to right upper arm. lp1 Administered Medications: 00:01 Drug: Lasix 40 mg Route: IVP; Site: right upper arm; ea 01:15 Follow up: Urine output 750 ml lp1 Point of Care Testing: Blood Glucose: 04/30 21:54 Blood Glucose: 206 mg/dL; lp1 Ranges: Output: 05/01 00:25 Urine: 750ml (Voided); Total: 750ml. lp1 01:15 Urine: 750ml; Total: 1500ml. lp1 01:30 Urine: 700ml (Voided); Total: 2200ml. lp1 Outcome: 00:57 Discharge ordered by . tw4 01:42 Discharged to custodial. with ; lp1 01:42 Condition: good 01:42 Discharge instructions given to patient, significant other, Instructed on discharge instructions, follow up and referral plans. Demonstrated understanding of instructions, follow-up care. 01:44 Patient left the ED. lp1 Signatures: Dispatcher [employer] EDMS Leonela Cuellar Laura RN RN lp1 Shell Mims RN RN ea Wadley, Terrence, MD MD tw4 Corrections: (The following items were deleted from the chart) 04/30 22:03 21:53 Transition of care: patient was not received from another setting of care. lp1 lp1 22:30 22:16 Home Meds: ampicillin sodium 2 gram intravenous solr daily; noelle lp1 : 22:16 Home Meds: lisinopril 5 mg Oral tab 2 tabs once daily; noelle lp1 :30 22:16 Home Meds: magnesium oxide 400 mg Oral tab 400 mg daily; noelle lp1 05/01 00:07 04/30 22:02 Cardiovascular: Patient's skin is warm and dry. lp1 lp1
--- NOTE | 2019-05-01 01:09 | EDPHYS ---
Physician Documentation [facility] Name: Rafi Srivastava Age: 64 yrs Sex: Male : 1955 Arrival Date: 04/30/2019 Time: 21:52 Bed 7 Private MD: ED Physician Oscar Barroso HPI: 04/30 22:14 This 64 yrs old Male presents to ER via EMS with complaints of Leg Swelling. tw4 22:14 The patient presents with swelling. The complaints affect the lateral aspect of left tw4 calf, left calf, medial aspect of left calf and left diego, lateral aspect of right calf, right calf, medial aspect of right calf and right diego. Context: The problem was sustained at home. 22:18 Onset: The symptoms/episode began/occurred 2 day(s) ago. Modifying factors: The tw4 symptoms are alleviated by nothing. the symptoms are aggravated by nothing. Associated signs and symptoms: Pertinent positives: occasional SOB. Severity of symptoms: At their worst the symptoms were moderate, in the emergency department the symptoms are unchanged. The patient has not experienced similar symptoms in the past. Historical: - Allergies: 22:16 Morphine; ea 22:16 Lyrica; ea 22:16 Singulair; ea - Home Meds: 22:16 amlodipine 10 mg tab 1 tab once daily [Active]; carvedilol 12.5 mg oral tab 1 tab 2 ea times per day [Active]; furosemide 80 mg Oral tab 1 tab 2 times per day [Active]; gabapentin 300 mg oral cap 3 caps 3 times per day [Active]; glipizide 5 mg Oral tab 1 tab 2 times per day [Active]; hydralazine 100 mg Oral tab 1 tab 3 times per day [Active]; levothyroxine 150 mcg tab 1 tab once daily [Active]; metformin 500 mg Oral tab 1 tab 2 times per day [Active]; nitroglycerin 0.4 mg SL subl 1 tab every 5 minutes [Active]; 22:30 lisinopril 5 mg Oral tab 1 tab twice a day [Active]; magnesium oxide 400 mg Oral tab 1 lp1 tab daily [Active]; potassium chloride 20 mEq Oral TbER 1 tab 2 times per day [Active]; olopatadine 0.1 % ophthalmic drop 1 drop daily [Active]; - PMHx: 22:30 Listeriosis; Hypothyroidism; Diabetes - IDDM; Hypertension; GERD; BPH; lp1 - Immunization history:: Adult Immunizations up to date. - Social history:: Smoking status: Patient/guardian denies using tobacco. - Ebola Screening: : No symptoms or risks identified at this time. ROS: 22:18 Constitutional: Negative for fever, chills, and weight loss, Eyes: Negative for injury, tw4 pain, redness, and discharge, Cardiovascular: Negative for chest pain, palpitations, and edema, Respiratory: Negative for shortness of breath, cough, wheezing, and pleuritic chest pain, Abdomen/GI: Negative for abdominal pain, nausea, vomiting, diarrhea, and constipation, Back: Negative for injury and pain, Skin: Negative for injury, rash, and discoloration, Neuro: Negative for headache, weakness, numbness, tingling, and seizure. 22:18 MS/extremity: Positive for swelling. Exam: 22:18 Constitutional: This is a well developed, well nourished patient who is awake, alert, tw4 and in no acute distress. Head/Face: Normocephalic, atraumatic. Chest/axilla: Normal chest wall appearance and motion. Nontender with no deformity. No lesions are appreciated. Cardiovascular: Regular rate and rhythm with a normal S1 and S2. No gallops, murmurs, or rubs. Normal PMI, no JVD. No pulse deficits. Respiratory: Lungs have equal breath sounds bilaterally, clear to auscultation and percussion. No rales, rhonchi or wheezes noted. No increased work of breathing, no retractions or nasal flaring. Abdomen/GI: Soft, non-tender, with normal bowel sounds. No distension or tympany. No guarding or rebound. No evidence of tenderness throughout. Back: No spinal tenderness. No costovertebral tenderness. Full range of motion. Neuro: Awake and alert, GCS 15, oriented to person, place, time, and situation. Cranial nerves II-XII grossly intact. Motor strength 5/5 in all extremities. Sensory grossly intact. Cerebellar exam normal. Normal gait. 22:18 Musculoskeletal/extremity: Extremities: noted in the lateral aspect of left calf, left calf, medial aspect of left calf and left diego: swelling, noted in the lateral aspect of right calf, right calf, medial aspect of right calf and right diego: swelling, ROM: no acute changes, Circulation is intact in all extremities. Sensation intact. Vital Signs: 21:45 BP 169 / 69; Pulse 75; Resp 16; Temp 98.3(O); Pulse Ox 98% on R/A; Weight 105.23 kg; lp1 Height 5 ft. 7 in. (170.18 cm); Pain 0/10; 22:30 BP 134 / 54; Pulse 72; Resp 13; Pulse Ox 98% on R/A; lp1 23:15 BP 122 / 55; Pulse 68; Resp 13; Pulse Ox 95% on R/A; lp1 05/01 00:00 BP 139 / 68; Pulse 71; Resp 13; Pulse Ox 98% on R/A; lp1 00:45 BP 158 / 68; Pulse 67; Resp 15; Pulse Ox 97% on R/A; Pain 0/10; lp1 04/30 21:45 Body Mass Index 36.34 (105.23 kg, 170.18 cm) lp1 MDM: 04/30 21:53 Patient medically screened. tw4 05/01 06:50 Data reviewed: vital signs, nurses notes. Data interpreted: Pulse oximetry: is not tw4 applicable for this patient encounter. Counseling: I had a detailed discussion with the patient and/or guardian regarding: the historical points, exam findings, and any diagnostic results supporting the discharge/admit diagnosis, lab results, radiology results. Special discussion: I discussed with the patient/guardian in detail that at this point there is no indication for admission to the hospital. It is understood, however, that if the symptoms persist or worsen the patient needs to return immediately for re-evaluation. 04/30 21:53 Order name: BMP; Complete Time: 23:23 tw4 04/30 23:23 Interpretation: Normal except: K 3.3; GLUC 166; GFR 73. tw4 04/30 21:53 Order name: CBC with Diff; Complete Time: 23:23 tw4 04/30 23:23 Interpretation: Normal except: WBC 7.2; RBC 3.50; HGB 10.1; HCT 30.5. tw4 04/30 21:53 Order name: Ckmb; Complete Time: 23:25 tw4 04/30 23:25 Interpretation: Within normal limits: CKMB < 1.0. tw4 04/30 21:53 Order name: CPK; Complete Time: 23:24 04/30 23:25 Interpretation: Within normal limits: CPK 36. 04/30 21:53 Order name: Hepatic Function; Complete Time: 23:25 04/30 23:25 Interpretation: Normal except: AST 11; A/G 1.0. 04/30 21:53 Order name: Lipase; Complete Time: 23:31 04/30 23:31 Interpretation: Within normal limits: LIP 323. 04/30 21:53 Order name: Magnesium; Complete Time: 23:31 04/30 23:31 Interpretation: Within normal limits: MG 1.9. 04/30 21:53 Order name: NT PRO-BNP; Complete Time: 23:25 04/30 23:25 Interpretation: Within normal limits: NT PRO-BNP 331. 04/30 21:53 Order name: PT-INR; Complete Time: 23:31 04/30 23:31 Interpretation: Within normal limits: PT 11.0. 04/30 21:53 Order name: Ptt, Activated; Complete Time: 23:31 04/30 23:31 Interpretation: Within normal limits: PTT 31.0. 04/30 21:53 Order name: Troponin (emerg Dept Use Only); Complete Time: 23:31 04/30 23:32 Interpretation: Within normal limits: TROPED < 0.02. 04/30 23:47 Order name: CXR XRAY 04/30 21:53 Order name: EKG; Complete Time: 21:55 04/30 21:53 Order name: Cardiac monitoring; Complete Time: 22:05 04/30 21:53 Order name: EKG - Nurse/Tech; Complete Time: 22:45 04/30 21:53 Order name: IV Saline Lock; Complete Time: 22:05 04/30 21:53 Order name: Labs collected and sent; Complete Time: 22:05 04/30 21:53 Order name: O2 Per Protocol; Complete Time: 22:05 04/30 21:53 Order name: O2 Sat Monitoring; Complete Time: 22:05 EC/03 22:26 Rate is 76 beats/min. Rhythm is regular, Normal Sinus Rhythm with Occasional PVCs. [place] tw4 interval is normal. QRS interval is normal. QT interval is normal. No Q waves. T waves are Normal. No ST changes noted. Clinical impression: Abnormal EKG without significant change and No evidence of ischemia. Interpreted by me. Reviewed by me. Administered Medications: 05/01 00:01 Drug: Lasix 40 mg Route: IVP; Site: right upper arm; ea 01:15 Follow up: Urine output 750 ml lp1 Point of Care Testing: Blood Glucose: 04/30 21:54 Blood Glucose: 206 mg/dL; lp1 Ranges: Critical Glucose Levels:Adult <50 mg/dl or >400 mg/dl <40 mg/dl or >180 mg/dl Disposition: 05/01/19 00:57 Discharged to Home. Impression: Edema, not elsewhere classified. - Condition is Stable. - Discharge Instructions: Peripheral Edema. - Medication Reconciliation Form, Thank You Letter, Antibiotic Education, Prescription Opioid Use form. - Follow up: Private Physician; When: Upon discharge from the Emergency Department; Reason: If symptoms return, Recheck today's complaints, Continuance of care. - Problem is new. - Symptoms have improved. Signatures: Dispatcher [employer] Pham Avila RN RN [facility] Shell Mims RN RN ea Wadley, Terrence, MD MD tw4 Corrections: (The following items were deleted from the chart) 22:29 21:55 BLOOD CULTURE*+[id number].BRZ ordered. [facility] 22:30 22:16 Home Meds: ampicillin sodium 2 gram intravenous solr daily; [facility] 22:30 22:16 Home Meds: lisinopril 5 mg Oral tab 2 tabs once daily; noelle [facility] 22:30 22:16 Home Meds: magnesium oxide 400 mg Oral tab 400 mg daily; noelle [facility] 05/01 01:44 00:57 05/01/2019 00:57 Discharged to Home. Impression: Edema, not elsewhere classified. lp1 Condition is Stable. Forms are Medication Reconciliation Form, Thank You Letter, Antibiotic Education, Prescription Opioid Use. Follow up: Private Physician; When: Upon discharge from the Emergency Department; Reason: If symptoms return, Recheck today's complaints, Continuance of care. Problem is new. Symptoms have improved. tw4
[2019-05-01] MEDS ORDERED: FUROSEMIDE 20 MG TABLET ONE (01:24)
--- NOTE | 2019-05-01 06:42 | RAD REPORT ---
EXAM DESCRIPTION: RAD - Chest Single View - 05/01/2019 12:17 am CLINICAL HISTORY: Shortness of breath COMPARISON: None. TECHNIQUE: AP portable chest image was obtained 0012 hours . FINDINGS: Lungs are clear. Heart and vasculature are normal. No measurable pleural effusion and no p neumothorax. No acute bony abnormality seen. No acute aortic findings suspected. IMPRESSION: No acute cardiopulmonary process.
--- NOTE | 2019-05-01 08:03 | EKG ---
Test Date: 2019-04-30 Test Time: 22:23:04 [employer]ist: [id number] MEASUREMENT RESULTS: Intervals: Rate: 76 VA: 160 QRSD: 140 QT: 414 QTc: 465 [place]: P: 46 VA: 160 QRS: -18 T: 87 INTERPRETIVE STATEMENTS: Sinus rhythm with premature supraventricular complexes Left bundle branch block Abnormal ECG No previous ECG available for comparison Electronically Signed On 05-01-19 08:03:10 CDT by Ruperto Adkins
== END 2019-05-01 01:44 | disposition home or self-care (01) ==
LOC: ER 21:48
DX: R60.9 Edema, unspecified (principal); I10 Essential (primary) hypertension; E11.9 Type 2 diabetes mellitus without complications; E03.9 Hypothyroidism, unspecified; Z88.5 Allergy status to narcotic agent; Z88.8 Allergy status to other drugs, medicaments and biological substances
CPT/HCPCS: 93005; 85025; 80048; 36415; 83735; 82550; 85610; 82962; 80076; 85730; 84484; 82553; 83690; 83880; 71045; 96374; 99285; J1940